=== PATIENT | male | born 1965 | race Asian ===

== ENCOUNTER → 2018-05-02 | Outpatient (CLI) | payer OTHER ==
--- NOTE | 2018-05-02 09:56 | XR ---
EXAMINATION TYPE: XR elbow limited RT DATE OF EXAM: 05/02/2018 CLINICAL HISTORY: pain TECHNIQUE: Frontal, lateral images of the right elbow are obtained. COMPARISON: None. FINDINGS: There is no acute fracture/dislocation evident of the elbow. No abnormal fat pad signs ar e seen. The overlying soft tissue appears unremarkable. IMPRESSION: There is no acute fracture or dislocation of the elbow. ICD 10 NO FRACTURE, INITIAL EVALUATION
== END | disposition home or self-care (01) ==
LOC: RADXRMAIN 09:13
PROVIDERS: ATTEND Orthopaedic Surgery
DX: M25.521 Pain in right elbow (principal)

== ENCOUNTER → 2018-05-18 | Day surgery (SDC) | payer OTHER ==
[2018-05-15 15:07] VITALS: BMI 26.6
[~2018-05-18] MED LIST: LACTATED RINGERS 1,000 ML IV SCH; LIDOCAINE 1% INJ 10MG/ML (20 ML MDV) ONE; PROPOFOL 10 MG/ML 20 ML VIAL IV ONE
[2018-05-18 10:27] VITALS: TEMP 97.8
--- NOTE | 2018-05-18 11:34 | P.GSHP ---
History of Present Illness H&P Date: 05/18/18 Chief Complaint: Colon cancer screening Patient here today for colonoscopy. Last colonoscopy 6-8 years ago. He believes that was normal at that time. No family history of colon cancer. No bowel related complaints. Past Medical History Past Medical History: Asthma, GERD/Reflux, Hyperlipidemia, Skin Disorder Additional Past Medical History / Comment(s): hx ulcers, decreased function of gallbladder, eczema, anemia History of Any Multi-Drug Resistant Organisms: None Reported Past Surgical History: Orthopedic Surgery Additional Past Surgical History / Comment(s): rt shoulder rotator cuff surgery , rt knee arthroscopy Past Anesthesia/Blood Transfusion Reactions: Motion Sickness Smoking Status: Former smoker - Past Family History Father Family Medical History: Deep Vein Thrombosis (DVT) Medications and Allergies Home Medications Medication Instructions Recorded Confirmed Type Albuterol Inhaler [Ventolin Hfa 1 - 2 puff INHALATION DIRECTED 05/15/1805/18 History Inhaler] PRN Atorvastatin [Lipitor] 40 mg PO HS 05/15/18 05/18/18 History Tamsulosin HCl [Flomax] 0.4 mg PO DAILY 05/15/18 05/18/18 History Allergies Allergy/AdvReac Type Severity Reaction Status Date / Time Penicillins Allergy Swelling, Verified 05/18/18 10:17 itching Surgical - Exam Vital Signs Temp Pulse Resp BP Pulse Ox 97.8 F 78 15 142/90 98 05/18/18 10:25 05/18/18 10:25 05/18/18 10:25 05/18/18 10:25 05/18/18 10:25 Physical exam: General: Well-developed, well-nourished HEENT: Normocephalic, sclerae nonicteric Abdomen: Nontender, nondistended Extremities: No edema Neuro: Alert and oriented Assessment and Plan (1) Colon cancer screening Narrative/Plan: Will proceed with colonoscopy Current Visit: Yes Status: Acute Code(s): Z12.11 - ENCOUNTER FOR SCREENING FOR MALIGNANT NEOPLASM OF COLON SNOMED Code(s): 716831250
--- NOTE | 2018-05-18 11:55 | P.PCN ---
Date of Procedure: 05/18/18 Procedure(s) Performed: PREOPERATIVE DIAGNOSIS: Colon cancer screening POSTOPERATIVE DIAGNOSIS: Small sigmoid polyp, diverticulosis PROCEDURE: Colonoscopy with snare polypectomy ANESTHESIA: MAC SURGEON: Jabari Maldonado M.D. SPECIMENS: Sigmoid polyp ENDOSCOPIC PROCEDURE: The patient was placed on the endoscopy table in the left decubitus position. The Olympus colonoscope was inserted into the anus and passed under direct visualization to the base of the cecum. The appendiceal orifice was visualized. From that point the scope was slowly withdrawn inspecting all surfaces carefully. There were no neoplastic inflammatory or polypoid lesions throughout the cecum, ascending, transverse, and descending colon. In the sigmoid colon a small polyp was identified and removed using the snare with cautery technique. The remainder of the sigmoid and rectum appeared normal. There was mild left sided diverticulosis. Digital rectal examination was normal. The patient was taken to the recovery room in stable condition per anesthesia guidelines. RECOMMENDATIONS: Await biopsy results.
[2018-05-18 11:59] VITALS: RESP 18
[2018-05-18 12:36] VITALS: BP 134/89; PULSE 74
== END ==
LOC: ORWHC2ENDO 10:06
PROVIDERS: ATTEND Surgery
DX: Z12.11 Encounter for screening for malignant neoplasm of colon (principal); K63.5 Polyp of colon; K57.90 Diverticulosis of intestine, part unspecified, without perforation or abscess without bleeding; J45.909 Unspecified asthma, uncomplicated; K21.9 Gastro-esophageal reflux disease without esophagitis; N40.0 Benign prostatic hyperplasia without lower urinary tract symptoms; I10 Essential (primary) hypertension; E78.5 Hyperlipidemia, unspecified; L30.9 Dermatitis, unspecified; Z87.891 Personal history of nicotine dependence; Z79.899 Other long term (current) drug therapy; Z88.0 Allergy status to penicillin
CPT/HCPCS: 88305; 45385; J2001; J2704

== ENCOUNTER → 2018-12-05 | Outpatient (CLI) | payer OTHER ==
--- NOTE | 2018-12-06 03:51 | MR ---
EXAMINATION TYPE: MR elbow RT wo con DATE OF EXAM: 12/05/2018 COMPARISON: None HISTORY: R elbow pain Standard multiplanar, multisequence MRI departmental protocol Multiplanar, multisequence images of the right elbow were acquired. FINDINGS: Elbow joint spaces are fairly normal. There is no evidence of elbow joint effusion. Triceps tendon is intact. Biceps tendon is intact. Brachialis tendon is intact. There is no evidence of soft tissue mass. I see no bony destructive process. Radial head is intact. The collateral ligaments appe ar intact. There is minimal subcutaneous edema over the olecranon process of the ulna. IMPRESSION: Minimal subcutaneous edema seen posteriorly. Otherwise negative exam.
== END | disposition home or self-care (01) ==
LOC: RADMRIMAIN 05:58
PROVIDERS: ATTEND Orthopaedic Surgery
DX: R60.0 Localized edema (principal)

== ENCOUNTER 2020-09-01 19:51 | Inpatient (IN) | payer BC ==
[2020-09-01] MEDS ORDERED: ACETAMINOPHEN TAB 500 MG TAB PO STA (22:26)
[2020-09-01] MEDS ORDERED: IBUPROFEN 600 MG TAB PO STA (22:26)
[2020-09-01] MEDS ORDERED: ALBUTEROL HFA INHALER INHALATION STA (23:23)
[2020-09-01] MEDS ORDERED: dexAMETHasone 4 MG TAB PO STA (23:23)
--- NOTE | 2020-09-01 23:24 | ED ---
SOB HPI - General Chief Complaint: Shortness of Breath Stated Complaint: SOB Time Seen by Provider: 09/01/20 23:18 Source: patient, RN notes reviewed, old records reviewed Mode of arrival: ambulatory Limitations: no limitations - History of Present Illness Initial Comments: This is a 55-year-old male to the ER for evaluation patient presents today for e valuation of weakness and not feeling well. Patient states he feels severely short of breath believes he does have coronavirus exposure. Patient has history of asthma, patient is sent in for evaluation today. Patient hasn't and seen, tone positive for coronavirus. Symptoms increasingly worsening MD Complaint: shortness of breath, cough, anxiety -: days(s) Severity: moderate Severity scale (1-10): 6 Quality: dull, aching Consistency: constant Improves With: nothing Worsens With: exertion, movement Known History Of: COPD, asthma Context: recent URI, recent illness Associated Symptoms: chest pain, cough Treatments Prior to Arrival: none - Related Data Home Medications Medication Instructions Recorded Confirmed Albuterol Inhaler (Mhu) [Ventolin 1 - 2 puff INHALATION DIRECTED 05/15/18 05/18/18 Hfa Inhaler] PRN Atorvastatin [Lipitor] 40 mg PO HS 05/15/18 05/18/18 Tamsulosin HCl [Flomax] 0.4 mg PO DAILY 05/15/18 05/18/18 Allergies Allergy/AdvReac Type Severity Reaction Status Date / Time Penicillins Allergy Swelling, Verified 09/01/20 21:27 itching Review of Systems ROS Statement: Those systems with pertinent positive or pertinent negative responses have been documented in the HPI. ROS Other: All systems not noted in ROS Statement are negative. Past Medical History Past Medical History: Asthma History of Any Multi-Drug Resistant Organisms: None Reported Past Surgical History: Orthopedic Surgery Additional Past Surgical History / Comment(s): rotator cuff surg. Past Anesthesia/Blood Transfusion Reactions: No Reported Reaction Past Psychological History: No Psychological Hx Reported Smoking Status: Never smoker Past Alcohol Use History: Occasional Past Drug Use History: None Reported - Past Family History Father Family Medical History: Deep Vein Thrombosis (DVT) General Exam Limitations: no limitations General appearance: alert, in no apparent distress, anxious Head exam: Present: atraumatic, normocephalic, normal inspection Eye exam: Present: normal appearance, PERRL, EOMI. Absent: scleral icterus, co njunctival injection, periorbital swelling ENT exam: Present: normal exam, mucous membranes moist Neck exam: Present: normal inspection. Absent: tenderness, meningismus, lymphadenopathy Respiratory exam: Present: respiratory distress, accessory muscle use, decreased breath sounds, prolonged expiratory. Absent: wheezes, rales, rhonchi, stridor Cardiovascular Exam: Present: normal rhythm, tachycardia, normal heart sounds. Absent: systolic murmur, diastolic murmur, rubs, gallop, clicks GI/Abdominal exam: Present: soft, normal bowel sounds. Absent: distended, tenderness, guarding, rebound, rigid Extremities exam: Present: normal inspection, full ROM, normal capillary refill. Absent: tenderness, pedal edema, joint swelling, calf tenderness Back exam: Present: normal inspection Neurological exam: Present: alert, oriented X3, CN II-XII intact Psychiatric exam: Present: normal affect, normal mood Skin exam: Present: warm, dry, intact, normal color. Absent: rash Course Vital Signs 09/01/20 09/01/20 09/01/20 21:22 23:37 23:38 Temperature 102.7 F H 102.1 F H Pulse Rate 122 H 123 H Respiratory 26 H 22 Rate Blood Pressure 127/83 140/95 O2 Sat by Pulse 94 L 89 L Oximetry 09/01/20 09/02/20 09/02/20 23:45 01:00 01:56 Temperature 100.2 F H 98.8 F Pulse Rate 106 H 97 Respiratory 25 H 20 19 Rate Blood Pressure 113/76 102/73 O2 Sat by Pulse 94 L 96 Oximetry - Reevaluation(s) Reevaluation #1: 09/02/20 02:05 Medical records reviewed Reevaluation #2: 09/02/20 02:05 Patient symptoms are improved here in the ER with symptom management including supplemental oxygen Reevaluation #3: 09/02/20 02:05 Patient informed results and questions answered - Consultations Consultation #1: Spoke with Dr. Jin Escobar who agrees to admit the patient Medical Decision Making - Medical Decision Making 55 male the ER patient will be admitted for coronavirus. Patient remains hypoxic in the ER, placed on supplemental O2 no significant distress currently. Patient is requiring supportive care - Lab Data Result diagrams: 09/02/20 00:41 09/02/20 00:41 Lab Results 09/01/20 09/02/20 09/02/20 Range/Units 21:28 00:41 00:41 WBC 3.2 L (3.8-10.6) k/uL RBC 6.34 H (4.30-5.90) m/uL Hgb 12.1 L (13.0-17.5) gm/dL Hct 35.6 L (39.0-53.0) % MCV 56.2 L (80.0-100.0) fL MCH 19.1 L (25.0-35.0) pg MCHC 34.0 (31.0-37.0) g/dL RDW 14.8 (11.5-15.5) % Plt Count 124 L (150-450) k/uL MPV 7.3 Neutrophils % 77 % Lymphocytes % 12 % Monocytes % 6 % Eosinophils % 1 % Basophils % 1 % Neutrophils # 2.5 (1.3-7.7) k/uL Lymphocytes # 0.4 L (1.0-4.8) k/uL Monocytes # 0.2 (0-1.0) k/uL Eosinophils # 0.0 (0-0.7) k/uL Basophils # 0.0 (0-0.2) k/uL Poikilocytosis Slight Microcytosis Marked PT 10.0 (9.0-12.0) sec INR 0.9 (<1.2) APTT 25.3 (22.0-30.0) sec Sodium (137-145) mmol/L Potassium (3.5-5.1) mmol/L Chloride (98-107) mmol/L Carbon Dioxide (22-30) mmol/L Anion Gap mmol/L BUN (9-20) mg/dL Creatinine (0.66-1.25) mg/dL Est GFR (CKD-EPI)AfAm (>60 ml/min/1.73 sqM) Est GFR (CKD-EPI)NonAf (>60 ml/min/1.73 sqM) Glucose (74-99) mg/dL Plasma Lactic Acid Ramin (0.7-2.0) mmol/L Calcium (8.4-10.2) mg/dL Magnesium (1.6-2.3) mg/dL Total Bilirubin (0.2-1.3) mg/dL AST (17-59) U/L ALT (4-49) U/L Alkaline Phosphatase (38-126) U/L Lactate Dehydrogenase (313-618) U/L C-Reactive Protein (<10.0) mg/L Total Protein (6.3-8.2) g/dL Albumin (3.5-5.0) g/dL Coronavirus (PCR) Detected A (Not Detectd) 09/02/20 09/02/20 Range/Units 00:41 00:41 WBC (3.8-10.6) k/uL RBC (4.30-5.90) m/uL Hgb (13.0-17.5) gm/dL Hct (39.0-53.0) % MCV (80.0-100.0) fL MCH (25.0-35.0) pg MCHC (31.0-37.0) g/dL RDW (11.5-15.5) % Plt Count (150-450) k/uL MPV Neutrophils % % Lymphocytes % % Monocytes % % Eosinophils % % Basophils % % Neutrophils # (1.3-7.7) k/uL Lymphocytes # (1.0-4.8) k/uL Monocytes # (0-1.0) k/uL Eosinophils # (0-0.7) k/uL Basophils # (0-0.2) k/uL Poikilocytosis Microcytosis PT (9.0-12.0) sec INR (<1.2) APTT (22.0-30.0) sec Sodium 130 L (137-145) mmol/L Potassium 3.2 L (3.5-5.1) mmol/L Chloride 94 L (98-107) mmol/L Carbon Dioxide 23 (22-30) mmol/L Anion Gap 13 mmol/L BUN 18 (9-20) mg/dL Creatinine 0.74 (0.66-1.25) mg/dL Est GFR (CKD-EPI)AfAm >90 (>60 ml/min/1.73 sqM) Est GFR (CKD-EPI)NonAf >90 (>60 ml/min/1.73 sqM) Glucose 117 H (74-99) mg/dL Plasma Lactic Acid Ramin 0.9 (0.7-2.0) mmol/L Calcium 8.3 L (8.4-10.2) mg/dL Magnesium 2.0 (1.6-2.3) mg/dL Total Bilirubin 0.8 (0.2-1.3) mg/dL AST 76 H (17-59) U/L ALT 51 H (4-49) U/L Alkaline Phosphatase 135 H (38-126) U/L Lactate Dehydrogenase 1150 H (313-618) U/L C-Reactive Protein 53.5 H (<10.0) mg/L Total Protein 7.2 (6.3-8.2) g/dL Albumin 4.0 (3.5-5.0) g/dL Coronavirus (PCR) (Not Detectd) - EKG Data -: EKG Interpreted by Me (EKG is sinus tachycardia 107 CO 130 QRS 90 QTC 465) - Radiology Data Radiology results: report reviewed (Chest x-rays positive for covert and pneumonia), image reviewed Critical Care Time Critical Care Time: Yes Total Critical Care Time: 31 Disposition Clinical Impression: Asthma with acute exacerbation, Coronavirus infection, Pneumonia due to COVID- 19 virus, Hypoxia Disposition: ADMITTED IP TO THIS [facility] Condition: Serious Is patient prescribed a controlled substance at d/c from ED?: No Referrals: Julito Vicente DO [Primary Care Provider] - 1-2 days
[2020-09-01] MEDS ORDERED: SODIUM CHLORIDE 0.9% 1,000 ML IV STA ×2 (23:58)
[2020-09-01] MEDS ORDERED: KETOROLAC 15 MG/ML 1 ML VIAL IVP STA (23:58)
[2020-09-02 00:52] LABS: Basophils % (A) 1 %; Eosinophils % (A) 1 %; HCT 35.6 % (39.0-53.0); HGB 12.1 gm/dL (13.0-17.5); Lymphocytes # (A) 0.4 k/uL (1.0-4.8); Lymphocytes % (A) 12 %; MCH 19.1 pg (25.0-35.0); MCV 56.2 fL (80.0-100.0); Mean Platelet Volume 7.3; Microcytosis Marked; Monocytes # (A) 0.2 k/uL (0-1.0); Monocytes % (A) 6 %; Neutrophils # (A) 2.5 k/uL (1.3-7.7); Neutrophils % (A) 77 %; Platelet Count 124 k/uL (150-450); Poikilocytosis Slight; RBC 6.34 m/uL (4.30-5.90); RDW 14.8 % (11.5-15.5); WBC 3.2 k/uL (3.8-10.6)
--- NOTE | 2020-09-02 00:52 | XR ---
EXAM: XR Chest, 1 View CLINICAL HISTORY: ITS. REASON XR Reason: sob TECHNIQUE: Frontal view of the chest. COMPARISON: 09/01/20 at 1742 hrs. FINDINGS: Lungs: Persistent bilateral airspace infiltrates, predominantly to the mid and lower lungs. Pleural space: Unremarkable. No pneumothorax. Heart: Unremarkable. No cardiomegaly. Mediastinum: Unremarkable. Bones/joints: Unremarkable. IMPRESSION: No significant interval change in bilateral airspace infiltrates, suspicious for pneumonia.
[2020-09-02 01:01] LABS: INR 0.9 (<1.2); Partial Thromboplastin Time 25.3 sec (22.0-30.0)
[2020-09-02 01:15] LABS: ALT 51 U/L (4-49); AST 76 U/L (17-59); African American GFR (CKD) >90 (>60 ml/min/1.73 sqM); Alkaline Phosphatase 135 U/L (38-126); Anion Gap 13 mmol/L; Blood Urea Nitrogen 18 mg/dL (9-20); C Reactive Protein 53.5 mg/L (<10.0); Calcium 8.3 mg/dL (8.4-10.2); Carbon Dioxide 23 mmol/L (22-30); Chloride 94 mmol/L (98-107); Glucose 117 mg/dL (74-99); LDH 1150 U/L (313-618); Non-African American GFR(CKD) >90 (>60 ml/min/1.73 sqM); Potassium 3.2 mmol/L (3.5-5.1); Sodium 130 mmol/L (137-145); Total Bilirubin 0.8 mg/dL (0.2-1.3); Total Protein 7.2 g/dL (6.3-8.2)
[2020-09-02] MEDS ORDERED: POTASSIUM CHLORIDE ER 20 MEQ TAB.ER PO STA ×2 (01:26)
[2020-09-02] MEDS ORDERED: MORPHINE SULFATE 4 MG/ML SYRINGE IV PRN (01:26)
[2020-09-02] MEDS ORDERED: ONDANSETRON 4 MG/2 ML VIAL IVP PRN (01:26)
[2020-09-02] MEDS ORDERED: NALOXONE 0.4 MG/ML 1 ML VIAL IV PRN (01:26)
[2020-09-02] MEDS: SODIUM CHLORIDE 0.9% 1,000 ML IV SCH ×3 (02:37→20:37)
[2020-09-02] MEDS: ALBUTEROL HFA INHALER INHALATION SCH ×3 (08:07→13:26)
[2020-09-02] MEDS: ENOXAPARIN 40 MG/0.4 ML SYRINGE SQ SCH (08:33)
[2020-09-02] MEDS ORDERED: REMDESIVIR 200 MG in SODIUM CHLORIDE 0.9% 250 ML IVPB ONE (11:00)
[2020-09-02] MEDS: DEXAMETHASONE SOD PHOSPHATE 10 MG/ML 1 ML VIAL IV SCH (11:09)
[2020-09-02] MEDS: guaiFENesin-Coden 100-10MG/5ML 10 ML CUP PO SCH ×3 (11:09→21:38)
--- NOTE | 2020-09-02 12:10 | P.CNPUL ---
History of Present Illness Consult date: 09/02/20 Requesting physician: Keith Mtz Reason for consult: dyspnea, cough, hypoxemia, abnormal CXR/CT Chief complaint: Fever, cough, chills, hypoxia, Covid 19 History of present illness: 55-year-old male patient of Dr. Marlena Vicente who presented to the emergency department on 09/01/2020 with symptoms of worsening cough, shortness of breath. Patient tested positive for COVID 19, his chest x-ray showed bilateral airspace infiltrates. First onset of symptoms was one week ago with cough, fever, flulike symptoms. Patient was seen by his primary care provider and placed on Z-Arun and Medrol dosepak last week. Patient has 2 days left of the Medrol Dosepak, and he finished the Z-Arun however his symptoms did not improve and progress. He is not requiring supplemental oxygen, 2 L, and his pulse ox of 94%, he was febrile on presentation, he has frequent dry cough, but no chest discomfort, no nausea or vomiting, did have diarrhea. he is a former smoker, only smoked for about 8 years, he quit smoking 20 years ago. He does have underlying history of asthma, mild intermittent, uses Ventolin on an as-needed basis, no history of frequent exacerbations, his asthma is exercise induced. His lab work revealed leukopenia, with white blood cell count 3.2, hemoglobin is 12.1, lymphopenia with a basic, 0.4, sodium is 1:30, potassium is 3.2, chloride is 94, BUN is 18, creatinine 0.74, plasma lactic acid 0.9. AST was 76, ALT was 51, alkaline phosphatase was 135, LDH was 1150, and CRP was 53.5. Patient also has history of psoriatic arthritis and he takes methotrexate and Arava, that were both placed on hold last week. Morning he seen on medical surgical floor, he is awake and alert, has a frequent dry cough, diffuse coarse crackles throughout the lung fajardo, no nausea or vomiting. Was started on oral Decadron 8 mg. On 0.9 normal saline running at 120 ML per hour, patient is within the window for Remdesivir and patient will be given a unit of convalescent plasma in addition to vitamins, prophylactic anticoagulation. Review of Systems All systems: negative Constitutional: Denies chills, Denies fever Eyes: denies blurred vision, denies pain Ears, nose, mouth and throat: Denies headache, Denies sore throat Cardiovascular: Denies chest pain, Denies shortness of breath Respiratory: Reports cough, Reports dyspnea Gastrointestinal: Reports diarrhea, Reports nausea, Reports vomiting, Denies abdominal pain Musculoskeletal: Denies myalgias Integumentary: Denies pruritus, Denies rash Neurological: Denies numbness, Denies weakness Psychiatric: Denies anxiety, Denies depression Endocrine: Denies fatigue, Denies weight change Past Medical History Past Medical History: Asthma, Hyperlipidemia Additional Past Medical History / Comment(s): Pt tested covid + 09/01/20 at [facility] ER. Other hx: Exertional asthma, seasonal allergies, gastric ulcers, lower GI bleed, diverticular disease, benign colon polyps, decreased gallbladder function, psoriatic arthritis affecting multiple joints, anemia/beta thalassemia History of Any Multi-Drug Resistant Organisms: None Reported Past Surgical History: Orthopedic Surgery Additional Past Surgical History / Comment(s): R rotator cuff repair, R knee arthroscopy/loose bodies, EGD, colonoscopies/benign polyp, wisdom teeth extraction. Past Anesthesia/Blood Transfusion Reactions: No Reported Reaction Smoking Status: Former smoker - Past Family History Father Family Medical History: Respiratory Disorder Additional Family Medical History / Comment(s): Father of pulmonary disease Mother Family Medical History: No Reported History Additional Family Medical History / Comment(s): Mother is healthy Medications and Allergies Home Medications Medication Instructions Recorded Confirmed Type Leflunomide [Arava] 20 mg PO DIRECTED 09/02/20 09/02/20 History levoFLOXacin 500 mg PO DAILY 09/02/20 09/02/20 History methylPREDNISolone Dose Pack See Taper PO DIRECTED 09/02/20 09/02/20 History [Medrol Dose Pack] Allergies Allergy/AdvReac Type Severity Reaction Status Date / Time Penicillins Allergy Swelling, Verified 09/02/20 07:27 itching Physical Exam Vitals: Vital Signs Temp Pulse Pulse Resp BP BP Pulse Ox 09/02/20 11:38 96.8 F L 76 17 111/75 99 09/02/20 09:20 18 09/02/20 06:45 98.2 F 79 18 123/87 96 09/02/20 01:56 98.8 F 97 19 102/73 96 09/02/20 01:00 100.2 F H 106 H 20 113/76 94 L 09/01/20 23:45 25 H 09/01/20 23:38 102.1 F H 09/01/20 23:37 123 H 22 140/95 89 L 09/01/20 21:22 102.7 F H 122 H 26 H 127/83 94 L Intake and Output 09/01/20 09/02/20 09/02/20 22:59 06:59 14:59 Other: Weight 78.471 kg 78.471 kg GENERAL EXAM: Alert, very pleasant 55-year-old male on today's of oxygen with a pulse ox of 94-96%, comfortable in no apparent distress. HEAD: Normocephalic/atraumatic. EYES: Normal reaction of pupils, equal size. Conjunctiva pink, sclera white. NOSE: Clear with pink turbinates. THROAT: No erythema or exudates. NECK: No masses, no JVD, no thyroid enlargement, no adenopathy. CHEST: No chest wall deformity. Symmetrical expansion. LUNGS: Equal air entry with diffuse crackles CVS: Regular rate and rhythm, normal S1 and S2, no gallops, no murmurs, no rubs ABDOMEN: Soft, nontender. No hepatosplenomegaly, normal bowel sounds, no guarding or rigidity. EXTREMITIES: No clubbing, no edema, no cyanosis, 2+ pulses and upper and lower extremities. MUSCULOSKELETAL: Muscle strength and tone normal. SPINE: No scoliosis or deformity SKIN: No rashes CENTRAL NERVOUS SYSTEM: Alert and oriented -3. No focal deficits, tone is normal in all 4 extremities. PSYCHIATRIC: Alert and oriented -3. Appropriate affect. Intact judgment and insight. Results - Laboratory Findings CBC and BMP: 09/02/20 00:41 09/02/20 00:41 PT/INR, D-dimer PT 10.0 sec (9.0-12.0) 09/02/20 00:41 INR 0.9 (<1.2) 09/02/20 00:41 Abnormal lab findings: Abnormal Labs 09/01/20 09/02/20 09/02/20 21:28 00:41 00:41 WBC 3.2 L RBC 6.34 H Hgb 12.1 L Hct 35.6 L MCV 56.2 L MCH 19.1 L Plt Count 124 L Lymphocytes # 0.4 L Sodium 130 L Potassium 3.2 L Chloride 94 L Glucose 117 H Calcium 8.3 L AST 76 H ALT 51 H Alkaline Phosphatase 135 H Lactate Dehydrogenase 1150 H C-Reactive Protein 53.5 H Coronavirus (PCR) Detected A - Diagnostic Findings Chest x-ray: report reviewed, image reviewed Additional studies: EKG reviewed Assessment and Plan Plan: Assessment: #1. Acute hypoxic respiratory failure related to acute COVID 19 pneumonia, onset of symptoms 7 days ago, patient had outpatient treatment with Z-Arun and Medrol Dosepak and his symptoms progressed. Patient will be started on a Remdesivir, will be given 1 unit of convalescent plasma in addition to steroids and vitamins #2. History of psoriatic arthritis on methotrexate and Leflunomide, dad both have been placed on hold 7 days ago #3. Increased inflammatory markers related to acute COVID 19 infection #4. Mild intermittent bronchial asthma, exercise induced #5. 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 Increased transaminases, likely related to viral pneumonia, we'll continue to follow #7. Hyponatremia and hypokalemia, related to dehydration Plan: Continue current medical treatment, continue Decadron 6 program daily, continue prophylactic Lovenox, we'll give 1 unit of convalescent plasma and we'll start patient on a Remdesivir, Robitussin-AC for cough every 6 hours [id number], continue supportive treatment, follow-up inflammatory markers, stat d-dimer today, pro-calcitonin level is pending, we'll continue to follow glucose course and make further recommendations I performed a history & physical examination of the patient and discussed their management with my nurse practitioner, Jocy Pacheco. I reviewed the nurse practitioner's note and agree with the documented findings and plan of care. Lung sounds are positive for diffuse coarse crackles. The findings and the impression was discussed with the patient. I attest to the documentation by the nurse practitioner. Time with Patient: Greater than 30
[2020-09-02 14:30] VITALS: BMI 27.1
--- NOTE | 2020-09-02 19:39 | P.HPIM ---
History of Present Illness H&P Date: 09/02/20 Chief Complaint: Short of breath History of presenting complaint: This is a very pleasant 55-year-old patient of Dr. Marlena Vicente. Chronic stable medical conditions include hyperlipidemia, exercise-induced asthma, seasonal ALLERGIES, diverticulosis, psoriatic arthritis affecting multiple joints, beta thalassemia. Patient started off the cough about a week ago. The cough is coming progressively worse with associated shortness of breath. No loss of smell or taste. Patient's had some diarrhea. Not much of body 8. Appetite has gone down. Patient tested positive for COVID on September 01 that Eusebio Calvo on ER. Today Remdesivir was ordered by pulmonary. Tired. 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 . Patient smoked for 8 years stopped in 1997. Alcohol occasionally. Physical examination: VITAL SIGNS: 102.7, 122, 26, 127/83, 89% on room air GENERAL: BMI 27.1, reclining in the bed,. EYES: Pupils equal. Conjunctiva normal. HEENT: External appearance of nose and ears normal, oral cavity grossly normal. NECK: JVD not raised; masses not palpable. HEART: First and second heart sounds are normal; no edema. LUNGS: Respiratory rate increased, basal crackles. ABDOMEN: Soft, nontender, liver spleen not palpable, no masses palpable. PSYCH: Alert and oriented x3; mood and affect normal. NEUROLOGICAL: Cranial nerves grossly intact; no facial asymmetry, power and sensation grossly intact. DERMATOLOGICAL: Psoriatic patches LYMPHATICS: No lymph nodes palpable in the axilla and neck INVESTIGATIONS, reviewed in the clinical context: WBC 3.2 hemoglobin 12.1 platelets 124 potassium 3.2 creatinine 0.74 sodium 1:30 D-dimer 0.58 CRP 53.5 coronavirus [PCR] detected EKG tracing personally reviewed by me-sinus rhythm Q waves in inferior leads Chest x-ray personally reviewed by me-bilateral infiltrates Assessment and plan: -Bilateral COVID 19 pneumonia causing sepsis Patient based on subcu Lovenox, IV Decadron. Remdesivir ordered by pulmonary. Also add vitamin C vitamin D Pepcid zinc IV fluids -Acute hypoxic respiratory failure secondary to COVID 19 pneumonia Supplement oxygen on 2 L -Excise-induced asthma Use bronchodilators -Hyperlipidemia -Colonic diverticulosis, asymptomatic -Psoriatic arthritis and psoriasis -Beta thalassemia Follow hemoglobin Care was discussed with the patient. Pulmonary consulted. Encouraged to sit up as much as possible and use incentive spirometry. Questions were answered Given the complexity and severity of patient's condition expect the patient to be in the hospital at least for 2 overnights Past Medical History Past Medical History: Asthma, Hyperlipidemia Additional Past Medical History / Comment(s): Pt tested covid + 09/01/20 at [facility] ER. Other hx: Exertional asthma, seasonal allergies, gastric ulcers, lower GI bleed, diverticular disease, benign colon polyps, decreased gallbladder func tion, psoriatic arthritis affecting multiple joints, anemia/beta thalassemia History of Any Multi-Drug Resistant Organisms: None Reported Past Surgical History: Orthopedic Surgery Additional Past Surgical History / Comment(s): R rotator cuff repair, R knee arthroscopy/loose bodies, EGD, colonoscopies/benign polyp, wisdom teeth extraction. Past Anesthesia/Blood Transfusion Reactions: No Reported Reaction Smoking Status: Former smoker - Past Family History Father Family Medical History: Respiratory Disorder Additional Family Medical History / Comment(s): Father of pulmonary disease Mother Family Medical History: No Reported History Additional Family Medical History / Comment(s): Mother is healthy Medications and Allergies Home Medications Medication Instructions Recorded Confirmed Type Leflunomide [Arava] 20 mg PO DIRECTED 09/02/20 09/02/20 History levoFLOXacin 500 mg PO DAILY 09/02/20 09/02/20 History methylPREDNISolone Dose Pack See Taper PO DIRECTED 09/02/20 09/02/20 History [Medrol Dose Pack] Allergies Allergy/AdvReac Type Severity Reaction Status Date / Time Penicillins Allergy Swelling, Verified 09/02/20 07:27 itching Physical Exam Vitals: Vital Signs Temp Pulse Resp BP Pulse Ox 09/02/20 06:45 98.2 F 79 18 123/87 96 09/02/20 01:56 98.8 F 97 19 102/73 96 09/02/20 01:00 100.2 F H 106 H 20 113/76 94 L 09/01/20 23:45 25 H 09/01/20 23:38 102.1 F H 09/01/20 23:37 123 H 22 140/95 89 L 09/01/20 21:22 102.7 F H 122 H 26 H 127/83 94 L Intake and Output 09/01/20 09/02/20 09/02/20 22:59 06:59 14:59 Other: Weight 78.471 kg 78.471 kg Results CBC & Chem 7: 09/02/20 00:41 09/02/20 00:41 Labs: Abnormal Lab Results - Last 24 Hours (Table) 09/01/20 09/02/20 09/02/20 Range/Units 21:28 00:41 00:41 WBC 3.2 L (3.8-10.6) k/uL RBC 6.34 H (4.30-5.90) m/uL Hgb 12.1 L (13.0-17.5) gm/dL Hct 35.6 L (39.0-53.0) % MCV 56.2 L (80.0-100.0) fL MCH 19.1 L (25.0-35.0) pg Plt Count 124 L (150-450) k/uL Lymphocytes # 0.4 L (1.0-4.8) k/uL Sodium 130 L (137-145) mmol/L Potassium 3.2 L (3.5-5.1) mmol/L Chloride 94 L (98-107) mmol/L Glucose 117 H (74-99) mg/dL Calcium 8.3 L (8.4-10.2) mg/dL AST 76 H (17-59) U/L ALT 51 H (4-49) U/L Alkaline Phosphatase 135 H (38-126) U/L Lactate Dehydrogenase 1150 H (313-618) U/L C-Reactive Protein 53.5 H (<10.0) mg/L Coronavirus (PCR) Detected A (Not Detectd) Thrombosis Risk Factor Assmnt - Choose All That Apply Any of the Below Risk Factors Present?: Yes Each Factor Represents 1 point: Age 41-60 years, Obesity (BMI >25), Serious lung disease incl. pneumonia (< 1month) Other Risk Factors: No Other congenital or acquired thrombophilia - If yes, enter type in comment: No Thrombosis Risk Factor Assessment Total Risk Factor Score: 3 Thrombosis Risk Factor Assessment Level: Moderate Risk
[2020-09-02] MEDS: ZINC SULFATE 220 MG CAP PO SCH (20:36)
[2020-09-02] MEDS: ASCORBIC ACID 500 MG TAB PO SCH (20:37)
[2020-09-02] MEDS: FAMOTIDINE 20 MG TAB PO SCH (20:37)
[2020-09-02] MEDS: CHOLECALCIFEROL 25 MCG (1000 IU) TABLET PO SCH (20:37)
[2020-09-03] MEDS: ALBUTEROL HFA INHALER INHALATION SCH ×6 (00:10→21:21)
[2020-09-03] MEDS: SODIUM CHLORIDE 0.9% 1,000 ML IV SCH ×4 (02:09→20:32)
[2020-09-03] MEDS: guaiFENesin-Coden 100-10MG/5ML 10 ML CUP PO SCH ×4 (04:13→22:15)
[2020-09-03 06:24] LABS: Basophils % (A) 0 %; Eosinophils % (A) 0 %; HCT 33.9 % (39.0-53.0); HGB 10.6 gm/dL (13.0-17.5); Lymphocytes # (A) 0.7 k/uL (1.0-4.8); Lymphocytes % (A) 14 %; MCHC 31.4 g/dL (31.0-37.0); MCV 57.2 fL (80.0-100.0); Mean Platelet Volume 7.4; Microcytosis Marked; Monocytes # (A) 0.2 k/uL (0-1.0); Monocytes % (A) 4 %; Neutrophils # (A) 4.2 k/uL (1.3-7.7); Neutrophils % (A) 81 %; Platelet Count 139 k/uL (150-450); Poikilocytosis Slight; RBC 5.92 m/uL (4.30-5.90); RDW 14.9 % (11.5-15.5); WBC 5.2 k/uL (3.8-10.6)
[2020-09-03 06:39] LABS: ALT 51 U/L (4-49); AST 107 U/L (17-59); African American GFR (CKD) >90 (>60 ml/min/1.73 sqM); Albumin 3.3 g/dL (3.5-5.0); Alkaline Phosphatase 109 U/L (38-126); Anion Gap 7 mmol/L; Blood Urea Nitrogen 12 mg/dL (9-20); C Reactive Protein 39.6 mg/L (<10.0); Calcium 7.8 mg/dL (8.4-10.2); Carbon Dioxide 24 mmol/L (22-30); Chloride 101 mmol/L (98-107); Glucose 111 mg/dL (74-99); LDH 1700 U/L (313-618); Magnesium 1.9 mg/dL (1.6-2.3); Non-African American GFR(CKD) >90 (>60 ml/min/1.73 sqM); Phosphorus 1.7 mg/dL (2.5-4.5); Potassium 3.6 mmol/L (3.5-5.1); Sodium 132 mmol/L (137-145); Total Bilirubin 0.6 mg/dL (0.2-1.3); Total Protein 6.2 g/dL (6.3-8.2)
[2020-09-03] MEDS ORDERED: ACETAMINOPHEN TAB 325 MG TAB PO PRN (09:08)
[2020-09-03] MEDS: ENOXAPARIN 40 MG/0.4 ML SYRINGE SQ SCH (09:36)
[2020-09-03] MEDS: CHOLECALCIFEROL 25 MCG (1000 IU) TABLET PO SCH (09:36)
[2020-09-03] MEDS: FAMOTIDINE 20 MG TAB PO SCH ×2 (09:36→20:34)
[2020-09-03] MEDS: DEXAMETHASONE SOD PHOSPHATE 10 MG/ML 1 ML VIAL IV SCH (09:37)
[2020-09-03] MEDS: ZINC SULFATE 220 MG CAP PO SCH (09:37)
[2020-09-03] MEDS: ASCORBIC ACID 500 MG TAB PO SCH (09:37)
[2020-09-03] MEDS: REMDESIVIR 100 MG in SODIUM CHLORIDE 0.9% 250 ML IVPB SCH (09:39)
--- NOTE | 2020-09-03 11:26 | P.PN ---
Subjective Progress Note Date: 09/03/20 Principal diagnosis: Fever, cough, chills, hypoxia, COVID 19 55-year-old male patient of Dr. Marlena Vicente who presented to the emergency department on 09/01/2020 with symptoms of worsening cough, shortness of breath. Patient tested positive for COVID 19, his chest x-ray showed bilateral airspace infiltrates. First onset of symptoms was one week ago with cough, fever, flu like symptoms. Patient was seen by his primary care provider and placed on Z- Arun and Medrol dosepak last week. Patient has 2 days left of the Medrol Dosepak, and he finished the Z-Arun however his symptoms did not improve and progress. He is not requiring supplemental oxygen, 2 L, and his pulse ox of 94%, he was febrile on presentation, he has frequent dry cough, but no chest discomfort, no nausea or vomiting, did have diarrhea. he is a former smoker, only smoked for about 8 years, he quit smoking 20 years ago. He does have underlying history of asthma, mild intermittent, uses Ventolin on an as-needed basis, no history of frequent exacerbations, his asthma is exercise induced. His lab work revealed leukopenia, with white blood cell count 3.2, hemoglobin is 12.1, lymphopenia with a basic, 0.4, sodium is 1:30, potassium is 3.2, chloride is 94, BUN is 18, creatinine 0.74, plasma lactic acid 0.9. AST was 76, ALT was 51, alkaline phosphatase was 135, LDH was 1150, and CRP was 53.5. Patient also has history of psoriatic arthritis and he takes methotrexate and Arava, that were both placed on hold last week. Morning he seen on medical surgical floor, he is awake and alert, has a frequent dry cough, diffuse coarse crackles throughout the lung fajardo, no nausea or vomiting. Was started on oral Decadron 8 mg. On 0.9 normal saline running at 120 ML per hour, patient is within the window for Remdesivir and patient will be given a unit of convalescent plasma in addition to vitamins, prophylactic anticoagulation. On 09/03/2020 patient seen in follow-up on medical floor, still coughing a lot, dyspneic, he is currently on 4 L of oxygen, his pulse ox of 97%, chest feels heavy, overall she is feeling 'lousy". Low-grade fever this morning, with a temp of 99.7F, lung sounds. Positive for coarse diffuse bilateral crackles throughout lung fajardo. This is day 2 of Remdesivir treatment, he is still awaiting convalescent plasma, continues on Decadron 6 mg, vitamins, and prophyl actic anticoagulation, today's labs have been reviewed, showing white blood cell count of 5.2, hemoglobin of 10.6, d-dimer is 1.15, sodium is 132, the rest of electrolytes and renal profile were unremarkable, LDH has trended up to 1700, CRP is down slightly to 39.6 from 53.5. Pro-calcitonin level is 0.18. Blood cultures have been negative. Patient has quite frequent dry irritative cough, his lower back is starting to hurt and he is not sure whether it's from coughing or being in the bed and in the chair for a long period of time. Objective - Vital Signs Vital signs: Vital Signs Temp 97.6 F 09/03/20 08:00 Pulse 60 09/03/20 08:00 Resp 16 09/03/20 08:00 BP 131/70 09/03/20 08:00 Pulse Ox 97 09/03/20 08:00 Intake & Output 09/02/20 09/03/20 09/03/20 18:59 06:59 18:59 Intake Total 1450 2060 Balance 1450 2060 Weight 78.471 kg Intake: Intake, IV Titration 1450 1440 Amount Remdesivir 200 mg In 250 Sodium Chloride 0.9% 250 ml @ 250 mls/hr IVPB ONCE ONE Rx#:[id number] Sodium Chloride 0.9% 1, 1200 1440 000 ml @ 120 mls/hr IV . Q8H20M [facility] Rx#:[id number] Oral 620 Other: # Voids 5 # Bowel Movements 3 - Exam GENERAL EXAM: Alert, very pleasant 55-year-old male on 2 l/min of oxygen with a pulse ox of 97%, patient has a dry irritated cough, which is quite frequent and at times continuous comfortable in no apparent distress. HEAD: Normocephalic/atraumatic. EYES: Normal reaction of pupils, equal size. Conjunctiva pink, sclera white. NOSE: Clear with pink turbinates. THROAT: No erythema or exudates. NECK: No masses, no JVD, no thyroid enlargement, no adenopathy. CHEST: No chest wall deformity. Symmetrical expansion. LUNGS: Equal air entry with diffuse crackles CVS: Regular rate and rhythm, normal S1 and S2, no gallops, no murmurs, no rubs ABDOMEN: Soft, nontender. No hepatosplenomegaly, normal bowel sounds, no guarding or rigidity. EXTREMITIES: No clubbing, no edema, no cyanosis, 2+ pulses and upper and lower extremities. MUSCULOSKELETAL: Muscle strength and tone normal. SPINE: No scoliosis or deformity SKIN: No rashes CENTRAL NERVOUS SYSTEM: Alert and oriented -3. No focal deficits, tone is normal in all 4 extremities. PSYCHIATRIC: Alert and oriented -3. Appropriate affect. Intact judgment and insight. - Labs CBC & Chem 7: 09/03/20 05:47 09/03/20 05:47 Labs: Abnormal Lab Results - Last 24 Hours (Table) 09/02/20 09/03/20 09/03/20 Range/Units 11:28 05:47 05:47 RBC 5.92 H (4.30-5.90) m/uL Hgb 10.6 L (13.0-17.5) gm/dL Hct 33.9 L (39.0-53.0) % MCV 57.2 L (80.0-100.0) fL MCH 18.0 L (25.0-35.0) pg Plt Count 139 L (150-450) k/uL Lymphocytes # 0.7 L (1.0-4.8) k/uL D-Dimer (<0.60) mg/L FEU Sodium 132 L (137-145) mmol/L Glucose 111 H (74-99) mg/dL Calcium 7.8 L (8.4-10.2) mg/dL Phosphorus 1.7 L (2.5-4.5) mg/dL AST 107 H (17-59) U/L ALT 51 H (4-49) U/L Lactate Dehydrogenase 1700 H (313-618) U/L C-Reactive Protein 39.6 H (<10.0) mg/L Total Protein 6.2 L (6.3-8.2) g/dL Albumin 3.3 L (3.5-5.0) g/dL Procalcitonin 0.18 H (0.02-0.09) ng/mL 09/03/20 Range/Units 05:47 RBC (4.30-5.90) m/uL Hgb (13.0-17.5) gm/dL Hct (39.0-53.0) % MCV (80.0-100.0) fL MCH (25.0-35.0) pg Plt Count (150-450) k/uL Lymphocytes # (1.0-4.8) k/uL D-Dimer 1.15 H (<0.60) mg/L FEU Sodium (137-145) mmol/L Glucose (74-99) mg/dL Calcium (8.4-10.2) mg/dL Phosphorus (2.5-4.5) mg/dL AST (17-59) U/L ALT (4-49) U/L Lactate Dehydrogenase (313-618) U/L C-Reactive Protein (<10.0) mg/L Total Protein (6.3-8.2) g/dL Albumin (3.5-5.0) g/dL Procalcitonin (0.02-0.09) ng/mL Microbiology - Last 24 Hours (Table) 09/02/20 00:20 Blood Culture - Preliminary Blood No Growth after 24 hours 09/02/20 00:35 Blood Culture - Preliminary Blood No Growth after 24 hours Assessment and Plan Plan: Assessment: #1. Acute hypoxic respiratory failure related to acute COVID 19 pneumonia, onset of symptoms 7 days ago, patient had outpatient treatment with Z-Arun and Medrol Dosepak and his symptoms progressed. Started on a Remdesivir on 09/02/2020, still awaiting convalescent plasma ordered on 09/02/2020, continues on Decadron #2. History of psoriatic arthritis on methotrexate and Leflunomide, dad both have been placed on hold 7 days ago #3. Increased inflammatory markers related to acute COVID 19 infection #4. Mild intermittent bronchial asthma, exercise induced #5. 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 Increased transaminases, likely related to viral pneumonia, we'll continue to follow #7. Hyponatremia and hypokalemia, related to dehydration Plan: Patient is having frequent coughing jags, we will switch his Decadron to IV Solu-Medrol 60 mg every 6 hours in view of his underlying history of chronic bro nchial asthma, we will add Janice Santana in addition to his Robitussin-AC, continue vitamins, continue Remdesivir, today is day 2 of treatment, still awaiting on convalescent plasma, today's labs have been reviewed, we'll continue to follow d-dimer and inflammatory markers on a daily basis, obtain follow-up chest x-ray tomorrow, we'll continue to closely follow. I performed a history & physical examination of the patient and discussed their management with my nurse practitioner, Jocy Pacheco. I reviewed the nurse practitioner's note and agree with the documented findings and plan of care. Lung sounds are positive for diffuse coarse crackles. The findings and the impression was discussed with the patient. I attest to the documentation by the nurse practitioner. Time with Patient: Less than 30
[2020-09-03] MEDS: BENZONATATE 100 MG CAP PO SCH ×3 (13:16→20:34)
[2020-09-03] MEDS: methylPREDNISolone SOD SUCCI 125 MG/2 ML VIAL IV SCH ×2 (13:16→17:16)
--- NOTE | 2020-09-03 20:59 | P.PN ---
Progress Note - Text Progress Note Date: 09/03/20 Chief Complaint: Short of breath History of presenting complaint: This is a very pleasant 55-year-old patient of Dr. Marlena Vicente. Chronic stable medical conditions include hyperlipidemia, exercise-induced asthma, seasonal ALLERGIES, diverticulosis, psoriatic arthritis affecting multiple joints, beta thalassemia. Patient started off the cough about a week ago. The cough is coming progressively worse with associated shortness of breath. No loss of smell or taste. Patient's had some diarrhea. Not much of body 8. Appetite has gone down. Patient tested positive for COVID on September 01 that Eusebio Calvo on ER. Tired. Febrile Admitted with bilateral COVID 19 pneumonia causing sepsis, acute hypoxic respiratory failure. Started on dexamethasone, Lovenox, Remdesivir Today: Sitting up in a chair. Short of breath. Did eat some. Tired. Bouts of coughing Review of systems: Was done for constitutional, cardiovascular, GI, pulmonary. relevant finding as above Active Medications Acetaminophen (Acetaminophen Tab 325 Mg Tab) 650 mg PO Q6HR PRN PRN Reason: Fever and/ or Pain Last Admin: 09/03/20 09:36 Dose: 650 mg Documented by: Albuterol Sulfate (Albuterol Hfa Inhaler) 2 puff INHALATION RT-QID [facility] Last Admin: 09/03/20 19:04 Dose: 2 puff Documented by: Ascorbic Acid (Ascorbic Acid 500 Mg Tab) 1,000 mg PO DAILY [facility] Last Admin: 09/03/20 09:37 Dose: 1,000 mg Documented by: Benzonatate (Benzonatate 100 Mg Cap) 100 mg PO TID [facility] Last Admin: 09/03/20 20:34 Dose: 100 mg Documented by: Cholecalciferol (Cholecalciferol 25 Mcg (1000 Iu) Tablet) 100 mcg PO DAILY [facility] Last Admin: 09/03/20 09:36 Dose: 100 mcg Documented by: Enoxaparin Sodium (Enoxaparin 40 Mg/0.4 Ml Syringe) 40 mg SQ DAILY [facility] Last Admin: 09/03/20 09:36 Dose: 40 mg Documented by: Famotidine (Famotidine 20 Mg Tab) 20 mg PO BID [facility] Last Admin: 09/03/20 20:34 Dose: 20 mg Documented by: Guaifenesin/Codeine Phosphate (Guaifenesin-Coden 100-10mg/5ml 10 Ml Cup) 10 ml PO Q6H [facility] Last Admin: 09/03/20 15:59 Dose: 10 ml Documented by: Sodium Chloride (Saline 0.9%) 1,000 mls @ 120 mls/hr IV .Q8H20M [facility] Last Admin: 09/03/20 20:32 Dose: 120 mls/hr Documented by: Remdesivir 100 mg/ Sodium (Chloride) 250 mls @ 250 mls/hr IVPB Q24H [facility] Stop: 09/06/20 11:59 Last Admin: 09/03/20 09:39 Dose: 250 mls/hr Documented by: Methylprednisolone Sodium Succinate (Methylprednisolone Sod Succi 125 Mg/2 Ml Vial) 60 mg IV Q6HR [facility] Last Admin: 09/03/20 17:16 Dose: 60 mg Documented by: Naloxone HCl (Naloxone 0.4 Mg/Ml 1 Ml Vial) 0.2 mg IV Q2M PRN PRN Reason: Opioid Reversal Ondansetron HCl (Ondansetron 4 Mg/2 Ml Vial) 4 mg IVP Q8HR PRN PRN Reason: Nausea And Vomiting Zinc Sulfate (Zinc Sulfate 220 Mg Cap) 220 mg PO DAILY [facility] Last Admin: 09/03/20 09:37 Dose: 220 mg Documented by: Past medical history to include: Exercise-induced asthma, hyperlipidemia, seasonal ALLERGIES, gastric ulcer in the remote past, diverticulosis, colon polyps, psoriatic arthritis affecting many joints, beta thalassemia 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 . Patient smoked for 8 years stopped in 1997. Alcohol occasionally. Physical examination: VITAL SIGNS: 97.9, 98, 16, 140/68, 92% on 3 L GENERAL: Sitting up to chair, slightly short of breath LUNGS: Respiratory rate increased,. PSYCH: Alert and oriented x3; mood and affect normal. NEUROLOGICAL: Cranial nerves grossly intact; no facial asymmetry, moving limbs Rest of the exam per pulmonary and nursing INVESTIGATIONS, reviewed in the clinical context: September 03: WBC 5.2 hemoglobin 10.6 platelets 139 d-dimer 1.15 potassium 3.6 CRP 39.6 WBC 3.2 hemoglobin 12.1 platelets 124 potassium 3.2 creatinine 0.74 sodium 1:30 D-dimer 0.58 CRP 53.5 coronavirus [PCR] detected EKG tracing personally reviewed by me-sinus rhythm Q waves in inferior leads Chest x-ray personally reviewed by me-bilateral infiltrates Assessment and plan: -Bilateral COVID 19 pneumonia causing sepsis-slow to respond on subcu Lovenox, IV Decadron. Remdesivir ordered by pulmonary. vitamin C vitamin D Pepcid zinc IV fluids -Acute hypoxic respiratory failure secondary to COVID 19 pneumonia-slight worsening Supplement oxygen on 3 L -Excise-induced asthma Use bronchodilators -Hyperlipidemia -Colonic diverticulosis, asymptomatic -Psoriatic arthritis and psoriasis -Beta thalassemia Follow hemoglobin Discussed with the patient. Encouraged to do incentive spirometry. Increased limb movements while sitting.
--- NOTE | 2020-09-03 23:30 | CONS ---
CONSULTATION DATE OF SERVICE: 09/03/2020 REASON FOR CONSULTATION: COVID-19 pneumonia. HISTORY OF PRESENT ILLNESS: The patient is a 55-year-old male presenting to the ER at [facility] on September 01 for evaluation of increasing shortness of breath and cough. The patient said it had been going on for about a week starting on Monday of last week; has been mostly cough which has gradually increased in intensity, moderate. Did have some occasional sputum but no hemoptysis. Has been complaining of shortness of breath on minimal exertion and even at rest. The patient complained of nausea but no vomiting. Denies any abdominal pain. Did have some diarrhea. Apparently the patient has been evaluated in the outpatient setting by the primary care physician. The patient was treated with Z-Arun and a Medrol Dosepak. However, the patient did not have any improvement; rather, the patient had persistent worsening. Hence the patient decided to come to the ER. On arrival in the ER, the patient did have a fever of 102.7 degrees Fahrenheit. The patient was hypoxic with O2 saturations of 89% on room air. The patient did have leukopenia as well as lymphopenia. D-dimer was normal. Repeat is slightly elevated. Creatinine was normal. Liver enzymes are mildly elevated. Procalcitonin was 0.18, ramon PCR positive. Blood cultures were obtained which are currently pending. The patient did have a chest x-ray that was reported to show bilateral airspace disease. The patient has been admitted to the hospital. Infectious Disease was consulted for further management. REVIEW OF SYSTEMS: Positive points have been mentioned in the HPI. Rest of the systems are negative. PAST MEDICAL HISTORY: Asthma. PAST SURGICAL HISTORY: Rotator cuff repair. SOCIAL HISTORY: Occasionally drinks. No smoking or drug use. FAMILY HISTORY: Father had a history of DVT. ALLERGIES: PENICILLIN. No history of anaphylaxis. MEDICATIONS: The patient is currently on Tylenol, Ventolin, vitamin C, Tessalon Perles, vitamin D3, Lovenox, Solu-Medrol, Narcan, Zofran, remdesivir, zinc sulfate. PHYSICAL EXAMINATION: Blood pressure is 128/76, pulse of 90, temperature 97.9. He is 91% on 4 L nasal cannula. General description is a middle-aged male lying in bed in no distress. No tachypnea or accessory muscle of respiration use. HEENT: Examination shows pallor. No scleral icterus. Oral mucous membrane is dry. NECK: Trachea is central. No thyromegaly. LUNGS: Unlabored breathing. Coarse breath sounds bilaterally. No wheeze. HEART: S1, S2. Regular rate and rhythm. ABDOMEN: Soft. No tenderness. No guarding or rigidity. EXTREMITIES: No edema of the feet. SKIN EXAMINATION: No rash or mass palpable. Neurologically the patient is awake, alert, oriented x3. Mood and affect normal. LABS: Hemoglobin is 10.3, white count 5.2. D-dimer is 1.15. BUN of 12, creatinine 0.76. AST, ALT mildly elevated. Ramon PCR positive. Chest x-ray with bilateral infiltrate. DIAGNOSTIC IMPRESSION AND PLAN: Patient admitted to hospital with increasing shortness of breath and cough in this patient whose symptoms had been going on for about a week with evidence of moderate bilateral pneumonia and hypoxemia. The patient was in therapeutic window for remdesivir on presentation to the hospital. PLAN: 1. Patient was started on remdesivir protocol; to continue. 2. Solu-Medrol, Lovenox, zinc and ascorbic acid. 3. Droplet isolation and respiratory support. 4. Will follow clinical condition and culture to further adjust medication if needed. Thank you for this consultation. Will follow this patient along with you. MMODL / IJN: [id number] / KAYLA
[2020-09-04] MEDS: ALBUTEROL HFA INHALER INHALATION SCH ×6 (00:30→22:32)
[2020-09-04] MEDS: methylPREDNISolone SOD SUCCI 125 MG/2 ML VIAL IV SCH ×5 (00:40→23:22)
[2020-09-04] MEDS: guaiFENesin-Coden 100-10MG/5ML 10 ML CUP PO SCH (04:41)
[2020-09-04] MEDS: SODIUM CHLORIDE 0.9% 1,000 ML IV SCH ×2 (05:41→15:06)
[2020-09-04 07:07] LABS: C Reactive Protein 60.7 mg/L (<10.0)
[2020-09-04] MEDS: BENZONATATE 100 MG CAP PO SCH ×4 (07:16→19:57)
[2020-09-04] MEDS: FAMOTIDINE 20 MG TAB PO SCH ×2 (07:16→19:57)
[2020-09-04] MEDS: ZINC SULFATE 220 MG CAP PO SCH (07:16)
[2020-09-04] MEDS: ASCORBIC ACID 500 MG TAB PO SCH (07:16)
[2020-09-04] MEDS: ENOXAPARIN 40 MG/0.4 ML SYRINGE SQ SCH (07:16)
[2020-09-04] MEDS: CHOLECALCIFEROL 25 MCG (1000 IU) TABLET PO SCH (07:16)
--- NOTE | 2020-09-04 08:27 | XR ---
EXAMINATION TYPE: XR chest 1V portable DATE OF EXAM: 09/04/2020 Comparison: 09/02/2020 Clinical History: 55-year-old male COVID 19 Findings: Heart upper limits of normal in size. Mid and lower lung confluent consolidation significantly increa sed from prior. No pleural effusion. Impression: Mid and lower lung airspace disease significantly increased from prior.
[2020-09-04] MEDS: REMDESIVIR 100 MG in SODIUM CHLORIDE 0.9% 250 ML IVPB SCH (09:47)
--- NOTE | 2020-09-04 13:29 | P.PN ---
Subjective Progress Note Date: 09/04/20 Principal diagnosis: Fever, cough, chills, hypoxia, COVID 19 55-year-old male patient of Dr. Marlena Vicente who presented to the emergency department on 09/01/2020 with symptoms of worsening cough, shortness of breath. Patient tested positive for COVID 19, his chest x-ray showed bilateral airspace infiltrates. First onset of symptoms was one week ago with cough, fever, flu like symptoms. Patient was seen by his primary care provider and placed on Z- Arun and Medrol dosepak last week. Patient has 2 days left of the Medrol Dosepak, and he finished the Z-Arun however his symptoms did not improve and progress. He is not requiring supplemental oxygen, 2 L, and his pulse ox of 94%, he was febrile on presentation, he has frequent dry cough, but no chest discomfort, no nausea or vomiting, did have diarrhea. he is a former smoker, only smoked for about 8 years, he quit smoking 20 years ago. He does have underlying history of asthma, mild intermittent, uses Ventolin on an as-needed basis, no history of frequent exacerbations, his asthma is exercise induced. His lab work revealed leukopenia, with white blood cell count 3.2, hemoglobin is 12.1, lymphopenia with a basic, 0.4, sodium is 1:30, potassium is 3.2, chloride is 94, BUN is 18, creatinine 0.74, plasma lactic acid 0.9. AST was 76, ALT was 51, alkaline phosphatase was 135, LDH was 1150, and CRP was 53.5. Patient also has history of psoriatic arthritis and he takes methotrexate and Arava, that were both placed on hold last week. Morning he seen on medical surgical floor, he is awake and alert, has a frequent dry cough, diffuse coarse crackles throughout the lung fajardo, no nausea or vomiting. Was started on oral Decadron 8 mg. On 0.9 normal saline running at 120 ML per hour, patient is within the window for Remdesivir and patient will be given a unit of convalescent plasma in addition to vitamins, prophylactic anticoagulation. On 09/03/2020 patient seen in follow-up on medical floor, still coughing a lot, dyspneic, he is currently on 4 L of oxygen, his pulse ox of 97%, chest feels heavy, overall she is feeling 'lousy". Low-grade fever this morning, with a temp of 99.7F, lung sounds. Positive for coarse diffuse bilateral crackles throughout lung fajardo. This is day 2 of Remdesivir treatment, he is still awaiting convalescent plasma, continues on Decadron 6 mg, vitamins, and prophyl actic anticoagulation, today's labs have been reviewed, showing white blood cell count of 5.2, hemoglobin of 10.6, d-dimer is 1.15, sodium is 132, the rest of electrolytes and renal profile were unremarkable, LDH has trended up to 1700, CRP is down slightly to 39.6 from 53.5. Pro-calcitonin level is 0.18. Blood cultures have been negative. Patient has quite frequent dry irritative cough, his lower back is starting to hurt and he is not sure whether it's from coughing or being in the bed and in the chair for a long period of time. On 06/06/2020 patient seen in follow-up on medical floor. Doing slightly better, still coughing quite a bit, but he states the Tessalon Perles more effective than the Robitussin with codeine, lung sounds are still positive for diffuse crackles, afebrile. He was able to sleep a bit better last night. Repeat chest x-ray today showed mid and lower lung airspace disease significantly increased from prior. Clinically medically patient feels a bit better. D-dimer is 0.89, LDH is 1749, CRP is 16.7. Pro-calcitonin level was 0.18. Patient is on Remdesivir, today is day 3 of treatment, did receive convalescent plasma early this morning. Objective - Vital Signs Vital signs: Vital Signs Temp 97.5 F L 09/04/20 12:25 Pulse 81 09/04/20 12:25 Resp 16 09/04/20 12:25 BP 110/71 09/04/20 12:25 Pulse Ox 93 L 09/04/20 12:25 Intake & Output 09/03/20 09/04/20 09/04/20 18:59 06:59 18:59 Intake Total 2017 Balance 2017 Weight 78.471 kg Intake: Intake, IV Titration 1080 Amount Sodium Chloride 0.9% 1, 1080 000 ml @ 120 mls/hr IV . Q8H20M [facility] Rx#:[id number] Oral 550 Blood Product 388 Ffp Pher Conval Covid19 194 Acda 4 Unit [id number] Other: Voiding Method Toilet # Voids 4 - Exam GENERAL EXAM: Alert, very pleasant 55-year-old male on 3 l/min of oxygen with a pulse ox of 93%, patient has a dry irritated cough, which is quite frequent and at times continuous comfortable in no apparent distress. HEAD: Normocephalic/atraumatic. EYES: Normal reaction of pupils, equal size. Conjunctiva pink, sclera white. NOSE: Clear with pink turbinates. THROAT: No erythema or exudates. NECK: No masses, no JVD, no thyroid enlargement, no adenopathy. CHEST: No chest wall deformity. Symmetrical expansion. LUNGS: Equal air entry with diffuse crackles CVS: Regular rate and rhythm, normal S1 and S2, no gallops, no murmurs, no rubs ABDOMEN: Soft, nontender. No hepatosplenomegaly, normal bowel sounds, no guarding or rigidity. EXTREMITIES: No clubbing, no edema, no cyanosis, 2+ pulses and upper and lower extremities. MUSCULOSKELETAL: Muscle strength and tone normal. SPINE: No scoliosis or deformity SKIN: No rashes CENTRAL NERVOUS SYSTEM: Alert and oriented -3. No focal deficits, tone is normal in all 4 extremities. PSYCHIATRIC: Alert and oriented -3. Appropriate affect. Intact judgment and insight. - Labs CBC & Chem 7: 09/03/20 05:47 09/03/20 05:47 Labs: Abnormal Lab Results - Last 24 Hours (Table) 09/04/20 09/04/20 Range/Units 06:15 06:15 D-Dimer 0.89 H (<0.60) mg/L FEU Lactate Dehydrogenase 1749 H (313-618) U/L C-Reactive Protein 60.7 H (<10.0) mg/L Microbiology - Last 24 Hours (Table) 09/02/20 00:35 Blood Culture - Preliminary Blood No Growth after 48 hours 09/02/20 00:20 Blood Culture - Preliminary Blood No Growth after 48 hours Assessment and Plan Plan: Assessment: #1. Acute hypoxic respiratory failure related to acute COVID 19 pneumonia, onset of symptoms 7 days ago, patient had outpatient treatment with Z-Arun and Medrol Dosepak and his symptoms progressed. Started on a Remdesivir on 09/02/2020, and convalescent plasma 1 #2. History of psoriatic arthritis on methotrexate and Leflunomide, dad both have been placed on hold 7 days ago #3. Increased inflammatory markers related to acute COVID 19 infection #4. Mild intermittent bronchial asthma, exercise induced #5. 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 Increased transaminases, likely related to viral pneumonia, we'll continue to follow #7. Hyponatremia and hypokalemia, related to dehydration Plan: Continue current medical treatment, continue same dose IV Solu-Medrol, continue same dose Lovenox, patient is status post convalescent plasma transfusion, today is day 3 of treatment, doing slightly better, we'll continue to monitor. Still have significant cough and we will increase his dose of Tessalon as that seems to be more effective than the cough syrup. Discontinue the cough syrup I performed a history & physical examination of the patient and discussed their management with my nurse practitioner, Jocy Pacheco. I reviewed the nurse practitioner's note and agree with the documented findings and plan of care. Lung sounds are positive for diffuse coarse crackles. The findings and the impression was discussed with the patient. I attest to the documentation by the nurse practitioner. Time with Patient: Less than 30
--- NOTE | 2020-09-04 17:34 | PN ---
PROGRESS NOTE DATE OF SERVICE: 09/04/2020 REASON FOR FOLLOWUP: Acute COVID-19 pneumonia. INTERVAL HISTORY: The patient is currently afebrile. He is breathing more comfortably. Continues to have a dry hacking cough, not bringing up any sputum. No chest pain. No nausea, no vomiting, no abdominal pain or diarrhea. PHYSICAL EXAMINATION: Blood pressure 110/71, pulse 81, temperature 97.5. He is 93% on 3 L nasal cannula. General description is a middle-aged male up in the bed in no distress. RESPIRATORY SYSTEM: Unlabored breathing with decreased intensity of breath sounds. No wheeze. HEART: S1, S2. Regular rate and rhythm. ABDOMEN: Soft. No tenderness. EXTREMITIES: No edema of the feet. LABS: Hemoglobin is 10.3, white count 5.2. BUN of 12, creatinine 0.76. Inflammatory marker LDH is slightly elevated as well as CRP. DIAGNOSTIC IMPRESSION AND PLAN: Patient with acute COVID-19 infection, currently on remdesivir, dexamethasone, Solu- Medrol, zinc and ascorbic acid; to continue along with respiratory support. Monitor his clinical course closely. MMODL / IJN: [id number] /
--- NOTE | 2020-09-04 18:24 | P.PN ---
Progress Note - Text Progress Note Date: 09/04/20 Chief Complaint: Short of breath History of presenting complaint: This is a very pleasant 55-year-old patient of Dr. Marlena Vicente. Chronic stable medical conditions include hyperlipidemia, exercise-induced asthma, seasonal ALLERGIES, diverticulosis, psoriatic arthritis affecting multiple joints, beta thalassemia. Patient started off the cough about a week ago. The cough is coming progressively worse with associated shortness of breath. No loss of smell or taste. Patient's had some diarrhea. Not much of body 8. Appetite has gone down. Patient tested positive for COVID on September 01 that Eusebio Calvo on ER. Tired. Febrile Admitted with bilateral COVID 19 pneumonia causing sepsis, acute hypoxic respiratory failure. Started on dexamethasone, Lovenox, Remdesivir Today: Up in a chair. Using incentive spirometry. Eating some. Shortness of breath. Some cough. Tired Review of systems: Was done for constitutional, cardiovascular, GI, pulmonary. relevant finding as above Active Medications Acetaminophen (Acetaminophen Tab 325 Mg Tab) 650 mg PO Q6HR PRN PRN Reason: Fever and/ or Pain Last Admin: 09/03/20 09:36 Dose: 650 mg Documented by: Albuterol Sulfate (Albuterol Hfa Inhaler) 4 puff INHALATION RT-Q4H [facility] Last Admin: 09/04/20 16:16 Dose: 4 puff Documented by: Ascorbic Acid (Ascorbic Acid 500 Mg Tab) 1,000 mg PO DAILY [facility] Last Admin: 09/04/20 07:16 Dose: 1,000 mg Documented by: Benzonatate (Benzonatate 100 Mg Cap) 200 mg PO TID [facility] Last Admin: 09/04/20 15:10 Dose: 200 mg Documented by: Cholecalciferol (Cholecalciferol 25 Mcg (1000 Iu) Tablet) 100 mcg PO DAILY [facility] Last Admin: 09/04/20 07:16 Dose: 100 mcg Documented by: Enoxaparin Sodium (Enoxaparin 40 Mg/0.4 Ml Syringe) 40 mg SQ DAILY [facility] Last Admin: 09/04/20 07:16 Dose: 40 mg Documented by: Famotidine (Famotidine 20 Mg Tab) 20 mg PO BID [facility] Last Admin: 09/04/20 07:16 Dose: 20 mg Documented by: Sodium Chloride (Saline 0.9%) 1,000 mls @ 75 mls/hr IV .[id number] [facility] Last Admin: 09/04/20 15:06 Dose: 75 mls/hr Documented by: Remdesivir 100 mg/ Sodium (Chloride) 250 mls @ 250 mls/hr IVPB Q24H [facility] Stop: 09/06/20 11:59 Last Admin: 09/04/20 09:47 Dose: 250 mls/hr Documented by: Methylprednisolone Sodium Succinate (Methylprednisolone Sod Succi 125 Mg/2 Ml Vial) 60 mg IV Q6HR [facility] Last Admin: 09/04/20 17:34 Dose: 60 mg Documented by: Naloxone HCl (Naloxone 0.4 Mg/Ml 1 Ml Vial) 0.2 mg IV Q2M PRN PRN Reason: Opioid Reversal Ondansetron HCl (Ondansetron 4 Mg/2 Ml Vial) 4 mg IVP Q8HR PRN PRN Reason: Nausea And Vomiting Zinc Sulfate (Zinc Sulfate 220 Mg Cap) 220 mg PO DAILY [facility] Last Admin: 09/04/20 07:16 Dose: 220 mg Documented by: Past medical history to include: Exercise-induced asthma, hyperlipidemia, seasonal ALLERGIES, gastric ulcer in the remote past, diverticulosis, colon polyps, psoriatic arthritis affecting many joints, beta thalassemia 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 . Patient smoked for 8 years stopped in 1997. Alcohol occasionally. Physical examination: VITAL SIGNS: 98.7, 83, 18, 1 21 x 69, 91% on 3 L GENERAL: Sitting up to chair, slightly short of breath LUNGS: Respiratory rate increased,. PSYCH: Alert and oriented x3; mood and affect normal. NEUROLOGICAL: Cranial nerves grossly intact; no facial asymmetry, moving limbs Rest of the exam per pulmonary and nursing INVESTIGATIONS, reviewed in the clinical context: September 04: D-dimer 0.89 CRP 60.7 September 03: WBC 5.2 hemoglobin 10.6 platelets 139 d-dimer 1.15 potassium 3.6 CRP 39.6 WBC 3.2 hemoglobin 12.1 platelets 124 potassium 3.2 creatinine 0.74 sodium 1:30 D-dimer 0.58 CRP 53.5 coronavirus [PCR] detected EKG tracing personally reviewed by me-sinus rhythm Q waves in inferior leads Chest x-ray personally reviewed by me-bilateral infiltrates Assessment and plan: -Bilateral COVID 19 pneumonia causing sepsis-slow to respond on subcu Lovenox, IV Decadron. Remdesivir . vitamin C vitamin D Pepcid zinc IV fluids -Acute hypoxic respiratory failure secondary to COVID 19 -slow to respond Supplement oxygen on 3 L -Excise-induced asthma Use bronchodilators -Hyperlipidemia -Colonic diverticulosis, asymptomatic -Psoriatic arthritis and psoriasis -Beta thalassemia Follow hemoglobin -Hyponatremia likely hypoosmolar Encourage oral solute intake Discussed with the patient. Continue current medications
[2020-09-05] MEDS: SODIUM CHLORIDE 0.9% 1,000 ML IV SCH ×2 (03:55→15:43)
[2020-09-05] MEDS: ALBUTEROL HFA INHALER INHALATION SCH ×6 (04:39→20:36)
[2020-09-05] MEDS: methylPREDNISolone SOD SUCCI 125 MG/2 ML VIAL IV SCH ×4 (05:47→23:07)
[2020-09-05] MEDS: CHOLECALCIFEROL 25 MCG (1000 IU) TABLET PO SCH (08:55)
[2020-09-05] MEDS: FAMOTIDINE 20 MG TAB PO SCH ×2 (08:55→20:56)
[2020-09-05] MEDS: ZINC SULFATE 220 MG CAP PO SCH (08:55)
[2020-09-05] MEDS: ASCORBIC ACID 500 MG TAB PO SCH (08:55)
[2020-09-05] MEDS: BENZONATATE 100 MG CAP PO SCH ×3 (08:56→20:56)
[2020-09-05] MEDS: ENOXAPARIN 40 MG/0.4 ML SYRINGE SQ SCH ×2 (08:57→20:56)
--- NOTE | 2020-09-05 10:33 | P.PN ---
Subjective Progress Note Date: 09/05/20 Principal diagnosis: COVID 19 pneumonia. 55-year-old male patient of Dr. Marlena Vicente who presented to the emergency department on 09/01/2020 with symptoms of worsening cough, shortness of breath. Patient tested positive for COVID 19, his chest x-ray showed bilateral airspace infiltrates. First onset of symptoms was one week ago with cough, fever, flulike symptoms. Patient was seen by his primary care provider and placed on Z-Arun and Medrol dosepak last week. Patient has 2 days left of the Medrol Dosepak, and he finished the Z-Arun however his symptoms did not improve and progress. He is not requiring supplemental oxygen, 2 L, and his pulse ox of 94%, he was febrile on presentation, he has frequent dry cough, but no chest discomfort, no nausea or vomiting, did have diarrhea. he is a former smoker, only smoked for about 8 years, he quit smoking 20 years ago. He does have underlying history of asthma, mild intermittent, uses Ventolin on an as-needed basis, no history of frequent exacerbations, his asthma is exercise induced. His lab work revealed leukopenia, with white blood cell count 3.2, hemoglobin is 12.1, lymphopenia with a basic, 0.4, sodium is 1:30, potassium is 3.2, chloride is 94, BUN is 18, creatinine 0.74, plasma lactic acid 0.9. AST was 76, ALT was 51, alkaline phosphatase was 135, LDH was 1150, and CRP was 53.5. Patient also has history of psoriatic arthritis and he takes methotrexate and Arava, that were both placed on hold last week. Morning he seen on medical surgical floor, he is awake and alert, has a frequent dry cough, diffuse coarse crackles throughout the lung fajardo, no nausea or vomiting. Was started on oral Decadron 8 mg. On 0.9 normal saline running at 120 ML per hour, patient is within the window for Remdesivir and patient will be given a unit of convalescent plasma in addition to vitamins, prophylactic anticoagulation. On 09/03/2020 patient seen in follow-up on medical floor, still coughing a lot, dyspneic, he is currently on 4 L of oxygen, his pulse ox of 97%, chest feels heavy, overall she is feeling 'lousy". Low-grade fever this morning, with a temp of 99.7F, lung sounds. Positive for coarse diffuse bilateral crackles throughout lung fajardo. This is day 2 of Remdesivir treatment, he is still awaiting convalescent plasma, continues on Decadron 6 mg, vitamins, and prophylactic anticoagulation, today's labs have been reviewed, showing white blood cell count of 5.2, hemoglobin of 10.6, d-dimer is 1.15, sodium is 132, the rest of electrolytes and renal profile were unremarkable, LDH has trended up to 1700, CRP is down slightly to 39.6 from 53.5. Pro-calcitonin level is 0.18. Blood cultures have been negative. Patient has quite frequent dry irritative cough, his lower back is starting to hurt and he is not sure whether it's from coughing or being in the bed and in the chair for a long period of time. On 06/06/2020 patient seen in follow-up on medical floor. Doing slightly be tter, still coughing quite a bit, but he states the Tessalon Perles more effective than the Robitussin with codeine, lung sounds are still positive for diffuse crackles, afebrile. He was able to sleep a bit better last night. Repeat chest x-ray today showed mid and lower lung airspace disease sign ificantly increased from prior. Clinically medically patient feels a bit better. D-dimer is 0.89, LDH is 1749, CRP is 16.7. Pro-calcitonin level was 0.18. Patient is on Remdesivir, today is day 3 of treatment, did receive convalescent plasma early this morning. Progress note dated 09/05/2020. The patient is seen today again in room 158. The patient has received REM, and convalescent plasma. Currently he is on 3 L nasal cannula. He is getting saline at 75 mL an hour. He feels like he is starting to feel better. He still very short of breath with any activity. D-dimer today was not checked. Yesterday it was 0.89. Chest x-ray from September 04, showed diffuse bilateral infiltrates. Currently, he is on day 4 of REM. Objective - Vital Signs Vital signs: Vital Signs Temp 97.7 F 09/05/20 08:00 Pulse 90 09/05/20 08:00 Resp 18 09/05/20 08:00 BP 122/75 09/05/20 08:00 Pulse Ox 91 L 09/05/20 08:00 Intake & Output 09/04/20 09/05/20 09/05/20 18:59 06:59 18:59 Intake Total 1150 900 Balance 1150 900 Weight 78.471 kg Intake: Intake, IV Titration 1150 900 Amount Remdesivir 100 mg In 250 Sodium Chloride 0.9% 250 ml @ 250 mls/hr IVPB Q24H [facility] Rx#:[id number] Sodium Chloride 0.9% 1, 900 900 000 ml @ 75 mls/hr IV . [id number] [facility] Rx#:[id number] Other: Voiding Method Toilet Toilet # Voids 4 - Exam No acute distress, oriented 3. Currently on 3 L nasal cannula. Saturations are in the low 90s. HEENT examination is grossly unremarkable. Neck supple. Full range of motion. No adenopathy thyromegaly or neck vein distention. Cardiovascular examination reveals regular rhythm rate. S1-S2 normal. No S3 or S4. No discernible murmur noted. Heart sounds are distant. Heart rate 90 bpm. Lungs reveal diffuse bilateral crackles, and bilateral scattered rhonchi. No wheezes. Breath sounds are equal bilaterally. Abdomen soft bowel sounds are heard. No masses or tenderness. Extremities are intact. No cyanosis clubbing or edema. Skin is without rash or lesion. Neurologic examination is brief but nonfocal. - Labs CBC & Chem 7: 09/03/20 05:47 09/03/20 05:47 Labs: Microbiology - Last 24 Hours (Table) 09/02/20 00:35 Blood Culture - Preliminary Blood No Growth after 72 hours 09/02/20 00:20 Blood Culture - Preliminary Blood No Growth after 72 hours Assessment and Plan Assessment: #1. Acute hypoxic respiratory failure related to acute COVID 19 pneumonia, onset of symptoms 7 days ago, patient had outpatient treatment with Z-Arun and Medrol Dosepak and his symptoms progressed. Started on a Remdesivir on 09/02/2020, and convalescent plasma 1 #2. History of psoriatic arthritis on methotrexate and Leflunomide, dad both have been placed on hold 7 days ago #3. Increased inflammatory markers related to acute COVID 19 infection #4. Mild intermittent bronchial asthma, exercise induced #5. 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 Increased transaminases, likely related to viral pneumonia, we'll continue to follow #7. Hyponatremia and hypokalemia, related to dehydration Plan: Plan dated 09/05/2020. The patient remains on oxygen at 3 L, and saline at 75 mL an hour. He is on day 4 of REM. The patient also received convalescent plasma. He is on all the other usual medications including vitamin C, vitamin D3, and zinc, Solu-Medrol, and Lovenox. Follow make recommendations were appropriate. Prognosis is guarded. He is starting to feel better, though. Time with Patient: Less than 30
[2020-09-05 10:35] LABS: Basophils % (A) 0 %; Eosinophils % (A) 0 %; HCT 36.5 % (39.0-53.0); HGB 11.4 gm/dL (13.0-17.5); Hypochromasia Slight; Lymphocytes # (A) 0.3 k/uL (1.0-4.8); Lymphocytes % (A) 3 %; MCH 18.1 pg (25.0-35.0); MCHC 31.3 g/dL (31.0-37.0); MCV 57.9 fL (80.0-100.0); Mean Platelet Volume 8.4; Microcytosis Marked; Monocytes # (A) 0.3 k/uL (0-1.0); Monocytes % (A) 4 %; Neutrophils # (A) 8.2 k/uL (1.3-7.7); Neutrophils % (A) 91 %; Platelet Count 227 k/uL (150-450); Poikilocytosis Slight
[2020-09-05 11:32] LABS: African American GFR (CKD) >90 (>60 ml/min/1.73 sqM); Anion Gap 9 mmol/L; Blood Urea Nitrogen 13 mg/dL (9-20); C Reactive Protein 28.8 mg/L (<10.0); Calcium 8.1 mg/dL (8.4-10.2); Carbon Dioxide 26 mmol/L (22-30); Chloride 99 mmol/L (98-107); Glucose 196 mg/dL (74-99); Non-African American GFR(CKD) >90 (>60 ml/min/1.73 sqM); Potassium 3.4 mmol/L (3.5-5.1); Sodium 134 mmol/L (137-145)
[2020-09-05] MEDS: REMDESIVIR 100 MG in SODIUM CHLORIDE 0.9% 250 ML IVPB SCH (11:56)
--- NOTE | 2020-09-05 19:32 | PN ---
PROGRESS NOTE DATE OF SERVICE: 09/05/2020 REASON FOR FOLLOWUP: COVID-19 pneumonia. INTERVAL HISTORY: The patient is currently afebrile. The patient is breathing slightly comfortably. However, he continued to have a cough moderate intensity, not bringing up any sputum. No chest pain. No abdominal pain or diarrhea. PHYSICAL EXAMINATION: Blood pressure 128/77 with a pulse of 93. Temperature is 97.8. He is 94% on 9 L nasal cannula. General description: The patient is a middle-aged male up in the chair in no distress. Respiratory system: Unlabored breathing, decreased intensity of breath sounds. No wheeze. HEART: S1, S2. Regular rate and rhythm. ABDOMEN: Soft, no tenderness. LABS: Hemoglobin 11.4, white count 9.0, BUN of 13, creatinine 0.60. Blood culture has been negative. DIAGNOSTIC IMPRESSION AND PLAN: Patient with acute COVID-19 pneumonia. Patient is on Solu-Medrol, Remdesivir, and zinc and ascorbic acid and Lovenox to continue and monitor clinical course closely. MMODL / IJN: [id number] /
--- NOTE | 2020-09-05 22:15 | P.PN ---
Progress Note - Text Progress Note Date: 09/05/20 Chief Complaint: Short of breath History of presenting complaint: This is a very pleasant 55-year-old patient of Dr. Marlena Vicente. Chronic stable medical conditions include hyperlipidemia, exercise-induced asthma, seasonal ALLERGIES, diverticulosis, psoriatic arthritis affecting multiple joints, beta thalassemia. Patient started off the cough about a week ago. The cough is coming progressively worse with associated shortness of breath. No loss of smell or taste. Patient's had some diarrhea. Not much of body 8. Appetite has gone down. Patient tested positive for COVID on September 01 that Eusebio Calvo on ER. Tired. Febrile Admitted with bilateral COVID 19 pneumonia causing sepsis, acute hypoxic respiratory failure. Started on dexamethasone, Lovenox, Remdesivir Today: Up in a chair. Using incentive spirometry. Eating some. Shortness of breath. Some cough. Tired. On 6 L of nasal cannula Review of systems: Was done for constitutional, cardiovascular, GI, pulmonary. relevant finding as above Active Medications Acetaminophen (Acetaminophen Tab 325 Mg Tab) 650 mg PO Q6HR PRN PRN Reason: Fever and/ or Pain Last Admin: 09/03/20 09:36 Dose: 650 mg Documented by: Albuterol Sulfate (Albuterol Hfa Inhaler) 4 puff INHALATION RT-Q4H [facility] Last Admin: 09/05/20 20:36 Dose: 4 puff Documented by: Ascorbic Acid (Ascorbic Acid 500 Mg Tab) 1,000 mg PO DAILY [facility] Last Admin: 09/05/20 08:55 Dose: 1,000 mg Documented by: Benzonatate (Benzonatate 100 Mg Cap) 200 mg PO TID [facility] Last Admin: 09/05/20 20:56 Dose: 200 mg Documented by: Cholecalciferol (Cholecalciferol 25 Mcg (1000 Iu) Tablet) 100 mcg PO DAILY [facility] Last Admin: 09/05/20 08:55 Dose: 100 mcg Documented by: Enoxaparin Sodium (Enoxaparin 40 Mg/0.4 Ml Syringe) 40 mg SQ BID [facility] Last Admin: 09/05/20 20:56 Dose: 40 mg Documented by: Famotidine (Famotidine 20 Mg Tab) 20 mg PO BID [facility] Last Admin: 09/05/20 20:56 Dose: 20 mg Documented by: Sodium Chloride (Saline 0.9%) 1,000 mls @ 75 mls/hr IV .[id number] [facility] Last Admin: 09/05/20 15:43 Dose: 75 mls/hr Documented by: Remdesivir 100 mg/ Sodium (Chloride) 250 mls @ 250 mls/hr IVPB Q24H [facility] Stop: 09/06/20 11:59 Last Admin: 09/05/20 11:56 Dose: 250 mls/hr Documented by: Methylprednisolone Sodium Succinate (Methylprednisolone Sod Succi 125 Mg/2 Ml Vial) 60 mg IV Q6HR [facility] Last Admin: 09/05/20 17:09 Dose: 60 mg Documented by: Naloxone HCl (Naloxone 0.4 Mg/Ml 1 Ml Vial) 0.2 mg IV Q2M PRN PRN Reason: Opioid Reversal Ondansetron HCl (Ondansetron 4 Mg/2 Ml Vial) 4 mg IVP Q8HR PRN PRN Reason: Nausea And Vomiting Zinc Sulfate (Zinc Sulfate 220 Mg Cap) 220 mg PO DAILY [facility] Last Admin: 09/05/20 08:55 Dose: 220 mg Documented by: Past medical history to include: Exercise-induced asthma, hyperlipidemia, seasonal ALLERGIES, gastric ulcer in the remote past, diverticulosis, colon polyps, psoriatic arthritis affecting many joints, beta thalassemia 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 . Patient smoked for 8 years stopped in 1997. Alcohol occasionally. Physical examination: VITAL SIGNS: 97.7, 90, 18, 91% on 6 L GENERAL: Sitting up to chair, slightly short of breath LUNGS: Respiratory rate increased,. PSYCH: Alert and oriented x3; mood and affect normal. NEUROLOGICAL: Cranial nerves grossly intact; no facial asymmetry, moving limbs Rest of the exam per pulmonary and nursing INVESTIGATIONS, reviewed in the clinical context: September 05: D-dimer 1.93 potassium 3.4 creatinine 0.6 CRP 28.8 September 04: D-dimer 0.89 CRP 60.7 September 03: WBC 5.2 hemoglobin 10.6 platelets 139 d-dimer 1.15 potassium 3.6 CRP 39.6 WBC 3.2 hemoglobin 12.1 platelets 124 potassium 3.2 creatinine 0.74 sodium 1:30 D-dimer 0.58 CRP 53.5 coronavirus [PCR] detected EKG tracing personally reviewed by me-sinus rhythm Q waves in inferior leads Chest x-ray personally reviewed by me-bilateral infiltrates Assessment and plan: -Bilateral COVID 19 pneumonia causing sepsis-slow to respond on subcu Lovenox, IV Decadron. Remdesivir . vitamin C vitamin D Pepcid zinc IV fluids -Acute hypoxic respiratory failure secondary to COVID 19 -worsening Supplement oxygen on 6 L -Excise-induced asthma Use bronchodilators -Hyperlipidemia -Colonic diverticulosis, asymptomatic -Psoriatic arthritis and psoriasis -Beta thalassemia Follow hemoglobin -Hyponatremia likely hypoosmolar Encourage oral solute intake Discussed with the patient. Continue current medications. Follow with pulmonary
[2020-09-06] MEDS: ALBUTEROL HFA INHALER INHALATION SCH ×6 (02:09→20:41)
[2020-09-06] MEDS: SODIUM CHLORIDE 0.9% 1,000 ML IV SCH ×2 (05:17→16:34)
[2020-09-06] MEDS: methylPREDNISolone SOD SUCCI 125 MG/2 ML VIAL IV SCH ×4 (05:46→23:19)
[2020-09-06] MEDS: ASCORBIC ACID 500 MG TAB PO SCH (08:41)
[2020-09-06] MEDS: ENOXAPARIN 40 MG/0.4 ML SYRINGE SQ SCH (08:42)
[2020-09-06] MEDS: FAMOTIDINE 20 MG TAB PO SCH ×2 (08:42→20:21)
[2020-09-06] MEDS: ZINC SULFATE 220 MG CAP PO SCH (08:42)
[2020-09-06] MEDS: CHOLECALCIFEROL 25 MCG (1000 IU) TABLET PO SCH (08:42)
[2020-09-06] MEDS: BENZONATATE 100 MG CAP PO SCH ×3 (08:42→20:20)
[2020-09-06] MEDS: REMDESIVIR 100 MG in SODIUM CHLORIDE 0.9% 250 ML IVPB SCH (13:15)
[2020-09-06] MEDS ORDERED: TOCILIZUMAB IV ONE (15:32)
[2020-09-06] MEDS ORDERED: SODIUM CHLORIDE 0.9% IV ONE (15:32)
--- NOTE | 2020-09-06 15:35 | P.PN ---
Subjective Progress Note Date: 09/06/20 Principal diagnosis: Fever, cough, chills, hypoxia, COVID 19 55-year-old male patient of Dr. Marlena Vicente who presented to the emergency department on 09/01/2020 with symptoms of worsening cough, shortness of breath. Patient tested positive for COVID 19, his chest x-ray showed bilateral airspace infiltrates. First onset of symptoms was one week ago with cough, fever, flu like symptoms. Patient was seen by his primary care provider and placed on Z- Arun and Medrol dosepak last week. Patient has 2 days left of the Medrol Dosepak, and he finished the Z-Arun however his symptoms did not improve and progress. He is not requiring supplemental oxygen, 2 L, and his pulse ox of 94%, he was febrile on presentation, he has frequent dry cough, but no chest discomfort, no nausea or vomiting, did have diarrhea. he is a former smoker, only smoked for about 8 years, he quit smoking 20 years ago. He does have underlying history of asthma, mild intermittent, uses Ventolin on an as-needed basis, no history of frequent exacerbations, his asthma is exercise induced. His lab work revealed leukopenia, with white blood cell count 3.2, hemoglobin is 12.1, lymphopenia with a basic, 0.4, sodium is 1:30, potassium is 3.2, chloride is 94, BUN is 18, creatinine 0.74, plasma lactic acid 0.9. AST was 76, ALT was 51, alkaline phosphatase was 135, LDH was 1150, and CRP was 53.5. Patient also has history of psoriatic arthritis and he takes methotrexate and Arava, that were both placed on hold last week. Morning he seen on medical surgical floor, he is awake and alert, has a frequent dry cough, diffuse coarse crackles throughout the lung fajardo, no nausea or vomiting. Was started on oral Decadron 8 mg. On 0.9 normal saline running at 120 ML per hour, patient is within the window for Remdesivir and patient will be given a unit of convalescent plasma in addition to vitamins, prophylactic anticoagulation. On 09/03/2020 patient seen in follow-up on medical floor, still coughing a lot, dyspneic, he is currently on 4 L of oxygen, his pulse ox of 97%, chest feels heavy, overall she is feeling 'lousy". Low-grade fever this morning, with a temp of 99.7F, lung sounds. Positive for coarse diffuse bilateral crackles throughout lung fajardo. This is day 2 of Remdesivir treatment, he is still awaiting convalescent plasma, continues on Decadron 6 mg, vitamins, and prophyl actic anticoagulation, today's labs have been reviewed, showing white blood cell count of 5.2, hemoglobin of 10.6, d-dimer is 1.15, sodium is 132, the rest of electrolytes and renal profile were unremarkable, LDH has trended up to 1700, CRP is down slightly to 39.6 from 53.5. Pro-calcitonin level is 0.18. Blood cultures have been negative. Patient has quite frequent dry irritative cough, his lower back is starting to hurt and he is not sure whether it's from coughing or being in the bed and in the chair for a long period of time. On 06/06/2020 patient seen in follow-up on medical floor. Doing slightly better, still coughing quite a bit, but he states the Tessalon Perles more effective than the Robitussin with codeine, lung sounds are still positive for diffuse crackles, afebrile. He was able to sleep a bit better last night. Repeat chest x-ray today showed mid and lower lung airspace disease significantly increased from prior. Clinically medically patient feels a bit better. D-dimer is 0.89, LDH is 1749, CRP is 16.7. Pro-calcitonin level was 0.18. Patient is on Remdesivir, today is day 3 of treatment, did receive convalescent plasma early this morning. On 09/06/2020 patient seen in follow-up on medical floor, he is currently on 12 L of oxygen, his pulse ox of 89-90%, still coughing quite a bit, he is on his last day of Remdesivir treatment, he did receive a dose of convalescent plasma, continues on Solu-Medrol 60 mg every 6 hours, IV fluids, he is on vitamins, is receiving Tessalon Perles. He is on prophylactic dose Lovenox, today's d-dimer is 1.5, his inflammatory markers show improving CRP, LDH is pending. Objective - Vital Signs Vital signs: Vital Signs Temp 97.9 F 09/06/20 13:47 Pulse 77 09/06/20 13:47 Resp 20 09/06/20 13:47 BP 135/80 09/06/20 13:47 Pulse Ox 89 L 09/06/20 13:47 Intake & Output 09/05/20 09/06/20 09/06/20 18:59 06:59 18:59 Intake Total 900 Output Total 450 Balance 450 Intake: Oral 900 Output: Urine 450 Other: Voiding Method Toilet Toilet Toilet # Voids 4 - Exam GENERAL EXAM: Alert, very pleasant 55-year-old male on 12 l/min of oxygen with a pulse ox of 89%, patient has a dry irritated cough, which is quite frequent and at times continuous comfortable in no apparent distress. HEAD: Normocephalic/atraumatic. EYES: Normal reaction of pupils, equal size. Conjunctiva pink, sclera white. NOSE: Clear with pink turbinates. THROAT: No erythema or exudates. NECK: No masses, no JVD, no thyroid enlargement, no adenopathy. CHEST: No chest wall deformity. Symmetrical expansion. LUNGS: Equal air entry with diffuse crackles CVS: Regular rate and rhythm, normal S1 and S2, no gallops, no murmurs, no rubs ABDOMEN: Soft, nontender. No hepatosplenomegaly, normal bowel sounds, no guarding or rigidity. EXTREMITIES: No clubbing, no edema, no cyanosis, 2+ pulses and upper and lower extremities. MUSCULOSKELETAL: Muscle strength and tone normal. SPINE: No scoliosis or deformity SKIN: No rashes CENTRAL NERVOUS SYSTEM: Alert and oriented -3. No focal deficits, tone is normal in all 4 extremities. PSYCHIATRIC: Alert and oriented -3. Appropriate affect. Intact judgment and insight. - Labs CBC & Chem 7: 09/05/20 10:09 09/05/20 10:09 Labs: Abnormal Lab Results - Last 24 Hours (Table) 09/06/20 09/06/20 Range/Units 06:04 06:04 D-Dimer 1.50 H (<0.60) mg/L FEU C-Reactive Protein 23.0 H (<10.0) mg/L Microbiology - Last 24 Hours (Table) 09/02/20 00:20 Blood Culture - Preliminary Blood No Growth after 96 hours 09/02/20 00:35 Blood Culture - Preliminary Blood No Growth after 96 hours Assessment and Plan Plan: Assessment: #1. Acute hypoxic respiratory failure related to acute COVID 19 pneumonia, onset of symptoms 7 days ago, patient had outpatient treatment with Z-Arun and Medrol Dosepak and his symptoms progressed. Started on a Remdesivir on 09/02/2020, and convalescent plasma 1 #2. History of psoriatic arthritis on methotrexate and Leflunomide, dad both have been placed on hold 7 days ago #3. Increased inflammatory markers related to acute COVID 19 infection #4. Mild intermittent bronchial asthma, exercise induced #5. 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 Increased transaminases, likely related to viral pneumonia, we'll continue to follow #7. Hyponatremia and hypokalemia, related to dehydration Plan: Patient's oxygenation pattern has been worsening, still having significant coughing and shortness of breath, O2 saturations are marginal, we will go ahead and get the patient Tocilizumab 630 mg IVP today. Follow-up chest x-ray in the morning, patient finishes Remdesivir treatment, will continue with Solu-Medrol, continue current dose Lovenox, follow I performed a history & physical examination of the patient and discussed their management with my nurse practitioner, Jocy Pacheco. I reviewed the nurse practitioner's note and agree with the documented findings and plan of care. Lung sounds are positive for diffuse coarse crackles. The findings and the impression was discussed with the patient. I attest to the documentation by the nurse practitioner. Time with Patient: Less than 30
[2020-09-06] MEDS ORDERED: TOCILIZUMAB 640 MG in SODIUM CHLORIDE 0.9% 68 ML IV ONE (17:00)
--- NOTE | 2020-09-06 19:47 | P.PN ---
Progress Note - Text Progress Note Date: 09/06/20 Chief Complaint: Short of breath History of presenting complaint: This is a very pleasant 55-year-old patient of Dr. Marlena Vicente. Chronic stable medical conditions include hyperlipidemia, exercise-induced asthma, seasonal ALLERGIES, diverticulosis, psoriatic arthritis affecting multiple joints, beta thalassemia. Patient started off the cough about a week ago. The cough is coming progressively worse with associated shortness of breath. No loss of smell or taste. Patient's had some diarrhea. Not much of body 8. Appetite has gone down. Patient tested positive for COVID on September 01 that Eusebio Calvo on ER. Tired. Febrile Admitted with bilateral COVID 19 pneumonia causing sepsis, acute hypoxic respiratory failure. Started on dexamethasone, Lovenox, Remdesivir Today: Sitting up in a chair. Short of breath. Eating some. Oxygen requirement has gone up. 12 L. ACTEMRA ordered by pulmonary today Review of systems: Was done for constitutional, cardiovascular, GI, pulmonary. relevant finding as above Active Medications Acetaminophen (Acetaminophen Tab 325 Mg Tab) 650 mg PO Q6HR PRN PRN Reason: Fever and/ or Pain Last Admin: 09/03/20 09:36 Dose: 650 mg Documented by: Albuterol Sulfate (Albuterol Hfa Inhaler) 4 puff INHALATION RT-Q4H [facility] Last Admin: 09/06/20 16:03 Dose: 4 puff Documented by: Ascorbic Acid (Ascorbic Acid 500 Mg Tab) 1,000 mg PO DAILY [facility] Last Admin: 09/06/20 08:41 Dose: 1,000 mg Documented by: Benzonatate (Benzonatate 100 Mg Cap) 200 mg PO TID [facility] Last Admin: 09/06/20 16:32 Dose: 200 mg Documented by: Cholecalciferol (Cholecalciferol 25 Mcg (1000 Iu) Tablet) 100 mcg PO DAILY [facility] Last Admin: 09/06/20 08:42 Dose: 100 mcg Documented by: Enoxaparin Sodium (Enoxaparin 40 Mg/0.4 Ml Syringe) 40 mg SQ DAILY [facility] Famotidine (Famotidine 20 Mg Tab) 20 mg PO BID [facility] Last Admin: 09/06/20 08:42 Dose: 20 mg Documented by: Sodium Chloride (Saline 0.9%) 1,000 mls @ 75 mls/hr IV .[id number] [facility] Last Admin: 09/06/20 16:34 Dose: 75 mls/hr Documented by: Methylprednisolone Sodium Succinate (Methylprednisolone Sod Succi 125 Mg/2 Ml Vial) 60 mg IV Q6HR [facility] Last Admin: 09/06/20 16:32 Dose: 60 mg Documented by: Naloxone HCl (Naloxone 0.4 Mg/Ml 1 Ml Vial) 0.2 mg IV Q2M PRN PRN Reason: Opioid Reversal Ondansetron HCl (Ondansetron 4 Mg/2 Ml Vial) 4 mg IVP Q8HR PRN PRN Reason: Nausea And Vomiting Zinc Sulfate (Zinc Sulfate 220 Mg Cap) 220 mg PO DAILY [facility] Last Admin: 09/06/20 08:42 Dose: 220 mg Documented by: Past medical history to include: Exercise-induced asthma, hyperlipidemia, seasonal ALLERGIES, gastric ulcer in the remote past, diverticulosis, colon polyps, psoriatic arthritis affecting many joints, beta thalassemia 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 Alcohol occasionally. Physical examination: VITAL SIGNS: 97.9, 77, 20, 135/80, 89% on 12 L GENERAL: Sitting up to chair, short of breath , bit tired LUNGS: Respiratory rate increased,. PSYCH: Alert and oriented x3; mood and affect slightly anxious. NEUROLOGICAL: Cranial nerves grossly intact; no facial asymmetry, moving limbs Rest of the exam per pulmonary and nursing INVESTIGATIONS, reviewed in the clinical context: September 06: D-dimer 1.5 CRP 23 September 05: D-dimer 1.93 potassium 3.4 creatinine 0.6 CRP 28.8 September 04: D-dimer 0.89 CRP 60.7 September 03: WBC 5.2 hemoglobin 10.6 platelets 139 d-dimer 1.15 potassium 3.6 CRP 39.6 WBC 3.2 hemoglobin 12.1 platelets 124 potassium 3.2 creatinine 0.74 sodium 1:30 D-dimer 0.58 CRP 53.5 coronavirus [PCR] detected EKG tracing personally reviewed by me-sinus rhythm Q waves in inferior leads Chest x-ray personally reviewed by me-bilateral infiltrates Assessment and plan: -Bilateral COVID 19 pneumonia causing sepsis-slow to respond on subcu Lovenox, IV Solu-Medrol. Remdesivir . vitamin C vitamin D Pepcid zinc IV fluids. ACTEMRA ordered today -Acute hypoxic respiratory failure secondary to COVID 19 -worsening Supplement oxygen on 12 L -Excise-induced asthma Use bronchodilators -Hyperlipidemia -Colonic diverticulosis, asymptomatic -Psoriatic arthritis and psoriasis -Beta thalassemia Follow hemoglobin -Hyponatremia likely hypoosmolar Encourage oral solute intake Discussed with the patient. Continue current medications. ACTEMRA ordered by pulmonary today.
--- NOTE | 2020-09-06 20:03 | PN ---
PROGRESS NOTE DATE OF SERVICE: 09/06/2020 REASON FOR FOLLOWUP: COVID-19 pneumonia. INTERVAL HISTORY: Patient is currently afebrile. The patient did have worsening of his respiratory status. Currently on a high-flow non-rebreather 15 L. The patient has been complaining of shortness of breath. The patient denies any chest pain. Cough intensity about the same. Remains to be dry in nature. No nausea, no vomiting. No abdominal pain or diarrhea. PHYSICAL EXAMINATION: Blood pressure 150/88 with a pulse of 83, temperature is 97.9. He is 94% on 15 L high- flow oxygen. General description is a middle-aged male up in the bed in no distress. Respiratory system: Unlabored breathing. Coarse breath sounds bilaterally. No wheeze. Heart S1, S2. Regular rate and rhythm. Abdomen soft, no tenderness. LABS: D-dimer is down to 1.50. DIAGNOSTIC IMPRESSION AND PLAN: Patient with acute COVID-19 infection in this patient did have worsening of his respiratory status despite being on Remdesivir, steroids. Inflammatory markers have improved, however, the patient may be a candidate for Actemra. I will discuss further with Pulmonary. Continue supportive care. MMODL / IJN: [id number] / KAYLA
[2020-09-07] MEDS: ALBUTEROL HFA INHALER INHALATION SCH ×7 (00:40→23:52)
[2020-09-07] MEDS: methylPREDNISolone SOD SUCCI 125 MG/2 ML VIAL IV SCH ×3 (05:38→17:05)
[2020-09-07 07:19] LABS: African American GFR (CKD) >90 (>60 ml/min/1.73 sqM); Anion Gap 6 mmol/L; Blood Urea Nitrogen 12 mg/dL (9-20); C Reactive Protein 17.8 mg/L (<10.0); Calcium 8.1 mg/dL (8.4-10.2); Carbon Dioxide 30 mmol/L (22-30); Chloride 100 mmol/L (98-107); Glucose 136 mg/dL (74-99); LDH 2023 U/L (313-618); Non-African American GFR(CKD) >90 (>60 ml/min/1.73 sqM); Potassium 3.5 mmol/L (3.5-5.1); Sodium 136 mmol/L (137-145)
--- NOTE | 2020-09-07 08:04 | XR ---
EXAMINATION TYPE: XR chest 1V portable DATE OF EXAM: 09/07/2020 CLINICAL HISTORY: Difficulty breathing and covid-19 progress study. TECHNIQUE: Single AP portable upright view of the chest is obtained. COMPARISON: Chest x-ray from 3 days earlier and older studies. FINDINGS: Bilateral increased mid to lower lung opacities with some improved aeration right mid lung . Left upper lung remains clear. Cardiac silhouette size stable and within normal limits. Osseous str uctures are intact. IMPRESSION: Persistent multifocal mid to lower lung opacities consistent with covid-19 infection. Per haps some improved aeration right mid lung since most recent x-ray otherwise no significant interval change.
[2020-09-07] MEDS ORDERED: ENOXAPARIN 40 MG/0.4 ML SYRINGE SQ SCH (09:00)
[2020-09-07] MEDS: ASCORBIC ACID 500 MG TAB PO SCH (09:23)
[2020-09-07] MEDS: SODIUM CHLORIDE 0.9% 1,000 ML IV SCH ×2 (09:23→16:42)
[2020-09-07] MEDS: BENZONATATE 100 MG CAP PO SCH ×3 (09:24→21:25)
[2020-09-07] MEDS: ZINC SULFATE 220 MG CAP PO SCH (09:24)
[2020-09-07] MEDS: FAMOTIDINE 20 MG TAB PO SCH ×2 (09:24→21:26)
[2020-09-07] MEDS: CHOLECALCIFEROL 25 MCG (1000 IU) TABLET PO SCH (09:24)
--- NOTE | 2020-09-07 12:02 | P.PN ---
Subjective Progress Note Date: 09/07/20 55-year-old male patient of Dr. Marlena Vicente who presented to the emergency department on 09/01/2020 with symptoms of worsening cough, shortness of breath. Patient tested positive for COVID 19, his chest x-ray showed bilateral airspace infiltrates. First onset of symptoms was one week ago with cough, fever, flulike symptoms. Patient was seen by his primary care provider and placed on Z-Arun and Medrol dosepak last week. Patient has 2 days left of the Medrol Dosepak, and he finished the Z-Arun however his symptoms did not improve and progress. He is not requiring supplemental oxygen, 2 L, and his pulse ox of 94%, he was febrile on presentation, he has frequent dry cough, but no chest discomfort, no nausea or vomiting, did have diarrhea. he is a former smoker, only smoked for about 8 years, he quit smoking 20 years ago. He does have underlying history of asthma, mild intermittent, uses Ventolin on an as-needed basis, no history of frequent exacerbations, his asthma is exercise induced. His lab work revealed leukopenia, with white blood cell count 3.2, hemoglobin is 12.1, lymphopenia with a basic, 0.4, sodium is 1:30, potassium is 3.2, chloride is 94, BUN is 18, creatinine 0.74, plasma lactic acid 0.9. AST was 76, ALT was 51, alkaline phosphatase was 135, LDH was 1150, and CRP was 53.5. Patient also has history of psoriatic arthritis and he takes methotrexate and Arava, that were both placed on hold last week. Morning he seen on medical surgical floor, he is awake and alert, has a frequent dry cough, diffuse coarse crackles throughout the lung fajardo, no nausea or vomiting. Was started on oral Decadron 8 mg. On 0.9 normal saline running at 120 ML per hour, patient is within the window for Remdesivir and patient will be given a unit of convalescent plasma in addition to vitamins, prophylactic anticoagulation. On 09/03/2020 patient seen in follow-up on medical floor, still coughing a lot, dyspneic, he is currently on 4 L of oxygen, his pulse ox of 97%, chest feels heavy, overall she is feeling 'lousy". Low-grade fever this morning, with a temp of 99.7F, lung sounds. Positive for coarse diffuse bilateral crackles throughout lung fajardo. This is day 2 of Remdesivir treatment, he is still awaiting convalescent plasma, continues on Decadron 6 mg, vitamins, and prophylactic anticoagulation, today's labs have been reviewed, showing white blood cell count of 5.2, hemoglobin of 10.6, d-dimer is 1.15, sodium is 132, the rest of electrolytes and renal profile were unremarkable, LDH has trended up to 1700, CRP is down slightly to 39.6 from 53.5. Pro-calcitonin level is 0.18. Blood cultures have been negative. Patient has quite frequent dry irritative cough, his lower back is starting to hurt and he is not sure whether it's from coughing or being in the bed and in the chair for a long period of time. On 06/06/2020 patient seen in follow-up on medical floor. Doing slightly better, still coughing quite a bit, but he states the Tessalon Perles more effective than the Robitussin with codeine, lung sounds are still positive for diffuse crackles, afebrile. He was able to sleep a bit better last night. Repeat chest x-ray today showed mid and lower lung airspace disease significantly increased from prior. Clinically medically patient feels a bit better. D-dimer is 0.89, LDH is 1749, CRP is 16.7. Pro-calcitonin level was 0.18. Patient is on Remdesivir, today is day 3 of treatment, did receive convalescent plasma early this morning. On 09/06/2020 patient seen in follow-up on medical floor, he is currently on 12 L of oxygen, his pulse ox of 89-90%, still coughing quite a bit, he is on his last day of Remdesivir treatment, he did receive a dose of convalescent plasma, continues on Solu-Medrol 60 mg every 6 hours, IV fluids, he is on vitamins, is receiving Tessalon Perles. He is on prophylactic dose Lovenox, today's d-dimer is 1.5, his inflammatory markers show improving CRP, LDH is pending. 09/07/2020 the patient is on 100% nonrebreather facemask with a 15 L oxygen flow. His pulse ox is barely at 90%. Feeling slightly better. Cough and with deep breathing. Using incentive spirometer. He remains on IV Solu-Medrol. He completed Remdesivir and he was also give tocilizumab 640 mg IV. The chest x- ray from today is showing stable about pulmonary infiltrates, essentially unchanged compared to yesterday. The blood work today showing a d-dimer of 4.8, LDH level of 2022, CRP of 17.8, creatinine of 0.5. The patient remains on Lovenox and his current dose is at 40 mg subcu every 24 hours and the patient is also on IV Solu-Medrol. No altered mentation. No nausea. No vomiting. He is quite short of breath even with talking. Objective - Vital Signs Vital signs: Vital Signs Temp 97.6 F 09/07/20 10:00 Pulse 91 09/07/20 10:00 Resp 20 09/07/20 10:00 BP 105/67 09/07/20 10:00 Pulse Ox 96 09/07/20 10:00 Intake & Output 09/06/20 09/07/20 09/07/20 18:59 06:59 18:59 Other: Voiding Method Toilet Toilet # Voids 2 1 - Exam GENERAL EXAM: Alert, very pleasant 55-year-old male on the 100% nonrebreather facemask oxygen with a pulse ox of 89%, patient has a dry irritated cough, which is quite frequent and at times continuous comfortable in no apparent distress. HEAD: Normocephalic/atraumatic. EYES: Normal reaction of pupils, equal size. Conjunctiva pink, sclera white. NOSE: Clear with pink turbinates. THROAT: No erythema or exudates. NECK: No masses, no JVD, no thyroid enlargement, no adenopathy. CHEST: No chest wall deformity. Symmetrical expansion. LUNGS: Equal air entry with diffuse crackles CVS: Regular rate and rhythm, normal S1 and S2, no gallops, no murmurs, no rubs ABDOMEN: Soft, nontender. No hepatosplenomegaly, normal bowel sounds, no guarding or rigidity. EXTREMITIES: No clubbing, no edema, no cyanosis, 2+ pulses and upper and lower extremities. MUSCULOSKELETAL: Muscle strength and tone normal. SPINE: No scoliosis or deformity SKIN: No rashes CENTRAL NERVOUS SYSTEM: Alert and oriented -3. No focal deficits, tone is normal in all 4 extremities. PSYCHIATRIC: Alert and oriented -3. Appropriate affect. Intact judgment and insight. - Labs CBC & Chem 7: 09/05/20 10:09 09/07/20 05:56 Labs: Abnormal Lab Results - Last 24 Hours (Table) 09/07/20 09/07/20 Range/Units 05:56 05:56 D-Dimer 4.83 H (<0.60) mg/L FEU Sodium 136 L (137-145) mmol/L Creatinine 0.58 L (0.66-1.25) mg/dL Glucose 136 H (74-99) mg/dL Calcium 8.1 L (8.4-10.2) mg/dL Lactate Dehydrogenase 2023 H (313-618) U/L C-Reactive Protein 17.8 H (<10.0) mg/L Microbiology - Last 24 Hours (Table) 09/02/20 00:20 Blood Culture - Preliminary Blood No Growth after 120 hours 09/02/20 00:35 Blood Culture - Preliminary Blood No Growth after 120 hours Assessment and Plan Plan: #1. Acute hypoxic respiratory failure related to acute COVID 19 pneumonia, onset of symptoms 7 days ago, patient had outpatient treatment with Z-Arun and Medrol Dosepak and his symptoms progressed. Started on a Remdesivir on 09/02/2020 and completed the protocol, and convalescent plasma 1, the patient was also given Tocilizumab 630 mg IVP. The patient continues to be on 100% nonrebreather facemask for now with 15 L of oxygen. #2. History of psoriatic arthritis on methotrexate and Leflunomide, dad both have been placed on hold 7 days ago #3. Increased inflammatory markers related to acute COVID 19 infection him a d- dimer is also slightly elevated #4. Mild intermittent bronchial asthma, exercise induced #5. 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 Increased transaminases, likely related to viral pneumonia, we'll continue to follow #7. Hyponatremia and hypokalemia, related to dehydration Plan: Continue IV Solu-Medrol Adjust dose of Lovenox 40 mg subcu every 12 hours Monitor inflammatory markers The patient completed Tocilizumab 630 and Remdesivir treatment and he also received convalescent plasma We'll continue to follow
--- NOTE | 2020-09-07 18:32 | PN ---
PROGRESS NOTE DATE OF SERVICE: 09/07/2020 REASON FOR FOLLOWUP: COVID-19 pneumonia. INTERVAL HISTORY: The patient is afebrile. The patient is breathing slightly comfortably; however, still requiring non-rebreather. Denies having any chest pain. He continues to have a cough which is dry in nature. No abdominal pain and no diarrhea. PHYSICAL EXAMINATION: Blood pressure 113/67 with a pulse of 102, temperature 98. He is 88% on non- rebreather. General description is a middle-aged male up in the chair in no distress. RESPIRATORY SYSTEM: Unlabored breathing with decreased intensity of breath sounds. No wheeze. HEART: S1, S2. Regular rate and rhythm. ABDOMEN: Soft. No tenderness. LABS: D-dimer is up to 4.83, creatinine 0.58. LDH is up to 2022. DIAGNOSTIC IMPRESSION AND PLAN: Patient with acute respiratory failure from COVID-19 infection, now with concern for possible slight recurrence. Patient is covered with Solu-Medrol and received a dose of Actemra yesterday. Lovenox dose was adjusted twice today because of of his D- dimer. Continue current treatment protocol and monitor clinical course closely. MMODL / IJN: [id number] / MTDD
[2020-09-07] MEDS: ENOXAPARIN 40 MG/0.4 ML SYRINGE SQ SCH (21:35)
--- NOTE | 2020-09-07 22:58 | P.PN ---
Progress Note - Text Progress Note Date: 09/07/20 Chief Complaint: Short of breath History of presenting complaint: This is a very pleasant 55-year-old patient of Dr. Marlena Vicente. Chronic stable medical conditions include hyperlipidemia, exercise-induced asthma, seasonal ALLERGIES, diverticulosis, psoriatic arthritis affecting multiple joints, beta thalassemia. Patient started off the cough about a week ago. The cough is coming progressively worse with associated shortness of breath. No loss of smell or taste. Patient's had some diarrhea. Not much of body 8. Appetite has gone down. Patient tested positive for COVID on September 01 that Eusebio Calvo on ER. Tired. Febrile Admitted with bilateral COVID 19 pneumonia causing sepsis, acute hypoxic respiratory failure. Started on dexamethasone, Lovenox, Remdesivir. ACTEMRA Today: Sitting up in a chair. More short of breath. On 15 L nonrebreather. Eating some. Tired. Awake Review of systems: Was done for constitutional, cardiovascular, GI, pulmonary. relevant finding as above Active Medications Acetaminophen (Acetaminophen Tab 325 Mg Tab) 650 mg PO Q6HR PRN PRN Reason: Fever and/ or Pain Last Admin: 09/03/20 09:36 Dose: 650 mg Documented by: Albuterol Sulfate (Albuterol Hfa Inhaler) 4 puff INHALATION RT-Q4H [facility] Last Admin: 09/07/20 20:35 Dose: 4 puff Documented by: Ascorbic Acid (Ascorbic Acid 500 Mg Tab) 1,000 mg PO DAILY [facility] Last Admin: 09/07/20 09:23 Dose: 1,000 mg Documented by: Benzonatate (Benzonatate 100 Mg Cap) 200 mg PO TID [facility] Last Admin: 09/07/20 21:25 Dose: 200 mg Documented by: Cholecalciferol (Cholecalciferol 25 Mcg (1000 Iu) Tablet) 100 mcg PO DAILY [facility] Last Admin: 09/07/20 09:24 Dose: 100 mcg Documented by: Enoxaparin Sodium (Enoxaparin 40 Mg/0.4 Ml Syringe) 40 mg SQ BID [facility] Last Admin: 09/07/20 21:35 Dose: 40 mg Documented by: Famotidine (Famotidine 20 Mg Tab) 20 mg PO BID [facility] Last Admin: 09/07/20 21:26 Dose: 20 mg Documented by: Sodium Chloride (Saline 0.9%) 1,000 mls @ 20 mls/hr IV .Q24H [facility] Last Admin: 09/07/20 16:42 Dose: Not Given Documented by: Methylprednisolone Sodium Succinate (Methylprednisolone Sod Succi 125 Mg/2 Ml Vial) 60 mg IV Q6HR [facility] Last Admin: 09/07/20 17:05 Dose: 60 mg Documented by: Naloxone HCl (Naloxone 0.4 Mg/Ml 1 Ml Vial) 0.2 mg IV Q2M PRN PRN Reason: Opioid Reversal Ondansetron HCl (Ondansetron 4 Mg/2 Ml Vial) 4 mg IVP Q8HR PRN PRN Reason: Nausea And Vomiting Zinc Sulfate (Zinc Sulfate 220 Mg Cap) 220 mg PO DAILY [facility] Last Admin: 09/07/20 09:24 Dose: 220 mg Documented by: Past medical history to include: Exercise-induced asthma, hyperlipidemia, seasonal ALLERGIES, gastric ulcer in the remote past, diverticulosis, colon polyps, psoriatic arthritis affecting many joints, beta thalassemia Social history: 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 . Patient smoked for 8 years stopped in 1997. Alcohol occasionally. Physical examination: VITAL SIGNS: 98, 102, 22, 113/67, 88% on 15 L nonrebreather GENERAL: Sitting up to chair, short of breath , bit tired LUNGS: Respiratory rate increased,. PSYCH: Alert and oriented x3; mood and affect slightly anxious. NEUROLOGICAL: Cranial nerves grossly intact; no facial asymmetry, moving limbs Rest of the exam per pulmonary and nursing INVESTIGATIONS, reviewed in the clinical context: September 07: D-dimer 4.83 potassium 3.5 creatinine 0.58 LDH 2022 CRP 17.8 September 06: D-dimer 1.5 CRP 23 September 05: D-dimer 1.93 potassium 3.4 creatinine 0.6 CRP 28.8 September 04: D-dimer 0.89 CRP 60.7 September 03: WBC 5.2 hemoglobin 10.6 platelets 139 d-dimer 1.15 potassium 3.6 CRP 39.6 WBC 3.2 hemoglobin 12.1 platelets 124 potassium 3.2 creatinine 0.74 sodium 1:30 D-dimer 0.58 CRP 53.5 coronavirus [PCR] detected EKG tracing personally reviewed by me-sinus rhythm Q waves in inferior leads Chest x-ray personally reviewed by me-bilateral infiltrates Assessment and plan: -Bilateral COVID 19 pneumonia causing sepsis-slow to respond on subcu Lovenox, IV Solu-Medrol. Remdesivir . vitamin C vitamin D Pepcid zinc IV fluids. ACTEMRA -Acute hypoxic respiratory failure secondary to COVID 19 -worsening Supplement oxygen on 15 L -Excise-induced asthma Use bronchodilators -Hyperlipidemia -Colonic diverticulosis, asymptomatic -Psoriatic arthritis and psoriasis -Beta thalassemia Follow hemoglobin -Hyponatremia likely hypoosmolar Encourage oral solute intake Guarded prognosis. Follow with pulmonary.
[2020-09-08] MEDS: methylPREDNISolone SOD SUCCI 125 MG/2 ML VIAL IV SCH ×4 (00:21→18:12)
[2020-09-08] MEDS: ALBUTEROL HFA INHALER INHALATION SCH ×6 (04:53→23:34)
[2020-09-08] MEDS: amLODIPine 10 MG TAB PO SCH (06:26)
[2020-09-08] MEDS: BENZONATATE 100 MG CAP PO SCH ×3 (09:34→21:08)
[2020-09-08] MEDS: FAMOTIDINE 20 MG TAB PO SCH ×2 (09:34→21:08)
[2020-09-08] MEDS: CHOLECALCIFEROL 25 MCG (1000 IU) TABLET PO SCH (09:34)
[2020-09-08] MEDS: ASCORBIC ACID 500 MG TAB PO SCH (09:34)
[2020-09-08] MEDS: ZINC SULFATE 220 MG CAP PO SCH (09:35)
[2020-09-08] MEDS: ENOXAPARIN 40 MG/0.4 ML SYRINGE SQ SCH ×2 (09:35→21:09)
--- NOTE | 2020-09-08 12:18 | P.PN ---
Subjective Progress Note Date: 09/08/20 55-year-old male patient of Dr. Marlena Vicente who presented to the emergency department on 09/01/2020 with symptoms of worsening cough, shortness of breath. Patient tested positive for COVID 19, his chest x-ray showed bilateral airspace infiltrates. First onset of symptoms was one week ago with cough, fever, flulike symptoms. Patient was seen by his primary care provider and placed on Z-Arun and Medrol dosepak last week. Patient has 2 days left of the Medrol Dosepak, and he finished the Z-Arun however his symptoms did not improve and progress. He is not requiring supplemental oxygen, 2 L, and his pulse ox of 94%, he was febrile on presentation, he has frequent dry cough, but no chest discomfort, no nausea or vomiting, did have diarrhea. he is a former smoker, only smoked for about 8 years, he quit smoking 20 years ago. He does have underlying history of asthma, mild intermittent, uses Ventolin on an as-needed basis, no history of frequent exacerbations, his asthma is exercise induced. His lab work revealed leukopenia, with white blood cell count 3.2, hemoglobin is 12.1, lymphopenia with a basic, 0.4, sodium is 1:30, potassium is 3.2, chloride is 94, BUN is 18, creatinine 0.74, plasma lactic acid 0.9. AST was 76, ALT was 51, alkaline phosphatase was 135, LDH was 1150, and CRP was 53.5. Patient also has history of psoriatic arthritis and he takes methotrexate and Arava, that were both placed on hold last week. Morning he seen on medical surgical floor, he is awake and alert, has a frequent dry cough, diffuse coarse crackles throughout the lung fajardo, no nausea or vomiting. Was started on oral Decadron 8 mg. On 0.9 normal saline running at 120 ML per hour, patient is within the window for Remdesivir and patient will be given a unit of convalescent plasma in addition to vitamins, prophylactic anticoagulation. On 09/03/2020 patient seen in follow-up on medical floor, still coughing a lot, dyspneic, he is currently on 4 L of oxygen, his pulse ox of 97%, chest feels heavy, overall she is feeling 'lousy". Low-grade fever this morning, with a temp of 99.7F, lung sounds. Positive for coarse diffuse bilateral crackles throughout lung fajardo. This is day 2 of Remdesivir treatment, he is still awaiting convalescent plasma, continues on Decadron 6 mg, vitamins, and prophylactic anticoagulation, today's labs have been reviewed, showing white blood cell count of 5.2, hemoglobin of 10.6, d-dimer is 1.15, sodium is 132, the rest of electrolytes and renal profile were unremarkable, LDH has trended up to 1700, CRP is down slightly to 39.6 from 53.5. Pro-calcitonin level is 0.18. Blood cultures have been negative. Patient has quite frequent dry irritative cough, his lower back is starting to hurt and he is not sure whether it's from coughing or being in the bed and in the chair for a long period of time. On 06/06/2020 patient seen in follow-up on medical floor. Doing slightly better, still coughing quite a bit, but he states the Tessalon Perles more effective than the Robitussin with codeine, lung sounds are still positive for diffuse crackles, afebrile. He was able to sleep a bit better last night. Repeat chest x-ray today showed mid and lower lung airspace disease significantly increased from prior. Clinically medically patient feels a bit better. D-dimer is 0.89, LDH is 1749, CRP is 16.7. Pro-calcitonin level was 0.18. Patient is on Remdesivir, today is day 3 of treatment, did receive convalescent plasma early this morning. On 09/06/2020 patient seen in follow-up on medical floor, he is currently on 12 L of oxygen, his pulse ox of 89-90%, still coughing quite a bit, he is on his last day of Remdesivir treatment, he did receive a dose of convalescent plasma, continues on Solu-Medrol 60 mg every 6 hours, IV fluids, he is on vitamins, is receiving Tessalon Perles. He is on prophylactic dose Lovenox, today's d-dimer is 1.5, his inflammatory markers show improving CRP, LDH is pending. 09/07/2020 the patient is on 100% nonrebreather facemask with a 15 L oxygen flow. His pulse ox is barely at 90%. Feeling slightly better. Cough and with deep breathing. Using incentive spirometer. He remains on IV Solu-Medrol. He completed Remdesivir and he was also give tocilizumab 640 mg IV. The chest x- ray from today is showing stable about pulmonary infiltrates, essentially unchanged compared to yesterday. The blood work today showing a d-dimer of 4.8, LDH level of 2022, CRP of 17.8, creatinine of 0.5. The patient remains on Lovenox and his current dose is at 40 mg subcu every 24 hours and the patient is also on IV Solu-Medrol. No altered mentation. No nausea. No vomiting. He is quite short of breath even with talking. 09/08/2020, the patient is still on a nonrebreather facemask and 100%. Condition essentially the same as yesterday. He is on IV Solu-Medrol. Completed the rest of the treatment as mentioned earlier in my dictations. D- dimer is elevated at 7.62 and the CRP is also mildly elevated at 14.5. Hemodynamically stable. No new complaints. He remains on IV Solu Medrol 60 mg IV push every 6 hours. Cough and significantly still without any major improvement since yesterday. He is struggling extensively with cough and. On examination his lungs are crackling extensively. His chest x-ray from yesterday still showing bilateral pulmonary infiltrates consistent with COVID related pne umonia. Objective - Vital Signs Vital signs: Vital Signs Temp 98.5 F 09/08/20 10:05 Pulse 105 H 09/08/20 10:05 Resp 22 09/08/20 10:05 BP 100/62 09/08/20 10:05 Pulse Ox 89 L 09/08/20 10:05 Intake & Output 09/07/20 09/08/20 09/08/20 18:59 06:59 18:59 Intake Total 320 Output Total 1075 200 Balance 320 -1075 -200 Intake: Oral 320 Output: Urine 1075 200 Other: Voiding Method Urinal # Voids 2 2 - Exam GENERAL EXAM: Alert, very pleasant 55-year-old male on the 100% nonrebreather facemask oxygen with a pulse ox of 89%, patient has a dry irritated cough, which is quite frequent and at times continuous comfortable in no apparent distress. HEAD: Normocephalic/atraumatic. EYES: Normal reaction of pupils, equal size. Conjunctiva pink, sclera white. NOSE: Clear with pink turbinates. THROAT: No erythema or exudates. NECK: No masses, no JVD, no thyroid enlargement, no adenopathy. CHEST: No chest wall deformity. Symmetrical expansion. LUNGS: Equal air entry with diffuse crackles CVS: Regular rate and rhythm, normal S1 and S2, no gallops, no murmurs, no rubs ABDOMEN: Soft, nontender. No hepatosplenomegaly, normal bowel sounds, no guarding or rigidity. EXTREMITIES: No clubbing, no edema, no cyanosis, 2+ pulses and upper and lower extremities. MUSCULOSKELETAL: Muscle strength and tone normal. SPINE: No scoliosis or deformity SKIN: No rashes CENTRAL NERVOUS SYSTEM: Alert and oriented -3. No focal deficits, tone is normal in all 4 extremities. PSYCHIATRIC: Alert and oriented -3. Appropriate affect. Intact judgment and insight. - Labs CBC & Chem 7: 09/05/20 10:09 09/07/20 05:56 Labs: Abnormal Lab Results - Last 24 Hours (Table) 09/08/20 09/08/20 Range/Units 04:40 04:40 D-Dimer 7.62 H (<0.60) mg/L FEU C-Reactive Protein 14.5 H (<10.0) mg/L Microbiology - Last 24 Hours (Table) 09/02/20 00:35 Blood Culture - Final Blood No Growth after 144 hours 09/02/20 00:20 Blood Culture - Final Blood No Growth after 144 hours Assessment and Plan Plan: #1. Acute hypoxic respiratory failure related to acute COVID 19 pneumonia, onset of symptoms 7 days ago, patient had outpatient treatment with Z-Arun and Medrol Dosepak and his symptoms progressed. Started on a Remdesivir on 09/02/2020 and completed the protocol, and convalescent plasma 1, the patient was also given Tocilizumab 630 mg IVP. The patient continues to be on 100% nonrebreather facemask for now with 15 L of oxygen. Clinically unchanged. The patient continues to cough and the patient is short of breath and the patient is on 100% on a beta facemask. No major improvement. #2. History of psoriatic arthritis on methotrexate and Leflunomide, dad both have been placed on hold 7 days ago #3. Increased inflammatory markers related to acute COVID 19 infection him a d- dimer is also slightly elevated #4. Mild intermittent bronchial asthma, exercise induced #5. 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 Increased transaminases, likely related to viral pneumonia, we'll continue to follow #7. Hyponatremia and hypokalemia, related to dehydration Plan: No major improvement in her overall pulmonary status. Still symptomatic with cough and shortness of breath and the patient remains on 100% recovered at facemask. Continue IV Solu-Medrol Adjust dose of Lovenox 40 mg subcu every 12 hours Monitor inflammatory markers The patient completed Tocilizumab 630 and Remdesivir treatment and he also received convalescent plasma We'll continue to follow
--- NOTE | 2020-09-08 20:20 | PN ---
PROGRESS NOTE DATE OF SERVICE: 09/08/2020 REASON FOR FOLLOWUP: COVID-19 infection. INTERVAL HISTORY: The patient is currently afebrile. The patient is breathing slightly comfortably. Cough has decreased intensity and remains dry in nature. No chest pain. No nausea, no vomiting, no abdominal pain or diarrhea. PHYSICAL EXAMINATION: Blood pressure is 97/61, pulse 100, temperature 98.8. He is 89% on non-rebreather. General description is a middle-aged male up in the chair in no distress. RESPIRATORY SYSTEM: Unlabored breathing with decreased intensity of breath sounds. No wheeze. HEART: S1, S2. Regular rate and rhythm. ABDOMEN: Soft. No tenderness. LABS: Hemoglobin is 11.4, white count 9.0. D-dimer is up to 7.62. CRP is 14.5. DIAGNOSTIC IMPRESSION AND PLAN: Patient with acute COVID-19 infection in this patient who has completed his remdesivir therapy and has also received a dose of Actemra. The patient is currently covered with Solu-Medrol, Lovenox, zinc, ascorbic acid; to continue and monitor his clinical course closely. MMODL / IJN: [id number] /
[2020-09-08] MEDS: SODIUM CHLORIDE 0.9% 1,000 ML IV SCH (21:12)
--- NOTE | 2020-09-08 22:39 | P.PN ---
Progress Note - Text Progress Note Date: 09/08/20 Chief Complaint: Short of breath History of presenting complaint: This is a very pleasant 55-year-old patient of Dr. Marlena Vicente. Chronic stable medical conditions include hyperlipidemia, exercise-induced asthma, seasonal ALLERGIES, diverticulosis, psoriatic arthritis affecting multiple joints, beta thalassemia. Patient started off the cough about a week ago. The cough is coming progressively worse with associated shortness of breath. No loss of smell or taste. Patient's had some diarrhea. Not much of body 8. Appetite has gone down. Patient tested positive for COVID on September 01 that Eusebio Calvo on ER. Tired. Febrile Admitted with bilateral COVID 19 pneumonia causing sepsis, acute hypoxic respiratory failure. Started on dexamethasone, Lovenox, Remdesivir. ACTEMRA Today: Sitting upon a chair. Short of breath. Diet. Eating some. Using his incentive spirometry. On high flow 15 L of nasal cannula. Review of systems: Was done for constitutional, cardiovascular, GI, pulmonary. relevant finding as above Active Medications Acetaminophen (Acetaminophen Tab 325 Mg Tab) 650 mg PO Q6HR PRN PRN Reason: Fever and/ or Pain Last Admin: 09/03/20 09:36 Dose: 650 mg Documented by: Albuterol Sulfate (Albuterol Hfa Inhaler) 4 puff INHALATION RT-Q4H [facility] Last Admin: 09/08/20 20:27 Dose: 4 puff Documented by: Amlodipine Besylate (Amlodipine 10 Mg Tab) 10 mg PO DAILY [facility] Last Admin: 09/08/20 06:26 Dose: 10 mg Documented by: Ascorbic Acid (Ascorbic Acid 500 Mg Tab) 1,000 mg PO DAILY [facility] Last Admin: 09/08/20 09:34 Dose: 1,000 mg Documented by: Benzonatate (Benzonatate 100 Mg Cap) 200 mg PO TID [facility] Last Admin: 09/08/20 21:08 Dose: 200 mg Documented by: Cholecalciferol (Cholecalciferol 25 Mcg (1000 Iu) Tablet) 100 mcg PO DAILY [facility] Last Admin: 09/08/20 09:34 Dose: 100 mcg Documented by: Enoxaparin Sodium (Enoxaparin 40 Mg/0.4 Ml Syringe) 40 mg SQ BID [facility] Last Admin: 09/08/20 21:09 Dose: 40 mg Documented by: Famotidine (Famotidine 20 Mg Tab) 20 mg PO BID [facility] Last Admin: 09/08/20 21:08 Dose: 20 mg Documented by: Sodium Chloride (Saline 0.9%) 1,000 mls @ 20 mls/hr IV .Q24H [facility] Last Admin: 09/08/20 21:12 Dose: Not Given Documented by: Methylprednisolone Sodium Succinate (Methylprednisolone Sod Succi 125 Mg/2 Ml Vial) 60 mg IV Q6HR [facility] Last Admin: 09/08/20 18:12 Dose: 60 mg Documented by: Naloxone HCl (Naloxone 0.4 Mg/Ml 1 Ml Vial) 0.2 mg IV Q2M PRN PRN Reason: Opioid Reversal Ondansetron HCl (Ondansetron 4 Mg/2 Ml Vial) 4 mg IVP Q8HR PRN PRN Reason: Nausea And Vomiting Zinc Sulfate (Zinc Sulfate 220 Mg Cap) 220 mg PO DAILY [facility] Last Admin: 09/08/20 09:35 Dose: 220 mg Documented by: Past medical history to include: Exercise-induced asthma, hyperlipidemia, seasonal ALLERGIES, gastric ulcer in the remote past, diverticulosis, colon polyps, psoriatic arthritis affecting many joints, beta thalassemia 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 . Patient smoked for 8 years stopped in 1997. Alcohol occasionally. Physical examination: VITAL SIGNS: 98.5, 105, 22, 100/62, 89% on nonrebreather at 15 L GENERAL: Sitting up to chair, short of breath , tired LUNGS: Respiratory rate increased,. PSYCH: Alert and oriented x3; mood and affect slightly anxious. NEUROLOGICAL: Cranial nerves grossly intact; no facial asymmetry, moving limbs Rest of the exam per pulmonary and nursing INVESTIGATIONS, reviewed in the clinical context: September 08: D-dimer 7.6 to CRP 14.5 September 07: D-dimer 4.83 potassium 3.5 creatinine 0.58 LDH 2022 CRP 17.8 September 06: D-dimer 1.5 CRP 23 September 05: D-dimer 1.93 potassium 3.4 creatinine 0.6 CRP 28.8 September 04: D-dimer 0.89 CRP 60.7 September 03: WBC 5.2 hemoglobin 10.6 platelets 139 d-dimer 1.15 potassium 3.6 CRP 39.6 WBC 3.2 hemoglobin 12.1 platelets 124 potassium 3.2 creatinine 0.74 sodium 1:30 D-dimer 0.58 CRP 53.5 coronavirus [PCR] detected EKG tracing personally reviewed by me-sinus rhythm Q waves in inferior leads Chest x-ray personally reviewed by me-bilateral infiltrates Assessment and plan: -Bilateral COVID 19 pneumonia causing not improving on subcu Lovenox, IV Solu-Medrol. Remdesivir . vitamin C vitamin D Pepcid zinc IV fluids. ACTEMRA -Acute hypoxic respiratory failure secondary to COVID 19 -not improving Supplement oxygen on 15 L -Exercise-induced asthma Use bronchodilators -Hyperlipidemia -Colonic diverticulosis, asymptomatic -Psoriatic arthritis and psoriasis -Beta thalassemia Follow hemoglobin -Hyponatremia likely hypoosmolar Encourage oral solute intake Patient not improving. Discussed with pulmonary. Continue current medication treatment plan.
[2020-09-09] MEDS: methylPREDNISolone SOD SUCCI 125 MG/2 ML VIAL IV SCH ×5 (01:05→23:25)
[2020-09-09 07:28] LABS: C Reactive Protein 10.9 mg/L (<10.0)
[2020-09-09] MEDS: ALBUTEROL HFA INHALER INHALATION SCH ×5 (07:48→22:06)
[2020-09-09] MEDS: amLODIPine 10 MG TAB PO SCH (08:08)
[2020-09-09] MEDS: FAMOTIDINE 20 MG TAB PO SCH ×2 (08:08→20:41)
[2020-09-09] MEDS: CHOLECALCIFEROL 25 MCG (1000 IU) TABLET PO SCH (08:08)
[2020-09-09] MEDS: BENZONATATE 100 MG CAP PO SCH ×3 (08:08→20:41)
[2020-09-09] MEDS: ASCORBIC ACID 500 MG TAB PO SCH (08:08)
[2020-09-09] MEDS: ZINC SULFATE 220 MG CAP PO SCH (08:08)
[2020-09-09] MEDS: ENOXAPARIN 40 MG/0.4 ML SYRINGE SQ SCH ×2 (08:08→20:42)
--- NOTE | 2020-09-09 14:41 | P.PN ---
Subjective Progress Note Date: 09/09/20 Principal diagnosis: Fever, cough, chills, hypoxia, COVID 19 55-year-old male patient of Dr. Marlena Vicente who presented to the emergency department on 09/01/2020 with symptoms of worsening cough, shortness of breath. Patient tested positive for COVID 19, his chest x-ray showed bilateral airspace infiltrates. First onset of symptoms was one week ago with cough, fever, flu like symptoms. Patient was seen by his primary care provider and placed on Z- Arun and Medrol dosepak last week. Patient has 2 days left of the Medrol Dosepak, and he finished the Z-Arun however his symptoms did not improve and progress. He is not requiring supplemental oxygen, 2 L, and his pulse ox of 94%, he was febrile on presentation, he has frequent dry cough, but no chest discomfort, no nausea or vomiting, did have diarrhea. he is a former smoker, only smoked for about 8 years, he quit smoking 20 years ago. He does have underlying history of asthma, mild intermittent, uses Ventolin on an as-needed basis, no history of frequent exacerbations, his asthma is exercise induced. His lab work revealed leukopenia, with white blood cell count 3.2, hemoglobin is 12.1, lymphopenia with a basic, 0.4, sodium is 1:30, potassium is 3.2, chloride is 94, BUN is 18, creatinine 0.74, plasma lactic acid 0.9. AST was 76, ALT was 51, alkaline phosphatase was 135, LDH was 1150, and CRP was 53.5. Patient also has history of psoriatic arthritis and he takes methotrexate and Arava, that were both placed on hold last week. Morning he seen on medical surgical floor, he is awake and alert, has a frequent dry cough, diffuse coarse crackles throughout the lung fajardo, no nausea or vomiting. Was started on oral Decadron 8 mg. On 0.9 normal saline running at 120 ML per hour, patient is within the window for Remdesivir and patient will be given a unit of convalescent plasma in addition to vitamins, prophylactic anticoagulation. On 09/03/2020 patient seen in follow-up on medical floor, still coughing a lot, dyspneic, he is currently on 4 L of oxygen, his pulse ox of 97%, chest feels heavy, overall she is feeling 'lousy". Low-grade fever this morning, with a temp of 99.7F, lung sounds. Positive for coarse diffuse bilateral crackles throughout lung fajardo. This is day 2 of Remdesivir treatment, he is still awaiting convalescent plasma, continues on Decadron 6 mg, vitamins, and prophyl actic anticoagulation, today's labs have been reviewed, showing white blood cell count of 5.2, hemoglobin of 10.6, d-dimer is 1.15, sodium is 132, the rest of electrolytes and renal profile were unremarkable, LDH has trended up to 1700, CRP is down slightly to 39.6 from 53.5. Pro-calcitonin level is 0.18. Blood cultures have been negative. Patient has quite frequent dry irritative cough, his lower back is starting to hurt and he is not sure whether it's from coughing or being in the bed and in the chair for a long period of time. On 06/06/2020 patient seen in follow-up on medical floor. Doing slightly better, still coughing quite a bit, but he states the Tessalon Perles more effective than the Robitussin with codeine, lung sounds are still positive for diffuse crackles, afebrile. He was able to sleep a bit better last night. Repeat chest x-ray today showed mid and lower lung airspace disease significantly increased from prior. Clinically medically patient feels a bit better. D-dimer is 0.89, LDH is 1749, CRP is 16.7. Pro-calcitonin level was 0.18. Patient is on Remdesivir, today is day 3 of treatment, did receive convalescent plasma early this morning. On 09/06/2020 patient seen in follow-up on medical floor, he is currently on 12 L of oxygen, his pulse ox of 89-90%, still coughing quite a bit, he is on his last day of Remdesivir treatment, he did receive a dose of convalescent plasma, continues on Solu-Medrol 60 mg every 6 hours, IV fluids, he is on vitamins, is receiving Tessalon Perles. He is on prophylactic dose Lovenox, today's d-dimer is 1.5, his inflammatory markers show improving CRP, LDH is pending. On 09/09/2020 patient seen in follow-up on medical floor, still coughing, however his cough seems to be improving some. Lung sounds are positive for diffuse crackles, with slight improvement, patient has been ambulating to the bathroom, tolerating activity fairly well, no chest discomfort, still requiring high flow oxygen and he is on 100% nonrebreather, he states he feels more comfortable on the nonrebreather mask then high flow nasal cannula, his pulse ox is between 89-91%, no fever or chills, hemodynamically stable, tolerating oral intake. Objective - Vital Signs Vital signs: Vital Signs Temp 97.5 F L 09/09/20 09:29 Pulse 98 09/09/20 09:29 Resp 18 09/09/20 09:29 BP 105/68 09/09/20 09:29 Pulse Ox 89 L 09/09/20 09:29 Intake & Output 09/08/20 09/09/20 09/09/20 18:59 06:59 18:59 Output Total 400 Balance -400 Output: Urine 400 Other: Voiding Method Urinal Urinal # Voids 2 # Bowel Movements 1 - Exam GENERAL EXAM: Alert, very pleasant 55-year-old male on 100% nonrebreather of 89%, patient has a dry irritated cough, which is quite frequent and at times continuous comfortable in no apparent distress. HEAD: Normocephalic/atraumatic. EYES: Normal reaction of pupils, equal size. Conjunctiva pink, sclera white. NOSE: Clear with pink turbinates. THROAT: No erythema or exudates. NECK: No masses, no JVD, no thyroid enlargement, no adenopathy. CHEST: No chest wall deformity. Symmetrical expansion. LUNGS: Equal air entry with diffuse crackles CVS: Regular rate and rhythm, normal S1 and S2, no gallops, no murmurs, no rubs ABDOMEN: Soft, nontender. No hepatosplenomegaly, normal bowel sounds, no guarding or rigidity. EXTREMITIES: No clubbing, no edema, no cyanosis, 2+ pulses and upper and lower extremities. MUSCULOSKELETAL: Muscle strength and tone normal. SPINE: No scoliosis or deformity SKIN: No rashes CENTRAL NERVOUS SYSTEM: Alert and oriented -3. No focal deficits, tone is normal in all 4 extremities. PSYCHIATRIC: Alert and oriented -3. Appropriate affect. Intact judgment and insight. - Labs CBC & Chem 7: 09/05/20 10:09 09/07/20 05:56 Labs: Abnormal Lab Results - Last 24 Hours (Table) 09/09/20 09/09/20 Range/Units 06:07 06:07 D-Dimer 7.65 H (<0.60) mg/L FEU Lactate Dehydrogenase 2174 H (313-618) U/L C-Reactive Protein 10.9 H (<10.0) mg/L Assessment and Plan Plan: Assessment: #1. Acute hypoxic respiratory failure related to acute COVID 19 pneumonia, onset of symptoms 7 days ago, patient had outpatient treatment with Z-Arun and Medrol Dosepak and his symptoms progressed. Completed Remdesivir, and convalescent plasma 1, status post Tocilizumab #2. History of psoriatic arthritis on methotrexate and Leflunomide, dad both have been placed on hold 7 days ago #3. Increased inflammatory markers related to acute COVID 19 infection #4. Mild intermittent bronchial asthma, exercise induced #5. 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 Increased transaminases, likely related to viral pneumonia, we'll continue to follow #7. Hyponatremia and hypokalemia, related to dehydration, improved Plan: Continue current medical treatment, cough has improved, still requiring high flow oxygen, continue current dose IV Solu-Medrol, Tessalon Perles, and Lovenox twice daily, has been slow to improve, we'll continue to follow I performed a history & physical examination of the patient and discussed their management with my nurse practitioner, Jocy Pacheco. I reviewed the nurse practitioner's note and agree with the documented findings and plan of care. Lung sounds are positive for diffuse coarse crackles. The findings and the impression was discussed with the patient. I attest to the documentation by the nurse practitioner. Time with Patient: Less than 30
--- NOTE | 2020-09-09 17:47 | PN ---
PROGRESS NOTE DATE OF SERVICE: 09/09/2020 REASON FOR FOLLOWUP: COVID-19 pneumonia. INTERVAL HISTORY: The patient is currently afebrile. The patient mentioned he is feeling slightly better, breathing a bit easy. Still requiring a non-rebreather to maintain his saturations. Denies having any chest pain. He did have a cough which is dry in nature. No nausea, no vomiting, no abdominal pain or diarrhea. PHYSICAL EXAMINATION: Blood pressure 121/77, pulse 100, temperature 97.4. He is 90% on 15 L high-flow oxygen. General description is a middle-aged male up in the chair in no distress. RESPIRATORY SYSTEM: Unlabored breathing with decreased intensity of breath sounds. No wheeze. HEART: S1, S2. Regular rate and rhythm. ABDOMEN: Soft. No tenderness. LABS: D-dimer is 7.65. LDH is 2174. CRP normalized. DIAGNOSTIC IMPRESSION AND PLAN: Patient with acute respiratory failure secondary to COVID-19 infection in this patient who has completed his remdesivir therapy and also received Actemra. We will continue with the Solu-Medrol, Lovenox, zinc and ascorbic acid. In view of the elevated D-dimer, he may benefit from a CT angiogram of the chest. Will discuss with Pulmonary. Continue with supportive care. MMODL / IJN: [id number] /
[2020-09-09] MEDS: SODIUM CHLORIDE 0.9% 1,000 ML IV SCH (19:06)
--- NOTE | 2020-09-09 20:58 | P.PN ---
Progress Note - Text Progress Note Date: 09/09/20 Chief Complaint: Short of breath History of presenting complaint: This is a very pleasant 55-year-old patient of Dr. Marlena Vicente. Chronic stable medical conditions include hyperlipidemia, exercise-induced asthma, seasonal ALLERGIES, diverticulosis, psoriatic arthritis affecting multiple joints, beta thalassemia. Patient started off the cough about a week ago. The cough is coming progressively worse with associated shortness of breath. No loss of smell or taste. Patient's had some diarrhea. Not much of body 8. Appetite has gone down. Patient tested positive for COVID on September 01 that Eusebio Calvo on ER. Tired. Febrile Admitted with bilateral COVID 19 pneumonia causing sepsis, acute hypoxic respiratory failure. Started on dexamethasone, Lovenox, Remdesivir. ACTEMRA Today: Sitting on a chair. Oral intake fair. Some shortness of breath. Some cough. Remains on 15 L high flow oxygen with mask. Review of systems: Was done for constitutional, cardiovascular, GI, pulmonary. relevant finding as above Active Medications Acetaminophen (Acetaminophen Tab 325 Mg Tab) 650 mg PO Q6HR PRN PRN Reason: Fever and/ or Pain Last Admin: 09/03/20 09:36 Dose: 650 mg Documented by: Albuterol Sulfate (Albuterol Hfa Inhaler) 4 puff INHALATION RT-Q4H [facility] Last Admin: 09/09/20 17:32 Dose: 4 puff Documented by: Amlodipine Besylate (Amlodipine 10 Mg Tab) 10 mg PO DAILY [facility] Last Admin: 09/09/20 08:08 Dose: Not Given Documented by: Ascorbic Acid (Ascorbic Acid 500 Mg Tab) 1,000 mg PO DAILY [facility] Last Admin: 09/09/20 08:08 Dose: 1,000 mg Documented by: Benzonatate (Benzonatate 100 Mg Cap) 200 mg PO TID [facility] Last Admin: 09/09/20 20:41 Dose: 200 mg Documented by: Cholecalciferol (Cholecalciferol 25 Mcg (1000 Iu) Tablet) 100 mcg PO DAILY [facility] Last Admin: 09/09/20 08:08 Dose: 100 mcg Documented by: Enoxaparin Sodium (Enoxaparin 40 Mg/0.4 Ml Syringe) 40 mg SQ BID [facility] Last Admin: 09/09/20 20:42 Dose: 40 mg Documented by: Famotidine (Famotidine 20 Mg Tab) 20 mg PO BID [facility] Last Admin: 09/09/20 20:41 Dose: 20 mg Documented by: Sodium Chloride (Saline 0.9%) 1,000 mls @ 20 mls/hr IV .Q24H [facility] Last Admin: 09/09/20 19:06 Dose: Not Given Documented by: Methylprednisolone Sodium Succinate (Methylprednisolone Sod Succi 125 Mg/2 Ml Vial) 60 mg IV Q6HR [facility] Last Admin: 09/09/20 17:31 Dose: 60 mg Documented by: Naloxone HCl (Naloxone 0.4 Mg/Ml 1 Ml Vial) 0.2 mg IV Q2M PRN PRN Reason: Opioid Reversal Ondansetron HCl (Ondansetron 4 Mg/2 Ml Vial) 4 mg IVP Q8HR PRN PRN Reason: Nausea And Vomiting Zinc Sulfate (Zinc Sulfate 220 Mg Cap) 220 mg PO DAILY [facility] Last Admin: 09/09/20 08:08 Dose: 220 mg Documented by: Past medical history to include: Exercise-induced asthma, hyperlipidemia, seasonal ALLERGIES, gastric ulcer in the remote past, diverticulosis, colon polyps, psoriatic arthritis affecting many joints, beta thalassemia 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 . Patient smoked for 8 years stopped in 1997. Alcohol occasionally. Physical examination: VITAL SIGNS: 97.4, 100, 18, 121, 77, 90% on 15 L GENERAL: Sitting up to chair, short of breath , tired LUNGS: Respiratory rate increased,. PSYCH: Alert and oriented x3; mood and affect slightly anxious. NEUROLOGICAL: Cranial nerves grossly intact; no facial asymmetry, moving limbs Rest of the exam per pulmonary and nursing INVESTIGATIONS, reviewed in the clinical context: September 09: D-dimer 7.65 LDH 2173 CRP 10.9 September 08: D-dimer 7.6 to CRP 14.5 September 07: D-dimer 4.83 potassium 3.5 creatinine 0.58 LDH 2022 CRP 17.8 September 06: D-dimer 1.5 CRP 23 August 10: D-dimer 1.93 potassium 3.4 creatinine 0.6 CRP 28.8 August 9: D-dimer 0.89 CRP 60.7 August 8: WBC 5.2 hemoglobin 10.6 platelets 139 d-dimer 1.15 potassium 3.6 CRP 39.6 WBC 3.2 hemoglobin 12.1 platelets 124 potassium 3.2 creatinine 0.74 sodium 1:30 D-dimer 0.58 CRP 53.5 coronavirus [PCR] detected EKG tracing personally reviewed by me-sinus rhythm Q waves in inferior leads Chest x-ray personally reviewed by me-bilateral infiltrates Assessment and plan: -Bilateral COVID 19 pneumonia - not improving on subcu Lovenox, IV Solu-Medrol. Remdesivir . vitamin C vitamin D Pepcid zinc IV fluids. ACTEMRA -Acute hypoxic respiratory failure secondary to COVID 19 -not improving Supplement oxygen on 15 L -Exercise-induced asthma Use bronchodilators -Hyperlipidemia -Colonic diverticulosis, asymptomatic -Psoriatic arthritis and psoriasis -Beta thalassemia Follow hemoglobin -Hyponatremia likely hypoosmolar Improving Encourage oral solute intake discussed. Continue current medication treatment plan.
[2020-09-10] MEDS: ALBUTEROL HFA INHALER INHALATION SCH ×5 (00:30→22:01)
[2020-09-10] MEDS: methylPREDNISolone SOD SUCCI 125 MG/2 ML VIAL IV SCH ×4 (05:30→23:19)
[2020-09-10] MEDS: amLODIPine 10 MG TAB PO SCH (08:25)
[2020-09-10] MEDS: ASCORBIC ACID 500 MG TAB PO SCH (08:25)
[2020-09-10] MEDS: CHOLECALCIFEROL 25 MCG (1000 IU) TABLET PO SCH (08:25)
[2020-09-10] MEDS: FAMOTIDINE 20 MG TAB PO SCH ×2 (08:25→20:12)
[2020-09-10] MEDS: BENZONATATE 100 MG CAP PO SCH ×3 (08:25→20:12)
[2020-09-10] MEDS: ZINC SULFATE 220 MG CAP PO SCH (08:25)
[2020-09-10] MEDS: ENOXAPARIN 40 MG/0.4 ML SYRINGE SQ SCH ×2 (08:26→20:12)
--- NOTE | 2020-09-10 12:26 | P.PN ---
Subjective Progress Note Date: 09/10/20 55-year-old male patient of Dr. Marlena Vicente who presented to the emergency department on 09/01/2020 with symptoms of worsening cough, shortness of breath. Patient tested positive for COVID 19, his chest x-ray showed bilateral airspace infiltrates. First onset of symptoms was one week ago with cough, fever, flulike symptoms. Patient was seen by his primary care provider and placed on Z-Arun and Medrol dosepak last week. Patient has 2 days left of the Medrol Dosepak, and he finished the Z-Arun however his symptoms did not improve and progress. He is not requiring supplemental oxygen, 2 L, and his pulse ox of 94%, he was febrile on presentation, he has frequent dry cough, but no chest discomfort, no nausea or vomiting, did have diarrhea. he is a former smoker, only smoked for about 8 years, he quit smoking 20 years ago. He does have underlying history of asthma, mild intermittent, uses Ventolin on an as-needed basis, no history of frequent exacerbations, his asthma is exercise induced. His lab work revealed leukopenia, with white blood cell count 3.2, hemoglobin is 12.1, lymphopenia with a basic, 0.4, sodium is 1:30, potassium is 3.2, chloride is 94, BUN is 18, creatinine 0.74, plasma lactic acid 0.9. AST was 76, ALT was 51, alkaline phosphatase was 135, LDH was 1150, and CRP was 53.5. Patient also has history of psoriatic arthritis and he takes methotrexate and Arava, that were both placed on hold last week. Morning he seen on medical surgical floor, he is awake and alert, has a frequent dry cough, diffuse coarse crackles throughout the lung fajardo, no nausea or vomiting. Was started on oral Decadron 8 mg. On 0.9 normal saline running at 120 ML per hour, patient is within the window for Remdesivir and patient will be given a unit of convalescent plasma in addition to vitamins, prophylactic anticoagulation. On 09/03/2020 patient seen in follow-up on medical floor, still coughing a lot, dyspneic, he is currently on 4 L of oxygen, his pulse ox of 97%, chest feels heavy, overall she is feeling 'lousy". Low-grade fever this morning, with a temp of 99.7F, lung sounds. Positive for coarse diffuse bilateral crackles throughout lung fajardo. This is day 2 of Remdesivir treatment, he is still awaiting convalescent plasma, continues on Decadron 6 mg, vitamins, and prophylactic anticoagulation, today's labs have been reviewed, showing white blood cell count of 5.2, hemoglobin of 10.6, d-dimer is 1.15, sodium is 132, the rest of electrolytes and renal profile were unremarkable, LDH has trended up to 1700, CRP is down slightly to 39.6 from 53.5. Pro-calcitonin level is 0.18. Blood cultures have been negative. Patient has quite frequent dry irritative cough, his lower back is starting to hurt and he is not sure whether it's from coughing or being in the bed and in the chair for a long period of time. On 06/06/2020 patient seen in follow-up on medical floor. Doing slightly better, still coughing quite a bit, but he states the Tessalon Perles more effective than the Robitussin with codeine, lung sounds are still positive for diffuse crackles, afebrile. He was able to sleep a bit better last night. Repeat chest x-ray today showed mid and lower lung airspace disease significantly increased from prior. Clinically medically patient feels a bit better. D-dimer is 0.89, LDH is 1749, CRP is 16.7. Pro-calcitonin level was 0.18. Patient is on Remdesivir, today is day 3 of treatment, did receive convalescent plasma early this morning. On 09/06/2020 patient seen in follow-up on medical floor, he is currently on 12 L of oxygen, his pulse ox of 89-90%, still coughing quite a bit, he is on his last day of Remdesivir treatment, he did receive a dose of convalescent plasma, continues on Solu-Medrol 60 mg every 6 hours, IV fluids, he is on vitamins, is receiving Tessalon Perles. He is on prophylactic dose Lovenox, today's d-dimer is 1.5, his inflammatory markers show improving CRP, LDH is pending. On 09/09/2020 patient seen in follow-up on medical floor, still coughing, however his cough seems to be improving some. Lung sounds are positive for diffuse crackles, with slight improvement, patient has been ambulating to the bathroom, tolerating activity fairly well, no chest discomfort, still requiring high flow oxygen and he is on 100% nonrebreather, he states he feels more comfortable on the nonrebreather mask then high flow nasal cannula, his pulse ox is between 89-91%, no fever or chills, hemodynamically stable, tolerating oral intake. 09/10/2020, the patient is still competent specially when he talks or takes a deep breath. D-dimer is down to 4.9. He underwent a CT angiogram today that showed no evidence of any pulmonary embolism. There was diffuse but the groundglass pulmonary infiltrates consistent with Coumadin. Pneumonia. LDH from yesterday was 06/06/2002, CRP from today is down to 8.7. He remains in the 100% nonrebreather facemask along with 15 L of oxygen with a pulse ox of 98%. Objective - Vital Signs Vital signs: Vital Signs Temp 97.7 F 09/10/20 09:26 Pulse 110 H 09/10/20 09:26 Resp 18 09/10/20 09:26 BP 104/62 09/10/20 09:26 Pulse Ox 98 09/10/20 10:10 Intake & Output 09/09/20 09/10/20 09/10/20 18:59 06:59 18:59 Other: Voiding Method Urinal Urinal # Voids 1 2 - Exam GENERAL EXAM: Alert, very pleasant 55-year-old male on 100% nonrebreather of 89%, patient has a dry irritated cough, which is quite frequent and at times continuous comfortable in no apparent distress. HEAD: Normocephalic/atraumatic. EYES: Normal reaction of pupils, equal size. Conjunctiva pink, sclera white. NOSE: Clear with pink turbinates. THROAT: No erythema or exudates. NECK: No masses, no JVD, no thyroid enlargement, no adenopathy. CHEST: No chest wall deformity. Symmetrical expansion. LUNGS: Equal air entry with diffuse crackles CVS: Regular rate and rhythm, normal S1 and S2, no gallops, no murmurs, no rubs ABDOMEN: Soft, nontender. No hepatosplenomegaly, normal bowel sounds, no guarding or rigidity. EXTREMITIES: No clubbing, no edema, no cyanosis, 2+ pulses and upper and lower extremities. MUSCULOSKELETAL: Muscle strength and tone normal. SPINE: No scoliosis or deformity SKIN: No rashes CENTRAL NERVOUS SYSTEM: Alert and oriented -3. No focal deficits, tone is normal in all 4 extremities. PSYCHIATRIC: Alert and oriented -3. Appropriate affect. Intact judgment and insight. - Labs CBC & Chem 7: 09/05/20 10:09 09/07/20 05:56 Labs: Abnormal Lab Results - Last 24 Hours (Table) 09/09/20 09/10/20 Range/Units 21:43 07:45 D-Dimer 4.97 H (<0.60) mg/L FEU Lactate Dehydrogenase 1903 H (313-618) U/L Assessment and Plan Plan: #1. Acute hypoxic respiratory failure related to acute COVID 19 pneumonia, onset of symptoms 7 days ago, patient had outpatient treatment with Z-Arun and Me drol Dosepak and his symptoms progressed. Completed Remdesivir, and convalescent plasma 1, status post Tocilizumab. The CT angiogram is consistent with diffuse pneumonia without evidence of any pulmonary embolism. #2. History of psoriatic arthritis on methotrexate and Leflunomide, dad both have been placed on hold 7 days ago #3. Increased inflammatory markers related to acute COVID 19 infection #4. Mild intermittent bronchial asthma, exercise induced #5. 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 Increased transaminases, likely related to viral pneumonia, we'll continue to follow #7. Hyponatremia and hypokalemia, related to dehydration, improved Plan: Continue current medical treatment, cough has improved, still requiring high flow oxygen along with a nonrebreather facemask. Current pulse ox around 98%,, continue current dose IV Solu-Medrol, Tessalon Perles, and Lovenox twice daily, has been slow to improve, we'll continue to follow
--- NOTE | 2020-09-10 12:43 | CT ---
EXAMINATION TYPE: CT angio chest DATE OF EXAM: 09/10/2020 10:54 AM COMPARISON: Chest x-ray 3 days ago. HISTORY: SOB,elevated D-dimer, covid hypoxia. CT DLP: 290.3 mGycm Automated exposure control for dose reduction was used. CONTRAST: CTA scan of the thorax is performed with IV Contrast, patient injected with 75 mL of Isovue 370, pulm onary embolism protocol. MIP images are created and reviewed. FINDINGS: LUNGS: Large confluent areas of groundglass opacity with areas of organizing consolidation are presen t bilaterally, findings are greatest in the mid to lower lungs versus upper lungs. No pleural effusio n or pneumothorax is evident bilaterally. No suspicious masses. MEDIASTINUM: There is satisfactory enhancement of the pulmonary artery and its branches, there is no CT evidence for pulmonary embolism. Satisfactory enhancement of the aorta without aneurysm or dissec tion. There are no greater than 1 cm hilar or mediastinal lymph nodes. Some prominent but subcentimet er right hilar lymph nodes. No cardiomegaly or pericardial effusion is seen. OTHER: No additional significant abnormality is seen. IMPRESSION: No CT evidence for acute pulmonary embolism. Findings consistent with known covid-19 infe ction as detailed above without significant change from most recent x-ray.
--- NOTE | 2020-09-10 15:26 | PN ---
PROGRESS NOTE DATE OF SERVICE: 09/10/2020 REASON FOR FOLLOWUP: COVID-19 pneumonia. INTERVAL HISTORY: The patient is afebrile. The patient is breathing slightly comfortably today. The patient denies having any chest pain. Cough has decreased in intensity, mostly dry in nature. No chest pain. No abdominal pain or diarrhea. PHYSICAL EXAMINATION: Blood pressure is 104/62 with a pulse of 110, temperature 97.7. He is 98% on non- rebreather. General description is a middle-aged male lying in bed in no distress. RESPIRATORY SYSTEM: Unlabored breathing with decreased intensity of breath sounds. No wheeze. HEART: S1, S2. Regular rate and rhythm. ABDOMEN: Soft. No tenderness. LABS: D-dimer is down to 4.97. LDH 1903. CRP has normalized. DIAGNOSTIC IMPRESSION AND PLAN: Patient with acute COVID-19 infection in this patient who seems to have shown minimal clinical improvement. Patient received remdesivir as well as Actemra and is currently on Solu-Medrol, Lovenox, zinc and ascorbic acid; to continue. CT was negative for PE. Continue current supportive treatment. MMODL / IJN: [id number] / MTDD
[2020-09-10] MEDS: SODIUM CHLORIDE 0.9% 1,000 ML IV SCH (19:13)
--- NOTE | 2020-09-10 21:56 | P.PN ---
Progress Note - Text Progress Note Date: 09/10/20 Chief Complaint: Short of breath History of presenting complaint: This is a very pleasant 55-year-old patient of Dr. Marlena Vicente. Chronic stable medical conditions include hyperlipidemia, exercise-induced asthma, seasonal ALLERGIES, diverticulosis, psoriatic arthritis affecting multiple joints, beta thalassemia. Patient started off the cough about a week ago. The cough is coming progressively worse with associated shortness of breath. No loss of smell or taste. Patient's had some diarrhea. Not much of body 8. Appetite has gone down. Patient tested positive for COVID on September 01 that Eusebio Calvo on ER. Tired. Febrile Admitted with bilateral COVID 19 pneumonia causing sepsis, acute hypoxic respiratory failure. Started on dexamethasone, Lovenox, Remdesivir. ACTEMRA Today: Remain short of breath. Oral intake fair. Tired. Remains on 15 L high flow oxygen. Review of systems: Was done for constitutional, cardiovascular, GI, pulmonary. relevant finding as above Active Medications Acetaminophen (Acetaminophen Tab 325 Mg Tab) 650 mg PO Q6HR PRN PRN Reason: Fever and/ or Pain Last Admin: 09/03/20 09:36 Dose: 650 mg Documented by: Albuterol Sulfate (Albuterol Hfa Inhaler) 4 puff INHALATION RT-Q4H [facility] Last Admin: 09/10/20 16:34 Dose: 4 puff Documented by: Amlodipine Besylate (Amlodipine 10 Mg Tab) 10 mg PO DAILY [facility] Last Admin: 09/10/20 08:25 Dose: 10 mg Documented by: Ascorbic Acid (Ascorbic Acid 500 Mg Tab) 1,000 mg PO DAILY [facility] Last Admin: 09/10/20 08:25 Dose: 1,000 mg Documented by: Benzonatate (Benzonatate 100 Mg Cap) 200 mg PO TID [facility] Last Admin: 09/10/20 20:12 Dose: 200 mg Documented by: Cholecalciferol (Cholecalciferol 25 Mcg (1000 Iu) Tablet) 100 mcg PO DAILY [facility] Last Admin: 09/10/20 08:25 Dose: 100 mcg Documented by: Enoxaparin Sodium (Enoxaparin 40 Mg/0.4 Ml Syringe) 40 mg SQ BID [facility] Last Admin: 09/10/20 20:12 Dose: 40 mg Documented by: Famotidine (Famotidine 20 Mg Tab) 20 mg PO BID [facility] Last Admin: 09/10/20 20:12 Dose: 20 mg Documented by: Sodium Chloride (Saline 0.9%) 1,000 mls @ 20 mls/hr IV .Q24H [facility] Last Admin: 09/10/20 19:13 Dose: Not Given Documented by: Methylprednisolone Sodium Succinate (Methylprednisolone Sod Succi 125 Mg/2 Ml Vial) 60 mg IV Q6HR [facility] Last Admin: 09/10/20 17:30 Dose: 60 mg Documented by: Naloxone HCl (Naloxone 0.4 Mg/Ml 1 Ml Vial) 0.2 mg IV Q2M PRN PRN Reason: Opioid Reversal Ondansetron HCl (Ondansetron 4 Mg/2 Ml Vial) 4 mg IVP Q8HR PRN PRN Reason: Nausea And Vomiting Zinc Sulfate (Zinc Sulfate 220 Mg Cap) 220 mg PO DAILY [facility] Last Admin: 09/10/20 08:25 Dose: 220 mg Documented by: Past medical history to include: Exercise-induced asthma, hyperlipidemia, seasonal ALLERGIES, gastric ulcer in the remote past, diverticulosis, colon polyps, psoriatic arthritis affecting many joints, beta thalassemia Social history: 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 . Patient smoked for 8 years stopped in 1997. Alcohol occasionally. Physical examination: VITAL SIGNS: 97.4, 95, 18, 101/70, 88% on 15 L high flow GENERAL: Sitting up to chair, short of breath , tired LUNGS: Respiratory rate increased,. PSYCH: Alert and oriented x3; mood and affect slightly anxious. NEUROLOGICAL: Cranial nerves grossly intact; no facial asymmetry, moving limbs Rest of the exam per pulmonary and nursing INVESTIGATIONS, reviewed in the clinical context: September 10: D-dimer 4.97 CRP 8.7 September 04: D-dimer 0.89 CRP 60.7 September 03: WBC 5.2 hemoglobin 10.6 platelets 139 d-dimer 1.15 potassium 3.6 CRP 39.6 WBC 3.2 hemoglobin 12.1 platelets 124 potassium 3.2 creatinine 0.74 sodium 1:30 D-dimer 0.58 CRP 53.5 coronavirus [PCR] detected EKG tracing personally reviewed by me-sinus rhythm Q waves in inferior leads Chest x-ray personally reviewed by me-bilateral infiltrates Assessment and plan: -Bilateral COVID 19 pneumonia - not improving on subcu Lovenox, IV Solu-Medrol. Remdesivir . vitamin C vitamin D Pepcid zinc IV fluids. ACTEMRA -Acute hypoxic respiratory failure secondary to COVID 19 -not improving Supplement oxygen on 15 L -Exercise-induced asthma Use bronchodilators -Hyperlipidemia -Colonic diverticulosis, asymptomatic -Psoriatic arthritis and psoriasis -Beta thalassemia Follow hemoglobin -Hyponatremia likely hypoosmolar Improving Encourage oral intake. Discussed with the patient. Discussed with pulmonary. Continue current treatment plan
[2020-09-11] MEDS: ALBUTEROL HFA INHALER INHALATION SCH ×6 (01:05→20:02)
[2020-09-11] MEDS: methylPREDNISolone SOD SUCCI 125 MG/2 ML VIAL IV SCH ×4 (05:29→23:19)
[2020-09-11] MEDS: amLODIPine 10 MG TAB PO SCH (07:34)
[2020-09-11] MEDS: CHOLECALCIFEROL 25 MCG (1000 IU) TABLET PO SCH (07:35)
[2020-09-11] MEDS: ASCORBIC ACID 500 MG TAB PO SCH (07:35)
[2020-09-11] MEDS: ZINC SULFATE 220 MG CAP PO SCH (07:35)
[2020-09-11] MEDS: BENZONATATE 100 MG CAP PO SCH ×3 (07:35→20:06)
[2020-09-11] MEDS: FAMOTIDINE 20 MG TAB PO SCH ×2 (07:35→20:06)
[2020-09-11] MEDS: ENOXAPARIN 40 MG/0.4 ML SYRINGE SQ SCH ×2 (07:36→20:06)
[2020-09-11 14:53] LABS: C Reactive Protein 0.6 mg/dL (<1.0)
--- NOTE | 2020-09-11 15:09 | P.PN ---
Subjective Progress Note Date: 09/11/20 55-year-old male patient of Dr. Marlena Vicente who presented to the emergency department on 09/01/2020 with symptoms of worsening cough, shortness of breath. Patient tested positive for COVID 19, his chest x-ray showed bilateral airspace infiltrates. First onset of symptoms was one week ago with cough, fever, flulike symptoms. Patient was seen by his primary care provider and placed on Z-Arun and Medrol dosepak last week. Patient has 2 days left of the Medrol Dosepak, and he finished the Z-Arun however his symptoms did not improve and progress. He is not requiring supplemental oxygen, 2 L, and his pulse ox of 94%, he was febrile on presentation, he has frequent dry cough, but no chest discomfort, no nausea or vomiting, did have diarrhea. he is a former smoker, only smoked for about 8 years, he quit smoking 20 years ago. He does have underlying history of asthma, mild intermittent, uses Ventolin on an as-needed basis, no history of frequent exacerbations, his asthma is exercise induced. His lab work revealed leukopenia, with white blood cell count 3.2, hemoglobin is 12.1, lymphopenia with a basic, 0.4, sodium is 1:30, potassium is 3.2, chloride is 94, BUN is 18, creatinine 0.74, plasma lactic acid 0.9. AST was 76, ALT was 51, alkaline phosphatase was 135, LDH was 1150, and CRP was 53.5. Patient also has history of psoriatic arthritis and he takes methotrexate and Arava, that were both placed on hold last week. Morning he seen on medical surgical floor, he is awake and alert, has a frequent dry cough, diffuse coarse crackles throughout the lung fajardo, no nausea or vomiting. Was started on oral Decadron 8 mg. On 0.9 normal saline running at 120 ML per hour, patient is within the window for Remdesivir and patient will be given a unit of convalescent plasma in addition to vitamins, prophylactic anticoagulation. On 09/03/2020 patient seen in follow-up on medical floor, still coughing a lot, dyspneic, he is currently on 4 L of oxygen, his pulse ox of 97%, chest feels heavy, overall she is feeling 'lousy". Low-grade fever this morning, with a temp of 99.7F, lung sounds. Positive for coarse diffuse bilateral crackles throughout lung fajardo. This is day 2 of Remdesivir treatment, he is still awaiting convalescent plasma, continues on Decadron 6 mg, vitamins, and prophylactic anticoagulation, today's labs have been reviewed, showing white blood cell count of 5.2, hemoglobin of 10.6, d-dimer is 1.15, sodium is 132, the rest of electrolytes and renal profile were unremarkable, LDH has trended up to 1700, CRP is down slightly to 39.6 from 53.5. Pro-calcitonin level is 0.18. Blood cultures have been negative. Patient has quite frequent dry irritative cough, his lower back is starting to hurt and he is not sure whether it's from coughing or being in the bed and in the chair for a long period of time. On 06/06/2020 patient seen in follow-up on medical floor. Doing slightly better, still coughing quite a bit, but he states the Tessalon Perles more effective than the Robitussin with codeine, lung sounds are still positive for diffuse crackles, afebrile. He was able to sleep a bit better last night. Repeat chest x-ray today showed mid and lower lung airspace disease significantly increased from prior. Clinically medically patient feels a bit better. D-dimer is 0.89, LDH is 1749, CRP is 16.7. Pro-calcitonin level was 0.18. Patient is on Remdesivir, today is day 3 of treatment, did receive convalescent plasma early this morning. On 09/06/2020 patient seen in follow-up on medical floor, he is currently on 12 L of oxygen, his pulse ox of 89-90%, still coughing quite a bit, he is on his last day of Remdesivir treatment, he did receive a dose of convalescent plasma, continues on Solu-Medrol 60 mg every 6 hours, IV fluids, he is on vitamins, is receiving Tessalon Perles. He is on prophylactic dose Lovenox, today's d-dimer is 1.5, his inflammatory markers show improving CRP, LDH is pending. On 09/09/2020 patient seen in follow-up on medical floor, still coughing, however his cough seems to be improving some. Lung sounds are positive for diffuse crackles, with slight improvement, patient has been ambulating to the bathroom, tolerating activity fairly well, no chest discomfort, still requiring high flow oxygen and he is on 100% nonrebreather, he states he feels more comfortable on the nonrebreather mask then high flow nasal cannula, his pulse ox is between 89-91%, no fever or chills, hemodynamically stable, tolerating oral intake. 09/10/2020, the patient is still competent specially when he talks or takes a deep breath. D-dimer is down to 4.9. He underwent a CT angiogram today that showed no evidence of any pulmonary embolism. There was diffuse but the groundglass pulmonary infiltrates consistent with Coumadin. Pneumonia. LDH from yesterday was 06/06/2002, CRP from today is down to 8.7. He remains in the 100% nonrebreather facemask along with 15 L of oxygen with a pulse ox of 98%. 09/11/2020, I'm seeing the patient for a follow-up. He is doing well and he is currently on 15 L of oxygen by nasal cannula and his taken off the 100% nonrebreather. Doing well. She did was done and the patient has been found no evidence of pulmonary embolism. The patient has diffuse bilateral pulmonary infiltrates consistent with pneumonia. He is improving. His cough has subsided. He is afebrile. He continues to sit up on a chair. He is taken Tessalon Perles to suppress his cough. He remains on IV Solu Medrol 60 mg IV push every 6 hours. He is also on Lovenox 40 mg subcu every 24 hours. IV fluids at KVO. No other issues otherwise for now. His quite comfortable. Note that the patient has history of rheumatoid arthritis and his been taken ARAVA on outpatient basis. Objective - Vital Signs Vital signs: Vital Signs Temp 99.4 F 09/11/20 14:00 Pulse 111 H 09/11/20 14:00 Resp 17 09/11/20 14:00 BP 127/75 09/11/20 14:00 Pulse Ox 87 L 09/11/20 14:00 Intake & Output 09/10/20 09/11/20 09/11/20 18:59 06:59 18:59 Intake Total 240 Balance 240 Weight 78.471 kg Intake: Oral 240 Other: Voiding Method Urinal # Voids 2 2 - Exam GENERAL EXAM: Alert, very pleasant 55-year-old male on 15 L per minute n champ cannula. HEAD: Normocephalic/atraumatic. EYES: Normal reaction of pupils, equal size. Conjunctiva pink, sclera white. NOSE: Clear with pink turbinates. THROAT: No erythema or exudates. NECK: No masses, no JVD, no thyroid enlargement, no adenopathy. CHEST: No chest wall deformity. Symmetrical expansion. LUNGS: Equal air entry with diffuse crackles CVS: Regular rate and rhythm, normal S1 and S2, no gallops, no murmurs, no rubs ABDOMEN: Soft, nontender. No hepatosplenomegaly, normal bowel sounds, no guarding or rigidity. EXTREMITIES: No clubbing, no edema, no cyanosis, 2+ pulses and upper and lower extremities. MUSCULOSKELETAL: Muscle strength and tone normal. SPINE: No scoliosis or deformity SKIN: No rashes CENTRAL NERVOUS SYSTEM: Alert and oriented -3. No focal deficits, tone is normal in all 4 extremities. PSYCHIATRIC: Alert and oriented -3. Appropriate affect. Intact judgment and insight. - Labs CBC & Chem 7: 09/05/20 10:09 09/07/20 05:56 Labs: Abnormal Lab Results - Last 24 Hours (Table) 09/11/20 09/11/20 Range/Units 13:42 13:42 D-Dimer 3.23 H (<0.60) mg/L FEU Lactate Dehydrogenase 1931 H (313-618) U/L Assessment and Plan Plan: #1. Acute hypoxic respiratory failure related to acute COVID 19 pneumonia, Completed Remdesivir, and convalescent plasma 1, status post Tocilizumab. The CT angiogram is consistent with diffuse pneumonia without evidence of any pulmonary embolism. And the patient has been found to have diffuse ground glass pulmonary infiltrates. Doing well for now. Wean down to 15 L of oxygen by nasal cannula. D-dimer is at 3.23. LDH level continues to be elevated at 1931. CRP is 0.6 #2. History of psoriatic arthritis on methotrexate and Leflunomide, dad both have been placed on hold 7 days ago #3. Increased inflammatory markers related to acute COVID 19 infection #4. Mild intermittent bronchial asthma, exercise induced #5. 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 Increased transaminases, likely related to viral pneumonia, we'll continue to follow #7. Hyponatremia and hypokalemia, related to dehydration, improved Plan: Continue current medical treatment and supportive care. Cough suppressants High flow oxygen at 15 L per minute nasal cannula and discontinue the nonrebreather facemask Continue IV Solu-Medrol Lovenox for DVT prophylaxis Mobility We'll continue to follow Discussed the CAT scan results of the patient. Reassured. No evidence of any pulmonary embolism. There is diffuse ground is pulmonary infiltrates.
--- NOTE | 2020-09-11 19:59 | PN ---
PROGRESS NOTE DATE OF SERVICE: 09/11/2020 REASON FOR FOLLOWUP: COVID-19 pneumonia. INTERVAL HISTORY: The patient is afebrile. He is breathing slightly comfortably. Oxygen has been switched to nasal cannula. The patient denies having chest pain. He continues to have a cough, but no worsening. No abdominal pain or diarrhea. PHYSICAL EXAMINATION: Blood pressure 105/72 with a pulse of 89, temperature 97.3. He is 93% on 15 L high- flow oxygen. General description is a middle-aged male lying in bed in no distress. RESPIRATORY SYSTEM: Unlabored breathing with decreased intensity of breath sounds. No wheeze. HEART: S1, S2. Regular rate and rhythm. ABDOMEN: Soft. No tenderness. LABS: D-dimer is down to 3.23. CRP is 0.6. DIAGNOSTIC IMPRESSION AND PLAN: Patient with acute COVID-19 pneumonia in this patient with a very slow clinical response. The patient has completed remdesivir, received a dose of Actemra. To continue with Solu-Medrol, Lovenox, zinc, ascorbic acid and monitor his clinical course closely. MMODL / IJN: [id number] /
[2020-09-11] MEDS: SODIUM CHLORIDE 0.9% 1,000 ML IV SCH (21:00)
--- NOTE | 2020-09-11 23:10 | P.PN ---
Progress Note - Text Progress Note Date: 09/11/20 Chief Complaint: Short of breath History of presenting complaint: This is a very pleasant 55-year-old patient of Dr. Marlena Vicente. Chronic stable medical conditions include hyperlipidemia, exercise-induced asthma, seasonal ALLERGIES, diverticulosis, psoriatic arthritis affecting multiple joints, beta thalassemia. Patient started off the cough about a week ago. The cough is coming progressively worse with associated shortness of breath. No loss of smell or taste. Patient's had some diarrhea. Not much of body 8. Appetite has gone down. Patient tested positive for COVID on September 01 that Eusebio Calvo on ER. Tired. Febrile Admitted with bilateral COVID 19 pneumonia causing sepsis, acute hypoxic respiratory failure. Started on dexamethasone, Lovenox, Remdesivir. ACTEMRA Today: Up in a chair. Eating some. Short of breath. Remains on 15 L high flow nonrebreather Review of systems: Was done for constitutional, cardiovascular, GI, pulmonary. relevant finding as above Active Medications Acetaminophen (Acetaminophen Tab 325 Mg Tab) 650 mg PO Q6HR PRN PRN Reason: Fever and/ or Pain Last Admin: 09/03/20 09:36 Dose: 650 mg Documented by: Albuterol Sulfate (Albuterol Hfa Inhaler) 4 puff INHALATION RT-Q4H [facility] Last Admin: 09/11/20 20:02 Dose: 4 puff Documented by: Amlodipine Besylate (Amlodipine 10 Mg Tab) 10 mg PO DAILY [facility] Last Admin: 09/11/20 07:34 Dose: 10 mg Documented by: Ascorbic Acid (Ascorbic Acid 500 Mg Tab) 1,000 mg PO DAILY [facility] Last Admin: 09/11/20 07:35 Dose: 1,000 mg Documented by: Benzonatate (Benzonatate 100 Mg Cap) 200 mg PO TID [facility] Last Admin: 09/11/20 20:06 Dose: 200 mg Documented by: Cholecalciferol (Cholecalciferol 25 Mcg (1000 Iu) Tablet) 100 mcg PO DAILY [facility] Last Admin: 09/11/20 07:35 Dose: 100 mcg Documented by: Enoxaparin Sodium (Enoxaparin 40 Mg/0.4 Ml Syringe) 40 mg SQ BID [facility] Last Admin: 09/11/20 20:06 Dose: 40 mg Documented by: Famotidine (Famotidine 20 Mg Tab) 20 mg PO BID [facility] Last Admin: 09/11/20 20:06 Dose: 20 mg Documented by: Sodium Chloride (Saline 0.9%) 1,000 mls @ 20 mls/hr IV .Q24H [facility] Last Admin: 09/11/20 21:00 Dose: Not Given Documented by: Methylprednisolone Sodium Succinate (Methylprednisolone Sod Succi 125 Mg/2 Ml Vial) 60 mg IV Q6HR [facility] Last Admin: 09/11/20 17:41 Dose: 60 mg Documented by: Naloxone HCl (Naloxone 0.4 Mg/Ml 1 Ml Vial) 0.2 mg IV Q2M PRN PRN Reason: Opioid Reversal Ondansetron HCl (Ondansetron 4 Mg/2 Ml Vial) 4 mg IVP Q8HR PRN PRN Reason: Nausea And Vomiting Zinc Sulfate (Zinc Sulfate 220 Mg Cap) 220 mg PO DAILY [facility] Last Admin: 09/11/20 07:35 Dose: 220 mg Documented by: Past medical history to include: Exercise-induced asthma, hyperlipidemia, seasonal ALLERGIES, gastric ulcer in the remote past, diverticulosis, colon polyps, psoriatic arthritis affecting many joints, beta thalassemia 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 . Patient smoked for 8 years stopped in 1997. Alcohol occasionally. Physical examination: VITAL SIGNS: 97.3, 89, 20, 105/72, 93% on 15 L GENERAL: Sitting up to chair, short of breath , tired LUNGS: Respiratory rate increased,. PSYCH: Alert and oriented x3; mood and affect slightly anxious. NEUROLOGICAL: Cranial nerves grossly intact; no facial asymmetry, moving limbs Rest of the exam per pulmonary and nursing INVESTIGATIONS, reviewed in the clinical context: September 11: D-dimer 3.23 LDH 1931 CRP 0.6 September 10: D-dimer 4.97 CRP 8.7 September 04: D-dimer 0.89 CRP 60.7 September 03: WBC 5.2 hemoglobin 10.6 platelets 139 d-dimer 1.15 potassium 3.6 CRP 39.6 WBC 3.2 hemoglobin 12.1 platelets 124 potassium 3.2 creatinine 0.74 sodium 1:30 D-dimer 0.58 CRP 53.5 coronavirus [PCR] detected EKG tracing personally reviewed by me-sinus rhythm Q waves in inferior leads Chest x-ray personally reviewed by me-bilateral infiltrates Assessment and plan: -Bilateral COVID 19 pneumonia - slow to respond on subcu Lovenox, IV Solu-Medrol. Remdesivir . vitamin C vitamin D Pepcid zinc IV fluids. ACTEMRA -Acute hypoxic respiratory failure secondary to COVID 19 -slow to respond Continue oxygen on 15 L -Exercise-induced asthma Use bronchodilators -Hyperlipidemia -Colonic diverticulosis, asymptomatic -Psoriatic arthritis and psoriasis -Beta thalassemia Follow hemoglobin -Hyponatremia likely hypoosmolar Improving Continue current medication treatment 1. Discussed with patient.
[2020-09-12] MEDS: ALBUTEROL HFA INHALER INHALATION SCH ×6 (00:20→20:28)
[2020-09-12] MEDS: methylPREDNISolone SOD SUCCI 125 MG/2 ML VIAL IV SCH ×2 (05:43→10:57)
[2020-09-12] MEDS: ASCORBIC ACID 500 MG TAB PO SCH (10:56)
[2020-09-12] MEDS: CHOLECALCIFEROL 25 MCG (1000 IU) TABLET PO SCH (10:56)
[2020-09-12] MEDS: ENOXAPARIN 40 MG/0.4 ML SYRINGE SQ SCH (10:56)
[2020-09-12] MEDS: BENZONATATE 100 MG CAP PO SCH ×3 (10:56→20:28)
[2020-09-12] MEDS: FAMOTIDINE 20 MG TAB PO SCH ×2 (10:57→20:28)
[2020-09-12] MEDS: ZINC SULFATE 220 MG CAP PO SCH (10:57)
[2020-09-12] MEDS: amLODIPine 10 MG TAB PO SCH (10:57)
[2020-09-12 12:17] LABS: LDH 654 U/L (120-246)
--- NOTE | 2020-09-12 12:41 | P.PN ---
Subjective Progress Note Date: 09/12/20 55-year-old male patient of Dr. Marlena Vicente who presented to the emergency department on 09/01/2020 with symptoms of worsening cough, shortness of breath. Patient tested positive for COVID 19, his chest x-ray showed bilateral airspace infiltrates. First onset of symptoms was one week ago with cough, fever, flulike symptoms. Patient was seen by his primary care provider and placed on Z-Arun and Medrol dosepak last week. Patient has 2 days left of the Medrol Dosepak, and he finished the Z-Arun however his symptoms did not improve and progress. He is not requiring supplemental oxygen, 2 L, and his pulse ox of 94%, he was febrile on presentation, he has frequent dry cough, but no chest discomfort, no nausea or vomiting, did have diarrhea. he is a former smoker, only smoked for about 8 years, he quit smoking 20 years ago. He does have underlying history of asthma, mild intermittent, uses Ventolin on an as-needed basis, no history of frequent exacerbations, his asthma is exercise induced. His lab work revealed leukopenia, with white blood cell count 3.2, hemoglobin is 12.1, lymphopenia with a basic, 0.4, sodium is 1:30, potassium is 3.2, chloride is 94, BUN is 18, creatinine 0.74, plasma lactic acid 0.9. AST was 76, ALT was 51, alkaline phosphatase was 135, LDH was 1150, and CRP was 53.5. Patient also has history of psoriatic arthritis and he takes methotrexate and Arava, that were both placed on hold last week. Morning he seen on medical surgical floor, he is awake and alert, has a frequent dry cough, diffuse coarse crackles throughout the lung fajardo, no nausea or vomiting. Was started on oral Decadron 8 mg. On 0.9 normal saline running at 120 ML per hour, patient is within the window for Remdesivir and patient will be given a unit of convalescent plasma in addition to vitamins, prophylactic anticoagulation. On 09/03/2020 patient seen in follow-up on medical floor, still coughing a lot, dyspneic, he is currently on 4 L of oxygen, his pulse ox of 97%, chest feels heavy, overall she is feeling 'lousy". Low-grade fever this morning, with a temp of 99.7F, lung sounds. Positive for coarse diffuse bilateral crackles throughout lung fajardo. This is day 2 of Remdesivir treatment, he is still awaiting convalescent plasma, continues on Decadron 6 mg, vitamins, and prophylactic anticoagulation, today's labs have been reviewed, showing white blood cell count of 5.2, hemoglobin of 10.6, d-dimer is 1.15, sodium is 132, the rest of electrolytes and renal profile were unremarkable, LDH has trended up to 1700, CRP is down slightly to 39.6 from 53.5. Pro-calcitonin level is 0.18. Blood cultures have been negative. Patient has quite frequent dry irritative cough, his lower back is starting to hurt and he is not sure whether it's from coughing or being in the bed and in the chair for a long period of time. On 06/06/2020 patient seen in follow-up on medical floor. Doing slightly better, still coughing quite a bit, but he states the Tessalon Perles more effective than the Robitussin with codeine, lung sounds are still positive for diffuse crackles, afebrile. He was able to sleep a bit better last night. Repeat chest x-ray today showed mid and lower lung airspace disease significantly increased from prior. Clinically medically patient feels a bit better. D-dimer is 0.89, LDH is 1749, CRP is 16.7. Pro-calcitonin level was 0.18. Patient is on Remdesivir, today is day 3 of treatment, did receive convalescent plasma early this morning. On 09/06/2020 patient seen in follow-up on medical floor, he is currently on 12 L of oxygen, his pulse ox of 89-90%, still coughing quite a bit, he is on his last day of Remdesivir treatment, he did receive a dose of convalescent plasma, continues on Solu-Medrol 60 mg every 6 hours, IV fluids, he is on vitamins, is receiving Tessalon Perles. He is on prophylactic dose Lovenox, today's d-dimer is 1.5, his inflammatory markers show improving CRP, LDH is pending. On 09/09/2020 patient seen in follow-up on medical floor, still coughing, however his cough seems to be improving some. Lung sounds are positive for diffuse crackles, with slight improvement, patient has been ambulating to the bathroom, tolerating activity fairly well, no chest discomfort, still requiring high flow oxygen and he is on 100% nonrebreather, he states he feels more comfortable on the nonrebreather mask then high flow nasal cannula, his pulse ox is between 89-91%, no fever or chills, hemodynamically stable, tolerating oral intake. 09/10/2020, the patient is still competent specially when he talks or takes a deep breath. D-dimer is down to 4.9. He underwent a CT angiogram today that showed no evidence of any pulmonary embolism. There was diffuse but the groundglass pulmonary infiltrates consistent with Coumadin. Pneumonia. LDH from yesterday was 06/06/2002, CRP from today is down to 8.7. He remains in the 100% nonrebreather facemask along with 15 L of oxygen with a pulse ox of 98%. 09/11/2020, I'm seeing the patient for a follow-up. He is doing well and he is currently on 15 L of oxygen by nasal cannula and his taken off the 100% nonrebreather. Doing well. She did was done and the patient has been found no evidence of pulmonary embolism. The patient has diffuse bilateral pulmonary infiltrates consistent with pneumonia. He is improving. His cough has subsided. He is afebrile. He continues to sit up on a chair. He is taken Tessalon Perles to suppress his cough. He remains on IV Solu Medrol 60 mg IV push every 6 hours. He is also on Lovenox 40 mg subcu every 24 hours. IV fluids at KVO. No other issues otherwise for now. His quite comfortable. Note that the patient has history of rheumatoid arthritis and his been taken ARAVA on outpatient basis. 09/12/2020, condition essentially unchanged since yesterday, still on 15 L oxygen and occasionally is using the nonrebreather facemask. Cough has subsided. No fever or chills. No other new complaints otherwise for now. We will review the CT angiogram that was done yesterday. Terms of labs, the patient is having a d-dimer of 2.05 and an LDH level of 654 and LDH level was considerably lower compared to earlier values. CRP is also low. Objective - Vital Signs Vital signs: Vital Signs Temp 98.5 F 09/12/20 10:00 Pulse 98 09/12/20 10:00 Resp 18 09/12/20 10:00 BP 114/70 09/12/20 10:00 Pulse Ox 88 L 09/12/20 10:00 Intake & Output 09/11/20 09/12/20 09/12/20 18:59 06:59 18:59 Intake Total 440 Balance 440 Intake: Oral 440 Other: Voiding Method Urinal # Voids 2 - Exam GENERAL EXAM: Alert, very pleasant 55-year-old male on 15 L per minute nasal cannula. HEAD: Normocephalic/atraumatic. EYES: Normal reaction of pupils, equal size. Conjunctiva pink, sclera white. NOSE: Clear with pink turbinates. THROAT: No erythema or exudates. NECK: No masses, no JVD, no thyroid enlargement, no adenopathy. CHEST: No chest wall deformity. Symmetrical expansion. LUNGS: Equal air entry with diffuse crackles CVS: Regular rate and rhythm, normal S1 and S2, no gallops, no murmurs, no rubs ABDOMEN: Soft, nontender. No hepatosplenomegaly, normal bowel sounds, no guarding or rigidity. EXTREMITIES: No clubbing, no edema, no cyanosis, 2+ pulses and upper and lower extremities. MUSCULOSKELETAL: Muscle strength and tone normal. SPINE: No scoliosis or deformity SKIN: No rashes CENTRAL NERVOUS SYSTEM: Alert and oriented -3. No focal deficits, tone is normal in all 4 extremities. PSYCHIATRIC: Alert and oriented -3. Appropriate affect. Intact judgment and insight. - Labs CBC & Chem 7: 09/05/20 10:09 09/07/20 05:56 Labs: Abnormal Lab Results - Last 24 Hours (Table) 09/11/20 09/11/20 09/12/20 Range/Units 13:42 13:42 07:57 D-Dimer 3.23 H 2.05 H (<0.60) mg/L FEU Lactate Dehydrogenase 1931 H (313-618) U/L 09/12/20 Range/Units 07:57 D-Dimer (<0.60) mg/L FEU Lactate Dehydrogenase 654 H (313-618) U/L Assessment and Plan Plan: #1. Acute hypoxic respiratory failure related to acute COVID 19 pneumonia, Completed Remdesivir, and convalescent plasma 1, status post Tocilizumab. The CT angiogram is consistent with diffuse pneumonia without evidence of any pulmonary embolism. And the patient has been found to have diffuse ground glass pulmonary infiltrates. Doing well for now. Wean down to 15 L of oxygen by nasal cannula. D-dimer is at 3.23. LDH level has dropped considerably down to 654 #2. History of psoriatic arthritis on methotrexate , on hold #3. Increased inflammatory markers related to acute COVID 19 infection #4. Mild intermittent bronchial asthma, exercise induced #5. 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 Increased transaminases, likely related to viral pneumonia, we'll continue to follow #7. Hyponatremia and hypokalemia, related to dehydration, improved Plan: Continue current medical treatment and supportive care. Cough suppressants High flow oxygen at 15 L per minute nasal cannula and discontinue the nonrebreather facemask and uses only when he gets short of breath. He is going back and forth to the bathroom and is requiring his oxygen mask knowing that the nasal cannula does not reach to his bathroom. He gets worked up and sometimes he gets hypoxic and he was quite concerned because of that. Continue IV Solu-Medrol the lower dose of 40 mg every 8 hours Lovenox for DVT prophylaxis my adjust the dose to 40 mg subcu once a day. Mobility We'll continue to follow
[2020-09-12 12:55] LABS: C Reactive Protein <0.4 mg/dL (0.0-0.8)
[2020-09-12] MEDS: methylPREDNISolone SOD SUCCI 40 MG/ML 1 ML VIAL IV SCH ×2 (17:27→23:12)
--- NOTE | 2020-09-12 18:33 | PN ---
PROGRESS NOTE DATE OF SERVICE: 09/12/2020 REASON FOR FOLLOWUP: COVID-19 pneumonia. INTERVAL HISTORY: Patient is afebrile. He is breathing slightly comfortably today. Denies having any chest pain. Continues to have a cough. Not bringing up any sputum. No abdominal pain or diarrhea. PHYSICAL EXAMINATION: Blood pressure is 107/64, pulse of 105, temperature 97.5. He is 92% on continuous high- flow oxygen. General description is a middle-aged male up in the chair in no distress. Respiratory system: Unlabored breathing, decreased intensity of breath sounds. No wheeze. Heart S1, S2. Regular rate and rhythm. Abdomen soft, no tenderness. LABS: D-dimer is 2.05. LDH down to 65/54 and CRP normalized. DIAGNOSTIC IMPRESSION AND PLAN: Patient with acute COVID-19 infection. Patient has completed his Remdesivir therapy as well as received dose of Actemra. The patient is currently covered with Solu-Medrol, Lovenox, zinc and ascorbic acid to continue while monitoring clinical course closely. Continue supportive care. MMODL / IJN: [id number] /
[2020-09-12] MEDS: SODIUM CHLORIDE 0.9% 1,000 ML IV SCH (19:55)
--- NOTE | 2020-09-12 22:25 | P.PN ---
Progress Note - Text Progress Note Date: 09/12/20 Chief Complaint: Short of breath History of presenting complaint: This is a very pleasant 55-year-old patient of Dr. Marlena Vicente. Chronic stable medical conditions include hyperlipidemia, exercise-induced asthma, seasonal ALLERGIES, diverticulosis, psoriatic arthritis affecting multiple joints, beta thalassemia. Patient started off the cough about a week ago. The cough is coming progressively worse with associated shortness of breath. No loss of smell or taste. Patient's had some diarrhea. Not much of body 8. Appetite has gone down. Patient tested positive for COVID on September 01 that Eusebio Calvo on ER. Tired. Febrile Admitted with bilateral COVID 19 pneumonia causing sepsis, acute hypoxic respiratory failure. Started on dexamethasone, Lovenox, Remdesivir. ACTEMRA Today: Up in a chair. Decreased oral intake. Short of breath. Remains on 15 L high flow nonrebreather. Intermittent coughing Review of systems: Was done for constitutional, cardiovascular, GI, pulmonary. relevant finding as above Active Medications Acetaminophen (Acetaminophen Tab 325 Mg Tab) 650 mg PO Q6HR PRN PRN Reason: Fever and/ or Pain Last Admin: 09/03/20 09:36 Dose: 650 mg Documented by: Albuterol Sulfate (Albuterol Hfa Inhaler) 4 puff INHALATION RT-Q4H [facility] Last Admin: 09/12/20 20:28 Dose: 4 puff Documented by: Amlodipine Besylate (Amlodipine 10 Mg Tab) 10 mg PO DAILY [facility] Last Admin: 09/12/20 10:57 Dose: 10 mg Documented by: Ascorbic Acid (Ascorbic Acid 500 Mg Tab) 1,000 mg PO DAILY [facility] Last Admin: 09/12/20 10:56 Dose: 1,000 mg Documented by: Benzonatate (Benzonatate 100 Mg Cap) 200 mg PO TID [facility] Last Admin: 09/12/20 20:28 Dose: 200 mg Documented by: Cholecalciferol (Cholecalciferol 25 Mcg (1000 Iu) Tablet) 100 mcg PO DAILY [facility] Last Admin: 09/12/20 10:56 Dose: 100 mcg Documented by: Enoxaparin Sodium (Enoxaparin 40 Mg/0.4 Ml Syringe) 40 mg SQ DAILY [facility] Famotidine (Famotidine 20 Mg Tab) 20 mg PO BID [facility] Last Admin: 09/12/20 20:28 Dose: 20 mg Documented by: Sodium Chloride (Saline 0.9%) 1,000 mls @ 20 mls/hr IV .Q24H [facility] Last Admin: 09/12/20 19:55 Dose: Not Given Documented by: Methylprednisolone Sodium Succinate (Methylprednisolone Sod Succi 40 Mg/Ml 1 Ml Vial) 40 mg IV Q8HR [facility] Last Admin: 09/12/20 17:27 Dose: 40 mg Documented by: Naloxone HCl (Naloxone 0.4 Mg/Ml 1 Ml Vial) 0.2 mg IV Q2M PRN PRN Reason: Opioid Reversal Ondansetron HCl (Ondansetron 4 Mg/2 Ml Vial) 4 mg IVP Q8HR PRN PRN Reason: Nausea And Vomiting Zinc Sulfate (Zinc Sulfate 220 Mg Cap) 220 mg PO DAILY [facility] Last Admin: 09/12/20 10:57 Dose: 220 mg Documented by: Past medical history to include: Exercise-induced asthma, hyperlipidemia, seasonal ALLERGIES, gastric ulcer in the remote past, diverticulosis, colon polyps, psoriatic arthritis affecting many joints, beta thalassemia 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 . Patient smoked for 8 years stopped in 1997. Alcohol occasionally. Physical examination: VITAL SIGNS: 97.5, 105, 22, 107/64, 92% on 15 L GENERAL: Sitting up to chair, short of breath , tired LUNGS: Respiratory rate increased,. PSYCH: Alert and oriented x3; mood and affect slightly anxious. NEUROLOGICAL: Cranial nerves grossly intact; no facial asymmetry, moving limbs Rest of the exam per pulmonary and nursing INVESTIGATIONS, reviewed in the clinical context: September 12: D-dimer 2.05 LDH 654 CRP less than 0.4 September 11: D-dimer 3.23 LDH 1931 CRP 0.6 September 10: D-dimer 4.97 CRP 8.7 September 04: D-dimer 0.89 CRP 60.7 September 03: WBC 5.2 hemoglobin 10.6 platelets 139 d-dimer 1.15 potassium 3.6 CRP 39.6 WBC 3.2 hemoglobin 12.1 platelets 124 potassium 3.2 creatinine 0.74 sodium 1:30 D-dimer 0.58 CRP 53.5 coronavirus [PCR] detected EKG tracing personally reviewed by me-sinus rhythm Q waves in inferior leads Chest x-ray personally reviewed by me-bilateral infiltrates Assessment and plan: -Bilateral COVID 19 pneumonia - slow to respond on subcu Lovenox, IV Solu-Medrol. Remdesivir . vitamin C vitamin D Pepcid zinc IV fluids. ACTEMRA -Acute hypoxic respiratory failure secondary to COVID 19 -slow to respond Continue oxygen on 15 L -Exercise-induced asthma Use bronchodilators -Hyperlipidemia -Colonic diverticulosis, asymptomatic -Psoriatic arthritis and psoriasis -Beta thalassemia Follow hemoglobin -Hyponatremia likely hypoosmolar Improving Continue current medication treatment 1. Discussed with patient. Follow CBC BMP
[2020-09-13] MEDS: ALBUTEROL HFA INHALER INHALATION SCH ×6 (00:26→20:22)
[2020-09-13 07:38] LABS: Basophils % (A) 0 %; Eosinophils % (A) 0 %; HCT 39.5 % (39.0-53.0); Hypochromasia Slight; Lymphocytes # (A) 0.4 k/uL (1.0-4.8); Lymphocytes % (A) 3 %; MCH 17.9 pg (25.0-35.0); MCHC 30.3 g/dL (31.0-37.0); MCV 59.3 fL (80.0-100.0); Mean Platelet Volume 7.8; Microcytosis Marked; Monocytes # (A) 0.5 k/uL (0-1.0); Monocytes % (A) 3 %; Neutrophils # (A) 15.4 k/uL (1.3-7.7); Neutrophils % (A) 94 %; Platelet Count 386 k/uL (150-450); RBC 6.67 m/uL (4.30-5.90); RDW 15.3 % (11.5-15.5); WBC 16.4 k/uL (3.8-10.6)
[2020-09-13 07:59] LABS: African American GFR (CKD) >90 (>60 ml/min/1.73 sqM); Anion Gap 7 mmol/L; Blood Urea Nitrogen 23 mg/dL (9-20); C Reactive Protein 0.5 mg/dL (<1.0); Calcium 8.9 mg/dL (8.4-10.2); Carbon Dioxide 28 mmol/L (22-30); Chloride 98 mmol/L (98-107); Glucose 107 mg/dL (74-99); Non-African American GFR(CKD) >90 (>60 ml/min/1.73 sqM); Potassium 4.6 mmol/L (3.5-5.1); Sodium 133 mmol/L (137-145)
[2020-09-13] MEDS: amLODIPine 10 MG TAB PO SCH (09:15)
[2020-09-13] MEDS: methylPREDNISolone SOD SUCCI 40 MG/ML 1 ML VIAL IV SCH ×2 (09:15→18:08)
[2020-09-13] MEDS: CHOLECALCIFEROL 25 MCG (1000 IU) TABLET PO SCH (09:15)
[2020-09-13] MEDS: ZINC SULFATE 220 MG CAP PO SCH (09:16)
[2020-09-13] MEDS: ENOXAPARIN 40 MG/0.4 ML SYRINGE SQ SCH (09:16)
[2020-09-13] MEDS: ASCORBIC ACID 500 MG TAB PO SCH (09:16)
[2020-09-13] MEDS: FAMOTIDINE 20 MG TAB PO SCH ×2 (09:16→21:13)
[2020-09-13] MEDS: BENZONATATE 100 MG CAP PO SCH ×3 (09:16→21:13)
--- NOTE | 2020-09-13 12:49 | P.PN ---
Subjective Progress Note Date: 09/13/20 55-year-old male patient of Dr. Marlena Vicente who presented to the emergency department on 09/01/2020 with symptoms of worsening cough, shortness of breath. Patient tested positive for COVID 19, his chest x-ray showed bilateral airspace infiltrates. First onset of symptoms was one week ago with cough, fever, flulike symptoms. Patient was seen by his primary care provider and placed on Z-Arun and Medrol dosepak last week. Patient has 2 days left of the Medrol Dosepak, and he finished the Z-Arun however his symptoms did not improve and progress. He is not requiring supplemental oxygen, 2 L, and his pulse ox of 94%, he was febrile on presentation, he has frequent dry cough, but no chest discomfort, no nausea or vomiting, did have diarrhea. he is a former smoker, only smoked for about 8 years, he quit smoking 20 years ago. He does have underlying history of asthma, mild intermittent, uses Ventolin on an as-needed basis, no history of frequent exacerbations, his asthma is exercise induced. His lab work revealed leukopenia, with white blood cell count 3.2, hemoglobin is 12.1, lymphopenia with a basic, 0.4, sodium is 1:30, potassium is 3.2, chloride is 94, BUN is 18, creatinine 0.74, plasma lactic acid 0.9. AST was 76, ALT was 51, alkaline phosphatase was 135, LDH was 1150, and CRP was 53.5. Patient also has history of psoriatic arthritis and he takes methotrexate and Arava, that were both placed on hold last week. Morning he seen on medical surgical floor, he is awake and alert, has a frequent dry cough, diffuse coarse crackles throughout the lung fajardo, no nausea or vomiting. Was started on oral Decadron 8 mg. On 0.9 normal saline running at 120 ML per hour, patient is within the window for Remdesivir and patient will be given a unit of convalescent plasma in addition to vitamins, prophylactic anticoagulation. On 09/03/2020 patient seen in follow-up on medical floor, still coughing a lot, dyspneic, he is currently on 4 L of oxygen, his pulse ox of 97%, chest feels heavy, overall she is feeling 'lousy". Low-grade fever this morning, with a temp of 99.7F, lung sounds. Positive for coarse diffuse bilateral crackles throughout lung fajardo. This is day 2 of Remdesivir treatment, he is still awaiting convalescent plasma, continues on Decadron 6 mg, vitamins, and prophylactic anticoagulation, today's labs have been reviewed, showing white blood cell count of 5.2, hemoglobin of 10.6, d-dimer is 1.15, sodium is 132, the rest of electrolytes and renal profile were unremarkable, LDH has trended up to 1700, CRP is down slightly to 39.6 from 53.5. Pro-calcitonin level is 0.18. Blood cultures have been negative. Patient has quite frequent dry irritative cough, his lower back is starting to hurt and he is not sure whether it's from coughing or being in the bed and in the chair for a long period of time. On 06/06/2020 patient seen in follow-up on medical floor. Doing slightly better, still coughing quite a bit, but he states the Tessalon Perles more effective than the Robitussin with codeine, lung sounds are still positive for diffuse crackles, afebrile. He was able to sleep a bit better last night. Repeat chest x-ray today showed mid and lower lung airspace disease significantly increased from prior. Clinically medically patient feels a bit better. D-dimer is 0.89, LDH is 1749, CRP is 16.7. Pro-calcitonin level was 0.18. Patient is on Remdesivir, today is day 3 of treatment, did receive convalescent plasma early this morning. On 09/06/2020 patient seen in follow-up on medical floor, he is currently on 12 L of oxygen, his pulse ox of 89-90%, still coughing quite a bit, he is on his last day of Remdesivir treatment, he did receive a dose of convalescent plasma, continues on Solu-Medrol 60 mg every 6 hours, IV fluids, he is on vitamins, is receiving Tessalon Perles. He is on prophylactic dose Lovenox, today's d-dimer is 1.5, his inflammatory markers show improving CRP, LDH is pending. On 09/09/2020 patient seen in follow-up on medical floor, still coughing, however his cough seems to be improving some. Lung sounds are positive for diffuse crackles, with slight improvement, patient has been ambulating to the bathroom, tolerating activity fairly well, no chest discomfort, still requiring high flow oxygen and he is on 100% nonrebreather, he states he feels more comfortable on the nonrebreather mask then high flow nasal cannula, his pulse ox is between 89-91%, no fever or chills, hemodynamically stable, tolerating oral intake. 09/10/2020, the patient is still competent specially when he talks or takes a deep breath. D-dimer is down to 4.9. He underwent a CT angiogram today that showed no evidence of any pulmonary embolism. There was diffuse but the groundglass pulmonary infiltrates consistent with Coumadin. Pneumonia. LDH from yesterday was 06/06/2002, CRP from today is down to 8.7. He remains in the 100% nonrebreather facemask along with 15 L of oxygen with a pulse ox of 98%. 09/11/2020, I'm seeing the patient for a follow-up. He is doing well and he is currently on 15 L of oxygen by nasal cannula and his taken off the 100% nonrebreather. Doing well. She did was done and the patient has been found no evidence of pulmonary embolism. The patient has diffuse bilateral pulmonary infiltrates consistent with pneumonia. He is improving. His cough has subsided. He is afebrile. He continues to sit up on a chair. He is taken Tessalon Perles to suppress his cough. He remains on IV Solu Medrol 60 mg IV push every 6 hours. He is also on Lovenox 40 mg subcu every 24 hours. IV fluids at KVO. No other issues otherwise for now. His quite comfortable. Note that the patient has history of rheumatoid arthritis and his been taken ARAVA on outpatient basis. 09/12/2020, condition essentially unchanged since yesterday, still on 15 L oxygen and occasionally is using the nonrebreather facemask. Cough has subsided. No fever or chills. No other new complaints otherwise for now. We will review the CT angiogram that was done yesterday. Terms of labs, the patient is having a d-dimer of 2.05 and an LDH level of 654 and LDH level was considerably lower compared to earlier values. CRP is also low. 18 2020, the patient continues to have a dry cough which is improving slowly. Nevertheless, his oxidation is still the same and the patient remains on 15 L high flow oxygen via nasal cannula. No new complaints. He is ambulating. His activity is tolerating his diet. No altered mentation. No encephalopathy. He remains on steroids and the patient is receiving IV Solu-Medrol. I reduced the dose yesterday to 40 mg every 8 hours.His d-dimer is at 1.92 and the patient is on Lovenox for DVT prophylaxis. His LDH level is again on the rise and is up to 1356 and the d-dimer is at 1.92 with a CRP level of 0.5. Rest of the electrolytes are all within normal limits. Objective - Vital Signs Vital signs: Vital Signs Temp 97.3 F L 09/13/20 10:00 Pulse 112 H 09/13/20 10:00 Resp 16 09/13/20 10:00 BP 101/66 09/13/20 10:00 Pulse Ox 89 L 09/13/20 10:00 Intake & Output 09/12/20 09/13/20 09/13/20 18:59 06:59 18:59 Output Total 300 Balance -300 Output: Urine 300 Other: Voiding Method Urinal # Voids 2 - Exam GENERAL EXAM: Alert, very pleasant 55-year-old male on 15 L per minute nasal cannula. HEAD: Normocephalic/atraumatic. EYES: Normal reaction of pupils, equal size. Conjunctiva pink, sclera white. NOSE: Clear with pink turbinates. THROAT: No erythema or exudates. NECK: No masses, no JVD, no thyroid enlargement, no adenopathy. CHEST: No chest wall deformity. Symmetrical expansion. LUNGS: Equal air entry with diffuse crackles CVS: Regular rate and rhythm, normal S1 and S2, no gallops, no murmurs, no rubs ABDOMEN: Soft, nontender. No hepatosplenomegaly, normal bowel sounds, no guarding or rigidity. EXTREMITIES: No clubbing, no edema, no cyanosis, 2+ pulses and upper and lower extremities. MUSCULOSKELETAL: Muscle strength and tone normal. SPINE: No scoliosis or deformity SKIN: No rashes CENTRAL NERVOUS SYSTEM: Alert and oriented -3. No focal deficits, tone is nor mal in all 4 extremities. PSYCHIATRIC: Alert and oriented -3. Appropriate affect. Intact judgment and insight. - Labs CBC & Chem 7: 09/13/20 06:37 09/13/20 06:37 Labs: Abnormal Lab Results - Last 24 Hours (Table) 09/13/20 09/13/20 09/13/20 Range/Units 06:37 06:37 06:37 WBC 16.4 H (3.8-10.6) k/uL RBC 6.67 H (4.30-5.90) m/uL Hgb 12.0 L (13.0-17.5) gm/dL MCV 59.3 L (80.0-100.0) fL MCH 17.9 L (25.0-35.0) pg MCHC 30.3 L (31.0-37.0) g/dL Neutrophils # 15.4 H (1.3-7.7) k/uL Lymphocytes # 0.4 L (1.0-4.8) k/uL D-Dimer 1.92 H (<0.60) mg/L FEU Sodium (137-145) mmol/L BUN (9-20) mg/dL Creatinine (0.66-1.25) mg/dL Glucose (74-99) mg/dL Lactate Dehydrogenase 1356 H (313-618) U/L 09/13/20 Range/Units 06:37 WBC (3.8-10.6) k/uL RBC (4.30-5.90) m/uL Hgb (13.0-17.5) gm/dL MCV (80.0-100.0) fL MCH (25.0-35.0) pg MCHC (31.0-37.0) g/dL Neutrophils # (1.3-7.7) k/uL Lymphocytes # (1.0-4.8) k/uL D-Dimer (<0.60) mg/L FEU Sodium 133 L (137-145) mmol/L BUN 23 H (9-20) mg/dL Creatinine 0.62 L (0.66-1.25) mg/dL Glucose 107 H (74-99) mg/dL Lactate Dehydrogenase (313-618) U/L Assessment and Plan Plan: #1. Acute hypoxic respiratory failure related to acute COVID 19 pneumonia, Completed Remdesivir, and convalescent plasma 1, status post Tocilizumab. The CT angiogram is consistent with diffuse pneumonia without evidence of any pulmonary embolism. And the patient has been found to have diffuse ground glass pulmonary infiltrates. Doing well for now. His condition remains stable since yesterday without any interval worsening or improvement. His dry cough is improved. Nevertheless, his oxygen requirements of the same and LDH level is up to 1300 today. D-dimer is low and he is on Lovenox for DVT prophylaxis. #2. History of psoriatic arthritis on methotrexate , on hold #3. Increased inflammatory markers related to acute COVID 19 infection #4. Mild intermittent bronchial asthma, exercise induced #5. 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 Increased transaminases, likely related to viral pneumonia, we'll continue to follow #7. Hyponatremia and hypokalemia, related to dehydration, improved Plan: Continue current medical treatment and supportive care. Cough suppressants High flow oxygen at 15 L per minute nasal cannula and discontinue the nonrebreather facemask and uses only when he gets short of breath. He is going back and forth to the bathroom and is requiring his oxygen mask knowing that the nasal cannula does not reach to his bathroom. He gets worked up and sometimes he gets hypoxic and he was quite concerned because of that. Continue IV Solu-Medrol the lower dose of 40 mg every 8 hours Lovenox for DVT prophylaxis my adjust the dose to 40 mg subcu once a day. Mobility I have not made any changes in medication. We'll continue the same treatment for now. The patient is slow to progress. We'll continue to follow
--- NOTE | 2020-09-13 18:06 | PN ---
PROGRESS NOTE DATE OF SERVICE: 09/13/2020 REASON FOR FOLLOWUP: COVID-19 pneumonia. INTERVAL HISTORY: Patient is afebrile. The patient is breathing slightly comfortably today. The patient denies having any chest pain. Continues to have a dry cough. No worsening. No abdominal pain or diarrhea. PHYSICAL EXAMINATION: Blood pressure 101/66, pulse of 112, temperature 97.3. He is 90% on high-flow oxygen. General description is a middle-aged male up in the chair in no distress. Respiratory system: Unlabored breathing, decreased intensity of breath sounds. No wheeze. HEART: S1, S2. Regular rate and rhythm. ABDOMEN: Soft, no tenderness. LABS: Hemoglobin is 12.7, white count 16.4. D, BUN of 23, creatinine 0.62. DIAGNOSTIC IMPRESSION AND PLAN: Patient with acute COVID-19 infection. This patient has received Remdesivir as well as Actemra. Currently on Lovenox, Solu-Medrol, dose will be cut back. Continue along with zinc and ascorbic acid, respiratory support. Monitor clinical course closely. MMODL / IJN: [id number] / MTDD
[2020-09-13] MEDS: SODIUM CHLORIDE 0.9% 1,000 ML IV SCH (21:24)
--- NOTE | 2020-09-13 21:28 | P.PN ---
Progress Note - Text Progress Note Date: 09/13/20 Chief Complaint: Short of breath History of presenting complaint: This is a very pleasant 55-year-old patient of Dr. Marlena Vicente. Chronic stable medical conditions include hyperlipidemia, exercise-induced asthma, seasonal ALLERGIES, diverticulosis, psoriatic arthritis affecting multiple joints, beta thalassemia. Patient started off the cough about a week ago. The cough is coming progressively worse with associated shortness of breath. No loss of smell or taste. Patient's had some diarrhea. Not much of body 8. Appetite has gone down. Patient tested positive for COVID on September 01 that Eusebio Calvo on ER. Tired. Febrile Admitted with bilateral COVID 19 pneumonia causing sepsis, acute hypoxic respiratory failure. Started on dexamethasone, Lovenox, Remdesivir. ACTEMRA Today: Up in a chair. Remains short of breath. A bit tired. On high flow nasal cannula. Eating intermittently. Review of systems: Was done for constitutional, cardiovascular, GI, pulmonary. relevant finding as above Active Medications Acetaminophen (Acetaminophen Tab 325 Mg Tab) 650 mg PO Q6HR PRN PRN Reason: Fever and/ or Pain Last Admin: 09/03/20 09:36 Dose: 650 mg Documented by: Albuterol Sulfate (Albuterol Hfa Inhaler) 4 puff INHALATION RT-Q4H [facility] Last Admin: 09/13/20 20:22 Dose: 4 puff Documented by: Amlodipine Besylate (Amlodipine 10 Mg Tab) 10 mg PO DAILY [facility] Last Admin: 09/13/20 09:15 Dose: 10 mg Documented by: Ascorbic Acid (Ascorbic Acid 500 Mg Tab) 1,000 mg PO DAILY [facility] Last Admin: 09/13/20 09:16 Dose: 1,000 mg Documented by: Benzonatate (Benzonatate 100 Mg Cap) 200 mg PO TID [facility] Last Admin: 09/13/20 21:13 Dose: 200 mg Documented by: Cholecalciferol (Cholecalciferol 25 Mcg (1000 Iu) Tablet) 100 mcg PO DAILY [facility] Last Admin: 09/13/20 09:15 Dose: 100 mcg Documented by: Enoxaparin Sodium (Enoxaparin 40 Mg/0.4 Ml Syringe) 40 mg SQ DAILY [facility] Last Admin: 09/13/20 09:16 Dose: 40 mg Documented by: Famotidine (Famotidine 20 Mg Tab) 20 mg PO BID [facility] Last Admin: 09/13/20 21:13 Dose: 20 mg Documented by: Sodium Chloride (Saline 0.9%) 1,000 mls @ 20 mls/hr IV .Q24H [facility] Last Admin: 09/13/20 21:24 Dose: Not Given Documented by: Methylprednisolone Sodium Succinate (Methylprednisolone Sod Succi 40 Mg/Ml 1 Ml Vial) 40 mg IV Q8HR [facility] Last Admin: 09/13/20 18:08 Dose: 40 mg Documented by: Naloxone HCl (Naloxone 0.4 Mg/Ml 1 Ml Vial) 0.2 mg IV Q2M PRN PRN Reason: Opioid Reversal Ondansetron HCl (Ondansetron 4 Mg/2 Ml Vial) 4 mg IVP Q8HR PRN PRN Reason: Nausea And Vomiting Zinc Sulfate (Zinc Sulfate 220 Mg Cap) 220 mg PO DAILY [facility] Last Admin: 09/13/20 09:16 Dose: 220 mg Documented by: Past medical history to include: Exercise-induced asthma, hyperlipidemia, seasonal ALLERGIES, gastric ulcer in the remote past, diverticulosis, colon polyps, psoriatic arthritis affecting many joints, beta thalassemia Social history: 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 . Patient smoked for 8 years stopped in 1997. Alcohol occasionally. Physical examination: VITAL SIGNS: 97.3, 112, 22, 101/66, 89% on 15 L GENERAL: Sitting up to chair, short of breath , tired LUNGS: Respiratory rate increased,. PSYCH: Alert and oriented x3; mood and affect slightly anxious. NEUROLOGICAL: Cranial nerves grossly intact; no facial asymmetry, moving limbs Rest of the exam per pulmonary and nursing INVESTIGATIONS, reviewed in the clinical context: September 13: WBC 16.4 hemoglobin 12 platelets 386 d-dimer 1.92 potassium 4.6 creatinine 0.62 LDH 1356 CRP 0.5 September 12: D-dimer 2.05 LDH 654 CRP less than 0.4 September 11: D-dimer 3.23 LDH 1931 CRP 0.6 September 10: D-dimer 4.97 CRP 8.7 August 9: D-dimer 0.89 CRP 60.7 August 8: WBC 5.2 hemoglobin 10.6 platelets 139 d-dimer 1.15 potassium 3.6 CRP 39.6 WBC 3.2 hemoglobin 12.1 platelets 124 potassium 3.2 creatinine 0.74 sodium 1:30 D-dimer 0.58 CRP 53.5 coronavirus [PCR] detected EKG tracing personally reviewed by me-sinus rhythm Q waves in inferior leads Chest x-ray personally reviewed by me-bilateral infiltrates Assessment and plan: -Bilateral COVID 19 pneumonia - slow to respond on subcu Lovenox, IV Solu-Medrol. Remdesivir . vitamin C vitamin D Pepcid zinc IV fluids. ACTEMRA -Acute hypoxic respiratory failure secondary to COVID 19 -slow to respond Continue oxygen on 15 L -Exercise-induced asthma Use bronchodilators -Hyperlipidemia -Colonic diverticulosis, asymptomatic -Psoriatic arthritis and psoriasis -Beta thalassemia Follow hemoglobin -Hyponatremia likely hypoosmolar Improving Discussed with patient. Continue current medications.
[2020-09-14] MEDS: methylPREDNISolone SOD SUCCI 40 MG/ML 1 ML VIAL IV SCH ×3 (00:34→17:00)
[2020-09-14] MEDS: ALBUTEROL HFA INHALER INHALATION SCH ×6 (02:06→22:08)
[2020-09-14] MEDS: CHOLECALCIFEROL 25 MCG (1000 IU) TABLET PO SCH (09:41)
[2020-09-14] MEDS: ENOXAPARIN 40 MG/0.4 ML SYRINGE SQ SCH (09:41)
[2020-09-14] MEDS: ASCORBIC ACID 500 MG TAB PO SCH (09:41)
[2020-09-14] MEDS: amLODIPine 10 MG TAB PO SCH (09:41)
[2020-09-14] MEDS: FAMOTIDINE 20 MG TAB PO SCH ×2 (09:41→21:32)
[2020-09-14] MEDS: BENZONATATE 100 MG CAP PO SCH ×3 (09:41→21:32)
[2020-09-14] MEDS: ZINC SULFATE 220 MG CAP PO SCH (09:42)
--- NOTE | 2020-09-14 16:05 | P.PN ---
Subjective Progress Note Date: 09/14/20 Principal diagnosis: Fever, cough, chills, hypoxia, COVID 19 55-year-old male patient of Dr. Marlena Vicente who presented to the emergency department on 09/01/2020 with symptoms of worsening cough, shortness of breath. Patient tested positive for COVID 19, his chest x-ray showed bilateral airspace infiltrates. First onset of symptoms was one week ago with cough, fever, flu like symptoms. Patient was seen by his primary care provider and placed on Z- Arun and Medrol dosepak last week. Patient has 2 days left of the Medrol Dosepak, and he finished the Z-Arun however his symptoms did not improve and progress. He is not requiring supplemental oxygen, 2 L, and his pulse ox of 94%, he was febrile on presentation, he has frequent dry cough, but no chest discomfort, no nausea or vomiting, did have diarrhea. he is a former smoker, only smoked for about 8 years, he quit smoking 20 years ago. He does have underlying history of asthma, mild intermittent, uses Ventolin on an as-needed basis, no history of frequent exacerbations, his asthma is exercise induced. His lab work revealed leukopenia, with white blood cell count 3.2, hemoglobin is 12.1, lymphopenia with a basic, 0.4, sodium is 1:30, potassium is 3.2, chloride is 94, BUN is 18, creatinine 0.74, plasma lactic acid 0.9. AST was 76, ALT was 51, alkaline phosphatase was 135, LDH was 1150, and CRP was 53.5. Patient also has history of psoriatic arthritis and he takes methotrexate and Arava, that were both placed on hold last week. Morning he seen on medical surgical floor, he is awake and alert, has a frequent dry cough, diffuse coarse crackles throughout the lung fajardo, no nausea or vomiting. Was started on oral Decadron 8 mg. On 0.9 normal saline running at 120 ML per hour, patient is within the window for Remdesivir and patient will be given a unit of convalescent plasma in addition to vitamins, prophylactic anticoagulation. On 09/03/2020 patient seen in follow-up on medical floor, still coughing a lot, dyspneic, he is currently on 4 L of oxygen, his pulse ox of 97%, chest feels heavy, overall she is feeling 'lousy". Low-grade fever this morning, with a temp of 99.7F, lung sounds. Positive for coarse diffuse bilateral crackles throughout lung fajardo. This is day 2 of Remdesivir treatment, he is still awaiting convalescent plasma, continues on Decadron 6 mg, vitamins, and prophyl actic anticoagulation, today's labs have been reviewed, showing white blood cell count of 5.2, hemoglobin of 10.6, d-dimer is 1.15, sodium is 132, the rest of electrolytes and renal profile were unremarkable, LDH has trended up to 1700, CRP is down slightly to 39.6 from 53.5. Pro-calcitonin level is 0.18. Blood cultures have been negative. Patient has quite frequent dry irritative cough, his lower back is starting to hurt and he is not sure whether it's from coughing or being in the bed and in the chair for a long period of time. On 06/06/2020 patient seen in follow-up on medical floor. Doing slightly better, still coughing quite a bit, but he states the Tessalon Perles more effective than the Robitussin with codeine, lung sounds are still positive for diffuse crackles, afebrile. He was able to sleep a bit better last night. Repeat chest x-ray today showed mid and lower lung airspace disease significantly increased from prior. Clinically medically patient feels a bit better. D-dimer is 0.89, LDH is 1749, CRP is 16.7. Pro-calcitonin level was 0.18. Patient is on Remdesivir, today is day 3 of treatment, did receive convalescent plasma early this morning. On 09/06/2020 patient seen in follow-up on medical floor, he is currently on 12 L of oxygen, his pulse ox of 89-90%, still coughing quite a bit, he is on his last day of Remdesivir treatment, he did receive a dose of convalescent plasma, continues on Solu-Medrol 60 mg every 6 hours, IV fluids, he is on vitamins, is receiving Tessalon Perles. He is on prophylactic dose Lovenox, today's d-dimer is 1.5, his inflammatory markers show improving CRP, LDH is pending. On 09/09/2020 patient seen in follow-up on medical floor, still coughing, however his cough seems to be improving some. Lung sounds are positive for diffuse crackles, with slight improvement, patient has been ambulating to the bathroom, tolerating activity fairly well, no chest discomfort, still requiring high flow oxygen and he is on 100% nonrebreather, he states he feels more comfortable on the nonrebreather mask then high flow nasal cannula, his pulse ox is between 89-91%, no fever or chills, hemodynamically stable, tolerating oral intake. On 09/14/2020 patient seen in follow-up, and essentially remains unchanged from yesterday, his pulse ox still shows variations between 90-96% on 15 L high flow nasal cannula, this may be due to continued coughing jags, and desaturations with exertion as the patient ambulates to the bathroom, and does become dyspneic and more hypoxic. He's been afebrile, hasn't had a chest x-ray in the few da ys, she is status post Remdesivir, TOci, one unit of convalescent plasma, and is on Solu-Medrol 40 mg every 8 hours. Today labs have been reviewed, his white blood cell count has increased and is up to 16.4 on today's labs, hemoglobin is 12, his d-dimer is trending down, and is down to 1.9 to today's labs, sodium is 133, the rest of electrolytes were unremarkable, BUN is 23, creatinine of 0.62, LDH has increased and is up to 1356 and CRP is 0.5. Patient appears to be a bit fatigued, he has tried to keep up his oral intake, he is short of breath, still has a cough, he is on Tessalon Perles, is on IV steroids Objective - Vital Signs Vital signs: Vital Signs Temp 98.4 F 09/14/20 14:00 Pulse 110 H 09/14/20 14:00 Resp 18 09/14/20 14:00 BP 100/68 09/14/20 14:00 Pulse Ox 96 09/14/20 14:00 Intake & Output 09/13/20 09/14/20 09/14/20 18:59 06:59 18:59 Output Total 600 Balance -600 Output: Urine 600 Other: Voiding Method Urinal # Voids 2 # Bowel Movements 1 - Exam GENERAL EXAM: Alert, very pleasant 55-year-old male on 15 L high flow nasal cannula with a pulse ox between 90-96%, moderately short of breath, tachy pneic, does have coughing spells, HEAD: Normocephalic/atraumatic. EYES: Normal reaction of pupils, equal size. Conjunctiva pink, sclera white. NOSE: Clear with pink turbinates. THROAT: No erythema or exudates. NECK: No masses, no JVD, no thyroid enlargement, no adenopathy. CHEST: No chest wall deformity. Symmetrical expansion. LUNGS: Equal air entry with diffuse crackles CVS: Regular rate and rhythm, normal S1 and S2, no gallops, no murmurs, no rubs ABDOMEN: Soft, nontender. No hepatosplenomegaly, normal bowel sounds, no guarding or rigidity. EXTREMITIES: No clubbing, no edema, no cyanosis, 2+ pulses and upper and lower extremities. MUSCULOSKELETAL: Muscle strength and tone normal. SPINE: No scoliosis or deformity SKIN: No rashes CENTRAL NERVOUS SYSTEM: Alert and oriented -3. No focal deficits, tone is normal in all 4 extremities. PSYCHIATRIC: Alert and oriented -3. Appropriate affect. Intact judgment and insight. - Labs CBC & Chem 7: 09/13/20 06:37 09/13/20 06:37 Assessment and Plan Plan: Assessment: #1. Acute hypoxic respiratory failure related to acute COVID 19 pneumonia, onset of symptoms 7 days ago, patient had outpatient treatment with Z-Arun and Medrol Dosepak and his symptoms progressed. Completed Remdesivir, and convalescent plasma 1, status post Tocilizumab #2. History of psoriatic arthritis on methotrexate and Leflunomide, dad both have been placed on hold 7 days ago #3. Increased inflammatory markers related to acute COVID 19 infection #4. Mild intermittent bronchial asthma, exercise induced #5. 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 Increased transaminases, likely related to viral pneumonia, we'll continue to follow #7. Hyponatremia and hypokalemia, related to dehydration, improved Plan: Continue attempting to wean FiO2 to keep O2 sats saturation between 89-90% Encourage deep breathing and coughing and incentive spirometry use Continue current dose IV steroids Continue following d-dimer and inflammatory markers Send a pro calcitonin level Follow-up chest x-ray tomorrow Continue current dose Lovenox I performed a history & physical examination of the patient and discussed their management with my nurse practitioner, Jocy Pacheco. I reviewed the nurse practitioner's note and agree with the documented findings and plan of care. Lung sounds are positive for diffuse coarse crackles. The findings and the impression was discussed with the patient. I attest to the documentation by the nurse practitioner. Time with Patient: Less than 30
--- NOTE | 2020-09-14 16:09 | PN ---
PROGRESS NOTE DATE OF SERVICE: 09/14/2020 REASON FOR FOLLOWUP: COVID-19 infection. INTERVAL HISTORY: The patient is currently afebrile. The patient is breathing slightly comfortably, still requiring nasal cannula high-flow oxygen. The patient denies any chest pain. Continues to have a cough. No sputum. No abdominal pain or diarrhea. PHYSICAL EXAMINATION: Blood pressure 100/68, pulse of 110, temperature 99.4. He is 96% on 15 L high-flow oxygen. General description is a middle-aged male up in the chair in no distress. RESPIRATORY SYSTEM: Unlabored breathing with decreased intensity of breath sounds. No wheeze. HEART: S1, S2. Regular rate and rhythm. ABDOMEN: Soft. No tenderness. LABS: Hemoglobin is 12, white count 16.4. Down to 1.92. D-dimer is down to 1.92. CRP is normal. LDH is up to 1356. DIAGNOSTIC IMPRESSION AND PLAN: 1. Patient with acute COVID-19 infection. Patient has completed remdesivir and has received a dose of history dose of Actemra. On Solu-Medrol along with zinc and ascorbic acid; to continue. 2. Patient with elevated white count, more likely related to the steroids plus/minus oropharyngeal candidiasis. Will add nystatin swish and swallow and see response. Recheck inflammatory markers and procalcitonin tomorrow. MMODL / IJN: [id number] /
[2020-09-14] MEDS: NYSTATIN 100,000 UNIT/ML SUSP 500,000 UNIT/5 ML CUP PO SCH ×2 (17:01→21:32)
[2020-09-14] MEDS: SODIUM CHLORIDE 0.9% 1,000 ML IV SCH (21:34)
--- NOTE | 2020-09-14 22:23 | P.PN ---
Progress Note - Text Progress Note Date: 09/14/20 Chief Complaint: Short of breath History of presenting complaint: This is a very pleasant 55-year-old patient of Dr. Marlena Vicente. Chronic stable medical conditions include hyperlipidemia, exercise-induced asthma, seasonal ALLERGIES, diverticulosis, psoriatic arthritis affecting multiple joints, beta thalassemia. Patient started off the cough about a week ago. The cough is coming progressively worse with associated shortness of breath. No loss of smell or taste. Patient's had some diarrhea. Not much of body 8. Appetite has gone down. Patient tested positive for COVID on September 01 that Eusebio Calvo on ER. Tired. Febrile Admitted with bilateral COVID 19 pneumonia causing sepsis, acute hypoxic respiratory failure. Started on dexamethasone, Lovenox, Remdesivir. ACTEMRA Today: Up in a chair. short of breath. tired. On high flow nasal cannula. Oral intake fairly good Review of systems: Was done for constitutional, cardiovascular, GI, pulmonary. relevant finding as above Active Medications Acetaminophen (Acetaminophen Tab 325 Mg Tab) 650 mg PO Q6HR PRN PRN Reason: Fever and/ or Pain Last Admin: 09/03/20 09:36 Dose: 650 mg Documented by: Albuterol Sulfate (Albuterol Hfa Inhaler) 4 puff INHALATION RT-Q4H [facility] Last Admin: 09/14/20 22:08 Dose: 4 puff Documented by: Amlodipine Besylate (Amlodipine 10 Mg Tab) 10 mg PO DAILY [facility] Last Admin: 09/14/20 09:41 Dose: 10 mg Documented by: Ascorbic Acid (Ascorbic Acid 500 Mg Tab) 1,000 mg PO DAILY [facility] Last Admin: 09/14/20 09:41 Dose: 1,000 mg Documented by: Benzonatate (Benzonatate 100 Mg Cap) 200 mg PO TID [facility] Last Admin: 09/14/20 21:32 Dose: 200 mg Documented by: Cholecalciferol (Cholecalciferol 25 Mcg (1000 Iu) Tablet) 100 mcg PO DAILY [facility] Last Admin: 09/14/20 09:41 Dose: 100 mcg Documented by: Enoxaparin Sodium (Enoxaparin 40 Mg/0.4 Ml Syringe) 40 mg SQ DAILY [facility] Last Admin: 09/14/20 09:41 Dose: 40 mg Documented by: Famotidine (Famotidine 20 Mg Tab) 20 mg PO BID [facility] Last Admin: 09/14/20 21:32 Dose: 20 mg Documented by: Sodium Chloride (Saline 0.9%) 1,000 mls @ 20 mls/hr IV .Q24H [facility] Last Admin: 09/14/20 21:34 Dose: Not Given Documented by: Methylprednisolone Sodium Succinate (Methylprednisolone Sod Succi 40 Mg/Ml 1 Ml Vial) 40 mg IV Q8HR [facility] Last Admin: 09/14/20 17:00 Dose: 40 mg Documented by: Naloxone HCl (Naloxone 0.4 Mg/Ml 1 Ml Vial) 0.2 mg IV Q2M PRN PRN Reason: Opioid Reversal Nystatin (Nystatin 100,000 Unit/Ml Susp 500,000 Unit/5 Ml Cup) 500,000 unit PO QID [facility] Last Admin: 09/14/20 21:32 Dose: 500,000 unit Documented by: Ondansetron HCl (Ondansetron 4 Mg/2 Ml Vial) 4 mg IVP Q8HR PRN PRN Reason: Nausea And Vomiting Zinc Sulfate (Zinc Sulfate 220 Mg Cap) 220 mg PO DAILY [facility] Last Admin: 09/14/20 09:42 Dose: 220 mg Documented by: Past medical history to include: Exercise-induced asthma, hyperlipidemia, seasonal ALLERGIES, gastric ulcer in the remote past, diverticulosis, colon polyps, psoriatic arthritis affecting many joints, beta thalassemia Social history: 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 . Patient smoked for 8 years stopped in 1997. Alcohol occasionally. Physical examination: VITAL SIGNS: 98, 119, 23, 121 with 75, 90% on 15 L GENERAL: Sitting up to chair, short of breath , tired LUNGS: Respiratory rate increased,. PSYCH: Alert and oriented x3; mood and affect slightly anxious. NEUROLOGICAL: Cranial nerves grossly intact; no facial asymmetry, moving limbs Rest of the exam per pulmonary and nursing INVESTIGATIONS, reviewed in the clinical context: September 13: WBC 16.4 hemoglobin 12 platelets 386 d-dimer 1.92 potassium 4.6 crea tinine 0.62 LDH 1356 CRP 0.5 September 12: D-dimer 2.05 LDH 654 CRP less than 0.4 September 11: D-dimer 3.23 LDH 1931 CRP 0.6 August 15: D-dimer 4.97 CRP 8.7 August 9: D-dimer 0.89 CRP 60.7 August 8: WBC 5.2 hemoglobin 10.6 platelets 139 d-dimer 1.15 potassium 3.6 CRP 39.6 WBC 3.2 hemoglobin 12.1 platelets 124 potassium 3.2 creatinine 0.74 sodium 1:30 D-dimer 0.58 CRP 53.5 coronavirus [PCR] detected EKG tracing personally reviewed by me-sinus rhythm Q waves in inferior leads Chest x-ray personally reviewed by me-bilateral infiltrates Assessment and plan: -Bilateral COVID 19 pneumonia - slow to respond on subcu Lovenox, IV Solu-Medrol. Remdesivir- done . vitamin C vitamin D Pepcid zinc IV fluids. ACTEMRA/done -Acute hypoxic respiratory failure secondary to COVID 19 -slow to respond Continue oxygen on 15 L -Exercise-induced asthma Use bronchodilators -Hyperlipidemia -Colonic diverticulosis, asymptomatic -Psoriatic arthritis and psoriasis -Beta thalassemia Follow hemoglobin -Hyponatremia likely hypoosmolar Improving Discussed with patient. Continue current medications. Follow with pulmonary
[2020-09-15] MEDS: methylPREDNISolone SOD SUCCI 40 MG/ML 1 ML VIAL IV SCH ×4 (00:23→23:21)
[2020-09-15] MEDS: ALBUTEROL HFA INHALER INHALATION SCH ×6 (00:35→20:23)
--- NOTE | 2020-09-15 08:17 | XR ---
EXAMINATION TYPE: XR chest 1V portable DATE OF EXAM: 09/15/2020 COMPARISON: Chest x-ray 09/07/2020 HISTORY: Covid pneumonia TECHNIQUE: Single frontal view of the chest is obtained. FINDINGS: Bilateral airspace disease is again noted. No evident pneumothorax or pleural effusion. Ca rdiac mediastinal silhouette is stable. IMPRESSION: Correlate for pneumonia.
[2020-09-15] MEDS: BENZONATATE 100 MG CAP PO SCH ×3 (10:07→20:19)
[2020-09-15] MEDS: NYSTATIN 100,000 UNIT/ML SUSP 500,000 UNIT/5 ML CUP PO SCH ×4 (10:07→20:19)
[2020-09-15] MEDS: CHOLECALCIFEROL 25 MCG (1000 IU) TABLET PO SCH (10:07)
[2020-09-15] MEDS: ASCORBIC ACID 500 MG TAB PO SCH (10:07)
[2020-09-15] MEDS: FAMOTIDINE 20 MG TAB PO SCH ×2 (10:07→20:19)
[2020-09-15] MEDS: ZINC SULFATE 220 MG CAP PO SCH (10:07)
[2020-09-15] MEDS: amLODIPine 10 MG TAB PO SCH (10:07)
[2020-09-15] MEDS: ENOXAPARIN 40 MG/0.4 ML SYRINGE SQ SCH (10:08)
[2020-09-15 11:46] LABS: African American GFR (CKD) 132.1 (60.0-200.0); Calcium 8.7 mg/dL (8.7-10.3); Carbon Dioxide 26.4 mmol/L (21.6-31.8); Chloride 97 mmol/L (96-109); Glucose 132 mg/dL (70-110); LDH 457 U/L (120-246); Potassium 4.4 mmol/L (3.5-5.5); Sodium 135 mmol/L (135-145)
[2020-09-15 11:52] LABS: Basophils # (A) 0.02 X 10*3/uL (0.00-0.10); Basophils % (A) 0.2 %; Eosinophils # (A) 0 X 10*3/uL (0.04-0.35); Eosinophils % (A) 0 %; HCT 37.6 % (39.6-50.0); HGB 11.6 g/dL (13.0-17.0); Lymphocytes % (A) 2.5 %; MCH 18.1 pg (27.0-32.0); MCHC 30.9 g/dL (32.0-37.0); MCV 58.8 fL (80.0-97.0); Monocytes % (A) 2.5 %; Neutrophils # (A) 11.13 X 10*3/uL (1.80-7.70); Neutrophils % (A) 94.2 %; Platelet Count 342 X 10*3/uL (140-440); WBC 11.82 X 10*3/uL (4.50-10.00)
[2020-09-15 11:53] LABS: Microcytosis (M) 2+
[2020-09-15 14:22] LABS: C Reactive Protein <0.4 mg/dL (0.0-0.8)
--- NOTE | 2020-09-15 15:04 | P.PN ---
Subjective From records: This is a very pleasant 55-year-old patient of Dr. Marlena Vicente. Chronic stable medical conditions include hyperlipidemia, exercise-induced asthma, seasonal ALLERGIES, diverticulosis, psoriatic arthritis affecting multiple joints, beta thalassemia. Patient started off the cough about a week ago. The cough is coming progressively worse with associated shortness of breath. No loss of smell or taste. Patient's had some diarrhea. Not much of body 8. Appetite has gone down. Patient tested positive for COVID on September 01 that Eusbeio Alexandr Calvo on ER. Tired. Febrile Admitted with bilateral COVID 19 pneumonia causing sepsis, acute hypoxic respiratory failure. Started on dexamethasone, Lovenox, Remdesivir. ACTEMRA Today: Up in a chair. short of breath. tired. On high flow nasal cannula. Oral intake fairly good Subjective: 09/15/2020 This is a pleasant 55 years old male who presents with Covid pneumonia and hypoxia which is improving gradually today, he still complained from dyspnea and coughing but denies chest pain except when he cups. No diarrhea. His oxygen requirement, down to 10 L/m compared to 15 L yesterday, discarded is improving. Or labs are improving including trending down leukocytosis to 11.8 gait while on steroids, d-dimer is around the same 2.1, LDH is down to 457 and C-reactive protein is normal at less than 0.4. Chest x-ray showing pneumonia. Patient remains on Solu-Medrol 40 mg and multiple vitamin. Patient is status post remdesivir and tocilizumab Objective - Vital Signs Vital signs: Vital Signs Temp 98 F 09/15/20 14:03 Pulse 87 09/15/20 14:03 Resp 19 09/15/20 14:03 BP 105/68 09/15/20 14:03 Pulse Ox 91 L 09/15/20 14:03 Intake & Output 09/14/20 09/15/20 09/15/20 18:59 06:59 18:59 Other: Voiding Method Urinal # Voids 3 - Exam GENERAL: The patient is alert and oriented x3, not in any acute distress. Well developed, well nourished. HEENT: Pupils are round and equally reacting to light. EOMI. No scleral icterus. No conjunctival pallor. Normocephalic, atraumatic. No pharyngeal erythema. No thyromegaly. CARDIOVASCULAR: S1 and S2 present. No murmurs, rubs, or gallops. PULMONARY: Chest is clear to auscultation, no wheezing or crackles. ABDOMEN: Soft, nontender, nondistended, normoactive bowel sounds. No palpable o rganomegaly. MUSCULOSKELETAL: No joint swelling or deformity. EXTREMITIES: No cyanosis, clubbing, or pedal edema. NEUROLOGICAL: Gross neurological examination did not reveal any focal deficits. SKIN: No rashes. no petechiae. - Labs CBC & Chem 7: 09/15/20 06:26 09/15/20 06:26 Labs: Abnormal Lab Results - Last 24 Hours (Table) 09/15/20 09/15/20 09/15/20 Range/Units 06:26 06:26 06:26 WBC 11.82 H (4.50-10.00) X 10*3/uL RBC 6.40 H (4.40-5.60) X 10*6/uL Hgb 11.6 L (13.0-17.0) g/dL Hct 37.6 L (39.6-50.0) % MCV 58.8 L (80.0-97.0) fL MCH 18.1 L (27.0-32.0) pg MCHC 30.9 L (32.0-37.0) g/dL RDW 18.0 H (11.5-14.5) % Absolute Nucleated RBC 0.03 H (0.00-0.00) X 10*3/uL Immature Gran # 0.07 H (0.00-0.04) X 10*3/uL Neutrophils # 11.13 H (1.80-7.70) X 10*3/uL Lymphocytes # 0.30 L (0.90-5.00) X 10*3/uL Eosinophils # 0 L (0.04-0.35) X 10*3/uL NRBC/100 WBC Diff 0.3 H (0.0-0.0) /100 WBCS D-Dimer 2.15 H (<0.60) mg/L FEU BUN/Creatinine Ratio 40.00 H (12.00-20.00) Ratio Glucose 132 H (70-110) mg/dL Lactate Dehydrogenase 457 H (120-246) U/L Assessment and Plan Assessment: -Acute bilateral Covid 19 pneumonia -Acute hypoxic respiratory failure -Hyperlipidemia -History of exercise-induced asthma -Diverticulosis, asymptomatic -Chronic cirrhotic arthritis and psoriasis -History of beta thalassemia Plan: This is a pleasant 55 years old male who presents with Covid pneumonia. Continue with steroids and vitamins. Pulmonary and ID team on the case. Labs and medication were reviewed.. Continue same treatment. Continue with symptomatic treatment. Resume home medication. Monitor lytes and vitals. DVT and GI prophylaxis. Further recommendationsas per clinical course of the patient DVT prophylaxis: Subcutaneous Lovenox GI Prophylaxis: Pepcid
--- NOTE | 2020-09-15 18:03 | P.PN ---
Subjective Progress Note Date: 09/15/20 Principal diagnosis: Acute hypoxic failure secondary to COVID-19 pneumonia 55-year-old male patient of Dr. Marlena Vicente who presented to the emergency department on 09/01/2020 with symptoms of worsening cough, shortness of breath. Patient tested positive for COVID 19, his chest x-ray showed bilateral airspace infiltrates. First onset of symptoms was one week ago with cough, fever, flulike symptoms. Patient was seen by his primary care provider and placed on Z-Arun and Medrol dosepak last week. Patient has 2 days left of the Medrol Dosepak, and he finished the Z-Arun however his symptoms did not improve and progress. He is not requiring supplemental oxygen, 2 L, and his pulse ox of 94%, he was febrile on presentation, he has frequent dry cough, but no chest discomfort, no nausea or vomiting, did have diarrhea. he is a former smoker, only smoked for about 8 years, he quit smoking 20 years ago. He does have underlying history of asthma, mild intermittent, uses Ventolin on an as-needed basis, no history of frequent exacerbations, his asthma is exercise induced. His lab work revealed leukopenia, with white blood cell count 3.2, hemoglobin is 12.1, lymphopenia with a basic, 0.4, sodium is 1:30, potassium is 3.2, chloride is 94, BUN is 18, creatinine 0.74, plasma lactic acid 0.9. AST was 76, ALT was 51, alkaline phosphatase was 135, LDH was 1150, and CRP was 53.5. Patient also has history of psoriatic arthritis and he takes methotrexate and Arava, that were both placed on hold last week. Morning he seen on medical surgical floor, he is awake and alert, has a frequent dry cough, diffuse coarse crackles throughout the lung fajardo, no nausea or vomiting. Was started on oral Decadron 8 mg. On 0.9 normal saline running at 120 ML per hour, patient is within the window for Remdesivir and patient will be given a unit of convalescent plasma in addition to vitamins, prophylactic anticoagulation. On 09/03/2020 patient seen in follow-up on medical floor, still coughing a lot, dyspneic, he is currently on 4 L of oxygen, his pulse ox of 97%, chest feels heavy, overall she is feeling 'lousy". Low-grade fever this morning, with a temp of 99.7F, lung sounds. Positive for coarse diffuse bilateral crackles throughout lung fajardo. This is day 2 of Remdesivir treatment, he is still awaiting convalescent plasma, continues on Decadron 6 mg, vitamins, and prophylactic anticoagulation, today's labs have been reviewed, showing white blood cell count of 5.2, hemoglobin of 10.6, d-dimer is 1.15, sodium is 132, the rest of electrolytes and renal profile were unremarkable, LDH has trended up to 1700, CRP is down slightly to 39.6 from 53.5. Pro-calcitonin level is 0.18. Blood cultures have been negative. Patient has quite frequent dry irritative cough, his lower back is starting to hurt and he is not sure whether it's from coughing or being in the bed and in the chair for a long period of time. On 06/06/2020 patient seen in follow-up on medical floor. Doing slightly better, still coughing quite a bit, but he states the Tessalon Perles more effective than the Robitussin with codeine, lung sounds are still positive for diffuse crackles, afebrile. He was able to sleep a bit better last night. Repeat chest x-ray today showed mid and lower lung airspace disease significantly increased from prior. Clinically medically patient feels a bit better. D-dimer is 0.89, LDH is 1749, CRP is 16.7. Pro-calcitonin level was 0.18. Patient is on Remdesivir, today is day 3 of treatment, did receive convalescent plasma early this morning. On 09/06/2020 patient seen in follow-up on medical floor, he is currently on 12 L of oxygen, his pulse ox of 89-90%, still coughing quite a bit, he is on his last day of Remdesivir treatment, he did receive a dose of convalescent plasma, continues on Solu-Medrol 60 mg every 6 hours, IV fluids, he is on vitamins, is receiving Tessalon Perles. He is on prophylactic dose Lovenox, today's d-dimer is 1.5, his inflammatory markers show improving CRP, LDH is pending. On 09/09/2020 patient seen in follow-up on medical floor, still coughing, however his cough seems to be improving some. Lung sounds are positive for diffuse crackles, with slight improvement, patient has been ambulating to the bathroom, tolerating activity fairly well, no chest discomfort, still requiring high flow oxygen and he is on 100% nonrebreather, he states he feels more comfortable on the nonrebreather mask then high flow nasal cannula, his pulse ox is between 89-91%, no fever or chills, hemodynamically stable, tolerating oral intake. On 09/14/2020 patient seen in follow-up, and essentially remains unchanged from yesterday, his pulse ox still shows variations between 90-96% on 15 L high flow nasal cannula, this may be due to continued coughing jags, and desaturations with exertion as the patient ambulates to the bathroom, and does become dyspneic and more hypoxic. He's been afebrile, hasn't had a chest x-ray in the few days, she is status post Remdesivir, TOci, one unit of convalescent plasma, and is on Solu-Medrol 40 mg every 8 hours. Today labs have been reviewed, his white blood cell count has increased and is up to 16.4 on today's labs, hemoglobin is 12, his d-dimer is trending down, and is down to 1.9 to today's labs, sodium is 133, the rest of electrolytes were unremarkable, BUN is 23, creatinine of 0.62, LDH has increased and is up to 1356 and CRP is 0.5. Patient appears to be a bit fatigued, he has tried to keep up his oral intake, he is short of breath, still has a cough, he is on Tessalon Perles, is on IV steroids Patient was reevaluated today on 09/15/2020, patient is feeling better, breathing easier, his FiO2 was titrated down to 10 L high flow nasal cannula, and his O2 saturation is 92%. Patient is feeling better, breathing easier, and tinnitus have intermittent episodes of cough. Dyspneic upon exertion. He is afebrile. Patient received REM, T OCI, and 1 unit of convalescent plasma. Remains on Solu-Medrol. Remains on the COVID-19 cocktail. CBC count today is 11.8 hemoglobin is 11.6. Electrodes are normal renal profile is normal LDH is dramatically improved down to 457. And his C-reactive protein is less than 0.4. Objective - Vital Signs Vital signs: Vital Signs Temp 98.3 F 09/15/20 17:39 Pulse 117 H 09/15/20 17:39 Resp 18 09/15/20 17:39 BP 103/68 09/15/20 17:39 Pulse Ox 92 L 09/15/20 17:39 Intake & Output 09/14/20 09/15/20 09/15/20 18:59 06:59 18:59 Other: Voiding Method Urinal # Voids 3 3 - Exam Physical Exam: Revealed 55-year-old male on 10 L nasal cannula, in no distress, intermittent coughing noted. Head: Atraumatic, normocephalic. HEENT:[Neck is supple.] [No neck masses.] [No thyromegaly.] [No JVD.] A letter, EOMI, nonicteric. Chest: [Symmetrical chest expansion, crackles at the bases noted bilaterally..] Cardiac Exam: [Normal S1 and S2, no S3 gallop, no murmur.] Abdomen: [Soft, nontender, no megaly, no rebound, no guarding, normal bowel sounds.] Extremities: [No clubbing, no edema, no cyanosis.] Neurological Exam: [No focal neurologic deficit.] Alert and oriented 3. Psychiatric: Normal mood affect and normal mental status examination. Musculoskeletal: Normal range of motion no limitation. No deformities. Skin: No rashes. - Labs CBC & Chem 7: 09/15/20 06:26 09/15/20 06:26 Labs: Abnormal Lab Results - Last 24 Hours (Table) 09/15/20 09/15/20 09/15/20 Range/Units 06:26 06:26 06:26 WBC 11.82 H (4.50-10.00) X 10*3/uL RBC 6.40 H (4.40-5.60) X 10*6/uL Hgb 11.6 L (13.0-17.0) g/dL Hct 37.6 L (39.6-50.0) % MCV 58.8 L (80.0-97.0) fL MCH 18.1 L (27.0-32.0) pg MCHC 30.9 L (32.0-37.0) g/dL RDW 18.0 H (11.5-14.5) % Absolute Nucleated RBC 0.03 H (0.00-0.00) X 10*3/uL Immature Gran # 0.07 H (0.00-0.04) X 10*3/uL Neutrophils # 11.13 H (1.80-7.70) X 10*3/uL Lymphocytes # 0.30 L (0.90-5.00) X 10*3/uL Eosinophils # 0 L (0.04-0.35) X 10*3/uL NRBC/100 WBC Diff 0.3 H (0.0-0.0) /100 WBCS D-Dimer 2.15 H (<0.60) mg/L FEU BUN/Creatinine Ratio 40.00 H (12.00-20.00) Ratio Glucose 132 H (70-110) mg/dL Lactate Dehydrogenase 457 H (120-246) U/L Assessment and Plan Assessment: Impression: Acute hypoxic respiratory failure secondary to COVID-19 pneumonia. Patient completed REM, T OCI, convalescent plasma, and he is on Decadron and on the COVID-19 cocktail. History of psoriatic arthritis maintained on methotrexate and leflunomide. This has been on hold 7 days ago. Elevated inflammatory markers but improving over the last few days. History of mild intermittent asthma mostly exercise-induced. Elevated liver enzymes secondary to COVID-19 infection. Hypovolemic hyponatremia. Recommendation: Continue to titrate FiO2 down, and once he is down to 5 L or less patient could be discharged home. Continue incentive spirometry. Continue steroids. Continue Lovenox. Possible discharge planning was his oxygen requirement is 5 L or less. Time with Patient: Less than 30
[2020-09-15] MEDS: SODIUM CHLORIDE 0.9% 1,000 ML IV SCH (20:09)
[2020-09-16] MEDS: ALBUTEROL HFA INHALER INHALATION SCH ×6 (00:51→19:21)
--- NOTE | 2020-09-16 01:46 | PN ---
PROGRESS NOTE DATE OF SERVICE: 09/15/2020 REASON FOR FOLLOWUP: COVID-19 pneumonia. INTERVAL HISTORY: Patient is currently afebrile. The patient is breathing slightly comfortably. The patient denies having any chest pain. Continues to have a cough though decreased intensity. Remains to be dry in nature. No nausea, no vomiting. No abdominal pain or diarrhea. PHYSICAL EXAMINATION: Blood pressure 103/68, pulse of 113, temperature 98.3. He is 92% on 10 L high-flow oxygen. General description is a middle-aged male up in the chair in no distress. Respiratory system: Unlabored breathing with decreased intensity of breath sounds. Heart S1, S2. Regular rate and rhythm. ABDOMEN: Soft, no tenderness. EXTREMITIES: No edema of the feet. LABS: Hemoglobin 11.6, white count 11.82, BUN of 24, creatinine 0.6. DIAGNOSTIC IMPRESSION AND PLAN: 1. Patient with COVID-19 pneumonia completed his Remdesivir and does of Actemra. The patient is currently on Solu-Medrol, zinc, ascorbic acid, Lovenox to continue. 2. Patient with elevated white count more likely on steroid related plus/minus oral thrush. The patient is currently on nystatin swish and swallow, to continue. White count showing a downward trend. MMODL / IJN: [id number] /
[2020-09-16] MEDS: FAMOTIDINE 20 MG TAB PO SCH ×2 (10:20→21:06)
[2020-09-16] MEDS: ZINC SULFATE 220 MG CAP PO SCH (10:20)
[2020-09-16] MEDS: CHOLECALCIFEROL 25 MCG (1000 IU) TABLET PO SCH (10:20)
[2020-09-16] MEDS: ENOXAPARIN 40 MG/0.4 ML SYRINGE SQ SCH (10:20)
[2020-09-16] MEDS: BENZONATATE 100 MG CAP PO SCH ×3 (10:20→21:06)
[2020-09-16] MEDS: methylPREDNISolone SOD SUCCI 40 MG/ML 1 ML VIAL IV SCH ×2 (10:21→16:29)
[2020-09-16] MEDS: ASCORBIC ACID 500 MG TAB PO SCH (10:21)
[2020-09-16] MEDS: NYSTATIN 100,000 UNIT/ML SUSP 500,000 UNIT/5 ML CUP PO SCH ×4 (10:21→21:07)
[2020-09-16] MEDS: amLODIPine 10 MG TAB PO SCH (10:21)
--- NOTE | 2020-09-16 15:41 | P.PN ---
Subjective From records: This is a very pleasant 55-year-old patient of Dr. Marlena Vicente. Chronic stable medical conditions include hyperlipidemia, exercise-induced asthma, seasonal ALLERGIES, diverticulosis, psoriatic arthritis affecting multiple joints, beta thalassemia. Patient started off the cough about a week ago. The cough is coming progressively worse with associated shortness of breath. No loss of smell or taste. Patient's had some diarrhea. Not much of body 8. Appetite has gone down. Patient tested positive for COVID on September 01 that Eusebio Alexandr Calvo on ER. Tired. Febrile Admitted with bilateral COVID 19 pneumonia causing sepsis, acute hypoxic respiratory failure. Started on dexamethasone, Lovenox, Remdesivir. ACTEMRA Today: Up in a chair. short of breath. tired. On high flow nasal cannula. Oral intake fairly good Subjective: 09/15/2020 This is a pleasant 55 years old male who presents with Covid pneumonia and hypoxia which is improving gradually today, he still complained from dyspnea and coughing but denies chest pain except when he cups. No diarrhea. His oxygen requirement, down to 10 L/m compared to 15 L yesterday, discarded is improving. Or labs are improving including trending down leukocytosis to 11.8 gait while on steroids, d-dimer is around the same 2.1, LDH is down to 457 and C-reactive protein is normal at less than 0.4. Chest x-ray showing pneumonia. Patient remains on Solu-Medrol 40 mg and multiple vitamin. Patient is status post remdesivir and tocilizumab 09/16/2020 Patient dyspnea is up and down as described by him, his little tachypneic with little coughing on Tessalon. No chest pain. No other overt complaints. His oxygen saturation is trending down to 7 L/m today. D-dimer is trending down to 1.7. He remains on Solu-Medrol 40 mg and multiple vitamins Objective - Vital Signs Vital signs: Vital Signs Temp 98.2 F 09/16/20 10:00 Pulse 110 H 09/16/20 10:00 Resp 18 09/16/20 10:00 BP 104/68 09/16/20 10:00 Pulse Ox 96 09/16/20 15:23 Intake & Output 09/15/20 09/16/20 09/16/20 18:59 06:59 18:59 Other: Voiding Method Urinal # Voids 3 3 - Exam GENERAL: The patient is alert and oriented x3, not in any acute distress. Well developed, well nourished. HEENT: Pupils are round and equally reacting to light. EOMI. No scleral icterus. No conjunctival pallor. Normocephalic, atraumatic. No pharyngeal erythema. No thyromegaly. CARDIOVASCULAR: S1 and S2 present. No murmurs, rubs, or gallops. PULMONARY: Chest is clear to auscultation, no wheezing or crackles. ABDOMEN: Soft, nontender, nondistended, normoactive bowel sounds. No palpable organomegaly. MUSCULOSKELETAL: No joint swelling or deformity. EXTREMITIES: No cyanosis, clubbing, or pedal edema. NEUROLOGICAL: Gross neurological examination did not reveal any focal deficits. SKIN: No rashes. no petechiae. - Labs CBC & Chem 7: 09/15/20 06:26 09/15/20 06:26 Labs: Abnormal Lab Results - Last 24 Hours (Table) 09/16/20 Range/Units 06:32 D-Dimer 1.79 H (<0.60) mg/L FEU Assessment and Plan Assessment: -Acute bilateral Covid 19 pneumonia -Acute hypoxic respiratory failure -Hyperlipidemia -History of exercise-induced asthma -Diverticulosis, asymptomatic -Chronic cirrhotic arthritis and psoriasis -History of beta thalassemia Plan: This is a pleasant 55 years old male who presents with Covid pneumonia. Abbie nue with steroids and vitamins. Pulmonary and ID team on the case. Labs and medication were reviewed.. Continue same treatment. Continue with symptomatic treatment. Resume home medication. Monitor lytes and vitals. DVT and GI prophylaxis. Further recommendationsas per clinical course of the p atient DVT prophylaxis: Subcutaneous Lovenox GI Prophylaxis: Pepcid
--- NOTE | 2020-09-16 17:31 | P.PN ---
Subjective Progress Note Date: 09/16/20 Principal diagnosis: Fever, cough, chills, hypoxia, COVID 19 55-year-old male patient of Dr. Marlena Vicente who presented to the emergency department on 09/01/2020 with symptoms of worsening cough, shortness of breath. Patient tested positive for COVID 19, his chest x-ray showed bilateral airspace infiltrates. First onset of symptoms was one week ago with cough, fever, flu like symptoms. Patient was seen by his primary care provider and placed on Z- Arun and Medrol dosepak last week. Patient has 2 days left of the Medrol Dosepak, and he finished the Z-Arun however his symptoms did not improve and progress. He is not requiring supplemental oxygen, 2 L, and his pulse ox of 94%, he was febrile on presentation, he has frequent dry cough, but no chest discomfort, no nausea or vomiting, did have diarrhea. he is a former smoker, only smoked for about 8 years, he quit smoking 20 years ago. He does have underlying history of asthma, mild intermittent, uses Ventolin on an as-needed basis, no history of frequent exacerbations, his asthma is exercise induced. His lab work revealed leukopenia, with white blood cell count 3.2, hemoglobin is 12.1, lymphopenia with a basic, 0.4, sodium is 1:30, potassium is 3.2, chloride is 94, BUN is 18, creatinine 0.74, plasma lactic acid 0.9. AST was 76, ALT was 51, alkaline phosphatase was 135, LDH was 1150, and CRP was 53.5. Patient also has history of psoriatic arthritis and he takes methotrexate and Arava, that were both placed on hold last week. Morning he seen on medical surgical floor, he is awake and alert, has a frequent dry cough, diffuse coarse crackles throughout the lung fajardo, no nausea or vomiting. Was started on oral Decadron 8 mg. On 0.9 normal saline running at 120 ML per hour, patient is within the window for Remdesivir and patient will be given a unit of convalescent plasma in addition to vitamins, prophylactic anticoagulation. On 09/03/2020 patient seen in follow-up on medical floor, still coughing a lot, dyspneic, he is currently on 4 L of oxygen, his pulse ox of 97%, chest feels heavy, overall she is feeling 'lousy". Low-grade fever this morning, with a temp of 99.7F, lung sounds. Positive for coarse diffuse bilateral crackles throughout lung fajardo. This is day 2 of Remdesivir treatment, he is still awaiting convalescent plasma, continues on Decadron 6 mg, vitamins, and prophyl actic anticoagulation, today's labs have been reviewed, showing white blood cell count of 5.2, hemoglobin of 10.6, d-dimer is 1.15, sodium is 132, the rest of electrolytes and renal profile were unremarkable, LDH has trended up to 1700, CRP is down slightly to 39.6 from 53.5. Pro-calcitonin level is 0.18. Blood cultures have been negative. Patient has quite frequent dry irritative cough, his lower back is starting to hurt and he is not sure whether it's from coughing or being in the bed and in the chair for a long period of time. On 06/06/2020 patient seen in follow-up on medical floor. Doing slightly better, still coughing quite a bit, but he states the Tessalon Perles more effective than the Robitussin with codeine, lung sounds are still positive for diffuse crackles, afebrile. He was able to sleep a bit better last night. Repeat chest x-ray today showed mid and lower lung airspace disease significantly increased from prior. Clinically medically patient feels a bit better. D-dimer is 0.89, LDH is 1749, CRP is 16.7. Pro-calcitonin level was 0.18. Patient is on Remdesivir, today is day 3 of treatment, did receive convalescent plasma early this morning. On 09/06/2020 patient seen in follow-up on medical floor, he is currently on 12 L of oxygen, his pulse ox of 89-90%, still coughing quite a bit, he is on his last day of Remdesivir treatment, he did receive a dose of convalescent plasma, continues on Solu-Medrol 60 mg every 6 hours, IV fluids, he is on vitamins, is receiving Tessalon Perles. He is on prophylactic dose Lovenox, today's d-dimer is 1.5, his inflammatory markers show improving CRP, LDH is pending. On 09/09/2020 patient seen in follow-up on medical floor, still coughing, however his cough seems to be improving some. Lung sounds are positive for diffuse crackles, with slight improvement, patient has been ambulating to the bathroom, tolerating activity fairly well, no chest discomfort, still requiring high flow oxygen and he is on 100% nonrebreather, he states he feels more comfortable on the nonrebreather mask then high flow nasal cannula, his pulse ox is between 89-91%, no fever or chills, hemodynamically stable, tolerating oral intake. On 09/14/2020 patient seen in follow-up, and essentially remains unchanged from yesterday, his pulse ox still shows variations between 90-96% on 15 L high flow nasal cannula, this may be due to continued coughing jags, and desaturations with exertion as the patient ambulates to the bathroom, and does become dyspneic and more hypoxic. He's been afebrile, hasn't had a chest x-ray in the few da ys, she is status post Remdesivir, TOci, one unit of convalescent plasma, and is on Solu-Medrol 40 mg every 8 hours. Today labs have been reviewed, his white blood cell count has increased and is up to 16.4 on today's labs, hemoglobin is 12, his d-dimer is trending down, and is down to 1.9 to today's labs, sodium is 133, the rest of electrolytes were unremarkable, BUN is 23, creatinine of 0.62, LDH has increased and is up to 1356 and CRP is 0.5. Patient appears to be a bit fatigued, he has tried to keep up his oral intake, he is short of breath, still has a cough, he is on Tessalon Perles, is on IV steroids On 09/16/2020 patient seen in follow-up on medical surgical floor, he is currently on 10 L of oxygen, and his pulse ox is at 92%, he is breathing comfortably, his cough has subsided although has not completely resolved, and patient still coughs with deep breathing and, sometimes with speaking, but overall significantly improved since admission, his been afebrile, his lung sounds reveal some mild crackles, and patient has been slow to progress in terms of weaning off the oxygen, his last chest x-ray was yesterday showing bilateral airspace disease. No new labs today, other than d-dimer which is improving, and is currently as 1.79. ProcalAmine was negative. Patient continues on Lovenox at 40 mg daily, and remains on Solu-Medrol at 40 mg every 8 hours in addition to Tessalon Perles, multivitamins, and inhalers. Objective - Vital Signs Vital signs: Vital Signs Temp 98.2 F 09/16/20 10:00 Pulse 110 H 09/16/20 10:00 Resp 18 09/16/20 10:00 BP 104/68 09/16/20 10:00 Pulse Ox 96 09/16/20 15:23 Intake & Output 09/15/20 09/16/20 09/16/20 18:59 06:59 18:59 Other: Voiding Method Urinal # Voids 3 3 - Exam GENERAL EXAM: Alert, very pleasant 55-year-old male on 7 L high flow nasal cannula with a pulse ox between 90-96%, mild short of breath with conversation, overall improved since admission, his cough has improved HEAD: Normocephalic/atraumatic. EYES: Normal reaction of pupils, equal size. Conjunctiva pink, sclera white. NOSE: Clear with pink turbinates. THROAT: No erythema or exudates. NECK: No masses, no JVD, no thyroid enlargement, no adenopathy. CHEST: No chest wall deformity. Symmetrical expansion. LUNGS: Equal air entry with diffuse crackles CVS: Regular rate and rhythm, normal S1 and S2, no gallops, no murmurs, no rubs ABDOMEN: Soft, nontender. No hepatosplenomegaly, normal bowel sounds, no guarding or rigidity. EXTREMITIES: No clubbing, no edema, no cyanosis, 2+ pulses and upper and lower extremities. MUSCULOSKELETAL: Muscle strength and tone normal. SPINE: No scoliosis or deformity SKIN: No rashes CENTRAL NERVOUS SYSTEM: Alert and oriented -3. No focal deficits, tone is normal in all 4 extremities. PSYCHIATRIC: Alert and oriented -3. Appropriate affect. Intact judgment and insight. - Labs CBC & Chem 7: 09/15/20 06:26 09/15/20 06:26 Labs: Abnormal Lab Results - Last 24 Hours (Table) 09/16/20 Range/Units 06:32 D-Dimer 1.79 H (<0.60) mg/L FEU Assessment and Plan Plan: Assessment: #1. Acute hypoxic respiratory failure related to acute COVID 19 pneumonia, onset of symptoms 7 days ago, patient had outpatient treatment with Z-Arun and Medrol Dosepak and his symptoms progressed. Completed Remdesivir, and convalescent plasma 1, status post Tocilizumab #2. History of psoriatic arthritis on methotrexate and Leflunomide, dad both have been placed on hold 7 days ago #3. Increased inflammatory markers related to acute COVID 19 infection #4. Mild intermittent bronchial asthma, exercise induced #5. 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 Increased transaminases, likely related to viral pneumonia, we'll continue to follow #7. Hyponatremia and hypokalemia, related to dehydration, improved Plan: Oxygen currently down to 7 L, continue to wean FiO2 Encourage deep breathing and coughing and incentive spirometry use Continue current dose IV steroids Continue following d-dimer and inflammatory markers Pro-calcitonin level is negative Chest x-ray has been reviewed Continue current dose Lovenox Follow-up d-dimer Once the patient's oxygen down to 5 L or less and consider discharge home, the patient will likely need 30 day course of Xarelto 10 mg daily and prednisone taper, will need outpatient follow-up with Dr. Wakefield in the office in 2 weeks We will reevaluate tomorrow whether the patient is ready for discharge I performed a history & physical examination of the patient and discussed their management with my nurse practitioner, Jocy Pacheco. I reviewed the nurse practitioner's note and agree with the documented findings and plan of care. Lung sounds are positive for diffuse coarse crackles. The findings and the impression was discussed with the patient. I attest to the documentation by the nurse practitioner. Time with Patient: Less than 30
[2020-09-16] MEDS: SODIUM CHLORIDE 0.9% 1,000 ML IV SCH (21:07)
--- NOTE | 2020-09-17 00:07 | PN ---
PROGRESS NOTE DATE OF SERVICE: 09/16/2020. REASON FOR FOLLOW UP: 1. Covid 19 pneumonia. 2. Thrush. INTERVAL HISTORY: Patient is afebrile. The patient is breathing slightly comfortably. The patient coughing decreased intensity. No chest pain. No nausea, vomiting, abdominal pain or diarrhea. PHYSICAL EXAMINATION: Blood pressure 111/71 with pulse 95, temperature 98.2. He is 96% on 6 L nasal cannula. General description: Middle-aged male up in the chair in no distress respiratory system: Unlabored breathing, decreased intensity in breath sounds. No wheeze. Heart S1, S2. Regular rate and rhythm. Abdomen soft, no tenderness. LABS: The D-dimer is down to 1.79. IMPRESSION/PLAN: 1. Patient with COVID-19 infection in this patient who has completed his Remdesivir Currently on Solu-Medrol, Lovenox, zinc and ascorbic acid and has shown clinical improvement. To continue current treatment protocol. 2. Patient with elevated white count more likely thrush, responded to the nystatin swish and swallow. We will continue and monitor clinical course closely. MMODL / IJN: [id number] / MTDD
[2020-09-17] MEDS: methylPREDNISolone SOD SUCCI 40 MG/ML 1 ML VIAL IV SCH ×2 (00:43→07:27)
[2020-09-17] MEDS: ALBUTEROL HFA INHALER INHALATION SCH ×3 (03:45→12:08)
[2020-09-17] MEDS: CHOLECALCIFEROL 25 MCG (1000 IU) TABLET PO SCH (07:27)
[2020-09-17] MEDS: ASCORBIC ACID 500 MG TAB PO SCH (07:27)
[2020-09-17] MEDS: BENZONATATE 100 MG CAP PO SCH (07:27)
[2020-09-17] MEDS: amLODIPine 10 MG TAB PO SCH (07:27)
[2020-09-17] MEDS: ZINC SULFATE 220 MG CAP PO SCH (07:27)
[2020-09-17] MEDS: FAMOTIDINE 20 MG TAB PO SCH (07:27)
[2020-09-17] MEDS: NYSTATIN 100,000 UNIT/ML SUSP 500,000 UNIT/5 ML CUP PO SCH ×2 (07:28→10:51)
[2020-09-17] MEDS: ENOXAPARIN 40 MG/0.4 ML SYRINGE SQ SCH (07:28)
[2020-09-17 09:44] VITALS: TEMP 97.4
[2020-09-17 14:20] VITALS: BP 114/76; PULSE 119; RESP 20
--- NOTE | 2020-09-17 16:12 | PN ---
PROGRESS NOTE DATE OF SERVICE: 09/17/2020 REASON FOR FOLLOWUP: COVID-19 pneumonia. INTERVAL HISTORY: The patient is currently afebrile. The patient is breathing more comfortably. The patient continues to have a cough, though decreased in intensity. No chest pain. No abdominal pain or diarrhea. PHYSICAL EXAMINATION: Blood pressure is 114/76, pulse of 90, temperature of 97.4. He is 91% on room air. General description is a middle-aged male up in the chair in no distress. RESPIRATORY SYSTEM: Unlabored breathing with decreased intensity of breath sounds. No wheeze. HEART: S1, S2. Regular rate and rhythm. ABDOMEN: Soft. No tenderness. LABS: D-dimer is 1.57. DIAGNOSTIC IMPRESSION AND PLAN: Patient with acute COVID-19 infection in this patient who has shown overall clinical improvement. Patient has completed remdesivir and also received Actemra, currently on Lovenox, Solu-Medrol, Narcan and zinc. Hypoxemia has resolved. The patient did have a CT angiogram on 09/10 which was negative for PE, though tachycardia is slightly concerning and needs to be monitored closely. Continue with supportive care. MMODL / IJN: [id number] /
--- NOTE | 2020-09-17 17:34 | P.PN ---
Subjective Progress Note Date: 09/17/20 Principal diagnosis: Fever, cough, chills, hypoxia, COVID 19 55-year-old male patient of Dr. Marlena Vicente who presented to the emergency department on 09/01/2020 with symptoms of worsening cough, shortness of breath. Patient tested positive for COVID 19, his chest x-ray showed bilateral airspace infiltrates. First onset of symptoms was one week ago with cough, fever, flu like symptoms. Patient was seen by his primary care provider and placed on Z- Aurn and Medrol dosepak last week. Patient has 2 days left of the Medrol Dosepak, and he finished the Z-Arun however his symptoms did not improve and progress. He is not requiring supplemental oxygen, 2 L, and his pulse ox of 94%, he was febrile on presentation, he has frequent dry cough, but no chest discomfort, no nausea or vomiting, did have diarrhea. he is a former smoker, only smoked for about 8 years, he quit smoking 20 years ago. He does have underlying history of asthma, mild intermittent, uses Ventolin on an as-needed basis, no history of frequent exacerbations, his asthma is exercise induced. His lab work revealed leukopenia, with white blood cell count 3.2, hemoglobin is 12.1, lymphopenia with a basic, 0.4, sodium is 1:30, potassium is 3.2, chloride is 94, BUN is 18, creatinine 0.74, plasma lactic acid 0.9. AST was 76, ALT was 51, alkaline phosphatase was 135, LDH was 1150, and CRP was 53.5. Patient also has history of psoriatic arthritis and he takes methotrexate and Arava, that were both placed on hold last week. Morning he seen on medical surgical floor, he is awake and alert, has a frequent dry cough, diffuse coarse crackles throughout the lung fajardo, no nausea or vomiting. Was started on oral Decadron 8 mg. On 0.9 normal saline running at 120 ML per hour, patient is within the window for Remdesivir and patient will be given a unit of convalescent plasma in addition to vitamins, prophylactic anticoagulation. On 09/03/2020 patient seen in follow-up on medical floor, still coughing a lot, dyspneic, he is currently on 4 L of oxygen, his pulse ox of 97%, chest feels heavy, overall she is feeling 'lousy". Low-grade fever this morning, with a temp of 99.7F, lung sounds. Positive for coarse diffuse bilateral crackles throughout lung fajardo. This is day 2 of Remdesivir treatment, he is still awaiting convalescent plasma, continues on Decadron 6 mg, vitamins, and prophyl actic anticoagulation, today's labs have been reviewed, showing white blood cell count of 5.2, hemoglobin of 10.6, d-dimer is 1.15, sodium is 132, the rest of electrolytes and renal profile were unremarkable, LDH has trended up to 1700, CRP is down slightly to 39.6 from 53.5. Pro-calcitonin level is 0.18. Blood cultures have been negative. Patient has quite frequent dry irritative cough, his lower back is starting to hurt and he is not sure whether it's from coughing or being in the bed and in the chair for a long period of time. On 06/06/2020 patient seen in follow-up on medical floor. Doing slightly better, still coughing quite a bit, but he states the Tessalon Perles more effective than the Robitussin with codeine, lung sounds are still positive for diffuse crackles, afebrile. He was able to sleep a bit better last night. Repeat chest x-ray today showed mid and lower lung airspace disease significantly increased from prior. Clinically medically patient feels a bit better. D-dimer is 0.89, LDH is 1749, CRP is 16.7. Pro-calcitonin level was 0.18. Patient is on Remdesivir, today is day 3 of treatment, did receive convalescent plasma early this morning. On 09/06/2020 patient seen in follow-up on medical floor, he is currently on 12 L of oxygen, his pulse ox of 89-90%, still coughing quite a bit, he is on his last day of Remdesivir treatment, he did receive a dose of convalescent plasma, continues on Solu-Medrol 60 mg every 6 hours, IV fluids, he is on vitamins, is receiving Tessalon Perles. He is on prophylactic dose Lovenox, today's d-dimer is 1.5, his inflammatory markers show improving CRP, LDH is pending. On 09/09/2020 patient seen in follow-up on medical floor, still coughing, however his cough seems to be improving some. Lung sounds are positive for diffuse crackles, with slight improvement, patient has been ambulating to the bathroom, tolerating activity fairly well, no chest discomfort, still requiring high flow oxygen and he is on 100% nonrebreather, he states he feels more comfortable on the nonrebreather mask then high flow nasal cannula, his pulse ox is between 89-91%, no fever or chills, hemodynamically stable, tolerating oral intake. On 09/14/2020 patient seen in follow-up, and essentially remains unchanged from yesterday, his pulse ox still shows variations between 90-96% on 15 L high flow nasal cannula, this may be due to continued coughing jags, and desaturations with exertion as the patient ambulates to the bathroom, and does become dyspneic and more hypoxic. He's been afebrile, hasn't had a chest x-ray in the few da ys, she is status post Remdesivir, TOci, one unit of convalescent plasma, and is on Solu-Medrol 40 mg every 8 hours. Today labs have been reviewed, his white blood cell count has increased and is up to 16.4 on today's labs, hemoglobin is 12, his d-dimer is trending down, and is down to 1.9 to today's labs, sodium is 133, the rest of electrolytes were unremarkable, BUN is 23, creatinine of 0.62, LDH has increased and is up to 1356 and CRP is 0.5. Patient appears to be a bit fatigued, he has tried to keep up his oral intake, he is short of breath, still has a cough, he is on Tessalon Perles, is on IV steroids On 09/16/2020 patient seen in follow-up on medical surgical floor, he is currently on 10 L of oxygen, and his pulse ox is at 92%, he is breathing comfortably, his cough has subsided although has not completely resolved, and patient still coughs with deep breathing and, sometimes with speaking, but overall significantly improved since admission, his been afebrile, his lung sounds reveal some mild crackles, and patient has been slow to progress in terms of weaning off the oxygen, his last chest x-ray was yesterday showing bilateral airspace disease. No new labs today, other than d-dimer which is improving, and is currently as 1.79. ProcalAmine was negative. Patient continues on Lovenox at 40 mg daily, and remains on Solu-Medrol at 40 mg every 8 hours in addition to Tessalon Perles, multivitamins, and inhalers. On 09/17/2020 patient seen in follow-up on medical surgical floor, FiO2 is currently down to 4 L of oxygen, his pulse ox is 93%, he is tolerating ambulation in the room while, still has some residual cough, but overall improved, no worsening dyspnea, does become short of breath with exertion, but no respiratory distress, afebrile, vital signs have been stable, today's labs have been reviewed his d-dimer is 1.57, his inflammatory markers were improving couple days ago, today's markers are pending, no new chest x-ray, but significantly better, and down to less than 5 L on supplemental oxygen, the patient would really like to go home today Objective - Vital Signs Vital signs: Vital Signs Temp 97.4 F L 09/17/20 14:00 Pulse 119 H 09/17/20 14:00 Resp 20 09/17/20 14:00 BP 114/76 09/17/20 14:00 Pulse Ox 91 L 09/17/20 14:00 Intake & Output 09/16/20 09/17/20 09/17/20 18:59 06:59 18:59 Other: Voiding Method Urinal # Voids 2 1 - Exam GENERAL EXAM: Alert, very pleasant 55-year-old male on 4 L high flow nasal cannula with a pulse ox between 93%, mild short of breath with conversation, overall improved since admission, his cough has improved HEAD: Normocephalic/atraumatic. EYES: Normal reaction of pupils, equal size. Conjunctiva pink, sclera white. NOSE: Clear with pink turbinates. THROAT: No erythema or exudates. NECK: No masses, no JVD, no thyroid enlargement, no adenopathy. CHEST: No chest wall deformity. Symmetrical expansion. LUNGS: Equal air entry with diffuse crackles CVS: Regular rate and rhythm, normal S1 and S2, no gallops, no murmurs, no rubs ABDOMEN: Soft, nontender. No hepatosplenomegaly, normal bowel sounds, no guarding or rigidity. EXTREMITIES: No clubbing, no edema, no cyanosis, 2+ pulses and upper and lower extremities. MUSCULOSKELETAL: Muscle strength and tone normal. SPINE: No scoliosis or deformity SKIN: No rashes CENTRAL NERVOUS SYSTEM: Alert and oriented -3. No focal deficits, tone is normal in all 4 extremities. PSYCHIATRIC: Alert and oriented -3. Appropriate affect. Intact judgment and insight. - Labs CBC & Chem 7: 09/15/20 06:26 09/15/20 06:26 Labs: Abnormal Lab Results - Last 24 Hours (Table) 09/17/20 Range/Units 06:51 D-Dimer 1.57 H (<0.60) mg/L FEU Assessment and Plan Plan: Assessment: #1. Acute hypoxic respiratory failure related to acute COVID 19 pneumonia, onset of symptoms 7 days ago, patient had outpatient treatment with Z-Arun and Medrol Dosepak and his symptoms progressed. Completed Remdesivir, and c onvalescent plasma 1, status post Tocilizumab #2. History of psoriatic arthritis on methotrexate and Leflunomide, dad both have been placed on hold 7 days ago #3. Increased inflammatory markers related to acute COVID 19 infection #4. Mild intermittent bronchial asthma, exercise induced #5. 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 Increased transaminases, likely related to viral pneumonia, we'll continue to follow #7. Hyponatremia and hypokalemia, related to dehydration, improved Plan: Oxygen currently down to 4 L, patient is maintaining O2 saturations above 90% Breathing is improving, although still has residual cough Vital signs have been stable No fever Or chills D-dimer is still elevated and we recommend patient go home on 30 day course of Xarelto 10 mg daily and prednisone taper He will need outpatient follow-up with Dr. Vargas in the office in 2 weeks Stable for discharge home today I performed a history & physical examination of the patient and discussed their management with my nurse practitioner, Jocy Pacheco. I reviewed the nurse practitioner's note and agree with the documented findings and plan of care. Lung sounds are positive for diffuse coarse crackles. The findings and the impression was discussed with the patient. I attest to the documentation by the nurse practitioner. Time with Patient: Less than 30
--- NOTE | 2020-09-17 22:54 | P.DS ---
Providers Date of admission: 09/02/20 01:27 Attending physician: Da Miner Consults: 09/02/20 01:27 Consult Physician Routine Consulting Provider: Zaynab Harmon Consult Reason/Comments: covid Do you want consulting provider notified?: Yes 09/02/20 10:05 Consult Physician Routine Consulting Provider: Luciano Connolly Consult Reason/Comments: covid19 Do you want consulting provider notified?: Yes Primary care physician: Julito Vicente [facility] Course: Diagnoses: -Acute bilateral Covid 19 pneumonia -Acute hypoxic respiratory failure -Hyperlipidemia -History of exercise-induced asthma -Diverticulosis, asymptomatic -Chronic cirrhotic arthritis and psoriasis -History of beta thalassemia Hospital course: This is a very pleasant 55-year-old patient of Dr. Marlena Vicente. Chronic stable medical conditions include hyperlipidemia, exercise-induced asthma, seasonal ALLERGIES, diverticulosis, psoriatic arthritis affecting multiple joints, beta thalassemia. Patient started off the cough about a week ago. The cough is coming progressively worse with associated shortness of breath. Patient was evaluated by hotel recreational facilities manager and infectious disease, he was then closed with bilateral Covid pneumonia hypoxia, he was treated with Solu-Medrol, multiple vitamins, he received remdesivir and tocilizumab . Patient showed interval improvement and his oxygen saturating came down to 4 L/m on the day of discharge. His symptoms improved significantly although he still have some dyspnea on exertion and occasional coughing. But denies chest pain or diarrhea. He agrees he can go home today. Patient was cleared for discharge by hotel recreational facilities manager. Patient will be discharged on oxygen to take it with him at home as he qualified. Patient discharged on tapering prednisone and 0-10 mg daily for 30 d ays and he will follow up with hotel recreational facilities manager Problems and management plan were discussed with the patient and he verbalized understanding and acceptance Patient was found stable and can be discharged home however he needs follow-up as an outpatient. Patient was instructed to follow up with PCP Dr. Vicente within one week and patient agrees Patient was instructed to follow up with Dr. Wakefield in 3-4 weeks and he agrees Physical exam Gen: patient is a AAOx3, no distress CVS: S1-S2, RRR, no murmur Lungs: B/L CTA, no wheezing Abdomen: soft, no distention, no tenderness, positive bowel sounds Extremity: no leg edema or induration Time spent more than 35 minutes Patient Condition at Discharge: Serious Plan - Discharge Summary Discharge Rx Participant: No New Discharge Prescriptions: New Nystatin 100,000 Unit/ml Susp [Mycostatin Oral Susp] 500,000 unit PO QID 3 Days #60 ml Zinc Sulfate [Orazinc] 220 mg PO DAILY #30 cap Albuterol Inhaler [Ventolin Hfa Inhaler] 4 puff INHALATION RT-Q4H #1 inh Cholecalciferol [Vitamin D3 (25 Mcg = 1000 Iu)] 100 mcg PO DAILY #30 tablet predniSONE 10 mg PO DIRECTED 16 Days #40 tab Rivaroxaban [Xarelto] 10 mg PO DAILY 30 Days #30 tab Famotidine [Pepcid] 20 mg PO BID #60 tab Ascorbic Acid [Vitamin C] 1,000 mg PO DAILY #30 tab Continue Leflunomide [Arava] 20 mg PO DIRECTED Discontinued levoFLOXacin 500 mg PO DAILY methylPREDNISolone Dose Pack [Medrol Dose Pack] See Taper PO DIRECTED Discharge Medication List Leflunomide [Arava] 20 mg PO DIRECTED 09/02/20 [History] Rivaroxaban [Xarelto] 10 mg PO DAILY 30 Days #30 tab 09/16/20 [Rx] predniSONE 10 mg PO DIRECTED 16 Days #40 tab 09/16/20 [Rx] Albuterol Inhaler [Ventolin Hfa Inhaler] 4 puff INHALATION RT-Q4H #1 inh 09/17/20 [Rx] Ascorbic Acid [Vitamin C] 1,000 mg PO DAILY #30 tab 09/17/20 [Rx] Cholecalciferol [Vitamin D3 (25 Mcg = 1000 Iu)] 100 mcg PO DAILY #30 tablet 09/17/20 [Rx] Famotidine [Pepcid] 20 mg PO BID #60 tab 09/17/20 [Rx] Nystatin 100,000 Unit/ml Susp [Mycostatin Oral Susp] 500,000 unit PO QID 3 Days #60 ml 09/17/20 [Rx] Zinc Sulfate [Orazinc] 220 mg PO DAILY #30 cap 09/17/20 [Rx] Follow up Appointment(s)/Referral(s): [facility],Equipment [NON-STAFF] - (Please call [facility] to arrange delivery of your oxygen concentrator today) Patrick Wakefield DO [Doctor of Osteopathic Medicine] - 10/22/20 8:30 am (hotel recreational facilities manager) Julito Vicente DO [Primary Care Provider] - 09/18/20 2:00 pm (This will be a televisit. Office will send you a link for appointment. Thank you.) Patient Instructions/Handouts: Coronavirus Disease 2019 (COVID-19), Using Oxygen at Home (DC) Activity/Diet/Wound Care/Special Instructions: Low carbohydrate diet Activity is restricted till you see your doctor copay for dimasleonardo is $40 Discharge Disposition: HOME SELF-CARE
== END 2020-09-17 16:13 | disposition home or self-care (01) | DRG 871 ==
LOC: EC 19:51 → 5NMEDONC 09-02 01:27 → 1SOBS 09-02 08:09 → 4SSUR 09-05 22:00
PROVIDERS: ADMIT Hospitalist; ATTEND Hospitalist
PROC: XW033E5 Introduction of Remdesivir Anti-infective into Peripheral Vein, Percutaneous Approach, New Technology Group 5 (ICD-10-PCS; principal; 2020-09-02)
PROC: XW13325 Transfusion of Convalescent Plasma (Nonautologous) into Peripheral Vein, Percutaneous Approach, New Technology Group 5 (ICD-10-PCS; 2020-09-04)
PROC: 5A0935A Assistance with Respiratory Ventilation, Less than 24 Consecutive Hours, High Flow/Velocity Cannula (ICD-10-PCS; 2020-09-05)
PROC: XW033H5 Introduction of Tocilizumab into Peripheral Vein, Percutaneous Approach, New Technology Group 5 (ICD-10-PCS; 2020-09-06)
DX: A41.89 Other specified sepsis (principal); U07.1 COVID-19; J96.01 Acute respiratory failure with hypoxia; J12.82 Pneumonia due to coronavirus disease 2019; J44.0 Chronic obstructive pulmonary disease with (acute) lower respiratory infection; E87.1 Hypo-osmolality and hyponatremia; B37.0 Candidal stomatitis; D56.1 Beta thalassemia; L40.50 Arthropathic psoriasis, unspecified; M06.9 Rheumatoid arthritis, unspecified; E86.0 Dehydration; J45.990 Exercise induced bronchospasm; E86.1 Hypovolemia; E87.6 Hypokalemia; D72.810 Lymphocytopenia; D72.829 Elevated white blood cell count, unspecified; T38.0X5A Adverse effect of glucocorticoids and synthetic analogues, initial encounter; H93.19 Tinnitus, unspecified ear; F41.9 Anxiety disorder, unspecified; K57.30 Diverticulosis of large intestine without perforation or abscess without bleeding; E78.5 Hyperlipidemia, unspecified; R74.8 Abnormal levels of other serum enzymes; R74.01 Elevation of levels of liver transaminase levels; J30.2 Other seasonal allergic rhinitis; E66.9 Obesity, unspecified; Z68.27 Body mass index [BMI] 27.0-27.9, adult; Z79.899 Other long term (current) drug therapy; Z87.11 Personal history of peptic ulcer disease; Z87.19 Personal history of other diseases of the digestive system; Z87.891 Personal history of nicotine dependence; Z87.39 Personal history of other diseases of the musculoskeletal system and connective tissue; Z71.3 Dietary counseling and surveillance; Z98.818 Other dental procedure status; Z98.890 Other specified postprocedural states; Z88.0 Allergy status to penicillin; Z83.6 Family history of other diseases of the respiratory system; Z83.2 Family history of diseases of the blood and blood-forming organs and certain disorders involving the immune mechanism
CPT/HCPCS: 36415; 71045; 71046; 71275; 80048; 80053; 83605; 83615; 83735; 84100; 84145; 85025; 85379; 85610; 85730; 86140; 86850; 86900; 86901; 87040; 87635; 93005; 94640; 94760; 96361; 96374; 99291

== ENCOUNTER → 2020-09-01 | Outpatient (CLI) | payer BC ==
--- NOTE | 2020-09-01 18:00 | XR ---
EXAMINATION TYPE: XR chest 2V DATE OF EXAM: 09/01/2020 COMPARISON: NONE TECHNIQUE: PA and lateral views submitted. HISTORY: Cough FINDINGS: Bilateral perihilar and lower lobe infiltrate with coarsened interstitium suggestive of superimposed interstitial pneumonitis. No pleural effusion or pneumothorax. Heart size normal. Atherosclerotic jacy nge aorta. IMPRESSION: 1. Bilateral perihilar and lower lobe infiltrate correlate for pneumonia. Underlying interstitial pne umonitis suspected.
== END | disposition home or self-care (01) ==
LOC: RADXRMAIN 17:38
PROVIDERS: ATTEND Family Medicine
DX: R91.8 Other nonspecific abnormal finding of lung field (principal)
CPT/HCPCS: 71046

== ENCOUNTER 2020-09-28 07:46 | Inpatient (IN) | payer BC, OTHER ==
[2020-09-28] MEDS ORDERED: methylPREDNISolone SOD SUCCI 125 MG/2 ML VIAL IV STA (07:47)
[2020-09-28] MEDS ORDERED: IPRATROPIUM-ALBUTEROL 3 ML NEB INHALATION STA (07:47)
--- NOTE | 2020-09-28 07:59 | ED ---
General Adult HPI - General Stated complaint: sob Time Seen by Provider: 09/28/20 07:47 Source: patient, RN notes reviewed, old records reviewed Mode of arrival: EMS Limitations: no limitations - History of Present Illness Initial comments: 55-year-old male presenting with worsening cough and dyspnea. Patient was diagnosed with coronavirus approximately one month ago. He had a 2 week hospital stay and was discharged on home oxygen. Over the past 24 hours he's had increased difficulty breathing. Denies fever. Denies central chest pain. Patient is currently on Xarelto, and taking a tapered dose of steroids. He is on between 2 and 4 L of oxygen by nasal cannula. Upon arrival of paramedics indicated the patient was in the low to mid 80s with severe respiratory distr ess. He was given 2 albuterol, and Atrovent during transport. He was placed on a nonrebreather. - Related Data Home Medications Medication Instructions Recorded Confirmed Leflunomide [Arava] 20 mg PO DIRECTED 09/02/20 09/28/20 predniSONE See Taper PO DIRECTED 09/28/20 09/28/20 Previous Rx's Medication Instructions Recorded Rivaroxaban [Xarelto] 10 mg PO DAILY 30 Days #30 tab 09/16/20 Albuterol Inhaler [Ventolin Hfa 4 puff INHALATION RT-Q4H #1 inh 09/17/20 Inhaler] Ascorbic Acid [Vitamin C] 1,000 mg PO DAILY #30 tab 09/17/20 Cholecalciferol [Vitamin D3 (25 100 mcg PO DAILY #30 tablet 09/17/20 Mcg = 1000 Iu)] Famotidine [Pepcid] 20 mg PO BID #60 tab 09/17/20 Zinc Sulfate [Orazinc] 220 mg PO DAILY #30 cap 09/17/20 Allergies Allergy/AdvReac Type Severity Reaction Status Date / Time Penicillins Allergy Swelling, Verified 09/28/20 08:49 itching Review of Systems ROS Statement: Those systems with pertinent positive or pertinent negative responses have been documented in the HPI. ROS Other: All systems not noted in ROS Statement are negative. Past Medical History Past Medical History: Asthma, Hyperlipidemia Additional Past Medical History / Comment(s): Pt tested covid + 09/01/20 at [facility] ER. Other hx: Exertional asthma, seasonal allergies, gastric ulcers, lower GI bleed, diverticular disease, benign colon polyps, decreased gallbladder function, psoriatic arthritis affecting multiple joints, anemia/beta thalasse raulito, Covid History of Any Multi-Drug Resistant Organisms: None Reported Past Surgical History: Orthopedic Surgery Additional Past Surgical History / Comment(s): R rotator cuff repair, R knee arthroscopy/loose bodies, EGD, colonoscopies/benign polyp, wisdom teeth extraction. Past Anesthesia/Blood Transfusion Reactions: No Reported Reaction Past Psychological History: No Psychological Hx Reported Smoking Status: Former smoker Past Alcohol Use History: Occasional Past Drug Use History: None Reported - Past Family History Father Family Medical History: Respiratory Disorder Additional Family Medical History / Comment(s): Father of pulmonary disease Mother Family Medical History: No Reported History Additional Family Medical History / Comment(s): Mother is healthy General Exam Limitations: no limitations General appearance: alert, in distress Head exam: Present: atraumatic, normocephalic Eye exam: Present: normal appearance, PERRL ENT exam: Present: normal exam Neck exam: Present: normal inspection. Absent: tenderness, meningismus Respiratory exam: Present: respiratory distress, rales, rhonchi Cardiovascular Exam: Present: normal rhythm, tachycardia GI/Abdominal exam: Present: soft. Absent: distended, tenderness, guarding Extremities exam: Present: normal inspection, normal capillary refill. Absent: pedal edema, calf tenderness Neurological exam: Present: alert Psychiatric exam: Present: anxious Skin exam: Present: warm, dry, intact Course Vital Signs 09/28/20 09/28/20 07:50 08:02 Temperature 98.2 F Pulse Rate 147 H Respiratory 40 H 30 H Rate Blood Pressure 161/90 O2 Sat by Pulse 85 L Oximetry EKG Findings - EKG Comments: EKG Findings:: EKG: Sinus tachycardia, rightward axis, rate of 147, NC interval 118, QRS duration 72, QTC [address] segment elevation. Medical Decision Making - Medical Decision Making 55-year-old male with increased cough and dyspnea, diagnosed with coronavirus one month ago. Arrival patient is in respiratory distress. He is tachypneic, tachycardic and hypoxic. He is transitioning from a nonrebreather to BiPAP with somewhat improvement in respiratory effort. Chest x-ray showed multifocal pneumonia consistent with coronavirus. CT is performed which is negative for PE. Patient does have an increased white count. There is concern for secondary bacterial pneumonia he started on ceftriaxone and vancomycin. He will be admitted on IV steroids, albuterol, Atrovent. Case discussed with Dr. Dumont who will admit. Pulmonology placed on consult. - Lab Data Result diagrams: 09/28/20 08:02 09/28/20 08:02 Lab Results 09/28/20 09/28/20 09/28/20 Range/Units 08:02 08:02 08:02 WBC 16.0 H (3.8-10.6) k/uL RBC 6.59 H (4.30-5.90) m/uL Hgb 11.9 L (13.0-17.5) gm/dL Hct 38.9 L (39.0-53.0) % MCV 59.0 L (80.0-100.0) fL MCH 18.0 L (25.0-35.0) pg MCHC 30.6 L (31.0-37.0) g/dL RDW 17.3 H (11.5-15.5) % Plt Count 196 (150-450) k/uL MPV 6.2 Neutrophils % 81 % Lymphocytes % 8 % Monocytes % 6 % Eosinophils % 2 % Basophils % 0 % Neutrophils # 12.9 H (1.3-7.7) k/uL Lymphocytes # 1.4 (1.0-4.8) k/uL Monocytes # 1.0 (0-1.0) k/uL Eosinophils # 0.2 (0-0.7) k/uL Basophils # 0.1 (0-0.2) k/uL Hypochromasia Slight Poikilocytosis Slight Anisocytosis Slight Microcytosis Marked PT 10.4 (9.0-12.0) sec INR 1.0 (<1.2) APTT 27.3 (22.0-30.0) sec Sodium 135 L (137-145) mmol/L Potassium 3.9 (3.5-5.1) mmol/L Chloride 102 (98-107) mmol/L Carbon Dioxide 24 (22-30) mmol/L Anion Gap 9 mmol/L BUN 11 (9-20) mg/dL Creatinine 0.61 L (0.66-1.25) mg/dL Est GFR (CKD-EPI)AfAm >90 (>60 ml/min/1.73 sqM) Est GFR (CKD-EPI)NonAf >90 (>60 ml/min/1.73 sqM) Glucose 120 H (74-99) mg/dL Plasma Lactic Acid Ramin (0.7-2.0) mmol/L Calcium 8.9 (8.4-10.2) mg/dL Total Bilirubin 2.1 H (0.2-1.3) mg/dL AST 51 (17-59) U/L ALT 51 H (4-49) U/L Alkaline Phosphatase 127 H (38-126) U/L Lactate Dehydrogenase 1408 H (313-618) U/L Total Protein 7.1 (6.3-8.2) g/dL Albumin 4.0 (3.5-5.0) g/dL 09/28/20 Range/Units 08:02 WBC (3.8-10.6) k/uL RBC (4.30-5.90) m/uL Hgb (13.0-17.5) gm/dL Hct (39.0-53.0) % MCV (80.0-100.0) fL MCH (25.0-35.0) pg MCHC (31.0-37.0) g/dL RDW (11.5-15.5) % Plt Count (150-450) k/uL MPV Neutrophils % % Lymphocytes % % Monocytes % % Eosinophils % % Basophils % % Neutrophils # (1.3-7.7) k/uL Lymphocytes # (1.0-4.8) k/uL Monocytes # (0-1.0) k/uL Eosinophils # (0-0.7) k/uL Basophils # (0-0.2) k/uL Hypochromasia Poikilocytosis Anisocytosis Microcytosis PT (9.0-12.0) sec INR (<1.2) APTT (22.0-30.0) sec Sodium (137-145) mmol/L Potassium (3.5-5.1) mmol/L Chloride (98-107) mmol/L Carbon Dioxide (22-30) mmol/L Anion Gap mmol/L BUN (9-20) mg/dL Creatinine (0.66-1.25) mg/dL Est GFR (CKD-EPI)AfAm (>60 ml/min/1.73 sqM) Est GFR (CKD-EPI)NonAf (>60 ml/min/1.73 sqM) Glucose (74-99) mg/dL Plasma Lactic Acid Ramin 2.3 H* (0.7-2.0) mmol/L Calcium (8.4-10.2) mg/dL Total Bilirubin (0.2-1.3) mg/dL AST (17-59) U/L ALT (4-49) U/L Alkaline Phosphatase (38-126) U/L Lactate Dehydrogenase (313-618) U/L Total Protein (6.3-8.2) g/dL Albumin (3.5-5.0) g/dL Critical Care Time Critical Care Time: Yes Total Critical Care Time: 35 Disposition Clinical Impression: Pneumonia due to COVID-19 virus, Hypoxia Disposition: ADMITTED IP TO THIS [facility] Condition: Serious Is patient prescribed a controlled substance at d/c from ED?: No Referrals: Julito Vicente DO [Primary Care Provider] - 1-2 days Decision to Admit Reason: Admit from EC Decision Date: 09/28/20 Decision Time: 09:23
[2020-09-28 08:26] LABS: ABG Base Excess -1.6 mmol/L; ABG HCO3 22 mmol/L (21-25); ABG Oxygen Saturation 98.8 % (94-97); ABG PCO2 32 mmHg (35-45); ABG PH 7.46 (7.35-7.45); ABG PO2 129 mmHg (83-108); ABG TCO2 23 mmol/L (19-24); Allen Test Performed? Yes
--- NOTE | 2020-09-28 08:29 | CT ---
EXAMINATION TYPE: CT angio chest DATE OF EXAM: 09/28/2020 8:16 AM COMPARISON: CTA chest September 10, 2020 HISTORY: Worsening Shortness of breath, covid positive September 02. CT DLP: 265.4 mGycm Automated exposure control for dose reduction was used. CONTRAST: CTA scan of the thorax is performed with IV Contrast, patient injected with 100, wasted 15 ml mL of I sovue 370, pulmonary embolism protocol. MIP images are created and reviewed. FINDINGS: LUNGS: More prominent multifocal groundglass opacities and organizing consolidations bilaterally from most recent CT on background low lung volumes. Relative sparing of left upper lobe remains present. No pleural effusion or pneumothorax is seen bilaterally. MEDIASTINUM: There is slight heterogeneity of the pulmonary artery and its branches, there is no CT e vidence for pulmonary embolism. Satisfactory enhancement of the thoracic aorta without aneurysm or di ssection. There are more prominent bilateral hilar lymph nodes. Heart size upper limits of normal. No pericardial effusion is seen. OTHER: Slight scoliotic curvature. IMPRESSION: NO CT EVIDENCE FOR ACUTE PULMONARY EMBOLISM. WORSENING BILATERAL MULTIFOCAL GROUNDGLASS OPACITIES ORG ANIZING CONSOLIDATIONS CONSISTENT WITH COVID-19 INFECTION PROGRESSION.
[2020-09-28] MEDS ORDERED: LORazepam 2 MG/ML INJ IV STA (08:30)
--- NOTE | 2020-09-28 08:31 | XR ---
EXAMINATION TYPE: XR chest 1V portable DATE OF EXAM: 09/28/2020 COMPARISON: Chest x-ray September 15, 2020. CT chest September 10, 2020 HISTORY: Difficulty breathing, recent covid diagnosis TECHNIQUE: Single frontal view of the chest is obtained. FINDINGS: There are bilateral multifocal and confluent opacities with some interval progression from most recent x-ray. Somewhat diminished inspiration on current study. The cardiac silhouette size is stable and within normal limits. The osseous structures remain intact. IMPRESSION: Worsening bilateral multifocal and confluent opacities consistent with covid-19 infectio n progression from most recent x-ray.
[2020-09-28] MEDS ORDERED: cefTRIAXone IN SWFI 1,000 MG/10 ML SYRINGE IVP STA (08:36)
[2020-09-28] MEDS ORDERED: VANCOMYCIN IV PER PHARMACY 1 EACH MISC MISCELLANE PRN (08:36)
[2020-09-28 08:37] LABS: Partial Thromboplastin Time 27.3 sec (22.0-30.0); Prothrombin Time 10.4 sec (9.0-12.0)
[2020-09-28] MEDS ORDERED: VANCOMYCIN 1,500 MG in SODIUM CHLORIDE 0.9% 250 ML IVPB STA (08:42)
[2020-09-28 08:49] LABS: ALT 51 U/L (4-49); AST 51 U/L (17-59); African American GFR (CKD) >90 (>60 ml/min/1.73 sqM); Alkaline Phosphatase 127 U/L (38-126); Anion Gap 9 mmol/L; Blood Urea Nitrogen 11 mg/dL (9-20); Calcium 8.9 mg/dL (8.4-10.2); Carbon Dioxide 24 mmol/L (22-30); Chloride 102 mmol/L (98-107); Glucose 120 mg/dL (74-99); LDH 1408 U/L (313-618); Non-African American GFR(CKD) >90 (>60 ml/min/1.73 sqM); Potassium 3.9 mmol/L (3.5-5.1); Sodium 135 mmol/L (137-145); Total Bilirubin 2.1 mg/dL (0.2-1.3); Total Protein 7.1 g/dL (6.3-8.2)
[2020-09-28 08:58] LABS: Anisocytosis Slight; Basophils # (A) 0.1 k/uL (0-0.2); Basophils % (A) 0 %; Eosinophils # (A) 0.2 k/uL (0-0.7); Eosinophils % (A) 2 %; HCT 38.9 % (39.0-53.0); HGB 11.9 gm/dL (13.0-17.5); Hypochromasia Slight; Lymphocytes # (A) 1.4 k/uL (1.0-4.8); Lymphocytes % (A) 8 %; MCHC 30.6 g/dL (31.0-37.0); Mean Platelet Volume 6.2; Microcytosis Marked; Monocytes % (A) 6 %; Neutrophils # (A) 12.9 k/uL (1.3-7.7); Neutrophils % (A) 81 %; Platelet Count 196 k/uL (150-450); Poikilocytosis Slight; RBC 6.59 m/uL (4.30-5.90); RDW 17.3 % (11.5-15.5)
[2020-09-28] MEDS ORDERED: SODIUM CHLORIDE 0.9% 500 ML 500 ML IV ONE (09:15)
[2020-09-28] MEDS ORDERED: IPRATROPIUM-ALBUTEROL 3 ML NEB INHALATION PRN (09:15)
[2020-09-28] MEDS: SODIUM CHLORIDE 0.9% 1,000 ML IV SCH ×2 (09:31→18:13)
[2020-09-28 09:32] LABS: C Reactive Protein 16.8 mg/dL (<1.0)
[2020-09-28] MEDS: methylPREDNISolone SOD SUCCI 125 MG/2 ML VIAL IV SCH ×3 (12:12→23:48)
[2020-09-28] MEDS: IPRATROPIUM-ALBUTEROL 3 ML NEB INHALATION SCH ×2 (14:59→17:09)
[2020-09-28] MEDS ORDERED: methylPREDNISolone SOD SUCCI 125 MG/2 ML VIAL IV PRN (15:54)
[2020-09-28] MEDS ORDERED: CEFEPIME 1 GM in SODIUM CHLORIDE 0.9% 50 ML IVPB STA (15:54)
[2020-09-28] MEDS ORDERED: diphenhydrAMINE 50 MG/ML 1 ML VIAL IVP PRN (15:56)
--- NOTE | 2020-09-28 17:37 | P.CNPUL ---
History of Present Illness Consult date: 09/28/20 Reason for consult: dyspnea, hypoxemia, pneumonia History of present illness: 35 and ultimately patient coming in for worsening shortness of breath. He is well-known to us. The patient was hospitalized for COVID-19 related pneumonia between 09/02/2020 and 09/17/2020. Abdominal discharge, the patient was given Xarelto and steroids. He was also discharged home on oxygen at 3 L per minute. The patient came into the emergency department again with worsening shortness of breath and ongoing difficulty breathing. No fever. No central chest pain. He is actually requirements is been essentially between 2 and 4 L of home. Paramedics ordered the patient's pulse ox had dropped down to the mid 80s. The patient was placed on nonrebreather and he was brought into the hospital. Currently he is on 15 L nonrebreather facemask. The patient had a follow-up CAT scan of the chest and it showed that there is consolidation developing in the mi d and lower lung fajardo bilaterally there are then groundglass infiltrates were seen earlier on earlier CAT scan of the chest tube noticeably pulmonary embolism. The patient was slightly tachycardic at the time of admission. He was in sinus tachycardia. The blood gases showed a pH of 7.46 with a pCO2 of 33 and pO2 129 and this was done on the percent nonrebreather facemask. His lactic acid was 2.3 at time of admission dropped down to 2.0. Electrolytes are normal. LDH is 06/01/2007, CRP 16.8, COVID-19 testing was repeated came back negative. Influenza A and B and RSV were all negative. White cell count of 16 with hemoglobin 11.9. Coagulation profile is essentially within normal limits. Review of Systems Constitutional: Reports fatigue, Reports weakness Eyes: denies as per HPI, denies blurred vision, denies bulging eye, denies decreased vision, denies diplopia, denies discharge, denies dry eye, denies irritation, denies itching, denies pain, denies photophobia, denies loss of peripheral vision, denies loss of vision, denies tunnel vision/blind spots Ears: deny: decreased hearing, ear discharge, earache, tinnitus Ears, nose, mouth and throat: Reports as per HPI Breasts: absent: as per HPI, gynecomastia Cardiovascular: Reports decreased exercise tolerance, Reports dyspnea on exertion Respiratory: Reports cough, Reports dyspnea Gastrointestinal: Reports as per HPI Genitourinary: Reports as per HPI Musculoskeletal: Reports as per HPI Musculoskeletal: absent: ankle pain, ankle stiffness, ankle swelling, as per HPI, elbow pain, elbow stiffness, elbow swelling, foot pain, foot stiffness, foot swelling, hand pain, hand stiffness, hand swelling, hip pain, hip stiffness, hip swelling, knee pain, knee stiffness, knee swelling, shoulder pain, shoulder stiffness, shoulder swelling, wrist pain, wrist stiffness, wrist swelling Integumentary: Reports as per HPI Neurological: Reports as per HPI Psychiatric: Reports as per HPI Endocrine: Reports as per HPI Hematologic/Lymphatic: Reports as per HPI Allergic/Immunologic: Reports as per HPI Past Medical History Past Medical History: Asthma, Hyperlipidemia Additional Past Medical History / Comment(s): Pt tested covid + 09/01/20 at [facility] ER. Other hx: Exertional asthma, seasonal allergies, gastric ulcers, lower GI bleed, diverticular disease, benign colon polyps, decreased gallbladder function, psoriatic arthritis affecting multiple joints, anemia/beta thalassemia, Covid History of Any Multi-Drug Resistant Organisms: None Reported Past Surgical History: Orthopedic Surgery Additional Past Surgical History / Comment(s): R rotator cuff repair, R knee arthroscopy/loose bodies, EGD, colonoscopies/benign polyp, wisdom teeth extraction. Past Anesthesia/Blood Transfusion Reactions: No Reported Reaction Past Psychological History: No Psychological Hx Reported Smoking Status: Former smoker Past Alcohol Use History: Occasional Past Drug Use History: None Reported - Past Family History Father Family Medical History: Respiratory Disorder Additional Family Medical History / Comment(s): Father of pulmonary disease Mother Family Medical History: No Reported History Additional Family Medical History / Comment(s): Mother is healthy Medications and Allergies Home Medications Medication Instructions Recorded Confirmed Type Leflunomide [Arava] 20 mg PO DIRECTED 09/02/20 09/28/20 History Rivaroxaban [Xarelto] 10 mg PO DAILY 30 Days #30 tab 09/16/20 09/28/20 Rx Albuterol Inhaler [Ventolin Hfa 4 puff INHALATION RT-Q4H #1 inh 09/17/20 09/28/20 Rx Inhaler] Ascorbic Acid [Vitamin C] 1,000 mg PO DAILY #30 tab 09/17/20 09/28/20 Rx Cholecalciferol [Vitamin D3 (25 100 mcg PO DAILY #30 tablet 09/17/20 09/28/20 Rx Mcg = 1000 Iu)] Famotidine [Pepcid] 20 mg PO BID #60 tab 09/17/20 09/28/20 Rx Zinc Sulfate [Orazinc] 220 mg PO DAILY #30 cap 09/17/20 09/28/20 Rx predniSONE See Taper PO DIRECTED 09/28/20 09/28/20 History Allergies Allergy/AdvReac Type Severity Reaction Status Date / Time Penicillins Allergy Swelling, Verified 09/28/20 08:49 itching Physical Exam Vitals: Vital Signs Temp Pulse Pulse Resp BP BP Pulse Ox 09/28/20 15:26 102 H 30 H 93 L 09/28/20 15:22 97.8 F 111 H 30 H 115/86 81 L 09/28/20 11:32 109 H 28 H 123/86 97 09/28/20 09:35 126 H 28 H 125/88 96 09/28/20 09:32 128 H 28 H 96 09/28/20 08:02 30 H 09/28/20 07:50 98.2 F 147 H 40 H 161/90 85 L Intake and Output 09/28/20 09/28/20 09/28/20 06:59 14:59 22:59 Other: Weight 79.379 kg Results - Laboratory Findings CBC and BMP: 09/28/20 08:02 09/28/20 08:02 ABG ABG pH 7.46 (7.35-7.45) H 09/28/20 08:24 ABG pCO2 32 mmHg (35-45) L 09/28/20 08:24 ABG pO2 129 mmHg (83-108) H 09/28/20 08:24 ABG O2 Saturation 98.8 % (94-97) H 09/28/20 08:24 PT/INR, D-dimer PT 10.4 sec (9.0-12.0) 09/28/20 08:02 INR 1.0 (<1.2) 09/28/20 08:02 Abnormal lab findings: Abnormal Labs 09/28/20 09/28/20 09/28/20 08:02 08:02 08:02 WBC 16.0 H RBC 6.59 H Hgb 11.9 L Hct 38.9 L MCV 59.0 L MCH 18.0 L MCHC 30.6 L RDW 17.3 H Neutrophils # 12.9 H ABG pH ABG pCO2 ABG pO2 ABG O2 Saturation Sodium 135 L Creatinine 0.61 L Glucose 120 H Plasma Lactic Acid Ramin 2.3 H* Total Bilirubin 2.1 H ALT 51 H Alkaline Phosphatase 127 H Lactate Dehydrogenase 1408 H C-Reactive Protein 16.8 H 09/28/20 08:24 WBC RBC Hgb Hct MCV MCH MCHC RDW Neutrophils # ABG pH 7.46 H ABG pCO2 32 L ABG pO2 129 H ABG O2 Saturation 98.8 H Sodium Creatinine Glucose Plasma Lactic Acid Ramin Total Bilirubin ALT Alkaline Phosphatase Lactate Dehydrogenase C-Reactive Protein Assessment and Plan Plan: #1. Acute hypoxic respiratory failure related to acute COVID 19 pneumonia, where the patient was treated on outpatient basis from 09/02/2020 ~09/17/2020 and the patient was given steroids, Remdesivir, and convalescent plasma 1, and Tocilizumab. The CT angiogram is consistent with diffuse pneumonia without evidence of any pulmonary embolism. Following his discharge, the patient did not have any significant improvement and the patient came back with worsening shortness of breath and the CAT scan of the chest is showing consolidation of the mid and lower lung fajardo bilaterally. Doubt superinfection. Findings are most consistent with progression of COVID-19 related pneumonia/acute lung injury. Currently on a 15 L nonrebreather facemask. #2. History of psoriatic arthritis on methotrexate and Leflunomide, both on hold #3. Increased inflammatory markers related to above #4. Mild intermittent bronchial asthma, exercise induced #5. 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 Increased transaminases, recovered Plan Keep the patient on the 100% nonrebreather facemask Check pro calcitonin level coverage with empiric antibiotics although my suspicion for a superinfection with bacteria is extremely low Titrated oxygen flow to maintain a saturation above 90% IV Solu-Medrol 60 mg every 6 hours Keep Xarelto 10 mg by mouth daily check d-dimer We'll continue to follow
[2020-09-28] MEDS: VANCOMYCIN 1,500 MG in SODIUM CHLORIDE 0.9% 250 ML IVPB SCH (18:12)
[2020-09-28] MEDS: ALBUTEROL HFA INHALER INHALATION SCH (21:00)
[2020-09-28] MEDS: CEFEPIME 1 GM in SODIUM CHLORIDE 0.9% 50 ML IVPB SCH (21:49)
[2020-09-29] MEDS: VANCOMYCIN 1,500 MG in SODIUM CHLORIDE 0.9% 250 ML IVPB SCH ×2 (02:34→08:14)
[2020-09-29] MEDS: SODIUM CHLORIDE 0.9% 1,000 ML IV SCH ×4 (02:35→23:35)
[2020-09-29] MEDS: methylPREDNISolone SOD SUCCI 125 MG/2 ML VIAL IV SCH ×4 (06:10→23:34)
[2020-09-29 07:56] LABS: Anisocytosis Slight; Basophils % (A) 0 %; Eosinophils % (A) 0 %; HCT 31.5 % (39.0-53.0); Hypochromasia Slight; Lymphocytes # (A) 0.3 k/uL (1.0-4.8); Lymphocytes % (A) 3 %; MCH 18.7 pg (25.0-35.0); MCHC 31.8 g/dL (31.0-37.0); MCV 58.9 fL (80.0-100.0); Mean Platelet Volume 6.2; Microcytosis Marked; Monocytes # (A) 0.5 k/uL (0-1.0); Monocytes % (A) 4 %; Neutrophils # (A) 12.4 k/uL (1.3-7.7); Neutrophils % (A) 93 %; Platelet Count 186 k/uL (150-450); Poikilocytosis Slight; RBC 5.35 m/uL (4.30-5.90); RDW 16.9 % (11.5-15.5); WBC 13.4 k/uL (3.8-10.6)
[2020-09-29] MEDS: RIVAROXABAN 10 MG TAB PO SCH (08:16)
[2020-09-29] MEDS: ASCORBIC ACID 500 MG TAB PO SCH (08:16)
[2020-09-29] MEDS: CHOLECALCIFEROL 25 MCG (1000 IU) TABLET PO SCH (08:16)
[2020-09-29 08:22] LABS: African American GFR (CKD) >90 (>60 ml/min/1.73 sqM); Anion Gap 7 mmol/L; Blood Urea Nitrogen 11 mg/dL (9-20); Calcium 8.5 mg/dL (8.4-10.2); Carbon Dioxide 22 mmol/L (22-30); Chloride 109 mmol/L (98-107); Glucose 141 mg/dL (74-99); Non-African American GFR(CKD) >90 (>60 ml/min/1.73 sqM); Potassium 4.5 mmol/L (3.5-5.1); Sodium 138 mmol/L (137-145)
[2020-09-29] MEDS: ALBUTEROL HFA INHALER INHALATION SCH ×4 (08:28→21:15)
--- NOTE | 2020-09-29 08:56 | P.HPIM ---
History of Present Illness This is a very pleasant 55-year-old patient of Dr. Marlena Vicente. Chronic stable medical conditions include hyperlipidemia, exercise-induced asthma, seasonal ALLERGIES, diverticulosis, psoriatic arthritis affecting multiple join ts, beta thalassemia. Was recently discharged from the hospital for bilateral Covid 19 pneumonia per pulmonology was seen him. He was discharged on 3-4 L of oxygen via nasal cannula to home. After discharge states that he was little hypoxic bouts start improving gradually and it was 90 to the last few days when he noticed more shortness of breath and his oxygen saturation dropped to 50% last Monday and after he could not get up to more than 8% he came to the hospital with shortness of breath and coughing and phlegm and chest discomfort rather than pain associated with cough and He is tachypneic and tachycardic and he was placed on 15 L oxygen via nasal cannula with pulmonology consult to evaluate him. He wants to come slightly elevated at 13.4 K, hemoglobin is stable at 10.0. d- dimer is 0.686. BMP is unremarkable. Garcia and influenza viruses are not detected CT of the chest and pelvis showing no PE, more prominent multifocal groundglass opacity and organizing consolidation bilaterally from most recent CT on background low lung volumes. Relative's sparing of the left upper lobe remains present. No pleural effusion and no pneumothorax Labs Showing leukocytosis of 13.4 K, hemoglobin 10, platelet normal. Patient is currently on IV vancomycin and cefepime Review of Systems Review of systems CONSTITUTIONAL: No fever, no malaise, no fatigue. HEENT: No recent visual problems or hearing problems. Denied any sore throat. CARDIOVASCULAR: No orthopnea, PND, no palpitations, no syncope. PULMONARY: No chest wall tenderness, no hemoptysis. GASTROINTESTINAL: No diarrhea, no nausea, no vomiting, no abdominal pain. Normoactive bowel sounds. NEUROLOGICAL: No headaches, no weakness, no numbness. HEMATOLOGICAL: Denies any bleeding or petechiae. GENITOURINARY: Denies any burning micturition, frequency, or urgency. MUSCULOSKELETAL/RHEUMATOLOGICAL: Denies any joint pain, swelling, or any muscle pain. ENDOCRINE: Denies any polyuria or polydipsia. Past Medical History Past Medical History: Asthma, Hyperlipidemia Additional Past Medical History / Comment(s): Pt tested covid + 09/01/20 at [facility] ER. Other hx: Exertional asthma, seasonal allergies, gastric ulcers, lower GI bleed, diverticular disease, benign colon polyps, decreased gallbladder function, psoriatic arthritis affecting multiple joints, anemia/beta thalassemia, Covid History of Any Multi-Drug Resistant Organisms: None Reported Past Surgical History: Orthopedic Surgery Additional Past Surgical History / Comment(s): R rotator cuff repair, R knee arthroscopy/loose bodies, EGD, colonoscopies/benign polyp, wisdom teeth extraction. Past Anesthesia/Blood Transfusion Reactions: No Reported Reaction Past Psychological History: No Psychological Hx Reported Smoking Status: Former smoker Past Alcohol Use History: Occasional Past Drug Use History: None Reported - Past Family History Father Family Medical History: Respiratory Disorder Additional Family Medical History / Comment(s): Father of pulmonary disease Mother Family Medical History: No Reported History Additional Family Medical History / Comment(s): Mother is healthy Medications and Allergies Home Medications Medication Instructions Recorded Confirmed Type Leflunomide [Arava] 20 mg PO DIRECTED 09/02/20 09/28/20 History Rivaroxaban [Xarelto] 10 mg PO DAILY 30 Days #30 tab 09/16/20 09/28/20 Rx Albuterol Inhaler [Ventolin Hfa 4 puff INHALATION RT-Q4H #1 inh 09/17/20 09/28/20 Rx Inhaler] Ascorbic Acid [Vitamin C] 1,000 mg PO DAILY #30 tab 09/17/20 09/28/20 Rx Cholecalciferol [Vitamin D3 (25 100 mcg PO DAILY #30 tablet 09/17/20 09/28/20 Rx Mcg = 1000 Iu)] Famotidine [Pepcid] 20 mg PO BID #60 tab 09/17/20 09/28/20 Rx Zinc Sulfate [Orazinc] 220 mg PO DAILY #30 cap 09/17/20 09/28/20 Rx predniSONE See Taper PO DIRECTED 09/28/20 09/28/20 History Allergies Allergy/AdvReac Type Severity Reaction Status Date / Time Penicillins Allergy Swelling, Verified 09/28/20 08:49 itching Physical Exam Vitals: Vital Signs Temp Pulse Resp BP Pulse Ox 09/28/20 11:32 109 H 28 H 123/86 97 09/28/20 09:35 126 H 28 H 125/88 96 09/28/20 09:32 128 H 28 H 96 09/28/20 08:02 30 H 09/28/20 07:50 98.2 F 147 H 40 H 161/90 85 L Intake and Output 09/28/20 09/28/20 09/28/20 06:59 14:59 22:59 Other: Weight 79.379 kg GENERAL: The patient is alert and oriented x3, he is in moderate acute respiratory distress. HEENT: Pupils are round and equally reacting to light. EOMI. No scleral icterus. No conjunctival pallor. Normocephalic, atraumatic. No pharyngeal erythema. No thyromegaly. CARDIOVASCULAR: S1 and S2 present. No murmurs, rubs, or gallops. -PULMONARY: Chest is clear to auscultation, no wheezing or crackles. Bilateral crepitation and decrease air entry ABDOMEN: Soft, nontender, nondistended, normoactive bowel sounds. No palpable organomegaly. MUSCULOSKELETAL: No joint swelling or deformity. EXTREMITIES: No cyanosis, clubbing, or pedal edema. NEUROLOGICAL: Gross neurological examination did not reveal any focal deficits. SKIN: No rashes. No petechiae Results CBC & Chem 7: 09/29/20 06:52 09/29/20 06:52 Labs: Abnormal Lab Results - Last 24 Hours (Table) 09/28/20 09/28/20 09/28/20 Range/Units 08:02 08:02 08:02 WBC 16.0 H (3.8-10.6) k/uL RBC 6.59 H (4.30-5.90) m/uL Hgb 11.9 L (13.0-17.5) gm/dL Hct 38.9 L (39.0-53.0) % MCV 59.0 L (80.0-100.0) fL MCH 18.0 L (25.0-35.0) pg MCHC 30.6 L (31.0-37.0) g/dL RDW 17.3 H (11.5-15.5) % Neutrophils # 12.9 H (1.3-7.7) k/uL ABG pH (7.35-7.45) ABG pCO2 (35-45) mmHg ABG pO2 (83-108) mmHg ABG O2 Saturation (94-97) % Sodium 135 L (137-145) mmol/L Creatinine 0.61 L (0.66-1.25) mg/dL Glucose 120 H (74-99) mg/dL Plasma Lactic Acid Ramin 2.3 H* (0.7-2.0) mmol/L Total Bilirubin 2.1 H (0.2-1.3) mg/dL ALT 51 H (4-49) U/L Alkaline Phosphatase 127 H (38-126) U/L Lactate Dehydrogenase 1408 H (313-618) U/L C-Reactive Protein 16.8 H (<1.0) mg/dL 09/28/20 Range/Units 08:24 WBC (3.8-10.6) k/uL RBC (4.30-5.90) m/uL Hgb (13.0-17.5) gm/dL Hct (39.0-53.0) % MCV (80.0-100.0) fL MCH (25.0-35.0) pg MCHC (31.0-37.0) g/dL RDW (11.5-15.5) % Neutrophils # (1.3-7.7) k/uL ABG pH 7.46 H (7.35-7.45) ABG pCO2 32 L (35-45) mmHg ABG pO2 129 H (83-108) mmHg ABG O2 Saturation 98.8 H (94-97) % Sodium (137-145) mmol/L Creatinine (0.66-1.25) mg/dL Glucose (74-99) mg/dL Plasma Lactic Acid Ramin (0.7-2.0) mmol/L Total Bilirubin (0.2-1.3) mg/dL ALT (4-49) U/L Alkaline Phosphatase (38-126) U/L Lactate Dehydrogenase (313-618) U/L C-Reactive Protein (<1.0) mg/dL Assessment and Plan Assessment: -Acute bilateral pneumonia, bacterial infection is suspected as hospital- acquired pneumonia. -Recent history of bilateral Covid 19 pneumonia -Acute hypoxic respiratory failure -Hyperlipidemia -History of exercise-induced asthma -Diverticulosis, asymptomatic -Chronic cirrhotic arthritis and psoriasis -History of beta thalassemia Plan: This is a pleasant 55 years old male who presents with bilateral pneumonia. Continue with cefepime and vancomycin, pulmonary and infectious disease consult. Continue with oxygen as needed and currently his high dose of insulin about 15-30 L/m of oxygen nonrebreather. Also follow up of sputum culture Labs and medication were reviewed.. Continue same treatment. Continue with symptomatic treatment. Resume home medication. Monitor lytes and vitals. DVT and GI prophylaxis. Further recommendations as per clinical course of the patient DVT prophylaxis: Subcutaneous heparin GI Prophylaxis: Pepcid PT/OT: Pending Prognosis is guarded
[2020-09-29] MEDS: FAMOTIDINE 20 MG/2 ML VIAL IV SCH ×2 (10:21→20:57)
[2020-09-29] MEDS: CEFEPIME 1 GM in SODIUM CHLORIDE 0.9% 50 ML IVPB SCH ×2 (10:21→20:57)
--- NOTE | 2020-09-29 13:04 | P.PN ---
Subjective Progress Note Date: 09/29/20 On today's evaluation of 09/29/2020, the patient is still short of breath with activity and sometimes at rest. He is having coughing episodes. Unfortunately symptoms have flared up. The patient is afebrile. White cell count was at 13.4. He is currently on 15 L about 2 by nasal cannula and he has also required 100% on a beta facemasks. Note that the patient overnight did not have the 100% nonrebreather and he was only using the 15 L of oxygen through a nasal cannula. Earlier this morning, he had a coughing spells and during which he desaturated and a pulse ox dropped in the low 80s. He d-dimer level is 0.86. Normal renal function. Lactic acid level was as high as 2.0. No altered mentation. Adequate appetite. He continues to have coarse crackles in the lung bases bilaterally. Objective - Vital Signs Vital signs: Vital Signs Temp 97.8 F 09/29/20 12:00 Pulse 107 H 09/29/20 12:00 Resp 20 09/29/20 12:00 BP 116/75 09/29/20 12:00 Pulse Ox 94 L 09/29/20 12:00 Intake & Output 09/28/20 09/29/20 09/29/20 18:59 06:59 18:59 Intake Total 240 Output Total 450 400 475 Balance -450 -400 -235 Weight 79.379 kg Intake: Oral 240 Output: Urine 450 400 475 Other: Voiding Method Urinal Urinal Urinal - Exam GENERAL EXAM: Alert, very pleasant 55-year-old male on the 100% nonrebreather facemask oxygen and 15 L per minute nasal cannula. HEAD: Normocephalic/atraumatic. EYES: Normal reaction of pupils, equal size. Conjunctiva pink, sclera white. NOSE: Clear with pink turbinates. THROAT: No erythema or exudates. NECK: No masses, no JVD, no thyroid enlargement, no adenopathy. CHEST: No chest wall deformity. Symmetrical expansion. LUNGS: Equal air entry with diffuse crackles CVS: Regular rate and rhythm, normal S1 and S2, no gallops, no murmurs, no rubs ABDOMEN: Soft, nontender. No hepatosplenomegaly, normal bowel sounds, no guarding or rigidity. EXTREMITIES: No clubbing, no edema, no cyanosis, 2+ pulses and upper and lower extremities. MUSCULOSKELETAL: Muscle strength and tone normal. SPINE: No scoliosis or deformity SKIN: No rashes CENTRAL NERVOUS SYSTEM: Alert and oriented -3. No focal deficits, tone is normal in all 4 extremities. PSYCHIATRIC: Alert and oriented -3. Appropriate affect. Intact judgment and insight. - Labs CBC & Chem 7: 09/29/20 06:52 09/29/20 06:52 Labs: Abnormal Lab Results - Last 24 Hours (Table) 09/28/20 09/28/20 09/28/20 Range/Units 08:02 08:24 18:20 WBC (3.8-10.6) k/uL Hgb (13.0-17.5) gm/dL Hct (39.0-53.0) % MCV (80.0-100.0) fL MCH (25.0-35.0) pg RDW (11.5-15.5) % Neutrophils # (1.3-7.7) k/uL Lymphocytes # (1.0-4.8) k/uL D-Dimer 0.86 H (<0.60) mg/L FEU ABG pH 7.46 H (7.35-7.45) ABG pCO2 32 L (35-45) mmHg ABG pO2 129 H (83-108) mmHg ABG O2 Saturation 98.8 H (94-97) % Chloride (98-107) mmol/L Creatinine (0.66-1.25) mg/dL Glucose (74-99) mg/dL Procalcitonin 0.26 H (0.02-0.09) ng/mL 09/29/20 09/29/20 Range/Units 06:52 06:52 WBC 13.4 H (3.8-10.6) k/uL Hgb 10.0 L D (13.0-17.5) gm/dL Hct 31.5 L (39.0-53.0) % MCV 58.9 L (80.0-100.0) fL MCH 18.7 L (25.0-35.0) pg RDW 16.9 H (11.5-15.5) % Neutrophils # 12.4 H (1.3-7.7) k/uL Lymphocytes # 0.3 L (1.0-4.8) k/uL D-Dimer (<0.60) mg/L FEU ABG pH (7.35-7.45) ABG pCO2 (35-45) mmHg ABG pO2 (83-108) mmHg ABG O2 Saturation (94-97) % Chloride 109 H (98-107) mmol/L Creatinine 0.44 L (0.66-1.25) mg/dL Glucose 141 H (74-99) mg/dL Procalcitonin (0.02-0.09) ng/mL Microbiology - Last 24 Hours (Table) 09/28/20 08:02 Blood Culture Gram Stain - Preliminary Blood Blood Culture - Preliminary Bacillus species Not Anthracis Staphylococcus epidermidis 09/28/20 08:02 Blood Culture - Preliminary Blood No Growth after 24 hours 09/28/20 18:00 Gram Stain - Preliminary Sputum Sputum Culture - Preliminary 09/28/20 08:02 Blood Culture - Final Blood Assessment and Plan Plan: #1. Acute hypoxic respiratory failure related to acute COVID 19 pneumonia, where the patient was treated on outpatient basis from 09/02/2020 ~09/17/2020 and the patient was given steroids, Remdesivir, and convalescent plasma 1, and Tocilizumab. The CT angiogram is consistent with diffuse pneumonia without evidence of any pulmonary embolism. Following his discharge, the patient did not have any significant improvement and the patient came back with worsening shortness of breath and the CAT scan of the chest is showing consolidation of the mid and lower lung fajardo bilaterally. Doubt superinfection. Findings are most consistent with progression of COVID-19 related pneumonia/acute lung injury. Currently on a 15 L nonrebreather facemask. Currently the patient is also on IV Solu-Medrol. D-dimer levels are low. CAT scan of the chest was reviewed. Doubt superinfection with bacteria. Awaiting pro calcitonin levels. #2. History of psoriatic arthritis on methotrexate and Leflunomide, both on hold #3. Increased inflammatory markers related to above #4. Mild intermittent bronchial asthma, exercise induced #5. 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 Increased transaminases, recovered Plan Keep the patient on the 100% nonrebreather facemask Check pro calcitonin level, levels are still pending coverage with empiric antibiotics although my suspicion for a superinfection with bacteria is extremely low Titrated oxygen flow to maintain a saturation above 90% IV Solu-Medrol 60 mg every 6 hours Keep Xarelto 10 mg by mouth daily D-dimer levels are low Condition is stable Still short of breath and continues to have exertional dyspnea and desaturation and cough We'll continue to follow
[2020-09-29] MEDS ORDERED: VANCOMYCIN TROUGH DUE 1 EACH MISC MISCELLANE ONE (16:00)
[2020-09-29] MEDS: MORPHINE SULFATE 2 MG/ML SYRINGE IVP PRN ×2 (18:09→23:35)
--- NOTE | 2020-09-29 23:04 | P.CONS ---
History of Present Illness - Reason for Consult Consult date: 09/29/20 pneumonia , bacteremia Requesting physician: Dylan E Sheet - Chief Complaint shortness of breath x 1 day - History of Present Illness Patient is a 55-year-old male who was recently admitted at this facility and was treated for COVID-19 infection the patient did have prolonged hospital course however patient was subsequently stabilized and discharged home on nasal cannula oxygen patient presented back to [facility] ER yesterday morning for evaluation of worsening shortness of breath patient mention he was doing well over the weekend and he did have some home physical therapy on a Monday the next day he did have a slight incision and noticed that his O2 sats were running low and he was getting more and more short of breath and to go for long time to come down to baseline patient continued having increasing shortness of breath patient did have very minimal cough but no sputum production denies having any chest pain or URI symptoms patient denies having any fever or any chills with the symptom not improving EMS was called and on arrival of the EMS patient was noticed to be in respiratory distress with O2 sats in the 80s patient did receive albuterol and Atrovent breathing treatment please call nonrebreather and the patient was brought to [facility] ER for further evaluation on arrival to the ER the patient was afebrile and no fever has been recorded since then patient O2 sats were 85% currently 94% nonrebreather patient did have white count of 16,000 with a left shift D-dimer was 0.86 lactic acid was 2.3 creatinine was normal AST mildly elevated pro Sammy 0.26 Covid test came back negative patient did have a CT angiogram of the chest that was negative for PE but it shows worsening bilateral multifocal groundglass opacities organizing consolidation consistent with a COVID-19 infection progression patient was admitted to the hospital patient has been started on Solu-Medrol Xarelto cefepime and vancomycin infectious was consulted for further management follow the blood cultures coming positive with gram-positive bacilli. Review of Systems Positive point has been mentioned in the HPI rest of the systems are negative Past Medical History Past Medical History: Asthma, Hyperlipidemia Additional Past Medical History / Comment(s): Pt tested covid + 09/01/20 at [facility] ER. Other hx: Exertional asthma, seasonal allergies, gastric ulcers, lower GI bleed, diverticular disease, benign colon polyps, decreased gallbladder function, psoriatic arthritis affecting multiple joints, anemia/beta thalassemia, Covid History of Any Multi-Drug Resistant Organisms: None Reported Past Surgical History: Orthopedic Surgery Additional Past Surgical History / Comment(s): R rotator cuff repair, R knee arthroscopy/loose bodies, EGD, colonoscopies/benign polyp, wisdom teeth ext raction. Past Anesthesia/Blood Transfusion Reactions: No Reported Reaction Past Psychological History: No Psychological Hx Reported Smoking Status: Former smoker Past Alcohol Use History: Occasional Past Drug Use History: None Reported - Past Family History Father Family Medical History: Respiratory Disorder Additional Family Medical History / Comment(s): Father of pulmonary disease Mother Family Medical History: No Reported History Additional Family Medical History / Comment(s): Mother is healthy Medications and Allergies Home Medications Medication Instructions Recorded Confirmed Type Leflunomide [Arava] 20 mg PO DIRECTED 09/02/20 09/28/20 History Rivaroxaban [Xarelto] 10 mg PO DAILY 30 Days #30 tab 09/16/20 09/28/20 Rx Albuterol Inhaler [Ventolin Hfa 4 puff INHALATION RT-Q4H #1 inh 09/17/20 09/28/20 Rx Inhaler] Ascorbic Acid [Vitamin C] 1,000 mg PO DAILY #30 tab 09/17/20 09/28/20 Rx Cholecalciferol [Vitamin D3 (25 100 mcg PO DAILY #30 tablet 09/17/20 09/28/20 Rx Mcg = 1000 Iu)] Famotidine [Pepcid] 20 mg PO BID #60 tab 09/17/20 09/28/20 Rx Zinc Sulfate [Orazinc] 220 mg PO DAILY #30 cap 09/17/20 09/28/20 Rx predniSONE See Taper PO DIRECTED 09/28/20 09/28/20 History Allergies Allergy/AdvReac Type Severity Reaction Status Date / Time Penicillins Allergy Swelling, Verified 09/28/20 08:49 itching Physical Exam Vitals: Vital Signs Temp Pulse Pulse Resp BP BP Pulse Ox 09/29/20 08:49 93 L 09/29/20 08:32 25 H 87 L 09/29/20 08:26 72 L 09/29/20 08:00 97.7 F 123 H 25 H 117/76 76 L 09/29/20 04:00 97.8 F 95 18 110/69 94 L 09/29/20 00:00 98.0 F 96 18 105/68 94 L 09/28/20 20:00 97.9 F 107 H 20 120/76 91 L 09/28/20 18:13 108 H 94 L 09/28/20 15:26 102 H 30 H 93 L 09/28/20 15:22 97.8 F 111 H 30 H 115/86 81 L 09/28/20 11:32 109 H 28 H 123/86 97 09/28/20 09:35 126 H 28 H 125/88 96 09/28/20 09:32 128 H 28 H 96 Intake and Output 09/28/20 09/29/20 09/29/20 22:59 06:59 14:59 Intake Total 240 Output Total 450 400 475 Balance -450 -400 -235 Intake: Oral 240 Output: Urine 450 400 475 Other: Voiding Method Urinal Urinal Weight 79.379 kg GENERAL DESCRIPTION: Middle-aged male up in bed, mild distress. No tachypnea or accessory muscle of respiration use. HEENT: Shows Pallor , no scleral icterus. Oral mucous membrane is dry. No pharyngeal erythema or thrush NECK: Trachea central, no thyromegaly. LUNGS: Unlabored breathing. decreased intensity of breath sounds. No wheeze or crackle. HEART: S1, S2, regular rate and rhythm. No loud murmur ABDOMEN: Soft, no tenderness , guarding or rigidity, no organomegaly EXTREMITIES: No edema of feet. SKIN: No rash, no masses palpable. NEUROLOGICAL: The patient is awake, alert, oriented x3, mood and affect normal. Results CBC & Chem 7: 09/29/20 06:52 09/29/20 06:52 Labs: Abnormal Lab Results - Last 24 Hours (Table) 09/28/20 09/28/20 09/28/20 Range/Units 08:02 08:02 08:02 WBC 16.0 H (3.8-10.6) k/uL RBC 6.59 H (4.30-5.90) m/uL Hgb 11.9 L (13.0-17.5) gm/dL Hct 38.9 L (39.0-53.0) % MCV 59.0 L (80.0-100.0) fL MCH 18.0 L (25.0-35.0) pg MCHC 30.6 L (31.0-37.0) g/dL RDW 17.3 H (11.5-15.5) % Neutrophils # 12.9 H (1.3-7.7) k/uL Lymphocytes # (1.0-4.8) k/uL D-Dimer (<0.60) mg/L FEU ABG pH (7.35-7.45) ABG pCO2 (35-45) mmHg ABG pO2 (83-108) mmHg ABG O2 Saturation (94-97) % Sodium 135 L (137-145) mmol/L Chloride (98-107) mmol/L Creatinine 0.61 L (0.66-1.25) mg/dL Glucose 120 H (74-99) mg/dL Plasma Lactic Acid Ramin 2.3 H* (0.7-2.0) mmol/L Total Bilirubin 2.1 H (0.2-1.3) mg/dL ALT 51 H (4-49) U/L Alkaline Phosphatase 127 H (38-126) U/L Lactate Dehydrogenase 1408 H (313-618) U/L C-Reactive Protein 16.8 H (<1.0) mg/dL Procalcitonin (0.02-0.09) ng/mL 09/28/20 09/28/20 09/28/20 Range/Units 08:02 08:24 18:20 WBC (3.8-10.6) k/uL RBC (4.30-5.90) m/uL Hgb (13.0-17.5) gm/dL Hct (39.0-53.0) % MCV (80.0-100.0) fL MCH (25.0-35.0) pg MCHC (31.0-37.0) g/dL RDW (11.5-15.5) % Neutrophils # (1.3-7.7) k/uL Lymphocytes # (1.0-4.8) k/uL D-Dimer 0.86 H (<0.60) mg/L FEU ABG pH 7.46 H (7.35-7.45) ABG pCO2 32 L (35-45) mmHg ABG pO2 129 H (83-108) mmHg ABG O2 Saturation 98.8 H (94-97) % Sodium (137-145) mmol/L Chloride (98-107) mmol/L Creatinine (0.66-1.25) mg/dL Glucose (74-99) mg/dL Plasma Lactic Acid Ramin (0.7-2.0) mmol/L Total Bilirubin (0.2-1.3) mg/dL ALT (4-49) U/L Alkaline Phosphatase (38-126) U/L Lactate Dehydrogenase (313-618) U/L C-Reactive Protein (<1.0) mg/dL Procalcitonin 0.26 H (0.02-0.09) ng/mL 09/29/20 09/29/20 Range/Units 06:52 06:52 WBC 13.4 H (3.8-10.6) k/uL RBC (4.30-5.90) m/uL Hgb 10.0 L D (13.0-17.5) gm/dL Hct 31.5 L (39.0-53.0) % MCV 58.9 L (80.0-100.0) fL MCH 18.7 L (25.0-35.0) pg MCHC (31.0-37.0) g/dL RDW 16.9 H (11.5-15.5) % Neutrophils # 12.4 H (1.3-7.7) k/uL Lymphocytes # 0.3 L (1.0-4.8) k/uL D-Dimer (<0.60) mg/L FEU ABG pH (7.35-7.45) ABG pCO2 (35-45) mmHg ABG pO2 (83-108) mmHg ABG O2 Saturation (94-97) % Sodium (137-145) mmol/L Chloride 109 H (98-107) mmol/L Creatinine 0.44 L (0.66-1.25) mg/dL Glucose 141 H (74-99) mg/dL Plasma Lactic Acid Ramin (0.7-2.0) mmol/L Total Bilirubin (0.2-1.3) mg/dL ALT (4-49) U/L Alkaline Phosphatase (38-126) U/L Lactate Dehydrogenase (313-618) U/L C-Reactive Protein (<1.0) mg/dL Procalcitonin (0.02-0.09) ng/mL Microbiology - Last 24 Hours (Table) 09/28/20 18:00 Gram Stain - Preliminary Sputum Sputum Culture - Preliminary 09/28/20 08:02 Blood Culture Gram Stain - Preliminary Blood Blood Culture - Preliminary Bacillus species Not Anthracis 09/28/20 08:02 Blood Culture - Final Blood Assessment and Plan Assessment: 1-patient presented to hospital with increasing shortness of breath hypoxemia in this patient recent prolonged stay for COVID-19 infection now with evidence of worsening infiltrate on the CT with concern for worsening inflammatory changes secondary to COVID-19 clinically not behaving as a secondary bacterial pneumonia in this patient with no fever significant cough or sputum production 2-positive blood culture with gram-positive bacilli more likely skin contaminant (1) Blood bacterial culture positive Current Visit: Yes Status: Acute Code(s): R78.81 - BACTEREMIA SNOMED Code(s): 1274429949124085 (2) Pneumonia due to COVID-19 virus Current Visit: Yes Status: Acute Code(s): U07.1 - COVID-19; J12.82 - Pneumonia due to coronavirus disease 2018 SNOMED Code(s): 354903179719180578 Plan: 1-discontinue vancomycin 2-obtain sputum for Gram stain and culture check urine for Legionella antigen 3-continue with empiric cefepime while waiting for the culture finalized 4-steroids and bronchodilators per pulmonary and may benefit from repeat dose of Actemra this will be discussed further with the pulmonary team We will follow on clinical condition and cultures to further adjust medication if needed Thank you for this consultation we will follow the patient along with you Time with Patient: Greater than 30
[2020-09-30] MEDS ORDERED: LORazepam 2 MG/ML INJ IV STA (02:31)
--- NOTE | 2020-09-30 02:51 | XR ---
EXAM: XR Chest, 1 View CLINICAL HISTORY: ITS.REASON XR Reason: Dyspnea TECHNIQUE: Frontal view of the chest. COMPARISON: 09/28/2020 IMPRESSION: Bilateral patchy lung opacities are again seen. Mild bilateral pleural effusions.
--- NOTE | 2020-09-30 03:47 | P.EN ---
A team note 55 year old male with recent covid pneumonitis , patient was discharge on 4 L NC, however he returns about 4-5 days ago , with worsening hypoxemia, and having slow recovery time post covid. he went to the bathroom and desated down to mid 70s% oxygen sat despite high flow oxygen at 60 LPM and FiO2 90%, . patient reporting SOB however his mental status is still clear , alert, oriented X 3. but having some difficulty breathing, patient has not tolerated Bipap earlier. lungs good breath sounds bilaterally no wheezing no leg edema bilaterally blood pressure 126/80 HR 109 CXR showed stable patchy opacities bilaterally with small bilateral pleural effsuion , no pneumothorax or any other abnormalities. patient was repositioned in bed, and then given 1 mg of ativan IV to help him calm down he started improving slowly and over about 30 minutes his oxygen sat improved to 88% then up to 93% after about a total of 45 minutes patient will continue on current supplemental oxygen as above, on step down unit tele monitor supportive care assessment acute on chronic hypoxemia with recent covid pneumonitis 40 minutes were spent in critical care time in the care of this patient
[2020-09-30] MEDS: methylPREDNISolone SOD SUCCI 125 MG/2 ML VIAL IV SCH ×3 (06:15→18:38)
[2020-09-30] MEDS: SODIUM CHLORIDE 0.9% 1,000 ML IV SCH ×2 (06:16→15:46)
[2020-09-30] MEDS: MORPHINE SULFATE 4 MG/ML SYRINGE IVP PRN (06:26)
[2020-09-30 07:34] LABS: Anisocytosis Slight; Basophils % (A) 0 %; Eosinophils % (A) 0 %; HGB 9.1 gm/dL (13.0-17.5); Hypochromasia Slight; Lymphocytes # (A) 0.3 k/uL (1.0-4.8); Lymphocytes % (A) 2 %; MCH 18.3 pg (25.0-35.0); MCHC 31.5 g/dL (31.0-37.0); Microcytosis Marked; Monocytes # (A) 0.7 k/uL (0-1.0); Monocytes % (A) 5 %; Neutrophils # (A) 13.3 k/uL (1.3-7.7); Neutrophils % (A) 92 %; Platelet Count 223 k/uL (150-450); Poikilocytosis Slight; RBC 5.01 m/uL (4.30-5.90); RDW 16.8 % (11.5-15.5); WBC 14.4 k/uL (3.8-10.6)
[2020-09-30 08:24] LABS: Glucose,Whole Blood 149 mg/dL (75-99)
[2020-09-30] MEDS: MORPHINE SULFATE 2 MG/ML SYRINGE IVP PRN ×3 (08:30→20:49)
[2020-09-30] MEDS: FAMOTIDINE 20 MG/2 ML VIAL IV SCH ×2 (08:53→20:48)
[2020-09-30] MEDS: CHOLECALCIFEROL 25 MCG (1000 IU) TABLET PO SCH (08:53)
[2020-09-30] MEDS: ASCORBIC ACID 500 MG TAB PO SCH (08:53)
[2020-09-30] MEDS ORDERED: SODIUM CHLORIDE 0.65% NASAL SPRAY 44 ML BTL NASAL PRN (08:56)
--- NOTE | 2020-09-30 09:09 | P.PN ---
Subjective Progress Note Date: 09/30/20 Principal diagnosis: 55-year-old patient coming in for worsening shortness of breath. He is well- known to us. The patient was hospitalized for COVID-19 related pneumonia between 09/02/2020 and 09/17/2020. Abdominal discharge, the patient was given Xarelto and steroids. He was also discharged home on oxygen at 3 L per minute. The patient came into the emergency department again with worsening shortness of breath and ongoing difficulty breathing. No fever. No central chest pain. He is actually requirements is been essentially between 2 and 4 L of home. Paramedics ordered the patient's pulse ox had dropped down to the mid 80s. The patient was placed on nonrebreather and he was brought into the hospital. Currently he is on 15 L nonrebreather facemask. The patient had a follow-up CAT scan of the chest and it showed that there is consolidation developing in the mid and lower lung fajardo bilaterally there are then groundglass infiltrates were seen earlier on earlier CAT scan of the chest tube noticeably pulmonary embolism. The patient was slightly tachycardic at the time of admission. He was in sinus tachycardia. The blood gases showed a pH of 7.46 with a pCO2 of 33 and pO2 129 and this was done on the percent nonrebreather facemask. His lactic acid was 2.3 at time of admission dropped down to 2.0. Electrolytes are normal. LDH is 06/01/2007, CRP 16.8, COVID-19 testing was repeated came back negative. Influenza A and B and RSV were all negative. White cell count of 16 with hemoglobin 11.9. Coagulation profile is essentially within normal limits. On today's evaluation of 09/29/2020, the patient is still short of breath with activity and sometimes at rest. He is having coughing episodes. Unfortunately symptoms have flared up. The patient is afebrile. White cell count was at 13.4. He is currently on 15 L about 2 by nasal cannula and he has also required 100% on a beta facemasks. Note that the patient overnight did not have the 100% nonrebreather and he was only using the 15 L of oxygen through a nasal cannula. Earlier this morning, he had a coughing spells and during which he desaturated and a pulse ox dropped in the low 80s. He d-dimer level is 0.86. Normal renal function. Lactic acid level was as high as 2.0. No altered mentation. Adequate appetite. He continues to have coarse crackles in the lung bases bilaterally. On September 30, 2020, patient seen in follow-up in the intensive care unit where he was transferred this morning. Overnight he was having increasing difficulty breathing coughing, and desaturation despite high flow oxygen. Rapid response was called to the bedside at 3:00 in the morning for concern of worsening hypoxemia. Patient was desaturating down to mid 70s was ambulating to the bathroom and was very slow to recover. he had not tolerated BiPAP earlier. In addition he is having increased anxiety, and coughing spells which makes it difficult for him to tolerate BiPAP support, he was receiving 2-4 mg every 4 hours for breathlessness and anxiety. He states that he was helping his cough somewhat. Chest X-ray this morning shows bilateral patchy lung opacities, and mild bilateral pleural effusions. He remains on high dose IV steroids at 60 mg every 6 hours, his IV fluids are infusing at a rate of 130 ML per hour, he is on Xarelto for DVT prophylaxis at a dose of 10 mg daily. Today's lab work shows white blood cell, 14.4, hemoglobin of 9.1, platelet count is 223, his sodium was 1:30, potassium was 4.5, chloride was 109, CO2 22, BUN is 11, creatinine was 0.44. His blood cultures from 09/28/2020 showed basilar is species not and traces, and staph epidermidis both likely contaminants, patient was at first treated with cefepime and vancomycin and the vancomycin was discontinued yesterday patient remains on cefepime for empiric antibiotic coverage, repeat blood cultures will be sent today. After arrival to the intensive care unit, patient was placed on Airvo at 68 L and FiO2 of 92% in addition to 100% nonrebreather and his pulse ox is ranging between 86-87%, he seems to be a little bit more comfortable, is short of breath with conversation, and having frequent coughing spells. Objective - Vital Signs Vital signs: Vital Signs Temp 97.7 F 09/30/20 08:15 Pulse 121 H 09/30/20 08:15 Resp 13 09/30/20 08:15 BP 129/90 09/30/20 08:15 Pulse Ox 80 L 09/30/20 08:15 Intake & Output 09/29/20 09/30/20 09/30/20 18:59 06:59 18:59 Intake Total 476 130 Output Total 1025 700 320 Balance -549 -700 -190 Weight 70.5 kg Intake: IV 130 Sodium Chloride 0.9% 1, 130 000 ml @ 130 mls/hr IV . Q7H42M [facility] Rx#:[id number] Oral 476 0 Output: Urine 1025 700 320 Other: Voiding Method Urinal Urinal # Voids 1 - Exam GENERAL EXAM: Alert, very pleasant, 55-year-old male on Airvo at 60 L and FiO2 of 92% and 100% nonrebreather mask with a pulse ox between 86-87% , patient has frequent coughing spells, and is dyspneic with conversation comfortable in no apparent distress. HEAD: Normocephalic/atraumatic. EYES: Normal reaction of pupils, equal size. Conjunctiva pink, sclera white. NOSE: Clear with pink turbinates. THROAT: No erythema or exudates. NECK: No masses, no JVD, no thyroid enlargement, no adenopathy. CHEST: No chest wall deformity. Symmetrical expansion. LUNGS: Equal air entry with basilar crackles CVS: Regular rate and rhythm, normal S1 and S2, no gallops, no murmurs, no rubs ABDOMEN: Soft, nontender. No hepatosplenomegaly, normal bowel sounds, no guarding or rigidity. EXTREMITIES: No clubbing, no edema, no cyanosis, 2+ pulses and upper and lower extremities. MUSCULOSKELETAL: Muscle strength and tone normal. SPINE: No scoliosis or deformity SKIN: No rashes CENTRAL NERVOUS SYSTEM: Alert and oriented -3. No focal deficits, tone is normal in all 4 extremities. PSYCHIATRIC: Alert and oriented -3. Appropriate affect. Intact judgment and insight. - Labs CBC & Chem 7: 09/30/20 07:02 09/29/20 06:52 Labs: Abnormal Lab Results - Last 24 Hours (Table) 09/30/20 09/30/20 Range/Units 07:02 08:22 WBC 14.4 H (3.8-10.6) k/uL Hgb 9.1 L (13.0-17.5) gm/dL Hct 29.0 L (39.0-53.0) % MCV 58.0 L (80.0-100.0) fL MCH 18.3 L (25.0-35.0) pg RDW 16.8 H (11.5-15.5) % Neutrophils # 13.3 H (1.3-7.7) k/uL Lymphocytes # 0.3 L (1.0-4.8) k/uL POC Glucose (mg/dL) 149 H (75-99) mg/dL Microbiology - Last 24 Hours (Table) 09/28/20 08:02 Blood Culture Gram Stain - Preliminary Blood 09/28/20 08:02 Blood Culture - Final Blood 09/28/20 08:02 Blood Culture Gram Stain - Final Blood Blood Culture - Final Bacillus species Not Anthracis Staphylococcus epidermidis 09/28/20 18:00 Gram Stain - Preliminary Sputum Sputum Culture - Preliminary Assessment and Plan Plan: Assessment: #1. Acute hypoxic respiratory failure related to acute COVID 19 pneumonia, where the patient was treated on outpatient basis from 09/02/2020 ~09/17/2020 and the patient was given steroids, Remdesivir, and convalescent plasma 1, and Tocilizumab. The CT angiogram is consistent with diffuse pneumonia without evidence of any pulmonary embolism. Following his discharge, the patient did not have any significant improvement and the patient came back with worsening shortness of breath and the CAT scan of the chest is showing consolidation of the mid and lower lung fajardo bilaterally. Doubt superinfection. Findings are most consistent with progression of COVID-19 related pneumonia/acute lung injury. Currently on a 15 L nonrebreather facemask. Currently the patient is also on IV Solu-Medrol. D-dimer levels are low. CAT scan of the chest was reviewed. Doubt superinfection with bacteria. ProCalcitonin level is negative at 0.26. She was transferred to the intensive care unit on 09/30/2020 for worsening hypoxemia and placed on Airvo and color percent nonrebreather mask #2. History of psoriatic arthritis on methotrexate and Leflunomide, both on hold #3. Increased inflammatory markers related to above #4. Mild intermittent bronchial asthma, exercise induced #5. 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 Increased transaminases, recovered #7. Acute exacerbation of chronic bronchial asthma related to COVID-19 pneumonia #8. Positive blood cultures, blood culture from 09/28/2020 positive for Bacill us species not Anthracis and Staphylococcus epidermidis, possible contaminants patient is currently on cefepime, vancomycin was discontinued Plan: Continue titrating FiO2 to maintain O2 saturation between 85-90% May start Precedex infusion for anxiety Continue morphine 2-4 mg every 4 hours for anxiety and breathlessness We will add Tessalon Perles 200 mg 3 times a day Ransom spray for dry nasal passages Continue high-dose Solu-Medrol Continue current doses are relatively well Follow-up blood cultures have been sent Continue cefepime Continue closely monitoring in the intensive care unit I performed a history & physical examination of the patient and discussed their management with my nurse practitioner, Jocy Pacheco. I reviewed the nurse practitioner's note and agree with the documented findings and plan of care. Lung sounds are positive for bibasilar crackles. The findings and the impression was discussed with the patient. I attest to the documentation by the nurse practitioner. Time with Patient: Greater than 30
[2020-09-30] MEDS: CEFEPIME 1 GM in SODIUM CHLORIDE 0.9% 50 ML IVPB SCH ×2 (09:19→20:49)
[2020-09-30] MEDS: BENZONATATE 100 MG CAP PO SCH ×3 (09:19→23:02)
[2020-09-30] MEDS: DEXMEDETOMIDINE/0.9% NACL(PMX) 400 MCG in EMPTY BAG 1 BAG IV SCH ×2 (09:23→16:11)
[2020-09-30] MEDS: RIVAROXABAN 10 MG TAB PO SCH (09:50)
[2020-09-30] MEDS: ALBUTEROL HFA INHALER INHALATION SCH ×4 (10:10→19:27)
[2020-10-01] MEDS: methylPREDNISolone SOD SUCCI 125 MG/2 ML VIAL IV SCH ×4 (00:10→17:07)
[2020-10-01] MEDS: DEXMEDETOMIDINE/0.9% NACL(PMX) 400 MCG in EMPTY BAG 1 BAG IV SCH ×3 (03:05→17:07)
[2020-10-01 04:40] LABS: Anisocytosis Slight; Basophils % (A) 0 %; Eosinophils % (A) 0 %; HCT 28.5 % (39.0-53.0); HGB 9.5 gm/dL (13.0-17.5); Hypochromasia Slight; Lymphocytes # (A) 0.3 k/uL (1.0-4.8); Lymphocytes % (A) 3 %; MCH 19.3 pg (25.0-35.0); MCHC 33.4 g/dL (31.0-37.0); MCV 57.7 fL (80.0-100.0); Mean Platelet Volume 6.2; Microcytosis Marked; Monocytes # (A) 0.6 k/uL (0-1.0); Monocytes % (A) 5 %; Neutrophils % (A) 91 %; Platelet Count 225 k/uL (150-450); Poikilocytosis Slight; RBC 4.93 m/uL (4.30-5.90); RDW 16.5 % (11.5-15.5)
[2020-10-01 04:51] LABS: African American GFR (CKD) >90 (>60 ml/min/1.73 sqM); Anion Gap 4 mmol/L; Blood Urea Nitrogen 13 mg/dL (9-20); C Reactive Protein 6.2 mg/dL (<1.0); Calcium 8.5 mg/dL (8.4-10.2); Carbon Dioxide 26 mmol/L (22-30); Chloride 102 mmol/L (98-107); Glucose 149 mg/dL (74-99); LDH 1262 U/L (313-618); Non-African American GFR(CKD) >90 (>60 ml/min/1.73 sqM); Sodium 132 mmol/L (137-145)
[2020-10-01] MEDS: SODIUM CHLORIDE 0.9% 1,000 ML IV SCH ×2 (06:11→23:29)
--- NOTE | 2020-10-01 06:32 | XR ---
EXAMINATION TYPE: XR chest 1V portable DATE OF EXAM: 10/01/2020 CLINICAL HISTORY: Difficulty breathing and covid progress study. TECHNIQUE: Single AP portable upright view of the chest is obtained. COMPARISON: Chest x-ray from one day earlier and older studies. FINDINGS: There are bilateral multifocal and confluent opacities redemonstrated. The cardiac silhoue tte size is stable and within normal limits. The osseous structures remain intact. IMPRESSION: Persistent bilateral multifocal and confluent opacities more prominent in the lower lung s consistent with covid-19 infection, no significant change from most recent x-ray.
[2020-10-01] MEDS: ALBUTEROL HFA INHALER INHALATION SCH ×6 (07:19→20:06)
[2020-10-01] MEDS: CHOLECALCIFEROL 25 MCG (1000 IU) TABLET PO SCH (07:59)
[2020-10-01] MEDS: BENZONATATE 100 MG CAP PO SCH ×3 (08:00→23:32)
[2020-10-01] MEDS: CEFEPIME 1 GM in SODIUM CHLORIDE 0.9% 50 ML IVPB SCH ×2 (08:00→23:31)
[2020-10-01] MEDS: FAMOTIDINE 20 MG/2 ML VIAL IV SCH ×2 (08:00→23:31)
[2020-10-01] MEDS: RIVAROXABAN 10 MG TAB PO SCH (08:00)
[2020-10-01] MEDS: ASCORBIC ACID 500 MG TAB PO SCH (08:00)
--- NOTE | 2020-10-01 08:40 | P.PN ---
Subjective Progress Note Date: 10/01/20 Principal diagnosis: 55-year-old patient coming in for worsening shortness of breath. He is well- known to us. The patient was hospitalized for COVID-19 related pneumonia between 09/02/2020 and 09/17/2020. Abdominal discharge, the patient was given Xarelto and steroids. He was also discharged home on oxygen at 3 L per minute. The patient came into the emergency department again with worsening shortness of breath and ongoing difficulty breathing. No fever. No central chest pain. He is actually requirements is been essentially between 2 and 4 L of home. Paramedics ordered the patient's pulse ox had dropped down to the mid 80s. The patient was placed on nonrebreather and he was brought into the hospital. Currently he is on 15 L nonrebreather facemask. The patient had a follow-up CAT scan of the chest and it showed that there is consolidation developing in the mid and lower lung fajardo bilaterally there are then groundglass infiltrates were seen earlier on earlier CAT scan of the chest tube noticeably pulmonary embolism. The patient was slightly tachycardic at the time of admission. He was in sinus tachycardia. The blood gases showed a pH of 7.46 with a pCO2 of 33 and pO2 129 and this was done on the percent nonrebreather facemask. His lactic acid was 2.3 at time of admission dropped down to 2.0. Electrolytes are normal. LDH is 06/01/2007, CRP 16.8, COVID-19 testing was repeated came back negative. Influenza A and B and RSV were all negative. White cell count of 16 with hemoglobin 11.9. Coagulation profile is essentially within normal limits. On today's evaluation of 09/29/2020, the patient is still short of breath with activity and sometimes at rest. He is having coughing episodes. Unfortunately symptoms have flared up. The patient is afebrile. White cell count was at 13.4. He is currently on 15 L about 2 by nasal cannula and he has also required 100% on a beta facemasks. Note that the patient overnight did not have the 100% nonrebreather and he was only using the 15 L of oxygen through a nasal cannula. Earlier this morning, he had a coughing spells and during which he desaturated and a pulse ox dropped in the low 80s. He d-dimer level is 0.86. Normal renal function. Lactic acid level was as high as 2.0. No altered mentation. Adequate appetite. He continues to have coarse crackles in the lung bases bilaterally. On September 30, 2020, patient seen in follow-up in the intensive care unit where he was transferred this morning. Overnight he was having increasing difficulty breathing coughing, and desaturation despite high flow oxygen. Rapid response was called to the bedside at 3:00 in the morning for concern of worsening hypoxemia. Patient was desaturating down to mid 70s was ambulating to the bathroom and was very slow to recover. he had not tolerated BiPAP earlier. In addition he is having increased anxiety, and coughing spells which makes it difficult for him to tolerate BiPAP support, he was receiving 2-4 mg every 4 hours for breathlessness and anxiety. He states that he was helping his cough somewhat. Chest X-ray this morning shows bilateral patchy lung opacities, and mild bilateral pleural effusions. He remains on high dose IV steroids at 60 mg every 6 hours, his IV fluids are infusing at a rate of 130 ML per hour, he is on Xarelto for DVT prophylaxis at a dose of 10 mg daily. Today's lab work shows white blood cell, 14.4, hemoglobin of 9.1, platelet count is 223, his sodium was 1:30, potassium was 4.5, chloride was 109, CO2 22, BUN is 11, creatinine was 0.44. His blood cultures from 09/28/2020 showed basilar is species not and traces, and staph epidermidis both likely contaminants, patient was at first treated with cefepime and vancomycin and the vancomycin was discontinued yesterday patient remains on cefepime for empiric antibiotic coverage, repeat blood cultures will be sent today. After arrival to the intensive care unit, patient was placed on Airvo at 68 L and FiO2 of 92% in addition to 100% nonrebreather and his pulse ox is ranging between 86-87%, he seems to be a little bit more comfortable, is short of breath with conversation, and having frequent coughing spells. On October 01, 2020 patient seen in follow-up in intensive care unit, he remains on Airvo with 60 L and 90% FiO2 with 100% nonrebreather mask and his pulse ox is ranging 80-287%, patient easily desaturate with conversation and any exertion. He states he is able to get his O2 sats to 87% if he lays perfectly still and does not move at all. The cough seems to have improved although he still gets coughing jags. He is currently on 0.9 normal saline at 75 ML per hour and Precedex at 0.5 mics per kilo per hour. In addition he is receiving when necessary doses of morphine IV and breathlessness. On high-dose IV steroid Solu-Medrol 60 mg every 6 hours, he remains on as a result of at prophylactic dose 10 mg daily, and no fever or chills overnight, his follow-up blood cultures are showing no growth at the 24-hour yvonne, final cultures are pending, sputum culture showed no growth. Hemodynamically stable, he is in sinus mechanism with a rate of 90 BPM, blood pressures 115/77. Remains on cefepime for empiric antibiotic coverage. Today's labs have been reviewed showing with blood cell count of 11, hemoglobin is 9.5, platelet count is 225, serum sodium is 132, potassium is 4.0, chloride is 102, BUN of 13 creatinine 0.52. CRP is trending down, and is down to 1262, and CRP is down to 6.2. Oral intake has been diminished although he has been able to take nutritional supplements in the form of Ensure. No nausea vomiting or diarrhea, patient is producing urine, and he has external catheter in place, he has produced 1.1 L in urine output over the last 24 hours. Objective - Vital Signs Vital signs: Vital Signs Temp 97 F L 10/01/20 04:00 Pulse 77 10/01/20 08:00 Resp 15 10/01/20 08:00 BP 119/75 10/01/20 08:00 Pulse Ox 81 L 10/01/20 08:00 Intake & Output 09/30/20 10/01/20 10/01/20 18:59 06:59 18:59 Intake Total 989.928 971.092 75 Output Total 1070 1130 Balance -80.072 -158.908 75 Weight 73.5 kg Intake: IV 930 900 75 Cefepime 1 gm In Sodium 50 Chloride 0.9% 50 ml @ 12. 5 mls/hr IVPB Q12H [facility] Rx #:[id number] Sodium Chloride 0.9% 1, 880 900 75 000 ml @ 75 mls/hr IV . [id number] [facility] Rx#:[id number] Intake, IV Titration 59.928 71.092 Amount Dexmedetomidine/0.9% NaCl 59.928 71.092 (Pmx) 400 mcg In Empty Bag 1 bag @ Titrate IV . Q0M [facility] Rx#:[id number] Oral 0 Output: Urine 1070 1130 Other: Voiding Method External Catheter External Catheter - Exam GENERAL EXAM: Alert, very pleasant, 55-year-old male on Airvo at 60 L and FiO2 of 92% and 100% nonrebreather mask with a pulse ox between 72-87%, patient has shallow tachypneic respirations and is dyspneic with conversation HEAD: Normocephalic/atraumatic. EYES: Normal reaction of pupils, equal size. Conjunctiva pink, sclera white. NOSE: Clear with pink turbinates. THROAT: No erythema or exudates. NECK: No masses, no JVD, no thyroid enlargement, no adenopathy. CHEST: No chest wall deformity. Symmetrical expansion. LUNGS: Equal air entry with basilar crackles CVS: Regular rate and rhythm, normal S1 and S2, no gallops, no murmurs, no rubs ABDOMEN: Soft, nontender. No hepatosplenomegaly, normal bowel sounds, no guarding or rigidity. EXTREMITIES: No clubbing, no edema, no cyanosis, 2+ pulses and upper and lower extremities. MUSCULOSKELETAL: Muscle strength and tone normal. SPINE: No scoliosis or deformity SKIN: No rashes CENTRAL NERVOUS SYSTEM: Alert and oriented -3. No focal deficits, tone is normal in all 4 extremities. PSYCHIATRIC: Alert and oriented -3. Appropriate affect. Intact judgment and insight. - Labs CBC & Chem 7: 10/01/20 03:22 10/01/20 03:22 Labs: Abnormal Lab Results - Last 24 Hours (Table) 09/30/20 10/01/20 10/01/20 Range/Units 08:22 03:22 03:22 WBC 11.0 H (3.8-10.6) k/uL Hgb 9.5 L (13.0-17.5) gm/dL Hct 28.5 L (39.0-53.0) % MCV 57.7 L (80.0-100.0) fL MCH 19.3 L (25.0-35.0) pg RDW 16.5 H (11.5-15.5) % Neutrophils # 10.0 H (1.3-7.7) k/uL Lymphocytes # 0.3 L (1.0-4.8) k/uL Sodium 132 L (137-145) mmol/L Creatinine 0.52 L (0.66-1.25) mg/dL Glucose 149 H (74-99) mg/dL POC Glucose (mg/dL) 149 H (75-99) mg/dL Lactate Dehydrogenase 1262 H (313-618) U/L C-Reactive Protein 6.2 H (<1.0) mg/dL Microbiology - Last 24 Hours (Table) 09/28/20 08:02 Blood Culture Gram Stain - Preliminary Blood Blood Culture - Preliminary Coagulase Negative Staph 09/28/20 18:00 Gram Stain - Final Sputum Sputum Culture - Final 09/29/20 06:52 Blood Culture - Preliminary Blood No Growth after 24 hours Assessment and Plan Plan: Assessment: #1. Acute hypoxic respiratory failure related to acute COVID 19 pneumonia, where the patient was treated on outpatient basis from 09/02/2020 ~09/17/2020 and the patient was given steroids, Remdesivir, and convalescent plasma 1, and Tocilizumab. The CT angiogram is consistent with diffuse pneumonia without evidence of any pulmonary embolism. Following his discharge, the patient did not have any significant improvement and the patient came back with worsening shortness of breath and the CAT scan of the chest is showing consolidation of the mid and lower lung fajardo bilaterally. Doubt superinfection. Findings are most consistent with progression of COVID-19 related pneumonia/acute lung injury. Currently on a 15 L nonrebreather facemask. Currently the patient is also on IV Solu-Medrol. D-dimer levels are low. CAT scan of the chest was reviewed. Doubt superinfection with bacteria. ProCalcitonin level is negative at 0.26. She was transferred to the intensive care unit on 09/30/2020 for worsening hypoxemia and placed on Airvo and color percent nonrebreather mask #2. History of psoriatic arthritis on methotrexate and Leflunomide, both on hold #3. Increased inflammatory markers related to above #4. Mild intermittent bronchial asthma, exercise induced #5. 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 Increased transaminases, recovered #7. Acute exacerbation of chronic bronchial asthma related to COVID-19 pneumonia #8. Positive blood cultures, blood culture from 09/28/2020 positive for Bacillus species not Anthracis and Staphylococcus epidermidis, possible contaminants patient is currently on cefepime, vancomycin was discontinued Plan: Continue Precedex infusion for anxiety/breathlessness Airvo at 60l/Fio2 90%, 100% NRB - to keep O2 sats at 85% and above We may try to place on BiPAP again and started with pressures of 10/5, 100%, and gradually increase pressures if the patient tolerates it Continue morphine 2-4 mg every 4 hours for anxiety and breathlessness We will add Tessalon Perles 200 mg 3 times a day [place] spray for dry nasal passages Solu-medrol 60 mg q 6hr Stop Xarelto and switch the patient to Lovenox Follow d-dimer on a daily basis Pro-calcitonin level was negative, follow blood culture and sputum culture have shown no growth We'll continue antibiotics for now Prognosis is extremely guarded Spouse was updated on patient's condition Continue closely monitoring in the intensive care unit I performed a history & physical examination of the patient and discussed their management with my nurse practitioner, Jocy Pacheco. I reviewed the nurse practitioner's note and agree with the documented findings and plan of care. Lung sounds are positive for bibasilar crackles. The findings and the impression was discussed with the patient. I attest to the documentation by the nurse practitioner. Time with Patient: Greater than 30
[2020-10-01] MEDS ORDERED: ENOXAPARIN 40 MG/0.4 ML SYRINGE SQ SCH (09:00)
--- NOTE | 2020-10-01 11:23 | PN ---
PROGRESS NOTE DATE OF SERVICE: 10/01/2020 REASON FOR FOLLOWUP: 1. Pneumonia. 2. Positive blood culture. INTERVAL HISTORY: The patient is afebrile. The patient is hemodynamically stable not on any pressor support. The patient is currently on a 90% FiO2, saturating around 85% to 84%. The patient denies any worsening shortness of breath. He continued to have a cough, not bringing any sputum. No vomiting. No abdominal pain. Has been complaining of low back pain and no diarrhea. PHYSICAL EXAMINATION: Blood pressure 125/79 with a pulse of 84, temperature is 97. He is 85% on 90% FiO2. General description is a middle-aged male lying in bed in no distress. RESPIRATORY SYSTEM: Unlabored breathing, decreased intensity of breath sounds. No wheeze. HEART: S1, S2. Regular. ABDOMEN: Soft, no tenderness. EXTREMITIES: No edema of the feet. LABS: Hemoglobin 9.5, white count 11,000, BUN of 13, creatinine 0.52. CRP is down to 6.2 from admission of 16.8. LDH is mildly down to 1262. Procalcitonin was mildly elevated. Sputum cultures negative. Blood culture with coagulase negative staph. DIAGNOSTIC IMPRESSION AND PLAN: 1. Patient with a positive blood culture, coagulase negative staph, likely skin contaminant. negative. Patient currently off vancomycin. 2. Patient with acute respiratory failure, likely secondary to acute COVID-19 infection and possibly pattern, clinically not behaving as pneumonia though procalcitonin was mildly elevated. He is on continue along with steroids, Lovenox, zinc and ascorbic acid. Continue with supportive care. MMODL / IJN: [id number] /
[2020-10-01] MEDS: MORPHINE SULFATE 2 MG/ML SYRINGE IVP PRN (17:34)
[2020-10-01 18:08] VITALS: TEMP 97
[2020-10-01] MEDS: MORPHINE SULFATE 4 MG/ML SYRINGE IVP PRN (19:48)
[2020-10-01] MEDS ORDERED: propofoL 100 ML IV ONE (20:14)
[2020-10-01] MEDS ORDERED: PROPOFOL 10 MG/ML 20 ML VIAL IV ONE (20:25)
[2020-10-01] MEDS ORDERED: SUCCINYLCHOLINE CHLORIDE VIAL 200 MG/10 ML VIAL IV ONE (20:25)
[2020-10-01] MEDS ORDERED: CISATRACURIUM 200 MG in SODIUM CHLORIDE 0.9% 180 ML IV SCH (20:30)
[2020-10-01] MEDS ORDERED: SODIUM BICARB 8.4% 50 ML SYR (1 MEQ/ML) ONE ×3 (20:37→21:10)
[2020-10-01] MEDS ORDERED: NOREPINEPHRIN 4 MG-0.9% NS PMX 4 MG/250 ML ML IV ONE (20:39)
[2020-10-01] MEDS ORDERED: DEXTROSE 5% IN WATER 100 ML BAG IV ONE (20:44)
[2020-10-01] MEDS ORDERED: AMIODARONE 50 MG/ML 3 ML VIAL IV ONE (20:44)
[2020-10-01] MEDS ORDERED: EPINEPHrine 10 ML SYRINGE (0.1 MG/ML) ONE (20:44)
[2020-10-01] MEDS ORDERED: CALCIUM CHLORIDE 100 MG/ML 10 ML SYRINGE ONE (20:44)
[2020-10-01] MEDS ORDERED: DOPamine DRIP 250 ML IV ONE (20:53)
[2020-10-01] MEDS ORDERED: CHLORHEXIDINE GLUCONATE 15 ML CUP MUCOUS MEM SCH (21:00)
[2020-10-01] MEDS ORDERED: EPINEPHrine 4 MG in DEXTROSE 5% IN WATER 250 ML IV SCH ×2 (21:15)
[2020-10-01 23:28] VITALS: BP 45/24; PULSE 22; RESP 0
--- NOTE | 2020-10-02 03:05 | P.PN ---
Progress Note - Text Progress Note Date: 10/02/20 Code Blue Note Activated at 8:44 PM. Arrived at the scene shortly after. Discussed the case w raquel the RN and reviewed the chart. The patient was admitted to the hospital for Covid 19 pneumonia with gradual worsening throughout his hospital stay. He was intubated earlier tonight and subsequently had a cardiac arrest. Upon arrival at the scene, the patient was undergoing CPR. He was noted to be in PEA and was given IV push epinephrine, calcium chloride, sodium bicarbonate along with high quality CPR. He was noted to be in V. fib twice and was shocked with 200 and 300 J respectively. He was also started on amiodarone along with dopamine infusions. ROSC was achieved twice with subsequent bradycardia and asystole. Discussed the case with the patient's who then arrived at the scene. Following the 3rd episode of Cardiac arrest with a down-time of >15 minutes, she noted that her wouldn't have wished to keep going in this manner. She requested that he be made a No-Code. The patient subsequently at 9:35 pm. The primary team was notified.
--- NOTE | 2020-10-15 13:18 | P.PN ---
Subjective Progress Note Date: 09/29/20 Principal diagnosis: Acute hypoxic respiratory failure secondary to COVID-19 pneumonia This is a very pleasant 55-year-old patient of Dr. Marlena Vicente. Chronic stable medical conditions include hyperlipidemia, exercise-induced asthma, seasonal ALLERGIES, diverticulosis, psoriatic arthritis affecting multiple joints, beta thalassemia. Was recently discharged from the hospital for bilateral Covid 19 pneumonia per pulmonology was seen him. He was discharged on 3-4 L of oxygen via nasal cannula to home. After discharge states that he was little hypoxic bouts start improving gradually and it was 90 to the last few days when he noticed more shortness of breath and his oxygen saturation dropped to 50% last Monday and after he could not get up to more than 8% he came to the hospital with shortness of breath and coughing and phlegm and chest discomfort rather than pain associated with cough and He is tachypneic and tachycardic and he was placed on 15 L oxygen via nasal cannula with pulmonology consult to evaluate him. He wants to come slightly elevated at 13.4 K, hemoglobin is stable at 10.0. d- dimer is 0.686. BMP is unremarkable. Garcia and influenza viruses are not detected CT of the chest and pelvis showing no PE, more prominent multifocal groundglass opacity and organizing consolidation bilaterally from most recent CT on backgrou nd low lung volumes. Relative's sparing of the left upper lobe remains present. No pleural effusion and no pneumothorax Labs Showing leukocytosis of 13.4 K, hemoglobin 10, platelet normal. Patient is currently on IV vancomycin and cefepime 09/29/2020 Patient was admitted to the hospital due to acute hypoxic respiratory failure due to COVID-19 pneumonia. Treated as outpatient from 09/02/2020 to 09/17/2020. Patient is currently lying in the bed appears to be in respiratory distress. Patient does have exertional dyspnea and also shortness of breath at rest. Is also having coughing. Patient has been afebrile. Currently on 100% nonrebreather 15 L oxygen via nasal cannula. Patient is otherwise awake alert and oriented x3. Patient did have desaturations to low 80s when he had coughing spells. Patient is being continued IV Solu-Medrol, Xarelto and: On empiric antibiotics for possible superimposed bacterial infection. Procalcitonin level was ordered. Current medications reviewed. Objective - Vital Signs Vital signs: Vital Signs Temp 97.8 F 09/29/20 12:00 Pulse 107 H 09/29/20 12:00 Resp 20 09/29/20 12:00 BP 116/75 09/29/20 12:00 Pulse Ox 94 L 09/29/20 12:00 Intake & Output 09/28/20 09/29/20 09/29/20 18:59 06:59 18:59 Intake Total 240 Output Total 450 400 475 Balance -450 -400 -235 Weight 79.379 kg Intake: Oral 240 Output: Urine 450 400 475 Other: Voiding Method Urinal Urinal Urinal - Exam GENERAL: The patient is alert and oriented x3, he is in moderate acute respiratory distress. HEENT: Pupils are round and equally reacting to light. EOMI. No scleral icterus. No conjunctival pallor. Normocephalic, atraumatic. No pharyngeal erythema. No thyromegaly. CARDIOVASCULAR: S1 and S2 present. No murmurs, rubs, or gallops. -PULMONARY: Chest is clear to auscultation, no wheezing or crackles. Bilateral crepitation and decrease air entry ABDOMEN: Soft, nontender, nondistended, normoactive bowel sounds. No palpable organomegaly. MUSCULOSKELETAL: No joint swelling or deformity. EXTREMITIES: No cyanosis, clubbing, or pedal edema. NEUROLOGICAL: Gross neurological examination did not reveal any focal deficits. SKIN: No rashes. No petechiae - Labs CBC & Chem 7: 10/01/20 03:22 10/01/20 03:22 Labs: Abnormal Lab Results - Last 24 Hours (Table) 09/28/20 09/28/20 09/29/20 Range/Units 08:02 18:20 06:52 WBC (3.8-10.6) k/uL Hgb (13.0-17.5) gm/dL Hct (39.0-53.0) % MCV (80.0-100.0) fL MCH (25.0-35.0) pg RDW (11.5-15.5) % Neutrophils # (1.3-7.7) k/uL Lymphocytes # (1.0-4.8) k/uL D-Dimer 0.86 H (<0.60) mg/L FEU Chloride 109 H (98-107) mmol/L Creatinine 0.44 L (0.66-1.25) mg/dL Glucose 141 H (74-99) mg/dL Procalcitonin 0.26 H (0.02-0.09) ng/mL 09/29/20 Range/Units 06:52 WBC 13.4 H (3.8-10.6) k/uL Hgb 10.0 L D (13.0-17.5) gm/dL Hct 31.5 L (39.0-53.0) % MCV 58.9 L (80.0-100.0) fL MCH 18.7 L (25.0-35.0) pg RDW 16.9 H (11.5-15.5) % Neutrophils # 12.4 H (1.3-7.7) k/uL Lymphocytes # 0.3 L (1.0-4.8) k/uL D-Dimer (<0.60) mg/L FEU Chloride (98-107) mmol/L Creatinine (0.66-1.25) mg/dL Glucose (74-99) mg/dL Procalcitonin (0.02-0.09) ng/mL Microbiology - Last 24 Hours (Table) 09/28/20 08:02 Blood Culture Gram Stain - Preliminary Blood Blood Culture - Preliminary Bacillus species Not Anthracis Staphylococcus epidermidis 09/28/20 08:02 Blood Culture - Preliminary Blood No Growth after 24 hours 09/28/20 18:00 Gram Stain - Preliminary Sputum Sputum Culture - Preliminary 09/28/20 08:02 Blood Culture - Final Blood Assessment and Plan Assessment: -Acute bilateral pneumonia, bacterial infection is suspected as hospital- acquired pneumonia. -Recent history of bilateral Covid 19 pneumonia -Acute hypoxic respiratory failure -Hyperlipidemia -History of exercise-induced asthma -Diverticulosis, asymptomatic -Chronic cirrhotic arthritis and psoriasis -History of beta thalassemia Plan: This is a pleasant 55 years old male who presents with bilateral pneumonia. Patient is being continued on empiric antibiotics. Also on methylprednisolone 60 mg every 6 hourly and Xarelto. D-dimer is not elevated at this time. Continued on oxygen supplementation. Currently on 100% nonrebreather, high flow oxygen. Procalcitonin level was ordered. Pulmonary and ID is on board. Labs and medication were reviewed. Continue with symptomatic treatment. Monitor lytes and vitals. DVT and GI prophylaxis. Further recommendations as per clinical course of the patient DVT prophylaxis: Subcutaneous heparin GI Prophylaxis: Pepcid PT/OT: Pending Prognosis is guarded Time with Patient: Greater than 30
--- NOTE | 2020-10-15 13:25 | P.PN ---
Subjective Progress Note Date: 09/30/20 Principal diagnosis: Acute hypoxic respiratory failure secondary to COVID-19 pneumonia This is a very pleasant 55-year-old patient of Dr. Marlena Vicente. Chronic stable medical conditions include hyperlipidemia, exercise-induced asthma, seasonal ALLERGIES, diverticulosis, psoriatic arthritis affecting multiple joints, beta thalassemia. Was recently discharged from the hospital for bilateral Covid 19 pneumonia per pulmonology was seen him. He was discharged on 3-4 L of oxygen via nasal cannula to home. After discharge states that he was little hypoxic bouts start improving gradually and it was 90 to the last few days when he noticed more shortness of breath and his oxygen saturation dropped to 50% last Monday and after he could not get up to more than 8% he came to the hospital with shortness of breath and coughing and phlegm and chest discomfort rather than pain associated with cough and He is tachypneic and tachycardic and he was placed on 15 L oxygen via nasal cannula with pulmonology consult to evaluate him. He wants to come slightly elevated at 13.4 K, hemoglobin is stable at 10.0. d- dimer is 0.686. BMP is unremarkable. Garcia and influenza viruses are not detected CT of the chest and pelvis showing no PE, more prominent multifocal groundglass opacity and organizing consolidation bilaterally from most recent CT on backgrou nd low lung volumes. Relative's sparing of the left upper lobe remains present. No pleural effusion and no pneumothorax Labs Showing leukocytosis of 13.4 K, hemoglobin 10, platelet normal. Patient is currently on IV vancomycin and cefepime 09/29/2020 Patient was admitted to the hospital due to acute hypoxic respiratory failure due to COVID-19 pneumonia. Treated as outpatient from 09/02/2020 to 09/17/2020. Patient is currently lying in the bed appears to be in respiratory distress. Patient does have exertional dyspnea and also shortness of breath at rest. Is also having coughing. Patient has been afebrile. Currently on 100% nonrebreather 15 L oxygen via nasal cannula. Patient is otherwise awake alert and oriented x3. Patient did have desaturations to low 80s when he had coughing spells. Patient is being continued IV Solu-Medrol, Xarelto and: On empiric antibiotics for possible superimposed bacterial infection. Procalcitonin level was ordered. 09/30/2020 Overnight patient had desaturation up to mid 70s on high flow oxygen at 6 L and FiO2 90%. Patient was going to the bathroom at that time. Otherwise patient is awake alert oriented x3. Did not tolerate BiPAP. Chest x-ray showed patchy opacities bilaterally with small bilateral pleural effusion. No pneumothorax or any abnormalities. Patient was given a dose of 1 mg of Ativan IV was given due to anxiety. Was seen by A team. Patient was transferred to intensive care unit. Lab data showed WBC 14.4 hemoglobin 9.1 platelets 223, sodium 130 potassium 4.5 chloride 109 bicarb is 22 BUN 11 and creatinine 0.44 blood cultures grew staph species, epidermidis likely contaminant. Antibiotics have been discontinued at this time.on Airvo 68 L with FiO2 92% in addition to 100% nonrebreather and pulse ox is at 86 to 87%. Patient does have frequent coughing episodes. Pulmonary is on board. Current medications reviewed . Objective - Vital Signs Vital signs: Vital Signs Temp 96.6 F L 09/30/20 20:00 Pulse 73 09/30/20 22:30 Resp 22 09/30/20 22:30 BP 141/91 09/30/20 22:30 Pulse Ox 94 L 09/30/20 22:30 Intake & Output 09/30/20 09/30/20 10/01/20 06:59 18:59 06:59 Intake Total 989.928 300 Output Total 700 1070 280 Balance -700 -80.072 20 Weight 70.5 kg Intake: IV 930 300 Cefepime 1 gm In Sodium 50 Chloride 0.9% 50 ml @ 12. 5 mls/hr IVPB Q12H EDU[facility] Rx #:[id number] Sodium Chloride 0.9% 1, 880 300 000 ml @ 75 mls/hr IV . [id number] EDUARDO Rx#:[id number] Intake, IV Titration 59.928 Amount Dexmedetomidine/0.9% NaCl 59.928 (Pmx) 400 mcg In Empty Bag 1 bag @ Titrate IV . Q0M EDUARDO Rx#:[id number] Oral 0 Output: Urine 700 1070 280 Other: Voiding Method Urinal External Catheter External Catheter # Voids 1 - Labs CBC & Chem 7: 10/01/20 03:22 10/01/20 03:22 Labs: Abnormal Lab Results - Last 24 Hours (Table) 09/30/20 09/30/20 Range/Units 07:02 08:22 WBC 14.4 H (3.8-10.6) k/uL Hgb 9.1 L (13.0-17.5) gm/dL Hct 29.0 L (39.0-53.0) % MCV 58.0 L (80.0-100.0) fL MCH 18.3 L (25.0-35.0) pg RDW 16.8 H (11.5-15.5) % Neutrophils # 13.3 H (1.3-7.7) k/uL Lymphocytes # 0.3 L (1.0-4.8) k/uL POC Glucose (mg/dL) 149 H (75-99) mg/dL Microbiology - Last 24 Hours (Table) 09/28/20 08:02 Blood Culture Gram Stain - Preliminary Blood 09/28/20 18:00 Gram Stain - Final Sputum Sputum Culture - Final 09/29/20 06:52 Blood Culture - Preliminary Blood No Growth after 24 hours 09/28/20 08:02 Blood Culture - Final Blood 09/28/20 08:02 Blood Culture Gram Stain - Final Blood Blood Culture - Final Bacillus species Not Anthracis Staphylococcus epidermidis Assessment and Plan Assessment: -Acute hypoxic respiratory failure due to Covid 19 Pneumonia - Staph Epidermidis Bacteremia. Abx Dced. -Recent history of bilateral Covid 19 pneumonia -Hyperlipidemia -History of exercise-induced asthma -Diverticulosis, asymptomatic -Chronic cirrhotic arthritis and - psoriasis on Methotrexate and leflunamide. hold for now. -History of beta thalassemia Plan: This is a pleasant 55 years old male who presents with bilateral pneumonia. Patient is being continued on empiric antibiotics. Also on methylprednisolone 60 mg every 6 hourly and Xarelto. D-dimer is not elevated at this time. Continued on oxygen supplementation. Currently on 100% nonrebreather, 68 L Airvo high flow oxygen. Procalcitonin level was ordered. Pulmonary and ID is on board. Labs and medication were reviewed. Continue with symptomatic treatment. Monitor lytes and vitals. DVT and GI prophylaxis. Further recommendations as per clinical course of the patient DVT prophylaxis: Subcutaneous heparin GI Prophylaxis: Pepcid PT/OT: Pending Prognosis is guarded Time with Patient: Greater than 30
--- NOTE | 2020-10-15 13:32 | P.PN ---
Subjective Progress Note Date: 10/01/20 Principal diagnosis: Acute hypoxic respiratory failure secondary to COVID-19 pneumonia This is a very pleasant 55-year-old patient of Dr. Marlena Vicente. Chronic stable medical conditions include hyperlipidemia, exercise-induced asthma, seasonal ALLERGIES, diverticulosis, psoriatic arthritis affecting multiple joints, beta thalassemia. Was recently discharged from the hospital for bilateral Covid 19 pneumonia per pulmonology was seen him. He was discharged on 3-4 L of oxygen via nasal cannula to home. After discharge states that he was little hypoxic bouts start improving gradually and it was 90 to the last few days when he noticed more shortness of breath and his oxygen saturation dropped to 50% last Monday and after he could not get up to more than 8% he came to the hospital with shortness of breath and coughing and phlegm and chest discomfort rather than pain associated with cough and He is tachypneic and tachycardic and he was placed on 15 L oxygen via nasal cannula with pulmonology consult to evaluate him. He wants to come slightly elevated at 13.4 K, hemoglobin is stable at 10.0. d- dimer is 0.686. BMP is unremarkable. Garcia and influenza viruses are not detected CT of the chest and pelvis showing no PE, more prominent multifocal groundglass opacity and organizing consolidation bilaterally from most recent CT on backgrou nd low lung volumes. Relative's sparing of the left upper lobe remains present. No pleural effusion and no pneumothorax Labs Showing leukocytosis of 13.4 K, hemoglobin 10, platelet normal. Patient is currently on IV vancomycin and cefepime 09/29/2020 Patient was admitted to the hospital due to acute hypoxic respiratory failure due to COVID-19 pneumonia. Treated as outpatient from 09/02/2020 to 09/17/2020. Patient is currently lying in the bed appears to be in respiratory distress. Patient does have exertional dyspnea and also shortness of breath at rest. Is also having coughing. Patient has been afebrile. Currently on 100% nonrebreather 15 L oxygen via nasal cannula. Patient is otherwise awake alert and oriented x3. Patient did have desaturations to low 80s when he had coughing spells. Patient is being continued IV Solu-Medrol, Xarelto and: On empiric antibiotics for possible superimposed bacterial infection. Procalcitonin level was ordered. 09/30/2020 Overnight patient had desaturation up to mid 70s on high flow oxygen at 6 L and FiO2 90%. Patient was going to the bathroom at that time. Otherwise patient is awake alert oriented x3. Did not tolerate BiPAP. Chest x-ray showed patchy opacities bilaterally with small bilateral pleural effusion. No pneumothorax or any abnormalities. Patient was given a dose of 1 mg of Ativan IV was given due to anxiety. Was seen by A team. Patient was transferred to intensive care unit. Lab data showed WBC 14.4 hemoglobin 9.1 platelets 223, sodium 130 potassium 4.5 chloride 109 bicarb is 22 BUN 11 and creatinine 0.44 blood cultures grew staph species, epidermidis likely contaminant. Antibiotics have been discontinued at this time.on Airvo 68 L with FiO2 92% in addition to 100% nonrebreather and pulse ox is at 86 to 87%. Patient does have frequent coughing episodes. Pulmonary is on board. 10/01/2020 Patient is currently in the intensive care unit. Remains on Airvo 60 L at FiO2 90% and also 100% nonrebreather. Saturations are in upper 80s. Patient is desaturating with minimal exertion with talking. Patient has been afebrile. No nausea vomiting or abdominal pain or diarrhea. Patient is being continued on IV steroids Solu-Medrol 60 mg every 6 hourly along with Xarelto. On empiric antibiotics in the form of cefepime at this time. Patient is also on morphine for severe anxiety and agitation. Lab data showed WBC 11.0 hemoglobin 9.5 and platelets 225 Sodium 132 potassium 4.0 chloride 102 BUN 13 and creatinine 0.52 LDH 05/30/1958 and CRP 6.2 and blood sugar is 149. Chest x-ray showed persistent bilateral multifocal and confluent opacities more prominent in the lower lungs consistent with COVID-19 infection. No significant change from most recent x-ray. Pulmonary is on board. Current medications reviewed . Objective - Vital Signs Vital signs: Vital Signs Temp 97 F L 10/01/20 16:00 Pulse 22 L 10/01/20 21:30 Resp 0 L 10/01/20 21:30 BP 45/24 10/01/20 21:30 Pulse Ox 78 L 10/01/20 21:00 - Exam GENERAL: The patient is alert and oriented x3, he is in moderate acute respiratory distress. HEENT: Pupils are round and equally reacting to light. EOMI. No scleral icterus. No conjunctival pallor. Normocephalic, atraumatic. No pharyngeal erythema. No thyromegaly. CARDIOVASCULAR: S1 and S2 present. No murmurs, rubs, or gallops. -PULMONARY: Chest is clear to auscultation, no wheezing or crackles. Bilateral crepitation and decrease air entry ABDOMEN: Soft, nontender, nondistended, normoactive bowel sounds. No palpable organomegaly. MUSCULOSKELETAL: No joint swelling or deformity. EXTREMITIES: No cyanosis, clubbing, or pedal edema. NEUROLOGICAL: Gross neurological examination did not reveal any focal deficits. SKIN: No rashes. No petechiae - Labs CBC & Chem 7: 10/01/20 03:22 10/01/20 03:22 Assessment and Plan Assessment: -Acute hypoxic respiratory failure due to Covid 19 Pneumonia - Staph Epidermidis Bacteremia. Abx Dced. -Recent Diagnosis of bilateral Covid 19 pneumonia. patient was treated on outpatient basis from 09/02/2020 ~09/17/2020 and the patient was given steroids, Remdesivir, and convalescent plasma 1, and Tocilizumab. -Hyperlipidemia -History of exercise-induced asthma -Diverticulosis, asymptomatic -Chronic cirrhotic arthritis and - psoriasis on Methotrexate and leflunamide. hold for now. -History of beta thalassemia Plan: This is a pleasant 55 years old male who presents with bilateral pneumonia. Patient is being continued on empiric antibiotics. Also on methylprednisolone 60 mg every 6 hourly and Xarelto. D-dimer is not elevated at this time. Continued on oxygen supplementation. Currently on 100% nonrebreather, 60 L Airvo fi02 90% high flow oxygen. Procalcitonin level was ordered. Pulmonary and ID is on board. Labs and medication were reviewed. Continue with symptomatic treatment. Monitor lytes and vitals. DVT and GI prophylaxis. Further recommendations as per clinical course of the patient DVT prophylaxis: Subcutaneous heparin GI Prophylaxis: Pepcid PT/OT: Pending Prognosis is extremely guarded Spouse was updated on patient's condition Continue closely monitoring in the intensive care unit Time with Patient: Greater than 30
--- NOTE | 2020-10-15 13:37 | P.DS ---
Providers Date of admission: 09/28/20 09:15 Expected date of discharge: 10/01/20 Attending physician: Osiris Dumont Consults: 09/28/20 09:15 Consult Physician Routine Consulting Provider: Zaynab Harmon Consult Reason/Comments: PNA Do you want consulting provider notified?: Yes 09/28/20 16:01 Consult Physician Stat Consulting Provider: Luciano Connolly Consult Reason/Comments: covid pneumonia Do you want consulting provider notified?: Yes Primary care physician: Julito Vicente [facility] Course: diagnosis -Acute hypoxic respiratory failure due to Covid 19 Pneumonia -Recent Diagnosis of bilateral Covid 19 pneumonia. patient was treated on outpatient basis from 09/02/2020 ~09/17/2020 and the patient was given steroids, Remdesivir, and convalescent plasma 1, and Tocilizumab. -Staph Epidermidis Bacteremia. Abx Dced. -Hyperlipidemia -History of exercise-induced asthma -Diverticulosis, asymptomatic -Chronic cirrhotic arthritis and - psoriasis on Methotrexate and leflunamide. hold for now. -History of beta thalassemia Hospital course This is a very pleasant 55-year-old patient of Dr. Marlena Vicente. Chronic stable medical conditions include hyperlipidemia, exercise-induced asthma, seasonal ALLERGIES, diverticulosis, psoriatic arthritis affecting multiple joints, beta thalassemia. Was recently discharged from the hospital for bilateral Covid 19 pneumonia per pulmonology was seen him. He was discharged on 3-4 L of oxygen via nasal cannula to home. After discharge states that he was little hypoxic bouts start improving gradually and it was 90 to the last few days when he noticed more shortness of breath and his oxygen saturation dropped to 50% last Monday and after he could not get up to more than 8% he came to the hospital with shortness of breath and coughing and phlegm and chest discomfort rather than pain associated with cough and He is tachypneic and tachycardic and he was placed on 15 L oxygen via nasal cannula with pulmonology consult to evaluate him. He wants to come slightly elevated at 13.4 K, hemoglobin is stable at 10.0. d- dimer is 0.686. BMP is unremarkable. Garcia and influenza viruses are not detected CT of the chest and pelvis showing no PE, more prominent multifocal groundglass opacity and organizing consolidation bilaterally from most recent CT on background low lung volumes. Relative's sparing of the left upper lobe remains present. No pleural effusion and no pneumothorax Labs Showing leukocytosis of 13.4 K, hemoglobin 10, platelet normal. Patient is currently on IV vancomycin and cefepime 09/29/2020 Patient was admitted to the hospital due to acute hypoxic respiratory failure due to COVID-19 pneumonia. Treated as outpatient from 09/02/2020 to 09/17/2020. Patient is currently lying in the bed appears to be in respiratory distress. Patient does have exertional dyspnea and also shortness of breath at rest. Is also having coughing. Patient has been afebrile. Currently on 100% nonrebreather 15 L oxygen via nasal cannula. Patient is otherwise awake alert and oriented x3. Patient did have desaturations to low 80s when he had coughing spells. Patient is being continued IV Solu-Medrol, Xarelto and: On empiric antibiotics for possible superimposed bacterial infection. Procalcitonin level was ordered. 09/30/2020 Overnight patient had desaturation up to mid 70s on high flow oxygen at 6 L and FiO2 90%. Patient was going to the bathroom at that time. Otherwise patient is awake alert oriented x3. Did not tolerate BiPAP. Chest x-ray showed patchy opacities bilaterally with small bilateral pleural effusion. No pneumothorax or any abnormalities. Patient was given a dose of 1 mg of Ativan IV was given due to anxiety. Was seen by A team. Patient was transferred to intensive care unit. Lab data showed WBC 14.4 hemoglobin 9.1 platelets 223, sodium 130 potassium 4.5 chloride 109 bicarb is 22 BUN 11 and creatinine 0.44 blood cultures grew staph species, epidermidis likely contaminant. Antibiotics have been discontinued at this time.on Airvo 68 L with FiO2 92% in addition to 100% nonrebreather and pulse ox is at 86 to 87%. Patient does have frequent coughing episodes. Pulmonary is on board. 10/01/2020 Patient is currently in the intensive care unit. Remains on Airvo 60 L at FiO2 90% and also 100% nonrebreather. Saturations are in upper 80s. Patient is desaturating with minimal exertion with talking. Patient has been afebrile. No nausea vomiting or abdominal pain or diarrhea. Patient is being continued on IV steroids Solu-Medrol 60 mg every 6 hourly along with Xarelto. On empiric antibiotics in the form of cefepime at this time. Patient is also on morphine for severe anxiety and agitation. Lab data showed WBC 11.0 hemoglobin 9.5 and platelets 225 Sodium 132 potassium 4.0 chloride 102 BUN 13 and creatinine 0.52 LDH 05/30/1958 and CRP 6.2 and blood sugar is 149. Chest x-ray showed persistent bilateral multifocal and confluent opacities more prominent in the lower lungs consistent with COVID-19 infection. No significant change from most recent x-ray. Pulmonary is on board. At around 8:44 PM CODE BLUE was activated. Patient was intubated earlier and subsequently had a cardiac arrest. Patient was noted to be in PEA and was started on CPR. Patient was given a dose of IV push epinephrine, calcium chloride and sodium bicarbonate. Patient was also shocked twice. Started on amiodarone drip along with dopamine infusion. ROSC was achieved twice with subsequent bradycardia and asystolic. Patient had third episode of cardiac arrest with downtime of greater than 15 minutes. Upon discussion with his , she noted that her would not have wished to keep going like this manner. She requested that CODE STATUS to be changed to no code. Subsequently patient at 9:35 PM.Family at bedside and was informed.. Patient Condition at Discharge: Serious Plan - Discharge Summary Discharge Rx Participant: No New Discharge Prescriptions: No Action Leflunomide [Arava] 20 mg PO DIRECTED Zinc Sulfate [Orazinc] 220 mg PO DAILY #30 cap Albuterol Inhaler [Ventolin Hfa Inhaler] 4 puff INHALATION RT-Q4H #1 inh Cholecalciferol [Vitamin D3 (25 Mcg = 1000 Iu)] 100 mcg PO DAILY #30 tablet Rivaroxaban [Xarelto] 10 mg PO DAILY 30 Days #30 tab Famotidine [Pepcid] 20 mg PO BID #60 tab Ascorbic Acid [Vitamin C] 1,000 mg PO DAILY #30 tab predniSONE See Taper PO DIRECTED Discharge Medication List Leflunomide [Arava] 20 mg PO DIRECTED 09/02/20 [History] Rivaroxaban [Xarelto] 10 mg PO DAILY 30 Days #30 tab 09/16/20 [Rx] Albuterol Inhaler [Ventolin Hfa Inhaler] 4 puff INHALATION RT-Q4H #1 inh 09/17/20 [Rx] Ascorbic Acid [Vitamin C] 1,000 mg PO DAILY #30 tab 09/17/20 [Rx] Cholecalciferol [Vitamin D3 (25 Mcg = 1000 Iu)] 100 mcg PO DAILY #30 tablet 09/17/20 [Rx] Famotidine [Pepcid] 20 mg PO BID #60 tab 09/17/20 [Rx] Zinc Sulfate [Orazinc] 220 mg PO DAILY #30 cap 09/17/20 [Rx] predniSONE See Taper PO DIRECTED 09/28/20 [History] Follow up Appointment(s)/Referral(s): [facility], [NON-STAFF] - Julito Vicente DO [Primary Care Provider] - 1-2 days Discharge Disposition: - Preliminary Cause of Preliminary Cause of : Acute hypoxic respiratory failure due to Covid 19 Pneumonia
== END 2020-10-01 21:35 | disposition expired | DRG 208 ==
LOC: EC 07:46 → 3SCARD 09:15 → 2SICU 09-30 07:48
PROVIDERS: ADMIT Internal Medicine; ATTEND Internal Medicine
PROC: 5A09457 Assistance with Respiratory Ventilation, 24-96 Consecutive Hours, Continuous Positive Airway Pressure (ICD-10-PCS; 2020-09-28)
PROC: 5A0945A Assistance with Respiratory Ventilation, 24-96 Consecutive Hours, High Flow/Velocity Cannula (ICD-10-PCS; 2020-09-29)
PROC: 0D9670Z Drainage of Stomach with Drainage Device, Via Natural or Artificial Opening (ICD-10-PCS; principal; 2020-10-01)
PROC: 5A1935Z Respiratory Ventilation, Less than 24 Consecutive Hours (ICD-10-PCS; principal; 2020-10-01)
PROC: 0BH17EZ Insertion of Endotracheal Airway into Trachea, Via Natural or Artificial Opening (ICD-10-PCS; 2020-10-01)
PROC: 5A12012 Performance of Cardiac Output, Single, Manual (ICD-10-PCS; 2020-10-01)
PROC: 3E033XZ Introduction of Vasopressor into Peripheral Vein, Percutaneous Approach (ICD-10-PCS; 2020-10-01)
DX: U07.1 COVID-19 (principal); J12.82 Pneumonia due to coronavirus disease 2019; J96.01 Acute respiratory failure with hypoxia; J15.9 Unspecified bacterial pneumonia; J90 Pleural effusion, not elsewhere classified; J45.21 Mild intermittent asthma with (acute) exacerbation; I49.01 Ventricular fibrillation; I46.8 Cardiac arrest due to other underlying condition; D56.1 Beta thalassemia; L40.50 Arthropathic psoriasis, unspecified; Z66 Do not resuscitate; E78.5 Hyperlipidemia, unspecified; F41.9 Anxiety disorder, unspecified; M54.5 Low back pain; K57.90 Diverticulosis of intestine, part unspecified, without perforation or abscess without bleeding; R74.01 Elevation of levels of liver transaminase levels; Z87.19 Personal history of other diseases of the digestive system; Z79.01 Long term (current) use of anticoagulants; Z79.899 Other long term (current) drug therapy; Z87.891 Personal history of nicotine dependence; Z87.11 Personal history of peptic ulcer disease; Z86.010 Personal history of colon polyps; Z87.39 Personal history of other diseases of the musculoskeletal system and connective tissue; Z98.818 Other dental procedure status; Z98.890 Other specified postprocedural states; Z88.0 Allergy status to penicillin; Z83.6 Family history of other diseases of the respiratory system
CPT/HCPCS: 36415; 36600; 71045; 71275; 80048; 80053; 82805; 83605; 83615; 84145; 84484; 85025; 85379; 85610; 85730; 86140; 87040; 87070; 87077; 87186; 87205; 87636; 93005; 94002; 94640; 94660; 96374; 96375; 99291